=== PATIENT | male | born 1990 | race Caucasian/White ===

== ENCOUNTER 2016-08-08 12:58 | Emergency (ER) | payer BC ==
[~2016-08-08 12:58] MED LIST: No Historical Meds; UNIS50CA PO; ZOLO100T PO; no home medications
[2016-08-08 14:44] LABS: BASO % 0.6 % (0.0-1.0); EOS # 0.2 K/mm3 (0.0-0.50); LARGE UNSTAINED CELL # 0.2 K/mm3 (0.0-0.4); LARGE UNSTAINED CELL % 2.2 % (0.0-4.0); LYMPH # 1.5 K/mm3 (1.5-6.5); LYMPH % 19.8 % (24.0-44.0); MEAN CORPUSCULAR HEMOGLOBIN 31.8 pg (27.0-33.0); MEAN CORPUSCULAR HGB CONC 34.5 g/dl (32.0-36.5); MONO # 0.5 K/mm3 (0.0-0.8); MONO % 6.6 % (0.0-5.0); NEUTROPHILS % 68.8 % (36.0-66.0); PLATELET COUNT, AUTOMATED 289 k/mm3 (150-450); RED CELL DISTRIBUTION WIDTH 12.7 % (11.5-14.5); WHITE BLOOD COUNT 7.3 K/mm3 (4.0-10.0)
[2016-08-08 15:08] LABS: ALBUMIN/GLOBULIN RATIO 1.18 (1.00-1.93); ALKALINE PHOSPHATASE 84 U/L (45-117); ALT/SGPT 28 U/L (12-78); ANION GAP 8 MEQ/L (8-16); AST/SGOT 14 U/L (15-37); BILIRUBIN,TOTAL 0.3 MG/DL (0.2-1.0); BLOOD UREA NITROGEN 9 MG/DL (7-18); CALCIUM LEVEL 8.6 MG/DL (8.5-10.1); CARBON DIOXIDE LEVEL 31 MEQ/L (21-32); CHLORIDE LEVEL 102 MEQ/L (98-107); CREATININE FOR GFR 0.96 MG/DL (0.70-1.30); GLOMERULAR FILTRATION RATE > 60.0 (>60); GLUCOSE, FASTING 89 MG/DL (70-105); POTASSIUM SERUM 5.1 MEQ/L (3.5-5.1); SODIUM LEVEL 141 MEQ/L (136-145); TOTAL PROTEIN 7.4 GM/DL (6.4-8.2)
--- NOTE | 2016-08-08 15:41 | EDDOCDS ---
Physician Documentation [facility] Name: Manuel Ponce Age: 25 yrs Sex: Male : 1990 Arrival Date: 08/08/2016 Time: 12:58 Bed PR Private MD: No Pcp Disposition: 08/08/16 15:29 Discharged to Home/Self Care. Impression: Chest pain, unspecified - suspect esophagitis, Tobacco abuse counseling. - Condition is Stable. - Discharge Instructions: Nonspecific Chest Pain, Esophagitis, Smoking Hazards, Smoking Cessation, Tips For Success. - Prescriptions for Carafate 1 gram Oral Tablet - take 2 tablet by ORAL route every 12 hours take on an empty stomach, beginning on waking and last dose at bedtime; 100 tablet. - Medication Reconciliation, Local Pharmacy Hours form. - [facility] up: [facility]; When: Call to arrange an appointment; Reason: Further diagnostic work-up, Recheck today's complaints, Continuance of care. - Problem is new. - Symptoms are unchanged. Historical: - Allergies: no known allergies; - Home Meds: 1. none - PMHx: none; - PSHx: right nephrectomy; Appendectomy; - Social history: Smoking status: Patient uses tobacco products, current every day smoker. No barriers to communication noted, The patient speaks fluent [place] Citizen, Speaks appropriately for age. - Family history: Not pertinent. - : The pt / caregiver states he / she is not on anticoagulants. Home medication list is obtained from the patient. - Exposure Risk Screening:: None identified. Vital Signs: 08/08 13:00 BP 134 / 85; Pulse 89; Resp 16; Temp 96.9; Pulse Ox 100% ; Weight 83.91 kg / 184.99 cmb lbs; Height 6 ft. 2 in. (187.96 cm); Pain 4/10; 15:34 BP 129 / 78; Pulse 86; Resp 16; Temp 98.1; Pulse Ox 98% on R/A; Pain 2/10; ttb 13:00 Body Mass Index 23.75 (83.91 kg, 187.96 cm) cmb MDM: 13:05 ECG WITH READING ER PHYS+CARDIAG ordered. EDMS 14:26 Cardiac Marker Panel Ordered. EDMS 14:26 CBC with Diff Ordered. EDMS 14:27 Complete Comphrensive Metabolic Ordered. EDMS 15:13 CBC with Diff Reviewed. btw 15:13 Complete Comphrensive Metabolic Reviewed. btw 15:13 Cardiac Marker Panel Reviewed. btw Signatures: Dispatcher [employer] EDMS Lydia Magallanes, RN RN Ruben St PA PA btw Patrica Booker RN RN ttb MTDD
--- NOTE | 2016-08-08 15:42 | EDDOCDS ---
Nurse's Notes [facility] Name: Manuel Ponce Age: 25 yrs Sex: Male : 1990 Arrival Date: 08/08/2016 Time: 12:58 Bed PR Private MD: No Pcp Diagnosis: Chest pain, unspecified-suspect esophagitis;Tobacco abuse counseling Presentation: 08/08 13:01 Presenting complaint: Patient states: mid chest tightness for an hour. pain earlier srm today but now tightness. no cough or cold symptoms. pain did not radiate. Aspirin was not taken prior to arrival. Adult Sepsis Screening: The patient does not have new or worsening altered mentation. Patient's respiratory rate is less than 22. Systolic blood pressure is greater than 100. Patient has a qSOFA score of 0- Negative Sepsis Screen. Suicide/Homicide risk assessment- the patient denies having any suicidal and/or homicidal ideations and does not present with any other emotional, behavioral or mental health complaints. 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 Transition of care: patient was not received from another setting of care. 13:01 Method Of Arrival: Walkin/Carried/Asstd srm 13:01 Acuity: YVETTE Level 3 srm Triage Assessment: 13:03 General: Appears in no apparent distress, Behavior is appropriate for age, cooperative. srm 13:04 Pain: Pain currently is 4 out of 10 on a pain scale. HIV screening NA for this visit srm Offered previously. Cardiovascular: Chest pain is described as Pain is 4 out of 10 on a pain scale. radiates Does not radiate. episodes are continuous began 1 hour prior to arrival. Historical: - Allergies: no known allergies; - Home Meds: 1. none - PMHx: none; - PSHx: right nephrectomy; Appendectomy; - Social history: Smoking status: Patient uses tobacco products, current every day smoker. No barriers to communication noted, The patient speaks fluent Tajik, Speaks appropriately for age. - Family history: Not pertinent. - : The pt / caregiver states he / she is not on anticoagulants. Home medication list is obtained from the patient. - Exposure Risk Screening:: None identified. Screenin:38 Screening information is obtained from the patient. Fall risk: No risks identified. ttb Assistance ADL's: requires no assistance with activities of daily living. Abuse/DV Screen: The patient / caregiver reports he/she is: not in a situation that causes fear, pain or injury. Nutritional screening: No deficits noted. Advance Directives: Currently, there is no health care proxy. home support is adequate. Assessment: 15:38 General: Appears in no apparent distress, well nourished, well groomed, Behavior is ttb appropriate for age, cooperative, pleasant. Pain: Location: mid chest. Neurological: Level of Consciousness is awake, alert. Cardiovascular: Rhythm is see EKG report Chest pain minimal now.. Respiratory: No deficits noted. Airway is patent Respiratory effort is even, unlabored, Denies cough, shortness of breath labored breathing, pain with respiration. GI: Denies nausea, vomiting, pain. Derm: Skin is normal. 15:38 Injury Description: No known injury. ttb Vital Signs: 13:00 BP 134 / 85; Pulse 89; Resp 16; Temp 96.9; Pulse Ox 100% ; Weight 83.91 kg; Height 6 cmb ft. 2 in. (187.96 cm); Pain 4/10; 15:34 BP 129 / 78; Pulse 86; Resp 16; Temp 98.1; Pulse Ox 98% on R/A; Pain 2/10; ttb 13:00 Body Mass Index 23.75 (83.91 kg, 187.96 cm) cmb Vitals: 13:00 Log In Time: August 08, 2016 at 12:58. cmb ED Course: 13:00 Patient visited by Elissa Izaguirre. cmb 13:00 Patient moved to Waiting cmb 13:01 Patient moved to Pre RCE cmb 13:02 No Pcp is Private Physician. cmb 13:02 Triage Initiated srm 13:04 Patient moved to PR2 / 26 srm 13:09 EKG done. (by ED staff). Reviewed by Joyce Fitzpatrick MD. ct3 13:11 Patient visited by Eloise Grullon PCA. ct3 13:11 Patient moved to Pre RCE ct3 13:11 EKG done. (by ED staff). Reviewed by Joyce Fitzpatrick MD pt's c/o and ekg srm discussed with dr beto brush thru RCE process. 13:57 Patient moved to Triage 3 ct3 14:10 Ruben Toney PA is PHCP. btw 14:10 Joyce Fitzpatrick MD is Attending Physician. btw 14:15 Patient visited by Ruben Toney PA. btw 14:30 Patient moved to TR1 ct3 14:30 Patient moved to PR2 / 26 ttb 14:30 Complete Comphrensive Metabolic Sent. ct3 14:30 CBC with Diff Sent. ct3 14:30 Cardiac Marker Panel Sent. ct3 15:28 [facility] is Referral Physician. btw 15:38 The patient / caregiver is instructed regarding the plan of care and ED course. Patient ttb has correct armband on for positive identification. EKG completed. 15:38 No IV's were initiated during this patient's visit. No procedures done that require ttb assistance. Labs drawn. (by ED staff). Order Results: Lab Order: Cardiac Marker Panel; SPEC'M 08/08/16 14:30 Test: CPK CREATINE PHOSPHOKINASE; Value: 40; Range: 39-308; Units: U/L; Status: F Test: CK-MB VALUE MASS; Value: 1.0; Range: 0.0-3.6; Units: NG/ML; Status: F Test: MB/CK RELATIVE INDEX; Value: 2.50; Range: < OR =4; Status: F Test: TROPONIN I; Value: < 0.02; Range: < 0.10; Units: NG/ML; Status: F Test Note: ; DIAGNOSIS CRITERIA MMB ng/ml Relative Index (RI) NON-AMI < or = 5 N/A [place]ONE > 5 < or = 4 AMI > 5 > 4 Lab Order: CBC with Diff; SPEC'M 08/08/16 14:30 Test: WHITE BLOOD COUNT; Value: 7.3; Range: 4.0-10.0; Units: K/mm3; Status: F Test: RED BLOOD COUNT; Value: 4.80; Range: 4.30-6.10; Units: M/mm3; Status: F Test: HEMOGLOBIN; Value: 15.3; Range: 14.0-18.0; Units: g/dl; Status: F Test: HEMATOCRIT; Value: 44.2; Range: 42.0-52.0; Units: %; Status: F Test: MEAN CORPUSCULAR VOLUME; Value: 92.0; Range: 80.0-96.0; Units: fl; Status: F Test: MEAN CORPUSCULAR HEMOGLOBIN; Value: 31.8; Range: 27.0-33.0; Units: pg; Status: F Test: MEAN CORPUSCULAR HGB CONC; Value: 34.5; Range: 32.0-36.5; Units: g/dl; Status: F Test: RED CELL DISTRIBUTION WIDTH; Value: 12.7; Range: 11.5-14.5; Units: %; Status: F Test: PLATELET COUNT, AUTOMATED; Value: 289; Range: 150-450; Units: k/mm3; Status: F Test: NEUTROPHILS %; Value: 68.8; Range: 36.0-66.0; Abnormal: Above high normal; Units: %; Status: F Test: LYMPH %; Value: 19.8; Range: 24.0-44.0; Abnormal: Below low normal; Units: %; Status: F Test: MONO %; Value: 6.6; Range: 0.0-5.0; Abnormal: Above high normal; Units: %; Status: F Test: EOS %; Value: 2.0; Range: 0.0-3.0; Units: %; Status: F Test: BASO %; Value: 0.6; Range: 0.0-1.0; Units: %; Status: F Test: LARGE UNSTAINED CELL %; Value: 2.2; Range: 0.0-4.0; Units: %; Status: F Test: NEUTROPHILS #; Value: 5.0; Range: 1.8-7.7; Units: K/mm3; Status: F Test: LYMPH #; Value: 1.5; Range: 1.5-6.5; Units: K/mm3; Status: F Test: MONO #; Value: 0.5; Range: 0.0-0.8; Units: K/mm3; Status: F Test: EOS #; Value: 0.2; Range: 0.0-0.50; Units: K/mm3; Status: F Test: BASO #; Value: 0.0; Range: 0.0-0.2; Units: K/mm3; Status: F Test: LARGE UNSTAINED CELL #; Value: 0.2; Range: 0.0-0.4; Units: K/mm3; Status: F Lab Order: Complete Comphrensive Metabolic; SPEC'M 08/08/16 14:30 Test: GLUCOSE, FASTING; Value: 89; Range: 70-105; Units: MG/DL; Status: F Test: BLOOD UREA NITROGEN; Value: 9; Range: 7-18; Units: MG/DL; Status: F Test: CREATININE FOR GFR; Value: 0.96; Range: 0.70-1.30; Units: MG/DL; Status: F Test: GLOMERULAR FILTRATION RATE; Value: > 60.0; Range: >60; Status: F Test: SODIUM LEVEL; Value: 141; Range: 136-145; Units: MEQ/L; Status: F Test: POTASSIUM SERUM; Value: 5.1; Range: 3.5-5.1; Units: MEQ/L; Status: F Test: CHLORIDE LEVEL; Value: 102; Range: 98-107; Units: MEQ/L; Status: F Test: CARBON DIOXIDE LEVEL; Value: 31; Range: 21-32; Units: MEQ/L; Status: F Test: ANION GAP; Value: 8; Range: 8-16; Units: MEQ/L; Status: F Test: CALCIUM LEVEL; Value: 8.6; Range: 8.5-10.1; Units: MG/DL; Status: F Test: AST/SGOT; Value: 14; Range: 15-37; Abnormal: Below low normal; Units: U/L; Status: F Test: ALT/SGPT; Value: 28; Range: 12-78; Units: U/L; Status: F Test: ALKALINE PHOSPHATASE; Value: 84; Range: 45-117; Units: U/L; Status: F Test: BILIRUBIN,TOTAL; Value: 0.3; Range: 0.2-1.0; Units: MG/DL; Status: F Test: TOTAL PROTEIN; Value: 7.4; Range: 6.4-8.2; Units: GM/DL; Status: F Test: ALBUMIN; Value: 4.0; Range: 3.2-5.2; Units: GM/DL; Status: F Test: ALBUMIN/GLOBULIN RATIO; Value: 1.18; Range: 1.00-1.93; Status: F Test Note: ; Units are mL/min/1.73 m2 Chronic Kidney Disease Staging per NKF: Stage I & II GFR >=60 Normal to Mildly Decreased Stage III GFR 30-59 Moderately Decreased Stage IV GFR 15-29 Severely Decreased Stage V GFR <15 Very Little GFR Left ESRD GFR <15 on MEDICATION ADMINISTRATION PROFESSIONAL Outcome: 15:29 Discharge ordered by Provider. btw 15:38 Discharge Assessment: Patient awake, alert and oriented x 3. No cognitive and/or ttb functional deficits noted. Patient verbalized understanding of disposition instructions. Patient awake and alert. patient administered narcotics - no. The following High Risk Discharge criteria are identified: None. Discharged to home ambulatory. Condition: good Condition: stable Condition: improved. Discharge instructions given to patient, Instructed on discharge instructions, follow up and referral plans. medication usage, diet, Demonstrated understanding of instructions, medications, meds, decrease acidic foods Pt was receptive of discharge instructions/ teaching. Prescriptions given X 1. No special radiology studies were completed. Property :Personal belongings accompany Pt. 15:40 Patient left the ED. ttb Signatures: Lydia Magallanes, RN RN Ruben St, CHRIS PA btw Eloise Grullon, AIR CONDITIONING TECHNICIAN AIR CONDITIONING TECHNICIAN ct3 Bridgett, Elissa cmb Patrica Booker RN RN ttb Corrections: (The following items were deleted from the chart) 13:01 13:00 BP 134 / 85; Pulse 89bpm; Resp 10bpm; Pulse Ox 100%; Temp 96.9F; 83.91 kg; Height cmb 6 ft. 2 in.; BMI: 23.7; Pain 4/10; cmb MTDD
--- NOTE | 2016-08-08 20:02 | ECGEPIP ---
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
[2016-08-09] MEDS ORDERED: METAL LOCK LOOP XX ONE (13:44)
--- NOTE | 2016-08-10 16:42 | EDDOCDS ---
Physician Documentation [facility] Name: Manuel Ponce Age: 25 yrs Sex: Male : 1990 Arrival Date: 08/08/2016 Time: 12:58 Bed PR Private MD: No Pcp Disposition: 08/08/16 15:29 Discharged to Home/Self Care. Impression: Chest pain, unspecified - suspect esophagitis, Tobacco abuse counseling. - Condition is Stable. - Discharge Instructions: Nonspecific Chest Pain, Esophagitis, Smoking Hazards, Smoking Cessation, Tips For Success. - Prescriptions for Carafate 1 gram Oral Tablet - take 2 tablet by ORAL route every 12 hours take on an empty stomach, beginning on waking and last dose at bedtime; 100 tablet. - Medication Reconciliation, Local Pharmacy Hours form. - Follow up: [facility]; When: Call to arrange an appointment; Reason: Further diagnostic work-up, Recheck today's complaints, Continuance of care. - Problem is new. - Symptoms are unchanged. Historical: - Allergies: no known allergies; - Home Meds: 1. none - PMHx: none; - PSHx: right nephrectomy; Appendectomy; - Social history: Smoking status: Patient uses tobacco products, current every day smoker. No barriers to communication noted, The patient speaks fluent Mongolian, Speaks appropriately for age. - Family history: Not pertinent. - : The pt / caregiver states he / she is not on anticoagulants. Home medication list is obtained from the patient. - Exposure Risk Screening:: None identified. Vital Signs: 08/08 13:00 BP 134 / 85; Pulse 89; Resp 16; Temp 96.9; Pulse Ox 100% ; Weight 83.91 kg / 184.99 cmb lbs; Height 6 ft. 2 in. (187.96 cm); Pain 4/10; 15:34 BP 129 / 78; Pulse 86; Resp 16; Temp 98.1; Pulse Ox 98% on R/A; Pain 2/10; ttb 13:00 Body Mass Index 23.75 (83.91 kg, 187.96 cm) cmb MDM: 13:05 ECG WITH READING ER PHYS+CARDIAG ordered. EDMS 14:26 Cardiac Marker Panel Ordered. EDMS 14:26 CBC with Diff Ordered. EDMS 14:27 Complete Comphrensive Metabolic Ordered. EDMS 15:13 CBC with Diff Reviewed. btw 15:13 Complete Comphrensive Metabolic Reviewed. btw 15:13 Cardiac Marker Panel Reviewed. btw 08/10 08:16 T-Sheet-- Draft Copy was scanned into [employer] and attached to record. gb 10:58 [facility] Payment Agreement was scanned into [employer] and attached to record. lg Signatures: Dispatcher [employer] EDMS Lydia Magallanes, TRAVIS RN srm Kathia Jeronimo, Reg Reg gb Suzanna Zapata, Reg Reg lg Ruben Toney PA PA btw Patrica Booker RN RN ttb The chart was reviewed and I authenticate all verbal orders and agree with the evaluation and treatment provided.Attachments: 08:16 T-Sheet-- Draft Copy gb 10:58 [facility] Payment Agreement lg Chart Complete MTDD
--- NOTE | 2016-08-10 16:42 | EDDOCDS ---
Physician Documentation [facility] Name: Manuel Ponce Age: 25 yrs Sex: Male : 1990 Arrival Date: 08/08/2016 Time: 12:58 Bed PR Private MD: No Pcp Disposition: 08/08/16 15:29 Discharged to Home/Self Care. Impression: Chest pain, unspecified - suspect esophagitis, Tobacco abuse counseling. - Condition is Stable. - Discharge Instructions: Nonspecific Chest Pain, Esophagitis, Smoking Hazards, Smoking Cessation, Tips For Success. - Prescriptions for Carafate 1 gram Oral Tablet - take 2 tablet by ORAL route every 12 hours take on an empty stomach, beginning on waking and last dose at bedtime; 100 tablet. - Medication Reconciliation, Local Pharmacy Hours form. - Follow up: [facility]; When: Call to arrange an appointment; Reason: Further diagnostic work-up, Recheck today's complaints, Continuance of care. - Problem is new. - Symptoms are unchanged. Historical: - Allergies: no known allergies; - Home Meds: 1. none - PMHx: none; - PSHx: right nephrectomy; Appendectomy; - Social history: Smoking status: Patient uses tobacco products, current every day smoker. No barriers to communication noted, The patient speaks fluent Martiniquais, Speaks appropriately for age. - Family history: Not pertinent. - : The pt / caregiver states he / she is not on anticoagulants. Home medication list is obtained from the patient. - Exposure Risk Screening:: None identified. Vital Signs: 08/08 13:00 BP 134 / 85; Pulse 89; Resp 16; Temp 96.9; Pulse Ox 100% ; Weight 83.91 kg / 184.99 cmb lbs; Height 6 ft. 2 in. (187.96 cm); Pain 4/10; 15:34 BP 129 / 78; Pulse 86; Resp 16; Temp 98.1; Pulse Ox 98% on R/A; Pain 2/10; ttb 13:00 Body Mass Index 23.75 (83.91 kg, 187.96 cm) cmb MDM: 13:05 ECG WITH READING ER PHYS+CARDIAG ordered. EDMS 14:26 Cardiac Marker Panel Ordered. EDMS 14:26 CBC with Diff Ordered. EDMS 14:27 Complete Comphrensive Metabolic Ordered. EDMS 15:13 CBC with Diff Reviewed. btw 15:13 Complete Comphrensive Metabolic Reviewed. btw 15:13 Cardiac Marker Panel Reviewed. btw 08/10 08:16 T-Sheet-- Draft Copy was scanned into 24h[employer] and attached to record. gb 10:58 [facility] Payment Agreement was scanned into 24h[employer] and attached to record. lg Signatures: Dispatcher [employer] EDMS Lydia Magallanes, TRAVIS RN srm Kathia Jeronimo, Reg Reg gb Suzanna Zapata, Reg Reg lg Ruben Toney PA PA btw Patrica Booker RN RN ttb The chart was reviewed and I authenticate all verbal orders and agree with the evaluation and treatment provided.Attachments: 08:16 T-Sheet-- Draft Copy gb 10:58 [facility] Payment Agreement lg Chart Complete MTDD
--- NOTE | 2016-08-10 16:42 | EDDOCDS ---
Nurse's Notes [facility] Name: Manuel Bustamante Age: 25 yrs Sex: Male : 1990 Arrival Date: 08/08/2016 Time: 12:58 Bed PR Private MD: No Pcp Diagnosis: Chest pain, unspecified-suspect esophagitis;Tobacco abuse counseling Presentation: 08/08 13:01 Presenting complaint: Patient states: mid chest tightness for an hour. pain earlier srm today but now tightness. no cough or cold symptoms. pain did not radiate. Aspirin was not taken prior to arrival. Adult Sepsis Screening: The patient does not have new or worsening altered mentation. Patient's respiratory rate is less than 22. Systolic blood pressure is greater than 100. Patient has a qSOFA score of 0- Negative Sepsis Screen. Suicide/Homicide risk assessment- the patient denies having any suicidal and/or homicidal ideations and does not present with any other emotional, behavioral or mental health complaints. 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 Transition of care: patient was not received from another setting of care. 13:01 Method Of Arrival: Walkin/Carried/Asstd srm 13:01 Acuity: YVETTE Level 3 srm Triage Assessment: 13:03 General: Appears in no apparent distress, Behavior is appropriate for age, cooperative. srm 13:04 Pain: Pain currently is 4 out of 10 on a pain scale. HIV screening NA for this visit srm Offered previously. Cardiovascular: Chest pain is described as Pain is 4 out of 10 on a pain scale. radiates Does not radiate. episodes are continuous began 1 hour prior to arrival. Historical: - Allergies: no known allergies; - Home Meds: 1. none - PMHx: none; - PSHx: right nephrectomy; Appendectomy; - Social history: Smoking status: Patient uses tobacco products, current every day smoker. No barriers to communication noted, The patient speaks fluent Faroese, Speaks appropriately for age. - Family history: Not pertinent. - : The pt / caregiver states he / she is not on anticoagulants. Home medication list is obtained from the patient. - Exposure Risk Screening:: None identified. Screenin:38 Screening information is obtained from the patient. Fall risk: No risks identified. ttb Assistance ADL's: requires no assistance with activities of daily living. Abuse/DV Screen: The patient / caregiver reports he/she is: not in a situation that causes fear, pain or injury. Nutritional screening: No deficits noted. Advance Directives: Currently, there is no health care proxy. home support is adequate. Assessment: 15:38 General: Appears in no apparent distress, well nourished, well groomed, Behavior is ttb appropriate for age, cooperative, pleasant. Pain: Location: mid chest. Neurological: Level of Consciousness is awake, alert. Cardiovascular: Rhythm is see EKG report Chest pain minimal now.. Respiratory: No deficits noted. Airway is patent Respiratory effort is even, unlabored, Denies cough, shortness of breath labored breathing, pain with respiration. GI: Denies nausea, vomiting, pain. Derm: Skin is normal. 15:38 Injury Description: No known injury. ttb Vital Signs: 13:00 BP 134 / 85; Pulse 89; Resp 16; Temp 96.9; Pulse Ox 100% ; Weight 83.91 kg; Height 6 cmb ft. 2 in. (187.96 cm); Pain 4/10; 15:34 BP 129 / 78; Pulse 86; Resp 16; Temp 98.1; Pulse Ox 98% on R/A; Pain 2/10; ttb 13:00 Body Mass Index 23.75 (83.91 kg, 187.96 cm) cmb Vitals: 13:00 Log In Time: August 08, 2016 at 12:58. cmb ED Course: 13:00 Patient visited by Elissa Izaguirre. cmb 13:00 Patient moved to Waiting cmb 13:01 Patient moved to Pre RCE cmb 13:02 No Pcp is Private Physician. cmb 13:02 Triage Initiated srm 13:04 Patient moved to PR2 / 26 srm 13:09 EKG done. (by ED staff). Reviewed by Joyce Fitzpatrick MD. ct3 13:11 Patient visited by Eloise Grullon PCA. ct3 13:11 Patient moved to Pre RCE ct3 13:11 EKG done. (by ED staff). Reviewed by Joyce Fitzpatrick MD pt's c/o and ekg srm discussed with dr beto brush thru RCE process. 13:57 Patient moved to Triage 3 ct3 14:10 Ruben Toney PA is PHCP. btw 14:10 Joyce Fitzpatrick MD is Attending Physician. btw 14:15 Patient visited by Ruben Toney PA. btw 14:30 Patient moved to TR1 ct3 14:30 Patient moved to PR2 / 26 ttb 14:30 Complete Comphrensive Metabolic Sent. ct3 14:30 CBC with Diff Sent. ct3 14:30 Cardiac Marker Panel Sent. ct3 15:28 [facility] is Referral Physician. btw 15:38 The patient / caregiver is instructed regarding the plan of care and ED course. Patient ttb has correct armband on for positive identification. EKG completed. 15:38 No IV's were initiated during this patient's visit. No procedures done that require ttb assistance. Labs drawn. (by ED staff). 20:06 EKG-ADULT Returned. EDMS 01 08:16 T-Sheet-- Draft Copy was scanned into [employer] and attached to record. 10:58 Patient name changed from Manuel\S\\S\Bustamante\S\ to Manuel\S\Sav\S\Bustamante. EDMS 10:58 [facility] Payment Agreement was scanned into [employer] and attached to record. lg Order Results: Lab Order: Cardiac Marker Panel; SPEC'M 08/08/16 14:30 Test: CPK CREATINE PHOSPHOKINASE; Value: 40; Range: 39-308; Units: U/L; Status: F Test: CK-MB VALUE MASS; Value: 1.0; Range: 0.0-3.6; Units: NG/ML; Status: F Test: MB/CK RELATIVE INDEX; Value: 2.50; Range: < OR =4; Status: F Test: TROPONIN I; Value: < 0.02; Range: < 0.10; Units: NG/ML; Status: F Test Note: ; DIAGNOSIS CRITERIA MMB ng/ml Relative Index (RI) NON-AMI < or = 5 N/A FLORES ZONE > 5 < or = 4 AMI > 5 > 4 Lab Order: CBC with Diff; SPEC'M 08/08/16 14:30 Test: WHITE BLOOD COUNT; Value: 7.3; Range: 4.0-10.0; Units: K/mm3; Status: F Test: RED BLOOD COUNT; Value: 4.80; Range: 4.30-6.10; Units: M/mm3; Status: F Test: HEMOGLOBIN; Value: 15.3; Range: 14.0-18.0; Units: g/dl; Status: F Test: HEMATOCRIT; Value: 44.2; Range: 42.0-52.0; Units: %; Status: F Test: MEAN CORPUSCULAR VOLUME; Value: 92.0; Range: 80.0-96.0; Units: fl; Status: F Test: MEAN CORPUSCULAR HEMOGLOBIN; Value: 31.8; Range: 27.0-33.0; Units: pg; Status: F Test: MEAN CORPUSCULAR HGB CONC; Value: 34.5; Range: 32.0-36.5; Units: g/dl; Status: F Test: RED CELL DISTRIBUTION WIDTH; Value: 12.7; Range: 11.5-14.5; Units: %; Status: F Test: PLATELET COUNT, AUTOMATED; Value: 289; Range: 150-450; Units: k/mm3; Status: F Test: NEUTROPHILS %; Value: 68.8; Range: 36.0-66.0; Abnormal: Above high normal; Units: %; Status: F Test: LYMPH %; Value: 19.8; Range: 24.0-44.0; Abnormal: Below low normal; Units: %; Status: F Test: MONO %; Value: 6.6; Range: 0.0-5.0; Abnormal: Above high normal; Units: %; Status: F Test: EOS %; Value: 2.0; Range: 0.0-3.0; Units: %; Status: F Test: BASO %; Value: 0.6; Range: 0.0-1.0; Units: %; Status: F Test: LARGE UNSTAINED CELL %; Value: 2.2; Range: 0.0-4.0; Units: %; Status: F Test: NEUTROPHILS #; Value: 5.0; Range: 1.8-7.7; Units: K/mm3; Status: F Test: LYMPH #; Value: 1.5; Range: 1.5-6.5; Units: K/mm3; Status: F Test: MONO #; Value: 0.5; Range: 0.0-0.8; Units: K/mm3; Status: F Test: EOS #; Value: 0.2; Range: 0.0-0.50; Units: K/mm3; Status: F Test: BASO #; Value: 0.0; Range: 0.0-0.2; Units: K/mm3; Status: F Test: LARGE UNSTAINED CELL #; Value: 0.2; Range: 0.0-0.4; Units: K/mm3; Status: F Lab Order: Complete Comphrensive Metabolic; SPEC'M 08/08/16 14:30 Test: GLUCOSE, FASTING; Value: 89; Range: 70-105; Units: MG/DL; Status: F Test: BLOOD UREA NITROGEN; Value: 9; Range: 7-18; Units: MG/DL; Status: F Test: CREATININE FOR GFR; Value: 0.96; Range: 0.70-1.30; Units: MG/DL; Status: F Test: GLOMERULAR FILTRATION RATE; Value: > 60.0; Range: >60; Status: F Test: SODIUM LEVEL; Value: 141; Range: 136-145; Units: MEQ/L; Status: F Test: POTASSIUM SERUM; Value: 5.1; Range: 3.5-5.1; Units: MEQ/L; Status: F Test: CHLORIDE LEVEL; Value: 102; Range: 98-107; Units: MEQ/L; Status: F Test: CARBON DIOXIDE LEVEL; Value: 31; Range: 21-32; Units: MEQ/L; Status: F Test: ANION GAP; Value: 8; Range: 8-16; Units: MEQ/L; Status: F Test: CALCIUM LEVEL; Value: 8.6; Range: 8.5-10.1; Units: MG/DL; Status: F Test: AST/SGOT; Value: 14; Range: 15-37; Abnormal: Below low normal; Units: U/L; Status: F Test: ALT/SGPT; Value: 28; Range: 12-78; Units: U/L; Status: F Test: ALKALINE PHOSPHATASE; Value: 84; Range: 45-117; Units: U/L; Status: F Test: BILIRUBIN,TOTAL; Value: 0.3; Range: 0.2-1.0; Units: MG/DL; Status: F Test: TOTAL PROTEIN; Value: 7.4; Range: 6.4-8.2; Units: GM/DL; Status: F Test: ALBUMIN; Value: 4.0; Range: 3.2-5.2; Units: GM/DL; Status: F Test: ALBUMIN/GLOBULIN RATIO; Value: 1.18; Range: 1.00-1.93; Status: F Test Note: ; Units are mL/min/1.73 m2 Chronic Kidney Disease Staging per NKF: Stage I & II GFR >=60 Normal to Mildly Decreased Stage III GFR 30-59 Moderately Decreased Stage IV GFR 15-29 Severely Decreased Stage V GFR <15 Very Little GFR Left ESRD GFR <15 on PEDIGREE TRACER Radiology Order: EKG-ADULT Test: EKG-ADULT REASON FOR EXAMINATION: chest tightness; Stationary ECG Study; [facility] - ED; ; Test Date: 2016-08-08; Pat Name: MANUEL BUSTAMANTE Department:; Room: -; 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 btw 15:38 Discharge Assessment: Patient awake, alert and oriented x 3. No cognitive and/or ttb functional deficits noted. Patient verbalized understanding of disposition instructions. Patient awake and alert. patient administered narcotics - no. The following High Risk Discharge criteria are identified: None. Discharged to home ambulatory. Condition: good Condition: stable Condition: improved. Discharge instructions given to patient, Instructed on discharge instructions, follow up and referral plans. medication usage, diet, Demonstrated understanding of instructions, medications, meds, decrease acidic foods Pt was receptive of discharge instructions/ teaching. Prescriptions given X 1. No special radiology studies were completed. Property :Personal belongings accompany Pt. 15:40 Patient left the ED. ttb Signatures: Dispatcher [employer] EDMS Lydia Magallanes, RN RN srm Heladiobimal, Kathia, Reg Reg gb Suzanna Zapata, Reg Reg lg Ruben Toney PA PA btw Eloise Grullon, BANKRUPTCY JUDGE BANKRUPTCY JUDGE ct3 Will Izaguirrea cmb Patrica Booker, TRAVIS RN ttb Corrections: (The following items were deleted from the chart) 13:01 13:00 BP 134 / 85; Pulse 89bpm; Resp 10bpm; Pulse Ox 100%; Temp 96.9F; 83.91 kg; Height cmb 6 ft. 2 in.; BMI: 23.7; Pain 4/10; cmb Chart Complete MTDD
--- NOTE | 2016-08-12 13:48 | EDDOCDS ---
Nurse's Notes [facility] Name: Manuel Bustamante Age: 25 yrs Sex: Male : 1990 Arrival Date: 08/08/2016 Time: 12:58 Bed PR Private MD: No Pcp Diagnosis: Chest pain, unspecified-suspect esophagitis;Tobacco abuse counseling Presentation: 08/08 13:01 Presenting complaint: Patient states: mid chest tightness for an hour. pain earlier srm today but now tightness. no cough or cold symptoms. pain did not radiate. Aspirin was not taken prior to arrival. Adult Sepsis Screening: The patient does not have new or worsening altered mentation. Patient's respiratory rate is less than 22. Systolic blood pressure is greater than 100. Patient has a qSOFA score of 0- Negative Sepsis Screen. Suicide/Homicide risk assessment- the patient denies having any suicidal and/or homicidal ideations and does not present with any other emotional, behavioral or mental health complaints. 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 Transition of care: patient was not received from another setting of care. 13:01 Method Of Arrival: Walkin/Carried/Asstd srm 13:01 Acuity: YVETTE Level 3 srm Triage Assessment: 13:03 General: Appears in no apparent distress, Behavior is appropriate for age, cooperative. srm 13:04 Pain: Pain currently is 4 out of 10 on a pain scale. HIV screening NA for this visit srm Offered previously. Cardiovascular: Chest pain is described as Pain is 4 out of 10 on a pain scale. radiates Does not radiate. episodes are continuous began 1 hour prior to arrival. Historical: - Allergies: no known allergies; - Home Meds: 1. none - PMHx: none; - PSHx: right nephrectomy; Appendectomy; - Social history: Smoking status: Patient uses tobacco products, current every day smoker. No barriers to communication noted, The patient speaks fluent Irish, Speaks appropriately for age. - Family history: Not pertinent. - : The pt / caregiver states he / she is not on anticoagulants. Home medication list is obtained from the patient. - Exposure Risk Screening:: None identified. Screenin:38 Screening information is obtained from the patient. Fall risk: No risks identified. ttb Assistance ADL's: requires no assistance with activities of daily living. Abuse/DV Screen: The patient / caregiver reports he/she is: not in a situation that causes fear, pain or injury. Nutritional screening: No deficits noted. Advance Directives: Currently, there is no health care proxy. home support is adequate. Assessment: 15:38 General: Appears in no apparent distress, well nourished, well groomed, Behavior is ttb appropriate for age, cooperative, pleasant. Pain: Location: mid chest. Neurological: Level of Consciousness is awake, alert. Cardiovascular: Rhythm is see EKG report Chest pain minimal now.. Respiratory: No deficits noted. Airway is patent Respiratory effort is even, unlabored, Denies cough, shortness of breath labored breathing, pain with respiration. GI: Denies nausea, vomiting, pain. Derm: Skin is normal. 15:38 Injury Description: No known injury. ttb Vital Signs: 13:00 BP 134 / 85; Pulse 89; Resp 16; Temp 96.9; Pulse Ox 100% ; Weight 83.91 kg; Height 6 cmb ft. 2 in. (187.96 cm); Pain 4/10; 15:34 BP 129 / 78; Pulse 86; Resp 16; Temp 98.1; Pulse Ox 98% on R/A; Pain 2/10; ttb 13:00 Body Mass Index 23.75 (83.91 kg, 187.96 cm) cmb Vitals: 13:00 Log In Time: August 08, 2016 at 12:58. cmb ED Course: 13:00 Patient visited by Elissa Izaguirre. cmb 13:00 Patient moved to Waiting cmb 13:01 Patient moved to Pre RCE cmb 13:02 No Pcp is Private Physician. cmb 13:02 Triage Initiated srm 13:04 Patient moved to PR2 / 26 srm 13:09 EKG done. (by ED staff). Reviewed by Joyce Fitzpatrick MD. ct3 13:11 Patient visited by Eloise Grullon PCA. ct3 13:11 Patient moved to Pre RCE ct3 13:11 EKG done. (by ED staff). Reviewed by Joyce Fitzpatrick MD pt's c/o and ekg srm discussed with dr beto brush thru RCE process. 13:57 Patient moved to Triage 3 ct3 14:10 Ruben Toney PA is PHCP. btw 14:10 Joyce Fitzpatrick MD is Attending Physician. btw 14:15 Patient visited by Ruben Toney PA. btw 14:30 Patient moved to TR1 ct3 14:30 Patient moved to PR2 / 26 ttb 14:30 Complete Comphrensive Metabolic Sent. ct3 14:30 CBC with Diff Sent. ct3 14:30 Cardiac Marker Panel Sent. ct3 15:28 [facility] is Referral Physician. btw 15:38 The patient / caregiver is instructed regarding the plan of care and ED course. Patient ttb has correct armband on for positive identification. EKG completed. 15:38 No IV's were initiated during this patient's visit. No procedures done that require ttb assistance. Labs drawn. (by ED staff). 20:06 EKG-ADULT Returned. EDMS 01 08:16 T-Sheet-- Draft Copy was scanned into [employer] and attached to record. 10:58 Patient name changed from Manuel\S\\S\Bustamante\S\ to Manuel\S\Sav\S\Bustamante. EDMS 10:58 [facility] Payment Agreement was scanned into [employer] and attached to record. lg Order Results: Lab Order: Cardiac Marker Panel; SPEC'M 08/08/16 14:30 Test: CPK CREATINE PHOSPHOKINASE; Value: 40; Range: 39-308; Units: U/L; Status: F Test: CK-MB VALUE MASS; Value: 1.0; Range: 0.0-3.6; Units: NG/ML; Status: F Test: MB/CK RELATIVE INDEX; Value: 2.50; Range: < OR =4; Status: F Test: TROPONIN I; Value: < 0.02; Range: < 0.10; Units: NG/ML; Status: F Test Note: ; DIAGNOSIS CRITERIA MMB ng/ml Relative Index (RI) NON-AMI < or = 5 N/A FLORES ZONE > 5 < or = 4 AMI > 5 > 4 Lab Order: CBC with Diff; SPEC'M 08/08/16 14:30 Test: WHITE BLOOD COUNT; Value: 7.3; Range: 4.0-10.0; Units: K/mm3; Status: F Test: RED BLOOD COUNT; Value: 4.80; Range: 4.30-6.10; Units: M/mm3; Status: F Test: HEMOGLOBIN; Value: 15.3; Range: 14.0-18.0; Units: g/dl; Status: F Test: HEMATOCRIT; Value: 44.2; Range: 42.0-52.0; Units: %; Status: F Test: MEAN CORPUSCULAR VOLUME; Value: 92.0; Range: 80.0-96.0; Units: fl; Status: F Test: MEAN CORPUSCULAR HEMOGLOBIN; Value: 31.8; Range: 27.0-33.0; Units: pg; Status: F Test: MEAN CORPUSCULAR HGB CONC; Value: 34.5; Range: 32.0-36.5; Units: g/dl; Status: F Test: RED CELL DISTRIBUTION WIDTH; Value: 12.7; Range: 11.5-14.5; Units: %; Status: F Test: PLATELET COUNT, AUTOMATED; Value: 289; Range: 150-450; Units: k/mm3; Status: F Test: NEUTROPHILS %; Value: 68.8; Range: 36.0-66.0; Abnormal: Above high normal; Units: %; Status: F Test: LYMPH %; Value: 19.8; Range: 24.0-44.0; Abnormal: Below low normal; Units: %; Status: F Test: MONO %; Value: 6.6; Range: 0.0-5.0; Abnormal: Above high normal; Units: %; Status: F Test: EOS %; Value: 2.0; Range: 0.0-3.0; Units: %; Status: F Test: BASO %; Value: 0.6; Range: 0.0-1.0; Units: %; Status: F Test: LARGE UNSTAINED CELL %; Value: 2.2; Range: 0.0-4.0; Units: %; Status: F Test: NEUTROPHILS #; Value: 5.0; Range: 1.8-7.7; Units: K/mm3; Status: F Test: LYMPH #; Value: 1.5; Range: 1.5-6.5; Units: K/mm3; Status: F Test: MONO #; Value: 0.5; Range: 0.0-0.8; Units: K/mm3; Status: F Test: EOS #; Value: 0.2; Range: 0.0-0.50; Units: K/mm3; Status: F Test: BASO #; Value: 0.0; Range: 0.0-0.2; Units: K/mm3; Status: F Test: LARGE UNSTAINED CELL #; Value: 0.2; Range: 0.0-0.4; Units: K/mm3; Status: F Lab Order: Complete Comphrensive Metabolic; SPEC'M 08/08/16 14:30 Test: GLUCOSE, FASTING; Value: 89; Range: 70-105; Units: MG/DL; Status: F Test: BLOOD UREA NITROGEN; Value: 9; Range: 7-18; Units: MG/DL; Status: F Test: CREATININE FOR GFR; Value: 0.96; Range: 0.70-1.30; Units: MG/DL; Status: F Test: GLOMERULAR FILTRATION RATE; Value: > 60.0; Range: >60; Status: F Test: SODIUM LEVEL; Value: 141; Range: 136-145; Units: MEQ/L; Status: F Test: POTASSIUM SERUM; Value: 5.1; Range: 3.5-5.1; Units: MEQ/L; Status: F Test: CHLORIDE LEVEL; Value: 102; Range: 98-107; Units: MEQ/L; Status: F Test: CARBON DIOXIDE LEVEL; Value: 31; Range: 21-32; Units: MEQ/L; Status: F Test: ANION GAP; Value: 8; Range: 8-16; Units: MEQ/L; Status: F Test: CALCIUM LEVEL; Value: 8.6; Range: 8.5-10.1; Units: MG/DL; Status: F Test: AST/SGOT; Value: 14; Range: 15-37; Abnormal: Below low normal; Units: U/L; Status: F Test: ALT/SGPT; Value: 28; Range: 12-78; Units: U/L; Status: F Test: ALKALINE PHOSPHATASE; Value: 84; Range: 45-117; Units: U/L; Status: F Test: BILIRUBIN,TOTAL; Value: 0.3; Range: 0.2-1.0; Units: MG/DL; Status: F Test: TOTAL PROTEIN; Value: 7.4; Range: 6.4-8.2; Units: GM/DL; Status: F Test: ALBUMIN; Value: 4.0; Range: 3.2-5.2; Units: GM/DL; Status: F Test: ALBUMIN/GLOBULIN RATIO; Value: 1.18; Range: 1.00-1.93; Status: F Test Note: ; Units are mL/min/1.73 m2 Chronic Kidney Disease Staging per NKF: Stage I & II GFR >=60 Normal to Mildly Decreased Stage III GFR 30-59 Moderately Decreased Stage IV GFR 15-29 Severely Decreased Stage V GFR <15 Very Little GFR Left ESRD GFR <15 on LOCKMAKER Radiology Order: EKG-ADULT Test: EKG-ADULT REASON FOR EXAMINATION: chest tightness; Stationary ECG Study; [facility] - ED; ; Test Date: 2016-08-08; Pat Name: MANUEL BUSTAMANTE Department:; Room: -; Gender: M 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 btw 15:38 Discharge Assessment: Patient awake, alert and oriented x 3. No cognitive and/or ttb functional deficits noted. Patient verbalized understanding of disposition instructions. Patient awake and alert. patient administered narcotics - no. The following High Risk Discharge criteria are identified: None. Discharged to home ambulatory. Condition: good Condition: stable Condition: improved. Discharge instructions given to patient, Instructed on discharge instructions, follow up and referral plans. medication usage, diet, Demonstrated understanding of instructions, medications, meds, decrease acidic foods Pt was receptive of discharge instructions/ teaching. Prescriptions given X 1. No special radiology studies were completed. Property :Personal belongings accompany Pt. 15:40 Patient left the ED. ttb Signatures: Dispatcher [employer] EDMS Lydia Magallanes, RN RN srm Heladiobimal, Kathia, Reg Reg gb Suzanna Zapata, Reg Reg lg Ruben Toney PA PA btw Eloise Grullon, CONVEYOR BELT REPAIRER CONVEYOR BELT REPAIRER ct3 Will Izaguirrea cmb Patrica Booker, TRAVIS RN ttb Corrections: (The following items were deleted from the chart) 13:01 13:00 BP 134 / 85; Pulse 89bpm; Resp 10bpm; Pulse Ox 100%; Temp 96.9F; 83.91 kg; Height cmb 6 ft. 2 in.; BMI: 23.7; Pain 4/10; cmb Chart Complete MTDD
--- NOTE | 2016-08-12 13:48 | EDDOCDS ---
Physician Documentation [facility] Name: Manuel Ponce Age: 25 yrs Sex: Male : 1990 Arrival Date: 08/08/2016 Time: 12:58 Bed PR Private MD: No Pcp Disposition: 08/08/16 15:29 Discharged to Home/Self Care. Impression: Chest pain, unspecified - suspect esophagitis, Tobacco abuse counseling. - Condition is Stable. - Discharge Instructions: Nonspecific Chest Pain, Esophagitis, Smoking Hazards, Smoking Cessation, Tips For Success. - Prescriptions for Carafate 1 gram Oral Tablet - take 2 tablet by ORAL route every 12 hours take on an empty stomach, beginning on waking and last dose at bedtime; 100 tablet. - Medication Reconciliation, Local Pharmacy Hours form. - [facility] up[facility]; When: Call to arrange an appointment; Reason: Further diagnostic work-up, Recheck today's complaints, Continuance of care. - Problem is new. - Symptoms are unchanged. Historical: - Allergies: no known allergies; - Home Meds: 1. none - PMHx: none; - PSHx: right nephrectomy; Appendectomy; - Social history: Smoking status: Patient uses tobacco products, current every day smoker. No barriers to communication noted, The patient speaks fluent Uzbek, Speaks appropriately for age. - Family history: Not pertinent. - : The pt / caregiver states he / she is not on anticoagulants. Home medication list is obtained from the patient. - Exposure Risk Screening:: None identified. Vital Signs: 08/08 13:00 BP 134 / 85; Pulse 89; Resp 16; Temp 96.9; Pulse Ox 100% ; Weight 83.91 kg / 184.99 cmb lbs; Height 6 ft. 2 in. (187.96 cm); Pain 4/10; 15:34 BP 129 / 78; Pulse 86; Resp 16; Temp 98.1; Pulse Ox 98% on R/A; Pain 2/10; ttb 13:00 Body Mass Index 23.75 (83.91 kg, 187.96 cm) cmb MDM: 13:05 ECG WITH READING ER PHYS+CARDIAG ordered. EDMS 14:26 Cardiac Marker Panel Ordered. EDMS 14:26 CBC with Diff Ordered. EDMS 14:27 Complete Comphrensive Metabolic Ordered. EDMS 15:13 CBC with Diff Reviewed. btw 15:13 Complete Comphrensive Metabolic Reviewed. btw 15:13 Cardiac Marker Panel Reviewed. btw 08/10 08:16 T-Sheet-- Draft Copy was scanned into [employer] and attached to record. gb 10:58 [facility] Payment Agreement was scanned into [employer] and attached to record. lg Signatures: Dispatcher [employer] EDMS Lydia Magallanes, TRAVIS RN srm aKthia Jeronimo, Reg Reg gb Suzanna Zapata, Reg Reg lg Ruben Toney PA PA btw Patrica Booker RN RN ttb The chart was reviewed and I authenticate all verbal orders and agree with the evaluation and treatment provided.Attachments: 08:16 T-Sheet-- Draft Copy gb 10:58 [facility] Payment Agreement lg Chart Complete MTDD
--- NOTE | 2016-08-12 13:48 | EDDOCDS ---
Physician Documentation [facility] Name: Manuel Ponce Age: 25 yrs Sex: Male : 1990 Arrival Date: 08/08/2016 Time: 12:58 Bed PR Private MD: No Pcp Disposition: 08/08/16 15:29 Discharged to Home/Self Care. Impression: Chest pain, unspecified - suspect esophagitis, Tobacco abuse counseling. - Condition is Stable. - Discharge Instructions: Nonspecific Chest Pain, Esophagitis, Smoking Hazards, Smoking Cessation, Tips For Success. - Prescriptions for Carafate 1 gram Oral Tablet - take 2 tablet by ORAL route every 12 hours take on an empty stomach, beginning on waking and last dose at bedtime; 100 tablet. - Medication Reconciliation, Local Pharmacy Hours form. - [facility] up: [facility]; When: Call to arrange an appointment; Reason: Further diagnostic work-up, Recheck today's complaints, Continuance of care. - Problem is new. - Symptoms are unchanged. Historical: - Allergies: no known allergies; - Home Meds: 1. none - PMHx: none; - PSHx: right nephrectomy; Appendectomy; - Social history: Smoking status: Patient uses tobacco products, current every day smoker. No barriers to communication noted, The patient speaks fluent Albanian, Speaks appropriately for age. - Family history: Not pertinent. - : The pt / caregiver states he / she is not on anticoagulants. Home medication list is obtained from the patient. - Exposure Risk Screening:: None identified. Vital Signs: 08/08 13:00 BP 134 / 85; Pulse 89; Resp 16; Temp 96.9; Pulse Ox 100% ; Weight 83.91 kg / 184.99 cmb lbs; Height 6 ft. 2 in. (187.96 cm); Pain 4/10; 15:34 BP 129 / 78; Pulse 86; Resp 16; Temp 98.1; Pulse Ox 98% on R/A; Pain 2/10; ttb 13:00 Body Mass Index 23.75 (83.91 kg, 187.96 cm) cmb MDM: 13:05 ECG WITH READING ER PHYS+CARDIAG ordered. EDMS 14:26 Cardiac Marker Panel Ordered. EDMS 14:26 CBC with Diff Ordered. EDMS 14:27 Complete Comphrensive Metabolic Ordered. EDMS 15:13 CBC with Diff Reviewed. btw 15:13 Complete Comphrensive Metabolic Reviewed. btw 15:13 Cardiac Marker Panel Reviewed. btw 08/10 08:16 T-Sheet-- Draft Copy was scanned into [employer] and attached to record. gb 10:58 [facility] Payment Agreement was scanned into [employer] and attached to record. lg Signatures: Dispatcher [employer] EDMS Lydia Magallanes, TRAVIS RN srm Kathia Jeronimo, Reg Reg gb Suzanna Zapata, Reg Reg lg Ruben Toney PA PA btw Patrica Booker RN RN ttb The chart was reviewed and I authenticate all verbal orders and agree with the evaluation and treatment provided.Attachments: 08:16 T-Sheet-- Draft Copy gb 10:58 [facility] Payment Agreement lg Chart Complete MTDD
== END 2016-08-08 15:40 | disposition home or self-care (01) ==
LOC: M ED 12:58
DX: R07.9 Chest pain, unspecified (principal); F17.200 Nicotine dependence, unspecified, uncomplicated

== ENCOUNTER → 2017-02-25 | Outpatient (CLI) | payer BC ==
[2017-02-25 18:33] LABS: EOS # 0.1 K/mm3 (0.0-0.50); EOS % 1.9 % (0.0-3.0); LARGE UNSTAINED CELL # 0.1 K/mm3 (0.0-0.4); LARGE UNSTAINED CELL % 2.5 % (0.0-4.0); LYMPH # 1.4 K/mm3 (1.5-6.5); LYMPH % 31.2 % (24.0-44.0); MEAN CORPUSCULAR HEMOGLOBIN 32.5 pg (27.0-33.0); MEAN CORPUSCULAR HGB CONC 34.8 g/dl (32.0-36.5); MEAN CORPUSCULAR VOLUME 93.3 fl (80.0-96.0); MONO # 0.5 K/mm3 (0.0-0.8); MONO % 10.6 % (0.0-5.0); NEUTROPHILS # 2.3 K/mm3 (1.8-7.7); NEUTROPHILS % 52.7 % (36.0-66.0); PLATELET COUNT, AUTOMATED 233 k/mm3 (150-450); RED CELL DISTRIBUTION WIDTH 11.7 % (11.5-14.5); WHITE BLOOD COUNT 4.4 K/mm3 (4.0-10.0)
[2017-02-25 18:34] LABS: ALBUMIN 3.9 GM/DL (3.2-5.2); ALBUMIN/GLOBULIN RATIO 1.11 (1.00-1.93); ALKALINE PHOSPHATASE 142 U/L (45-117); ALT/SGPT 102 U/L (12-78); ANION GAP 6 MEQ/L (8-16); AST/SGOT 35 U/L (15-37); BILIRUBIN,TOTAL 0.4 MG/DL (0.2-1.0); BLOOD UREA NITROGEN 13 MG/DL (7-18); CALCIUM LEVEL 9.1 MG/DL (8.5-10.1); CARBON DIOXIDE LEVEL 30 MEQ/L (21-32); CHLORIDE LEVEL 102 MEQ/L (98-107); CREATININE FOR GFR 0.82 MG/DL (0.70-1.30); GLOMERULAR FILTRATION RATE > 60.0 (>60); GLUCOSE, FASTING 90 MG/DL (70-105); POTASSIUM SERUM 4.7 MEQ/L (3.5-5.1); SODIUM LEVEL 138 MEQ/L (136-145); TOTAL PROTEIN 7.4 GM/DL (6.4-8.2)
== END ==
LOC: M WUC 14:57
PROVIDERS: ATTEND Nurse Practitioner Family
DX: Z00.00 Encounter for general adult medical examination without abnormal findings (principal); Z72.51 High risk heterosexual behavior

== ENCOUNTER 2017-12-19 23:54 | Emergency (ER) | payer OTHER, BC | END 2017-12-20 00:43 | disposition home or self-care (01) | LOC: M ED 23:54 | DX: R09.89 Other specified symptoms and signs involving the circulatory and respiratory systems (principal); F17.200 Nicotine dependence, unspecified, uncomplicated; Z79.899 Other long term (current) drug therapy | CPT/HCPCS: 99282 ==

== ENCOUNTER → 2018-01-26 | Outpatient (CLI) | payer OTHER ==
[2018-01-26 17:12] LABS: ALBUMIN 4.6 GM/DL (3.2-5.2); ALBUMIN/GLOBULIN RATIO 1.39 (1.00-1.93); ALKALINE PHOSPHATASE 80 U/L (45-117); ALT/SGPT 40 U/L (12-78); ANION GAP 7 MEQ/L (8-16); AST/SGOT 14 U/L (7-37); BILIRUBIN,TOTAL 0.9 MG/DL (0.2-1.0); BLOOD UREA NITROGEN 15 MG/DL (7-18); CALCIUM LEVEL 9.3 MG/DL (8.5-10.1); CARBON DIOXIDE LEVEL 29 MEQ/L (21-32); CHLORIDE LEVEL 104 MEQ/L (98-107); CHOLESTEROL LEVEL 124 MG/DL (<200); CREATININE FOR GFR 0.87 MG/DL (0.70-1.30); GLOMERULAR FILTRATION RATE > 60.0 (>60); GLUCOSE, FASTING 76 MG/DL (70-100); HDL CHOLESTEROL 50 MG/DL (>40); LDL CHOLESTEROL 62.2 MG/DL (<100); NON-HDL-C 74 MG/DL; POTASSIUM SERUM 4.4 MEQ/L (3.5-5.1); SODIUM LEVEL 140 MEQ/L (136-145); TOTAL PROTEIN 7.9 GM/DL (6.4-8.2); TRIGLYCERIDES LEVEL 59 MG/DL (<150)
== END ==
LOC: M WUC 14:53
DX: Z13.220 Encounter for screening for lipoid disorders (principal); G47.00 Insomnia, unspecified
CPT/HCPCS: 80053

== ENCOUNTER 2020-05-26 20:14 | Emergency (ER) | payer OTHER ==
[~2020-05-26] VITALS: Ht 190.5 cm; Wt 109.3 kg
[2020-05-26 20:14] VITALS: BP 164/94
[2020-05-26] MEDS ORDERED: CLOB-24 TOP (21:04)
== END 2020-05-26 21:11 | disposition home or self-care (01) ==
LOC: M ED 20:14
DX: R21 Rash and other nonspecific skin eruption (principal); F17.210 Nicotine dependence, cigarettes, uncomplicated

== ENCOUNTER → 2020-06-15 | Outpatient (REF) | payer OTHER ==
[~2020-06-15] MED LIST changes: +CLOB-24 TOP
[2020-06-17 14:13] LABS: ANTI DOUBLE STRAND-DNA AB 1 IU/mL (0-9); ANTINUCLEAR ANTIBODIES DIRECT Positive (Negative); RNP ANTIBODIES 0.3 AI (0.0-0.9); SJOGREN'S ANTI SS-A >8.0 AI (0.0-0.9); SJOGREN'S ANTI SS-B <0.2 AI (0.0-0.9); SMITH ANTIBODIES <0.2 AI (0.0-0.9)
== END ==
LOC: M SFHCPLAZ 15:27
PROVIDERS: ATTEND Physician Assistant
DX: L40.8 Other psoriasis (principal)

== ENCOUNTER → 2020-08-23 | Outpatient (REF) | payer OTHER ==
[2020-08-23 18:19] LABS: APPEARANCE, URINE CLEAR (CLEAR); BACTERIA, URINE AUTO NEGATIVE (NEGATIVE); BASO % 0.5 % (0.0-1.0); BILIRUBIN, URINE AUTO NEGATIVE (NEGATIVE); BLOOD, URINE BLOOD NEGATIVE (NEGATIVE); COLOR, URINE YELLOW (YELLOW); EOS # 0.1 10^3/uL (0.0-0.5); EOS % 1.6 % (0.0-3.0); GLUCOSE, URINE (UA) AUTO NEGATIVE (NEGATIVE); HEMATOCRIT 48.5 % (42.0-52.0); HEMOGLOBIN 16.3 g/dl (13.5-17.5); KETONE, URINE AUTO NEGATIVE (NEGATIVE); LEUKOCYTE ESTERASE, URINE AUTO NEGATIVE (NEGATIVE); LYMPH # 1.2 10^3/uL (1.5-5.0); LYMPH % 21.9 % (24.0-44.0); MEAN CORPUSCULAR HEMOGLOBIN 30.7 pg (27.0-33.0); MEAN CORPUSCULAR HGB CONC 33.6 g/dl (32.0-36.5); MEAN CORPUSCULAR VOLUME 91.3 fl (80.0-96.0); MONO # 0.7 10^3/uL (0.0-0.8); MONO % 12.8 % (0.0-5.0); MUCUS, URINE SMALL (NEGATIVE); NEUTROPHILS # 3.5 10^3/uL (1.5-8.5); NEUTROPHILS % 62.8 % (36.0-66.0); NITRITE, URINE AUTO NEGATIVE (NEGATIVE); PLATELET COUNT, AUTOMATED 264 10^3/uL (150-450); PROTEIN, URINE AUTO NEGATIVE (NEGATIVE); RBC, URINE AUTO 0 /HPF (0-3); RED BLOOD COUNT 5.31 10^6/uL (4.30-6.10); SPECIFIC GRAVITY URINE AUTO 1.023 (1.002-1.035); SQUAMOUS EPITHELIAL CELL UR AU 0 /HPF (0-6); UROBILINOGEN, URINE AUTO 0.2 mg/dL (0.0-2.0); WBC, URINE AUTO 0 /HPF (0-3); WHITE BLOOD COUNT 5.6 10^3/uL (4.0-10.0)
[2020-08-23 18:52] LABS: C REACTIVE PROTEIN QUANTITATIV 0.58 MG/DL (0.00-0.30); COMPLEMENT C3 146 MG/DL (90-180); COMPLEMENT C4 25 MG/DL (10-40); IRON (FE) 66 UG/DL (65-175); MAGNESIUM LEVEL 2.2 MG/DL (1.8-2.4); PHOSPHORUS LEVEL 4.1 MG/DL (2.5-4.9); RHEUMATOID FACTOR QUANT < 10.0 IU/ML (<15.0); TOTAL 25(OH) VITAMIN D 35.3 NG/ML (30.0-100.0)
[2020-08-23 18:53] LABS: VITAMIN B12 LEVEL 294 PG/ML (247-911)
[2020-08-23 19:04] LABS: ERYTHROCYTE SEDIMENTATION RATE 7 mm/hr (0-15)
[2020-08-24 14:09] LABS: DRVV SCREEN 38.7 SEC
[2020-08-26 12:10] LABS: ANA (HEP2) Positive (.); ANTI CENTROMERE ANTIBODY <0.2 AI (0.0-0.9); ANTI DS-DNA AB Negative (Negative); ANTI SCLERODERMA ANTIBODIES <0.2 AI (0.0-0.9); ANTI-HISTONE ANTIBODIES 0.9 Units (0.0-0.9); BETA-2 GLYCOPROTEIN I ABY IGA <9 (0-25); BETA-2 GLYCOPROTEIN I ABY IGG <9 (0-20); BETA-2 GLYCOPROTEIN I ABY IGM <9 (0-32); CARDIOLIPIN IGA ANTIBODY <9 APL U/mL (0-11); CARDIOLIPIN IGG ANTIBODY <9 GPL U/mL (0-14); CARDIOLIPIN IGM ANTIBODY 12 MPL U/mL (0-12); COMPLEMENT TOTAL (CH50) > 60 U/mL (>41); CYCLIC CITRULLINATED PEPTIDE 9 units (0-19); SSA SJOGRENS A >8.0 AI (0.0-0.9); SSB SJOGRENS B <0.2 AI (0.0-0.9)
== END ==
LOC: M SFHCRHEU 15:00
PROVIDERS: ATTEND Internal Medicine
DX: R76.8 Other specified abnormal immunological findings in serum (principal); R53.82 Chronic fatigue, unspecified; M25.40 Effusion, unspecified joint

== ENCOUNTER 2020-10-08 10:17 | Emergency (ER) | payer OTHER ==
[~2020-10-08] VITALS: Ht 188 cm; Wt 101.8 kg
[2020-10-08 11:12] LABS: BASO % 0.6 % (0.0-1.0); EOS # 0.2 10^3/uL (0.0-0.5); EOS % 2.3 % (0.0-3.0); HEMATOCRIT 44.3 % (42.0-52.0); LYMPH # 1.1 10^3/uL (1.5-5.0); LYMPH % 17.5 % (24.0-44.0); MEAN CORPUSCULAR HEMOGLOBIN 30.5 pg (27.0-33.0); MEAN CORPUSCULAR HGB CONC 33.9 g/dl (32.0-36.5); MONO # 0.8 10^3/uL (0.0-0.8); MONO % 12.9 % (2.0-8.0); NEUTROPHILS # 4.3 10^3/uL (1.5-8.5); NEUTROPHILS % 66.2 % (36.0-66.0); PLATELET COUNT, AUTOMATED 234 10^3/uL (150-450); RED BLOOD COUNT 4.92 10^6/uL (4.30-6.10); WHITE BLOOD COUNT 6.5 10^3/uL (4.0-10.0)
[2020-10-08 11:59] LABS: BLOOD UREA NITROGEN 13 MG/DL (7-18); CALCIUM LEVEL 8.7 MG/DL (8.5-10.1); CARBON DIOXIDE LEVEL 29 MEQ/L (21-32); CHLORIDE LEVEL 107 MEQ/L (98-107); CREATININE FOR GFR 0.82 MG/DL (0.70-1.30); GLOMERULAR FILTRATION RATE > 60.0 (>60); GLUCOSE, FASTING 119 MG/DL (70-100); POTASSIUM SERUM 4.1 MEQ/L (3.5-5.1); SODIUM LEVEL 139 MEQ/L (136-145)
--- NOTE | 2020-10-08 12:28 | REP ---
INDICATION: hematuria; hx nephroctomy COMPARISON: None TECHNIQUE: Axial noncontrast images from the lung bases to the pubic symphysis with coronal and sagittal reformations. This CT examination was performed using the following dose reduction techniques: Automated exposure control, adjustment of mA and/or kv according to the patient's size, and use of iterative reconstruction technique. FINDINGS: Lung bases are clear. Visualized heart and pericardium normal. Liver, spleen, pancreas, gallbladder, bilateral adrenal glands and left kidney are normal. Evidence for prior right nephrectomy with normal appearance to the renal fossa. The enteric system is unremarkable and without obstruction or acute inflammatory process. Normal terminal ileum and cecum identified in the right lower quadrant. Prior appendectomy noted. Pelvis demonstrates normal age-appropriate prostate/seminal vesicles. The bladder demonstrates a very subtle surrounding hazy fat stranding appearance raising the possibility of cystitis. No ascites. No free air. No adenopathy. No focal inflammatory stranding. Abdominal aorta without aneurysm. Musculoskeletal structures are intact and without acute osseous abnormality. IMPRESSION: 1. Correlation with urinalysis recommended to exclude cystitis. Normal appearance of the left kidney and evidence for prior right nephrectomy with normal appearance to the right renal fossa. 2. No further acute abdominopelvic pathology appreciated. <Electronically signed by Ruben Dennison > 10/08/20 [id number]
[2020-10-08] MEDS ORDERED: BACTRIM 160MG/800MG DS TAB PO ONE (12:30)
[2020-10-08] MEDS ORDERED: BACT800T5 PO (12:32)
[2020-10-08 12:47] VITALS: BP 156/98
[2020-10-08 13:08] LABS: CHLAMYDIA DNA AMPLIFICATION NEGATIVE (NEGATIVE); GC DNA AMPLIFICATION NEGATIVE (NEGATIVE)
== END 2020-10-08 12:45 | disposition home or self-care (01) ==
LOC: M ED 10:17
DX: N30.90 Cystitis, unspecified without hematuria (principal)

== ENCOUNTER → 2020-12-26 | Outpatient (CLI) | payer OTHER ==
[~2020-12-26] MED LIST changes: +BACT800T5 PO
--- NOTE | 2020-12-26 15:51 | REP ---
INDICATION: MEDICATION MONITORING COMPARISON: 05/24/2014 TECHNIQUE: PA and lateral. FINDINGS: The mediastinum and cardiac silhouette are normal. The lung parker are clear and without acute consolidation, effusion, or pneumothorax. The skeletal structures are intact and normal. IMPRESSION: No acute cardiopulmonary process. <Electronically signed by Ruben Dennison > 12/26/20 [id number]
[2020-12-26 20:01] LABS: BASO % 0.5 % (0.0-1.0); EOS # 0.3 10^3/uL (0.0-0.5); EOS % 5.1 % (0.0-3.0); HEMATOCRIT 47.7 % (42.0-52.0); HEMOGLOBIN 16.3 g/dl (13.5-17.5); LYMPH # 1.6 10^3/uL (1.5-5.0); LYMPH % 27.4 % (24.0-44.0); MEAN CORPUSCULAR HEMOGLOBIN 30.7 pg (27.0-33.0); MEAN CORPUSCULAR HGB CONC 34.2 g/dl (32.0-36.5); MEAN CORPUSCULAR VOLUME 89.8 fl (80.0-96.0); MONO # 0.7 10^3/uL (0.0-0.8); MONO % 12.9 % (2.0-8.0); NEUTROPHILS # 3.1 10^3/uL (1.5-8.5); NEUTROPHILS % 53.9 % (36.0-66.0); PLATELET COUNT, AUTOMATED 258 10^3/uL (150-450); RED BLOOD COUNT 5.31 10^6/uL (4.30-6.10); WHITE BLOOD COUNT 5.7 10^3/uL (4.0-10.0)
[2020-12-26 20:09] LABS: ALBUMIN 4.2 GM/DL (3.2-5.2); ALT/SGPT 59 U/L (12-78); BILIRUBIN,DIRECT 0.1 MG/DL (0.0-0.2); BILIRUBIN,TOTAL 0.4 MG/DL (0.2-1.0); BLOOD UREA NITROGEN 13 MG/DL (7-18); CALCIUM LEVEL 9.1 MG/DL (8.5-10.1); CARBON DIOXIDE LEVEL 28 MEQ/L (21-32); CHLORIDE LEVEL 108 MEQ/L (98-107); CHOLESTEROL LEVEL 136 MG/DL (<200); CHOLESTEROL RISK RATIO 4.121 (<5); CREATININE FOR GFR 0.86 MG/DL (0.70-1.30); GLOMERULAR FILTRATION RATE > 60.0 (>60); GLUCOSE, FASTING 96 MG/DL (70-100); HDL CHOLESTEROL 33 MG/DL (>40); LDL CHOLESTEROL 91 MG/DL (<100); NON-HDL-C 103 MG/DL; POTASSIUM SERUM 4.2 MEQ/L (3.5-5.1); SODIUM LEVEL 142 MEQ/L (136-145); TOTAL PROTEIN 7.8 GM/DL (6.4-8.2); TRIGLYCERIDES LEVEL 58 MG/DL (<150)
[2020-12-26 20:20] LABS: HEPATITIS B SURFACE ANTIBODY POSITIVE (POSITIVE)
[2020-12-26 20:28] LABS: HEPATITIS B SURFACE ANTIGEN NEGATIVE (NEGATIVE)
[2020-12-29 00:09] LABS: HEPATITIS B CORE ANTIBODY IGG Negative (Negative); LDL DIRECT 81 mg/dL (0-99)
== END ==
LOC: M WUC 15:29
PROVIDERS: ATTEND Physician Assistant
DX: Z51.81 Encounter for therapeutic drug level monitoring (principal); Z79.899 Other long term (current) drug therapy

== ENCOUNTER 2021-05-11 13:53 | Inpatient (IN) | payer OTHER ==
[~2021-05-11] VITALS: Ht 188 cm; Wt 79.8 kg
[2021-05-11] MEDS ORDERED: OLANZapine ORAL DISINTEGRATING TAB 5MG PO ONE (14:20)
[2021-05-11 14:52] LABS: HEMATOCRIT 41.5 % (42.0-52.0); HEMOGLOBIN 14.2 g/dl (13.5-17.5); MEAN CORPUSCULAR HEMOGLOBIN 30.9 pg (27.0-33.0); MEAN CORPUSCULAR HGB CONC 34.2 g/dl (32.0-36.5); MEAN CORPUSCULAR VOLUME 90.2 fl (80.0-96.0); PLATELET COUNT, AUTOMATED 200 10^3/uL (150-450); WHITE BLOOD COUNT 5.1 10^3/uL (4.0-10.0)
[2021-05-11 15:29] LABS: ACETAMINOPHEN LEVEL < 2.0 UG/ML (10.0-30.0); ALBUMIN 4.1 GM/DL (3.2-5.2); ALT/SGPT 34 U/L (12-78); BILIRUBIN,DIRECT 0.2 MG/DL (0.0-0.2); BILIRUBIN,TOTAL 0.5 MG/DL (0.2-1.0); BLOOD UREA NITROGEN 10 MG/DL (7-18); CALCIUM LEVEL 9.1 MG/DL (8.5-10.1); CARBON DIOXIDE LEVEL 28 MEQ/L (21-32); CHLORIDE LEVEL 107 MEQ/L (98-107); CPK CREATINE PHOSPHOKINASE 46 U/L (39-308); CREATININE FOR GFR 0.87 MG/DL (0.70-1.30); ETHYL ALCOHOL (ETHANOL) < 0.003 % (0.000-0.010); GLOMERULAR FILTRATION RATE > 60.0 (>60); GLUCOSE, FASTING 90 MG/DL (70-100); POTASSIUM SERUM 4.4 MEQ/L (3.5-5.1); SALICYLATE LEVEL < 1.7 MG/DL (5.0-30.0); SODIUM LEVEL 142 MEQ/L (136-145); THYROID STIMULATING HORMONE 0.571 uIU/ML (0.358-3.740); TOTAL PROTEIN 7.2 GM/DL (6.4-8.2)
[2021-05-11 16:27] LABS: AMPHETAMINES LEVEL URINE NEGATIVE (NEGATIVE); BARBITURATES URINE NEGATIVE (NEGATIVE); BENZODIAZEPINES URINE POSITIVE (NEGATIVE); CANNABINOIDS URINE POSITIVE (NEGATIVE); COCAINE METABOLITE URINE NEGATIVE (NEGATIVE); METHADONE URINE NEGATIVE (NEGATIVE); OPIATES URINE NEGATIVE (NEGATIVE); PHENCYCLIDINE URINE NEGATIVE (NEGATIVE)
[2021-05-11] MEDS ORDERED: MOM 30ML SUSPENSION UDC PO PRN (17:35)
[2021-05-11] MEDS ORDERED: ACETAMINOPHEN TAB 650MG DOSE (2X325MG) PO PRN (17:35)
[2021-05-11] MEDS ORDERED: MAALOX 30 ML SUSP *UDC PO PRN (17:35)
[2021-05-11] MEDS ORDERED: hydrOXYzine 25 MG TAB PO PRN (17:35)
[2021-05-11] MEDS ORDERED: OLANZapine ORAL DISINTEGRATING TAB 5MG PO PRN (17:35)
[2021-05-11] MEDS ORDERED: HOME MED LIST COMPLETE! XX SCH (18:00)
[2021-05-11 19:32] LABS: RSV AMPLIFICATION NEGATIVE (NEGATIVE)
[2021-05-11 21:35] VITALS: BP 133/92
[2021-05-11] MEDS: traZODone 50 MG TAB PO PRN (21:56)
[2021-05-11] MEDS: PALIPERIDONE 3 MG ER TAB (INVEGA) PO SCH (21:56)
[2021-05-11] MEDS: NICOTINE 21MG/24HR 1 EA TRANSDERMAL TD ONE ×2 (21:58→22:51)
[2021-05-12 06:16] VITALS: BP 157/79
[2021-05-12] MEDS: PALIPERIDONE 3 MG ER TAB (INVEGA) PO SCH ×3 (09:00→21:12)
--- NOTE | 2021-05-12 11:02 | MHHPEPDOC ---
General Date Of Admission: May 12, 2021 Legal Status: 9.39 Chief Complaint Nobody recognizes me, I want to go back to my mother. ". History of Present Illness 30-year-old male single living with his mother who was brought by mother, for exhibiting bizarre behavior. 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 His mother reports he has been never psychotic in the past and did not behave the way he has been behaving recently. During my evaluation patient was crying incessantly Stating that "I want to go back to my mother" . Patient was not able to stay on one topic. Changes topic continuously, reports that he lost his weight considerably ,unable to sleep , Then he spoke about his student loan, then he spoke about his fight with strangers with flashlights He was tearful and crying throughout. He was preoccupied when I saw him walking in the hallway. Patient reports he has lost weight he has difficulty sleeping, loss of self-esteem, but denies any suicidal thoughts. Patient reports he never had manic episodes nor psychosis. Patient has history of anxiety and substance use disorders. Patient currently on no medications E D report Pt. states his mother brought him to ER, wanted him to come because he has been feeling stressed. Pt. denies SI/HI. Pt. does has difficulty staying on topic, does exhibit flight of ideas. Pt. has random words written on his arms. When asked about what the words are, he talks about none of them having the letter 'S' and he asks this freelance copywriter to call him Stanton because Manuel has a 's' in it. Pt. bo frequently during interview, states he is not depressed. He does state he is stressed because he has $150,000 in student loans. Pt. continues to ramble, states he is in a psycho mode and he has been building a criminal [place] and 'they' are putting a "S' in front of criminal. Pt. reports he smokes marijuana daily and takes Unisom to sleep. He denies other substance use or medications. Pt. mother reports that pt about a week ago, she started noticing some change in pt behaviors/mood, including increased irritability. Mother states that pt started talking about google buying the alphabet and making bizarre statements along with some rambling and not staying on topic. Mother reports pt had been writing notes on sticky notes, not making sense. Mother states that two night ago pt was yelling at her about his student loan debt being her fault, which is behavior very unusaul for pt.. Today, mother states she was able to convince pt to come to ER. Pt. mother states that pt does not have histroy of psychosis, stating only MH issue was in 2013 when pt attempted suicide by overdose after break up with a girlfriend. Psychiatric Review of Systems Depression (2 or more weeks): depressed mood, insomnia/hypersomnia, feelings of worthlesness, difficulty concentrating Emy (4 or more days of): irritable/elevated mood, flight of ideas, distractibility Past Psychiatric History Previous Psychiatric Diagnosis: Danger depressive disorder . Previous Psychiatric Admissions: 1 psychiatric hospitalization . Suicide Attempts: 1 suicide attempt . Psychiatric Follow-up: None . Psychiatric medications: None . Past Medical History Medical Problems Removal of right kidney history of renal vein thrombosis when he was an . Appendicectomy. Head Injury: No Seizures: No Hospitalizations: No Surgeries: Yes Family Medical/Psychiatric HX Psychiatric Disorders: No Addiction: Yes Addiction History other Social History Childhood: Born and raised in [place] . Abuse/Trauma: None . Current Living Situation: Lives with mother . Education: High school graduation, some years of college . 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 Social Support: Mother . Legal: None . Marital: Single . 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 According to his mother the symptoms are new however patient has extensive history of using cannabis possibility Of substance-induced psychosis is a possibility, he was diagnosed with depression in the past, this could be major depressive disorder with psychotic features. Currently patient is on Invega 3 mg twice daily I would like to add some medication to help him sleep. Initial Treatment Plan 1. Patient was admitted on a [9.39] status. 2. Complete history was obtained. 3. With patients permission, family will be contacted and database will be expanded. 4. Patients medication regimen will be reviewed and changed accordingly. 5. Patient will be provided with protected environment. 6. Patient will be treated with individual, group, and milieu therapies. 7. Patient will receive supportive psych-education. 8. Discharge planning will commence immediately. 9. Outpatient follow-up treatment will be strongly recommended. 10. The initial treatment plan will focus initially on: * Depression. * Risk for suicide. ESTIMATED LENGTH OF STAY: - DAYS. TIME SPENT COUNSELING AND COORDINATING INITIAL CARE: minutes. Tobacco Cessation Screen If Patient is a Smoker He is given nicotine patch 21 mg daily Vital Signs Vital Signs Date Time Temp Pulse Resp B/P (MAP) Pulse Ox O2 Delivery O2 Flow Rate FiO2 05/12/21 06:16 96.8 53 16 157/79 (105) 100 Room Air Laboratory Data 24H Labs Laboratory Tests 2 05/11/21 14:39: Nucleated Red Blood Cells % (auto) 0.0, Anion Gap 7L, Glomerular Filtration Rate > 60.0, Calcium Level 9.1, Total Bilirubin 0.5, Direct Bilirubin 0.2, Aspartate Amino Transf (AST/SGOT) 14, Alanine Aminotransferase (ALT/SGPT) 34, Alkaline Phosphatase 71, Total Creatine Kinase 46, Total Protein 7.2, Albumin 4.1, Albumin/Globulin Ratio 1.3, Thyroid Stimulating Hormone (TSH) 0.571, Salicylates Level < 1.7L, Acetaminophen Level < 2.0L, Ethyl Alcohol Level < 0.003 05/11/21 15:46: Urine Opiates Screen NEGATIVE, Urine Methadone Screen NEGATIVE, Urine Barbiturates Screen NEGATIVE, Urine Phencyclidine Screen NEGATIVE, Urine Amphetamines Screen NEGATIVE, Urine Benzodiazepines Screen POSITIVEH, Urine Cocaine Metabolite Screen NEGATIVE, Urine Cannabinoids Screen POSITIVEH 05/11/21 18:41: Coronavirus (COVID-19)(PCR) NEGATIVE, Influenza Type A (RT-PCR) NEGATIVE, Influenza Type B (RT-PCR) NEGATIVE, Respiratory Syncytial Virus (PCR) NEGATIVE CBC/BMP Laboratory Tests 05/11/21 14:39 Medications No Active Prescriptions or Reported Meds Allergies Coded Allergies: No Known Drug Allergies (Verified Allergy, Unknown, 05/11/21) KAY GREGORIO MD May 12, 2021 11:02
[2021-05-12] MEDS: NICOTINE 21MG/24HR 1 EA TRANSDERMAL TD SCH (12:35)
[2021-05-12 19:18] VITALS: BP 100/80
--- NOTE | 2021-05-12 19:44 | HPEPDOC ---
[facility] Medical History & Physical Date of Admission May 12, 2021 Date of Service: May 12, 2021 History and Physical CHIEF COMPLAINT: Medical health screening HISTORY OF PRESENT ILLNESS: Mr. Ponce is a 30-year-old male single kidney who was in the inpatient mental health unit for psychosis. Please refer to the [facility] for information about patient's psychosis. I saw patient with nurse shoe repairer helper. Patient energetic and was going off tangents. In addition he was anxious and self-conscious. He kept asking why everyone is looking at him. Otherwise physically, he is doing well. He denies any fever or chills, chest pain, dyspnea, abdominal pain, or dysuria. He tells me that he is lactose intolerant. He has a rash on his bellybutton. He also has tinnitus. PAST MEDICAL HISTORY: 1. Renal vein thrombosis at 3 years old 2. Depression and anxiety. PAST SURGICAL HISTORY: 1. Appendectomy 2. Right nephrectomy SOCIAL HISTORY: Tobacco use: Smokes e-cigarettes ETOH: Sober Illicit drug use: Marijuana FAMILY HISTORY: Father: History of alcohol abuse. Paternal grandfather: History of completed suicide. ALLERGIES: Please see below. REVIEW OF SYSTEMS: CONSTITUTIONAL: Denies any fever or chills. ENT: Reports tinnitus. RESPIRATORY: Denies shortness of breath. Denies cough. CARDIOVASCULAR: Denies chest pain. GASTROINTESTINAL: Denies abdominal pain. Denies diarrhea. GENITOURINARY: Denies dysuria. CUTANEOUS: Reports rash on bellybutton HEMATOLOGICAL: Denies bruises NEUROLOGICAL: Denies neuropathy. PSYCHOLOGICAL: Reports anxiety/depression HOME MEDICATIONS: Please see below. PHYSICAL EXAMINATION: VITAL SIGNS: Temperature 99.4, pulse 94, respiratory rate 18, blood pressure 100/80, pulse oximetry 98% on room air. GENERAL: Comfortable, in no apparent distress. HEENT: EOMI, sclera clear. NECK: Supple. RESPIRATORY: Lungs clear to auscultation bilaterally, no rales, wheeze or rhonchi. CARDIOVASCULAR: Regular rate and rhythm. ABDOMEN: Soft, nontender, no guarding or rebound tenderness. Normal bowel sounds. MUSCLE SKELETAL: Muscle strength 5/5 in all extremities. NEUROLOGICAL: CN 312 grossly intact, no focal deficits noted. PSYCHOLOGICAL: Bizarre with flight of ideas. Also anxious with paranoia LABORATORY DATA: See below. IMAGING: None MICROBIOLOGY: Please see below. ASSESSMENT and PLAN: 1. Psychosis Being managed in the inpatient mental health unit Thank you for consulting us. We will sign off at this time. If there is any further questions or concerns, please do not hesitate to reconsult us. Vital Signs Vital Signs Date Time Temp Pulse Resp B/P (MAP) Pulse Ox O2 Delivery O2 Flow Rate FiO2 05/12/21 19:18 99.4 94 18 100/80 (87) 98 05/12/21 06:16 Room Air Home Medications No Active Prescriptions or Reported Meds Allergies Coded Allergies: No Known Drug Allergies (Verified Allergy, Unknown, 05/11/21) A-FIB/CHADSVASC A-FIB History Current/History of A-Fib/PAF?: No Age/Risk Factor Scoring CHADSVASC: CHADSVASC Response (Comments) Value Age Risk Factor Age < 65 years old 0 Gender Risk Factor Male 0 Hx of CHF No 0 Hx of HTN No 0 Hx of Stroke/TIA/or VTE No 0 Hx of Diabetes No 0 Hx of Vascular Disease No 0 Total 0 FARHAN DIAZ DO May 12, 2021 19:44
[2021-05-12] MEDS: zolPIDEM TARTRATE 5 MG TAB PO PRN (21:12)
[2021-05-13 07:10] VITALS: BP 138/82
[2021-05-13] MEDS: PALIPERIDONE 3 MG ER TAB (INVEGA) PO SCH ×2 (08:55→20:03)
[2021-05-13] MEDS: NICOTINE 21MG/24HR 1 EA TRANSDERMAL TD SCH (08:56)
--- NOTE | 2021-05-13 15:11 | MHIPNPDOC ---
[facility] Progress Note Progress Note DATE OF SERVICE: 05/13/21 HISTORY:30-year-old male single living with his mother who was brought by mother, for exhibiting bizarre behavior. 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 His mother reports he has been never psychotic in the past and did not behave the way he has been behaving recently. During my evaluation patient was crying incessantly Stating that "I want to go back to my mother" . Patient was not able to stay on one topic. Changes topic continuously, reports that he lost his weight considerably ,unable to sleep , Then he spoke about his student loan, then he spoke about his fight with strangers with flashlights He was tearful and crying throughout. He was preoccupied when I saw him walking in the hallway. Patient reports he has lost weight he has difficulty sleeping, loss of self-esteem, but denies any suicidal thoughts. Patient reports he never had manic episodes nor psychosis. Patient has history of anxiety and substance use disorders. Patient currently on no medications E D report Pt. states his mother brought him to ER, wanted him to come because he has been feeling stressed. Pt. denies SI/HI. Pt. does has difficulty staying on topic, does exhibit flight of ideas. Pt. has random words written on his arms. When asked about what the words are, he talks about none of them having the letter 'S' and he asks this racebook writer to call him Stanton because Manuel has a 's' in it. Pt. bo frequently during interview, states he is not depressed. He does state he is stressed because he has $150,000 in student loans. Pt. continues to ramble, states he is in a psycho mode and he has been building a criminal [place] and 'they' are putting a "S' in front of criminal. Pt. reports he smokes marijuana daily and takes Unisom to sleep. He denies other substance use or medications. Pt. mother reports that pt about a week ago, she started noticing some change in pt behaviors/mood, including increased irritability. Mother states that pt started talking about google buying the alphabet and making bizarre statements along with some rambling and not staying on topic. Mother reports pt had been writing notes on sticky notes, not making sense. Mother states that two night ago pt was yelling at her about his student loan debt being her fault, which is behavior very unusaul for pt.. Today, mother states she was able to convince pt to come to ER. Pt. mother states that pt does not have histroy of psychosis, stating only MH issue was in 2013 when pt attempted suicide by overdose after break up with a girlfriend. VITAL SIGNS: See below. CURRENT MEDICATIONS: See below. MENTAL STATUS EXAMINATION: Is a 30-year-old male, appears stated age, cooperative, made good eye contact, speech rate rhythm and volume are good, thought process linear goal-directed, mood is mildly depressed with constricted affect, thought content denied any suicidal homicidal ideas insight and judgment are limited memory immediate remote recent are good, he is oriented to time place and person, his attention concentration are good. DIAGNOSES: 1. Mood disorder not otherwise specified 2. Cannabis use disorder ASSESSMENT: Patient is improving, probably his psychosis was induced by substance use, will monitor him MANAGEMENT PLAN: Continue current medications, patient needs substance use treatment TIME SPENT: 25 minutes Vital Signs Vital Signs Date Time Temp Pulse Resp B/P (MAP) Pulse Ox O2 Delivery O2 Flow Rate FiO2 05/13/21 07:10 98.3 84 20 138/82 (100) 98 Room Air Current Medications Current Medications Medications (Trade) Dose Ordered Sig/Davida Route PRN Reason Start Time Stop Time Status Last Admin Dose Admin Acetaminophen (Tylenol Tab) 650 mg Q6HP PRN PO HEADACHE or MILD DISCOMFORT 05/11/21 17:35 Al Hydrox/Mg Hydrox/Simethicone (Mylanta) 30 ml Q4HP PRN PO HEARTBURN/INDIGESTION 05/11/21 17:35 Home Med (Home Med List Complete!) ASDIRECTED XX 05/11/21 18:00 05/11/21 18:01 DC Hydroxyzine HCl (Atarax) 25 mg Q8HP PRN PO ANXIETY/AGITATION 05/11/21 17:35 Magnesium Hydroxide (Milk Of Magnesia) 30 ml DAILYPRN PRN PO CONSTIPATION 05/11/21 17:35 Nicotine (Nicoderm Cq 21mg) 1 patch DAILY TD 05/12/21 09:00 05/13/21 08:56 Olanzapine (ZyPREXA ZYDIS) 5 mg Q6HP PRN PO AGITATION 05/11/21 17:35 Paliperidone (Invega) 3 mg BID PO 05/11/21 21:00 05/13/21 08:55 Trazodone HCl (Desyrel) 50 mg QHSP PRN PO INSOMNIA 05/11/21 17:35 Zolpidem Tartrate (Ambien) 5 mg QHSP PRN PO insomnia 05/12/21 11:05 05/12/21 21:12 Allergies Coded Allergies: No Known Drug Allergies (Verified Allergy, Unknown, 05/11/21) KAY GREGORIO MD May 13, 2021 15:11
[2021-05-13 19:06] VITALS: BP 136/76
[2021-05-13] MEDS: zolPIDEM TARTRATE 5 MG TAB PO PRN (20:03)
[2021-05-14 06:31] VITALS: BP 132/81
[2021-05-14] MEDS: PALIPERIDONE 3 MG ER TAB (INVEGA) PO SCH ×2 (09:24→20:09)
[2021-05-14] MEDS: NICOTINE 21MG/24HR 1 EA TRANSDERMAL TD SCH (09:25)
--- NOTE | 2021-05-14 09:46 | MHIPNPDOC ---
[facility] Progress Note Progress Note DATE OF SERVICE: 05/14/21 HISTORY: 30-year-old male single living with his mother who was brought by mother, for exhibiting bizarre behavior. 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 His mother reports he has been never psychotic in the past and did not behave the way he has been behaving recently. During my evaluation patient was crying incessantly Stating that "I want to go back to my mother" . Patient was not able to stay on one topic. Changes topic continuously, reports that he lost his weight considerably ,unable to sleep , Then he spoke about his student loan, then he spoke about his fight with strangers with flashlights He was tearful and crying throughout. He was preoccupied when I saw him walking in the hallway. Patient reports he has lost weight he has difficulty sleeping, loss of self-esteem, but denies any suicidal thoughts. Patient reports he never had manic episodes nor psychosis. Patient has history of anxiety and substance use disorders. Patient currently on no medications E D report Pt. states his mother brought him to ER, wanted him to come because he has been feeling stressed. Pt. denies SI/HI. Pt. does has difficulty staying on topic, does exhibit flight of ideas. Pt. has random words written on his arms. When asked about what the words are, he talks about none of them having the letter 'S' and he asks this typewriter assembler to call him Stanton because Manuel has a 's' in it. Pt. bo frequently during interview, states he is not depressed. He does state he is stressed because he has $150,000 in student loans. Pt. continues to ramble, states he is in a psycho mode and he has been building a criminal [place] and 'they' are putting a "S' in front of criminal. Pt. reports he smokes marijuana daily and takes Unisom to sleep. He denies other substance use or medications. Pt. mother reports that pt about a week ago, she started noticing some change in pt behaviors/mood, including increased irritability. Mother states that pt started talking about google buying the alphabet and making bizarre statement s along with some rambling and not staying on topic. Mother reports pt had been writing notes on sticky notes, not making sense. Mother states that two night ago pt was yelling at her about his student loan debt being her fault, which is behavior very unusaul for pt.. Today, mother states she was able to convince pt to come to ER. Pt. mother states that pt does not have histroy of psychosis, stating only MH issue was in 2013 when pt attempted suicide by overdose after break up with a girlfriend. Interval report: Patient is improving, does not show any mood symptoms, reports it is the financial stress that makes him use lot of weed. Reports he slept well. Denies any side effects from the medication. VITAL SIGNS: See below. CURRENT MEDICATIONS: See below. MENTAL STATUS EXAMINATION: Is a 30-year-old male, appears stated age, cooperative, made good eye contact, speech rate rhythm and volume are good, thought process linear goal-directed, mood is mildly depressed with constricted affect, thought content denied any suicidal homicidal ideas insight and judgment are limited memory immediate remote recent are good, he is oriented to time place and person, his attention concentration are good. DIAGNOSES: 1. Mood disorder not otherwise specified 2. Cannabis use disorder ASSESSMENT: Patient is improving, probably his psychosis was induced by substance use, will monitor him. Patient has good insight into his problem and wants to refrain from using drugs. MANAGEMENT PLAN: Continue current medications, patient needs substance use treatment, after discharge TIME SPENT: 25 minutes Vital Signs Vital Signs Date Time Temp Pulse Resp B/P (MAP) Pulse Ox O2 Delivery O2 Flow Rate FiO2 05/14/21 06:31 98.8 76 16 132/81 (98) 98 Room Air Laboratory Data 24H Labs Laboratory Tests 2 05/13/21 17:39: Current Medications Current Medications Medications (Trade) Dose Ordered Sig/Davida Route PRN Reason Start Time Stop Time Status Last Admin Dose Admin Acetaminophen (Tylenol Tab) 650 mg Q6HP PRN PO HEADACHE or MILD DISCOMFORT 05/11/21 17:35 Al Hydrox/Mg Hydrox/Simethicone (Mylanta) 30 ml Q4HP PRN PO HEARTBURN/INDIGESTION 05/11/21 17:35 Home Med (Home Med List Complete!) ASDIRECTED XX 05/11/21 18:00 05/11/21 18:01 DC Hydroxyzine HCl (Atarax) 25 mg Q8HP PRN PO ANXIETY/AGITATION 05/11/21 17:35 Magnesium Hydroxide (Milk Of Magnesia) 30 ml DAILYPRN PRN PO CONSTIPATION 05/11/21 17:35 Nicotine (Nicoderm Cq 21mg) 1 patch DAILY TD 05/12/21 09:00 05/14/21 09:25 Olanzapine (ZyPREXA ZYDIS) 5 mg Q6HP PRN PO AGITATION 05/11/21 17:35 Paliperidone (Invega) 3 mg BID PO 05/11/21 21:00 05/14/21 09:24 Trazodone HCl (Desyrel) 50 mg QHSP PRN PO INSOMNIA 05/11/21 17:35 Zolpidem Tartrate (Ambien) 5 mg QHSP PRN PO insomnia 05/12/21 11:05 05/13/21 20:03 Allergies Coded Allergies: No Known Drug Allergies (Verified Allergy, Unknown, 05/11/21) KAY GREGORIO MD May 14, 2021 09:46
[2021-05-14] MEDS: traZODone 50 MG TAB PO PRN (20:09)
[2021-05-14] MEDS: zolPIDEM TARTRATE 5 MG TAB PO PRN (20:09)
[2021-05-14 22:00] VITALS: BP 136/84
[2021-05-15 06:35] VITALS: BP 137/76
[2021-05-15] MEDS: NICOTINE 21MG/24HR 1 EA TRANSDERMAL TD SCH (08:26)
[2021-05-15] MEDS: PALIPERIDONE 3 MG ER TAB (INVEGA) PO SCH ×2 (08:27→22:11)
[2021-05-15] MEDS ORDERED: clonazePAM 0.5 MG TAB PO ONE (11:00)
[2021-05-15] MEDS ORDERED: ESCITALOPRAM OXALATE 10 MG TAB (LEXAPRO) PO ONE (11:00)
--- NOTE | 2021-05-15 12:10 | MHIPNPDOC ---
[facility] Progress Note Progress Note DATE OF SERVICE: 05/15/21 HISTORY: 30-year-old male single living with his mother who was brought by mother, for exhibiting bizarre behavior. 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 His mother reports he has been never psychotic in the past and did not behave the way he has been behaving recently. During my evaluation patient was crying incessantly Stating that "I want to go back to my mother" . Patient was not able to stay on one topic. Changes topic continuously, reports that he lost his weight considerably ,unable to sleep , Then he spoke about his student loan, then he spoke about his fight with strangers with flashlights He was tearful and crying throughout. He was preoccupied when I saw him walking in the hallway. Patient reports he has lost weight he has difficulty sleeping, loss of self-esteem, but denies any suicidal thoughts. Patient reports he never had manic episodes nor psychosis. Patient has history of anxiety and substance use disorders. Patient currently on no medications E D report Pt. states his mother brought him to ER, wanted him to come because he has been feeling stressed. Pt. denies SI/HI. Pt. does has difficulty staying on topic, does exhibit flight of ideas. Pt. has random words written on his arms. When asked about what the words are, he talks about none of them having the letter 'S' and he asks this writer producer to call him Stanton because Manuel has a 's' in it. Pt. bo frequently during interview, states he is not depressed. He does state he is stressed because he has $150,000 in student loans. Pt. continues to ramble, states he is in a psycho mode and he has been building a criminal [place] and 'they' are putting a "S' in front of criminal. Pt. reports he smokes marijuana daily and takes Unisom to sleep. He denies other substance use or medications. Pt. mother reports that pt about a week ago, she started noticing some change in pt behaviors/mood, including increased irritability. Mother states that pt started talking about google buying the alphabet and making bizarre statement s along with some rambling and not staying on topic. Mother reports pt had been writing notes on sticky notes, not making sense. Mother states that two night ago pt was yelling at her about his student loan debt being her fault, which is behavior very unusaul for pt.. Today, mother states she was able to convince pt to come to ER. Pt. mother states that pt does not have histroy of psychosis, stating only MH issue was in 2013 when pt attempted suicide by overdose after break up with a girlfriend. Interval report: Patient was more stable yesterday, today he complains of depression, had a crying spell, talking about kidney transplant and dialysis, reported that he did not want to do any drugs. CURRENT MEDICATIONS: See below. MENTAL STATUS EXAMINATION: Is a 30-year-old male, appears stated age, cooperative, made good eye contact, speech rate rhythm and volume are good, thought process linear goal-directed, mood is mildly depressed with constricted affect, thought content denied any suicidal homicidal ideas insight and judgment are limited memory immediate remote recent are good, he is oriented to time place and person, his attention concentration are good. DIAGNOSES: 1. Mood disorder not otherwise specified 2. Cannabis use disorder ASSESSMENT: Patient showed some regression, reports she is depressed, had some crying spells, he is thinking his kidney is bad, I checked his creatinine level seems to be fine. I assured him that he does not require any kidney transplant MANAGEMENT PLAN: Continue current medications, patient needs substance use treatment, after discharge. Lexapro 10 mg was added TIME SPENT: 25 minutes Vital Signs Vital Signs Date Time Temp Pulse Resp B/P (MAP) Pulse Ox O2 Delivery O2 Flow Rate FiO2 05/15/21 06:35 98.0 89 16 137/76 (96) 100 Room Air Current Medications Current Medications Medications (Trade) Dose Ordered Sig/Davida Route PRN Reason Start Time Stop Time Status Last Admin Dose Admin Acetaminophen (Tylenol Tab) 650 mg Q6HP PRN PO HEADACHE or MILD DISCOMFORT 05/11/21 17:35 Al Hydrox/Mg Hydrox/Simethicone (Mylanta) 30 ml Q4HP PRN PO HEARTBURN/INDIGESTION 05/11/21 17:35 Escitalopram Oxalate (Lexapro) 10 mg DAILY PO 05/16/21 09:00 Home Med (Home Med List Complete!) ASDIRECTED XX 05/11/21 18:00 05/11/21 18:01 DC Hydroxyzine HCl (Atarax) 25 mg Q8HP PRN PO ANXIETY/AGITATION 05/11/21 17:35 Magnesium Hydroxide (Milk Of Magnesia) 30 ml DAILYPRN PRN PO CONSTIPATION 05/11/21 17:35 Nicotine (Nicoderm Cq 21mg) 1 patch DAILY TD 05/12/21 09:00 05/15/21 08:26 Olanzapine (ZyPREXA ZYDIS) 5 mg Q6HP PRN PO AGITATION 05/11/21 17:35 Paliperidone (Invega) 3 mg BID PO 05/11/21 21:00 05/15/21 08:27 Trazodone HCl (Desyrel) 50 mg QHSP PRN PO INSOMNIA 05/11/21 17:35 05/14/21 20:09 Zolpidem Tartrate (Ambien) 5 mg QHSP PRN PO insomnia 05/12/21 11:05 05/14/21 20:09 Allergies Coded Allergies: No Known Drug Allergies (Verified Allergy, Unknown, 05/11/21) KAY GREGORIO MD May 15, 2021 12:10
[2021-05-15 16:41] VITALS: BP 135/72
[2021-05-15] MEDS: traZODone 50 MG TAB PO PRN (22:11)
[2021-05-16 06:31] VITALS: BP 131/69
[2021-05-16] MEDS: PALIPERIDONE 3 MG ER TAB (INVEGA) PO SCH ×2 (08:09→20:45)
[2021-05-16] MEDS: NICOTINE 21MG/24HR 1 EA TRANSDERMAL TD SCH (08:09)
[2021-05-16] MEDS ORDERED: ESCITALOPRAM OXALATE 10 MG TAB (LEXAPRO) PO SCH (09:00)
--- NOTE | 2021-05-16 13:00 | MHIPNPDOC ---
[facility] Progress Note Progress Note DATE OF SERVICE: 05/16/21 HISTORY: Patient is a 30-year-old male single living with his mother who was brought by mother, for exhibiting bizarre behavior. 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 His mother reports he has been never psychotic in the past and did not behave the way he has been behaving recently. During my evaluation patient was crying incessantly Stating that "I want to go back to my mother" . Patient was not able to stay on one topic. Changes topic continuously, reports that he lost his weight considerably ,unable to sleep , Then he spoke about his student loan, then he spoke about his fight with strangers with flashlights He was tearful and crying throughout. He was preoccupied when I saw him walking in the hallway. Patient reports he has lost weight he has difficulty sleeping, loss of self-esteem, but denies any suicidal thoughts. Patient reports he never had manic episodes nor psychosis. Patient has history of anxiety and substance use disorders. Patient currently on no medications Interval report: Patient was more stable yesterday, today he complains of depression, had a crying spell, talking about kidney transplant and dialysis, reported that he did not want to do any drugs. CURRENT MEDICATIONS: See below. MANAGEMENT PLAN: Continue current medications, patient needs substance use treatment, after discharge. Lexapro 10 mg was added TIME SPENT: 25 minutes MENTAL STATUS EXAMINATION: 30-year-old male single living with his mother who was brought by mother, for exhibiting bizarre behavior. Speech: Is hyperverbal, spontaneous, rapid speech, normal tone and volume Language skills are intact Thought processes including: linear with flights of ideas at times Thought content: reporting continued depression and anxiety, denies suicidal ideations at this time. Abstract reasoning, and computation: fair Description of associations: none Description of abnormal or psychotic thoughts: none Judgment: improving Insight: improving Orientation: alert and oriented Recent and remote memory: intact Attention span and concentration: fair Language: expansive Fund of knowledge:average Mood: animated Affect: hypomanic DIAGNOSES: 1. Mood disorder not otherwise specified 2. Cannabis use disorder 3. Rule out Bipolar 2 disorder, depressed ASSESSMENT: Patient appears hypomanic and labile in the interview. Speech is hyperverbal and fast. 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 States that he has worked 48 hours straight as his mother is a co-signer for his student loans and he cannot default on the loan. He reports that because of her job she has security clearance and this loan is tied to this clearance. He had a long tangential conversation about Jimena who is a friend and tries to explain the relationship and then becomes very worried about his finances again. He came to the provider's office numerous times crying about being held 90 days, cried about being able to afford his medications and not being able to talk to his therapist. MANAGEMENT PLAN: Continue all medications, discussed medications, indications and side effects. He is agreeable to current regimen. Will discontinue Lexapro and add Depakote, he does not want to discontinue Inderal, states that he feels that he is improving, although staff reports that he is more manic today. Discharge is pending TIME SPENT: 25 minutes. Vital Signs Vital Signs Date Time Temp Pulse Resp B/P (MAP) Pulse Ox O2 Delivery O2 Flow Rate FiO2 05/16/21 06:31 97.9 81 12 131/69 (89) 99 Room Air Current Medications Current Medications Medications (Trade) Dose Ordered Sig/Davida Route PRN Reason Start Time Stop Time Status Last Admin Dose Admin Acetaminophen (Tylenol Tab) 650 mg Q6HP PRN PO HEADACHE or MILD DISCOMFORT 05/11/21 17:35 Al Hydrox/Mg Hydrox/Simethicone (Mylanta) 30 ml Q4HP PRN PO HEARTBURN/INDIGESTION 05/11/21 17:35 Escitalopram Oxalate (Lexapro) 10 mg DAILY PO 05/16/21 09:00 05/16/21 08:09 Home Med (Home Med List Complete!) ASDIRECTED XX 05/11/21 18:00 05/11/21 18:01 DC Hydroxyzine HCl (Atarax) 25 mg Q8HP PRN PO ANXIETY/AGITATION 05/11/21 17:35 Magnesium Hydroxide (Milk Of Magnesia) 30 ml DAILYPRN PRN PO CONSTIPATION 05/11/21 17:35 Nicotine (Nicoderm Cq 21mg) 1 patch DAILY TD 05/12/21 09:00 05/16/21 08:09 Olanzapine (ZyPREXA ZYDIS) 5 mg Q6HP PRN PO AGITATION 05/11/21 17:35 Paliperidone (Invega) 3 mg BID PO 05/11/21 21:00 05/16/21 08:09 Trazodone HCl (Desyrel) 50 mg QHSP PRN PO INSOMNIA 05/11/21 17:35 05/15/21 22:11 Zolpidem Tartrate (Ambien) 5 mg QHSP PRN PO insomnia 05/12/21 11:05 05/14/21 20:09 Allergies Coded Allergies: No Known Drug Allergies (Verified Allergy, Unknown, 05/11/21) MARCELINO MOSES NP May 16, 2021 08:27
[2021-05-16] MEDS ORDERED: DIVALPROEX 125 MG TAB PO ONE (15:00)
[2021-05-16 16:07] VITALS: BP 140/72
[2021-05-17 06:44] VITALS: BP 112/71
[2021-05-17] MEDS: NICOTINE 21MG/24HR 1 EA TRANSDERMAL TD SCH (07:31)
[2021-05-17] MEDS: PALIPERIDONE 3 MG ER TAB (INVEGA) PO SCH (07:32)
[2021-05-17] MEDS ORDERED: DIVALPROEX 250 MG TAB PO ONE (09:00)
--- NOTE | 2021-05-17 15:25 | MHIPNPDOC ---
[facility] Progress Note Progress Note DATE OF SERVICE: 05/17/21 HISTORY: Patient is a 30-year-old male single living with his mother who was brought by mother, for exhibiting bizarre behavior. 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 His mother reports he has been never psychotic in the past and did not behave the way he has been behaving recently. During my evaluation patient was crying incessantly Stating that "I want to go back to my mother" . Patient was not able to stay on one topic. Changes topic continuously, reports that he lost his weight considerably ,unable to sleep , Then he spoke about his student loan, then he spoke about his fight with strangers with flashlights He was tearful and crying throughout. He was preoccupied when I saw him walking in the hallway. Patient reports he has lost weight he has difficulty sleeping, loss of self-esteem, but denies any suicidal thoughts. Patient reports he never had manic episodes nor psychosis. Patient has history of anxiety and substance use disorders. Patient currently on no medications Interval report: Patient was more stable yesterday, today he complains of depression, had a crying spell, talking about kidney transplant and dialysis, reported that he did not want to do any drugs. CURRENT MEDICATIONS: See below. MANAGEMENT PLAN: Continue current medications, patient needs substance use treatment, after discharge. Lexapro 10 mg was added TIME SPENT: 25 minutes MENTAL STATUS EXAMINATION: 30-year-old male single living with his mother who was brought by mother, for exhibiting bizarre behavior. Speech: Is hyperverbal, spontaneous, less rapid speech, normal tone and volume Language skills are intact Thought processes including: flights of ideas at times, scattered Thought content: reporting continued depression and anxiety, denies suicidal ideations at this time. Abstract reasoning, and computation: fair Description of associations: none Description of abnormal or psychotic thoughts: ruminations about his grandfather and Jimena Judgment: poor Insight: poor Orientation: alert and oriented Recent and remote memory: intact Attention span and concentration: poor Language: expansive Fund of knowledge:average Mood: labile Affect: flat and tearful DIAGNOSES: 1. Unspecified Bipolar I Disorder ASSESSMENT: States that he brought himself to [facility] because he had met someone who he felt that he could spend the rest of his life with. In the interview, he is upset that he doesn't know anyone who knew his grandfather. States "I took it as a sign that if my car stopped and my phone stopped and I was not aware of my grandfather that I took it as a sign that i needed to be here. Grandfather passed when he was 12 years ago, he committed suicide. I never met someone that knew him. My grandfather loved me. That is why I don't get why he didn't ask me to help him." I feel great without the sugar without the fiber. I went a a little crazy because i couldn't take my phone off and I met someone and this is why my Dad is in care home in [place]. I thought you guys weren't letting me out because I needed a kidney transplant and I needed to find my Dad, I couldn't find my grandfather. I thought he was there waiting. I stopped ETOH a liter of alcohol a day on 09/05/2019. I Spent $14.00 a day on ETOH and kicked my smoking habit in November of the same year. I am not danger tomyself, I just want a house, but I can't make more money because she won't let me make more, I just can't afford the meds you put me on. I wonder if there is a God, the one that I don't pray to, it was me that drove her to the ED and I took off my shoelaces and I thought God said you aren't meant to have a kids and my mother, the one I think is the one is Jimena. I just want my ex back I want a place to take - I can't take all of you looking at me like I am not Manuel Ponce, I don't cry in front of girl. My mom is a alliance party and as soon as she knows about an antipsychotic she will chagne everything about my schedule. I think I managed myself. " Patient has flight of ideas. He is moderately scattered in his thoughts, labile mood, going from euthymic to crying during the interview. Becomes very tearful crying about his grandfather. Patient is still hypomanic but is disorganized in his interview. Patient is not reporting suicidal or homicidal ideations, but he is rapid cycling in his Bipolar symptoms. He is not safe for discharge at this time. MANAGEMENT PLAN: Continue all medications, discussed medications, indications and side effects. He is agreeable to current regimen. Discontinued Depakote, patient reported excessive sweating and numerous nightmares. Encouraging patient to allow provider to order another mood stabilizer, he reports only wanting Invega. Invega switched to Risperdal per patient's concern that he will not be able to afford Invega. Added Trileptal 150 mg BID for his rapid mood symptoms. Discharge is pending TIME SPENT: 25 minutes. Vital Signs Vital Signs Date Time Temp Pulse Resp B/P (MAP) Pulse Ox O2 Delivery O2 Flow Rate FiO2 05/17/21 06:44 98.9 105 16 112/71 (85) 100 Room Air Current Medications Current Medications Medications (Trade) Dose Ordered Sig/Davida Route PRN Reason Start Time Stop Time Status Last Admin Dose Admin Acetaminophen (Tylenol Tab) 650 mg Q6HP PRN PO HEADACHE or MILD DISCOMFORT 05/11/21 17:35 Al Hydrox/Mg Hydrox/Simethicone (Mylanta) 30 ml Q4HP PRN PO HEARTBURN/INDIGESTION 05/11/21 17:35 Divalproex Sodium (Depakote) 250 mg BID PO 05/18/21 09:00 Escitalopram Oxalate (Lexapro) 10 mg DAILY PO 05/16/21 09:00 05/16/21 12:46 DC 05/16/21 08:09 Home Med (Home Med List Complete!) ASDIRECTED XX 05/11/21 18:00 05/11/21 18:01 DC Hydroxyzine HCl (Atarax) 25 mg Q8HP PRN PO ANXIETY/AGITATION 05/11/21 17:35 Magnesium Hydroxide (Milk Of Magnesia) 30 ml DAILYPRN PRN PO CONSTIPATION 05/11/21 17:35 Nicotine (Nicoderm Cq 21mg) 1 patch DAILY TD 05/12/21 09:00 05/17/21 07:31 Olanzapine (ZyPREXA ZYDIS) 5 mg Q6HP PRN PO AGITATION 05/11/21 17:35 Paliperidone (Invega) 3 mg BID PO 05/11/21 21:00 05/17/21 07:32 Trazodone HCl (Desyrel) 50 mg QHSP PRN PO INSOMNIA 05/11/21 17:35 05/15/21 22:11 Zolpidem Tartrate (Ambien) 5 mg QHSP PRN PO insomnia 05/12/21 11:05 05/14/21 20:09 Allergies Coded Allergies: No Known Drug Allergies (Verified Allergy, Unknown, 05/11/21) MARCELINO MOSES NP May 17, 2021 11:08
[2021-05-17 16:09] VITALS: BP 124/74
--- NOTE | 2021-05-17 18:49 | MHIPNPDOC ---
[facility] Progress Note Progress Note DATE OF SERVICE: 05/11/21 THIS IS A LATE ENTRY ON 05/17/21 On 05/11/2021, an ED staff member, Lisa Friend, discussed the patient's case with me, as I was operations trainer that day. The patient was psychotic, delusional, had circumstantial speech, flight of ideas, had impaired judgement an insight. Given this presentation, I considered he was a danger to self and other people because he presented with paranoid ideation. This hand sign writer decided to admit the patient to [facility] at [facility]. Vital Signs Vital Signs Date Time Temp Pulse Resp B/P (MAP) Pulse Ox O2 Delivery O2 Flow Rate FiO2 05/17/21 16:09 98.6 90 16 124/74 (91) 100 Room Air Current Medications Current Medications Medications (Trade) Dose Ordered Sig/Davida Route PRN Reason Start Time Stop Time Status Last Admin Dose Admin Acetaminophen (Tylenol Tab) 650 mg Q6HP PRN PO HEADACHE or MILD DISCOMFORT 05/11/21 17:35 Al Hydrox/Mg Hydrox/Simethicone (Mylanta) 30 ml Q4HP PRN PO HEARTBURN/INDIGESTION 05/11/21 17:35 Divalproex Sodium (Depakote) 250 mg BID PO 05/18/21 09:00 05/17/21 10:52 DC Escitalopram Oxalate (Lexapro) 10 mg DAILY PO 05/16/21 09:00 05/16/21 12:46 DC 05/16/21 08:09 Home Med (Home Med List Complete!) ASDIRECTED XX 05/11/21 18:00 05/11/21 18:01 DC Hydroxyzine HCl (Atarax) 25 mg Q8HP PRN PO ANXIETY/AGITATION 05/11/21 17:35 Magnesium Hydroxide (Milk Of Magnesia) 30 ml DAILYPRN PRN PO CONSTIPATION 05/11/21 17:35 Nicotine (Nicoderm Cq 21mg) 1 patch DAILY TD 05/12/21 09:00 05/17/21 07:31 Olanzapine (ZyPREXA ZYDIS) 5 mg Q6HP PRN PO AGITATION 05/11/21 17:35 Oxcarbazepine (Trileptal) 150 mg BID PO 05/17/21 21:00 Paliperidone (Invega) 3 mg BID PO 05/11/21 21:00 05/17/21 12:42 DC 05/17/21 07:32 Risperidone (RisperDAL) 3 mg BID PO 05/17/21 21:00 Trazodone HCl (Desyrel) 50 mg QHSP PRN PO INSOMNIA 05/11/21 17:35 05/17/21 10:55 DC 05/15/21 22:11 Zolpidem Tartrate (Ambien) 5 mg QHSP PRN PO insomnia 05/12/21 11:05 05/14/21 20:09 Allergies Coded Allergies: No Known Drug Allergies (Verified Allergy, Unknown, 05/11/21) YARELY DAWSON MD May 17, 2021 18:48
[2021-05-17] MEDS: risperiDONE 3 MG TAB PO SCH (20:24)
[2021-05-17] MEDS: OXcarbazepine 150 MG TAB PO SCH (20:24)
[2021-05-18 07:33] VITALS: BP 125/76
[2021-05-18] MEDS ORDERED: DIVALPROEX 250 MG TAB PO SCH (09:00)
[2021-05-18] MEDS: OXcarbazepine 150 MG TAB PO SCH ×2 (09:36→21:14)
[2021-05-18] MEDS: risperiDONE 3 MG TAB PO SCH ×2 (09:36→21:13)
[2021-05-18] MEDS: NICOTINE 21MG/24HR 1 EA TRANSDERMAL TD SCH (09:37)
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
[2021-05-18 16:00] VITALS: BP 138/76
[2021-05-18 18:00] VITALS: BP 138/76
[2021-05-19 07:11] VITALS: BP 131/72
[2021-05-19] MEDS: OXcarbazepine 150 MG TAB PO SCH (07:48)
[2021-05-19] MEDS: NICOTINE 21MG/24HR 1 EA TRANSDERMAL TD SCH (07:48)
[2021-05-19] MEDS: risperiDONE 3 MG TAB PO SCH (07:48)
[2021-05-19] MEDS ORDERED: RISP-10 PO (10:15)
[2021-05-19] MEDS ORDERED: NICO21PAT TD (10:15)
[2021-05-19] MEDS ORDERED: OXCA300T14 PO ×2 (10:15→10:17)
[2021-05-19] MEDS ORDERED: AMBI5TAB PO (10:15)
[2021-05-19] MEDS ORDERED: FLUBLOK(EGG FREE)(QUAD)INFLUENZA VACC 0.5ML SYRINGE 18YRS & OLDER IM ONE (11:00)
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
== END 2021-05-19 14:14 | disposition home or self-care (01) | DRG 753 ==
LOC: M ED 13:53 → M ED INP 18:23 → M PSY 21:35
PROVIDERS: ADMIT Psychiatry & Neurology Psychiatry; ATTEND Psychiatry & Neurology Psychiatry
DX: F31.9 Bipolar disorder, unspecified (principal); F12.159 Cannabis abuse with psychotic disorder, unspecified; Z20.822 Contact with and (suspected) exposure to COVID-19; F17.290 Nicotine dependence, other tobacco product, uncomplicated; Z90.49 Acquired absence of other specified parts of digestive tract; Z90.5 Acquired absence of kidney; Z91.51 Personal history of suicidal behavior

== ENCOUNTER 2021-06-07 21:40 | Emergency (ER) | payer OTHER ==
[~2021-06-07] VITALS: Ht 188 cm; Wt 82.0 kg
[~2021-06-07 21:40] MED LIST changes: +AMBI5TAB PO; +NICO21PAT TD; +OXCA300T14 PO; +RISP-10 PO
[2021-06-07 21:41] VITALS: BP 116/70
[2021-06-07] MEDS ORDERED: UNIS25TA3 PO (21:48)
--- OUTSIDE RECORDS SUMMARY | 2021-06-08 00:01 | CCD ---
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 Role Phone Hunter Thornton MD Unavailable Unavailable Hunter Thornton MD Unavailable Unavailable Hunter Thornton MD Unavailable Unavailable Hunter Thornton MD Unavailable Unavailable Hunter Thornton MD Unavailable Unavailable Hunter Thornton MD Unavailable Unavailable Hunter Thornton MD Unavailable Unavailable Hunter Thornton MD Unavailable Unavailable Hunter Thornton MD Unavailable Unavailable Hunter Thornton MD Unavailable Unavailable Hunter Thornton MD Unavailable Unavailable Hunter Thornton MD Unavailable Unavailable Hunter Thornton MD Unavailable Unavailable Hunter Thornton MD Unavailable Unavailable Hunter Thornton MD Unavailable Unavailable Hunter Thornton MD Unavailable Unavailable Hunter Thornton MD Unavailable Unavailable Hunter Thornton MD Unavailable Unavailable Hunter Thornton MD Unavailable Unavailable Hunter Thornton MD Unavailable Unavailable Hunter Thornton MD Unavailable Unavailable Hunter Thornton MD Unavailable Unavailable Hunter Thornton MD Unavailable Unavailable Hunter Thornton MD Unavailable Unavailable Hunter Thornton MD Unavailable Unavailable Hunter BOCANEGRA MD Unavailable Unavailable Hunter BOCANEGRA MD Unavailable Unavailable Hunter BOCANEGRA MD Unavailable Unavailable Hunter BOCANEGRA MD Unavailable Unavailable Hunter BOCANEGRA MD Unavailable Unavailable KALEN, C MARTINA MD Unavailable Unavailable KALEN, C MARTINA MD Unavailable Unavailable KALEN, C MARTINA MD Unavailable Unavailable KALEN, C MARTINA MD Unavailable Unavailable KALEN, C MARTINA MD Unavailable Unavailable KALEN, C MARTINA MD Unavailable Unavailable KALEN, C MARTINA MD Unavailable Unavailable KALEN, C MARTINA MD Unavailable Unavailable KALEN, C MARTINA MD Unavailable Unavailable KALEN, C MARTINA MD Unavailable Unavailable KALEN, C MARTINA MD Unavailable Unavailable KALEN, C MARTINA MD Unavailable Unavailable KALEN, C MARTINA MD Unavailable Unavailable KALEN, C MARTINA MD Unavailable Unavailable KALEN, C MARTINA MD Unavailable Unavailable KALEN, C MARTINA MD Unavailable Unavailable KALEN, C MARTINA MD Unavailable Unavailable KALEN, C MARTINA MD Unavailable Unavailable KALEN, C MARTINA MD Unavailable Unavailable KALEN, C MARTINA MD Unavailable Unavailable KALEN, C MARTINA MD Unavailable Unavailable KALEN, C MARTINA MD Unavailable Unavailable KALEN, C MARTINA MD Unavailable Unavailable KALEN, C MARTINA MD Unavailable Unavailable KALEN, C MARTINA MD Unavailable Unavailable KALEN, C MARTINA MD Unavailable Unavailable KALEN, C MARTINA MD Unavailable Unavailable KALEN, C MARTINA MD Unavailable Unavailable KALEN, C MARTINA MD Unavailable Unavailable Re-disclosure Warning The records that you are about to access may contain information from federally-assisted alcohol or drug abuse programs. If such information is present, then the following federally mandated warning applies: This information has been disclosed to you from records protected by federal confidentiality rules (42 CFR part 2). The federal rules prohibit you from making any further disclosure of this information unless further disclosure is expressly permitted by the written consent of the person to whom it pertains or as otherwise permitted by 42 CFR part 2. A general authorization for the release of medical or other information is NOT sufficient for this purpose. The Federal rules restrict any use of the information to criminally investigate or prosecute any alcohol or drug abuse patient.The records that you are about to access may contain highly sensitive health information, the redisclosure of which is protected by Article 27-F of the [facility] Public Health law. If you continue you may have access to information: Regarding HIV / AIDS; Provided by facilities licensed or operated by the [facility] Office of Mental Health; or Provided by the [facility] Office for People With Developmental Disabilities. If such information is present, then the following [facility] mandated warning applies: This information has been disclosed to you from confidential records which are protected by state law. State law prohibits you from making any further disclosure of this information without the specific written consent of the person to whom it pertains, or as otherwise permitted by law. Any unauthorized further disclosure in violation of state law may result in a fine or snf sentence or both. A general authorization for the release of medical or other information is NOT sufficient authorization for further disc losure. Encounters Encounter Providers Location Date Indications Data Source(s ) Unknown [address] [facility] [id number] 12/19/2020 12:00:00 AM EDT eCW1 ([facility]) Unknown [address] [facility] [id number] 11/29/2020 12:00:00 AM EDT eCW1 ([facility]) Unknown [address] [facility] [id number] 11/25/2020 12:00:00 AM EDT eCW1 ([facility]) Unknown [address] [facility] [place] [address] 11/07/2020 12:00:00 AM EDT eCW1 ([facility]) Unknown [address] [facility] [id number] 11/07/2020 12:00:00 AM EDT eCW1 ([facility]) Outpatient Attender: MARTINA Boacnegra/Kwabena/Lucas/Qasim cordova 11/01/2020 03:00:00 PM EDT [facility] ([facility]) Outpatient Attender: Kendra Thornton MD 0 10/25/2020 11:55:48 AM EDT - 10/25/2020 12:30:34 PM EDT [facility] ([facility]) Unknown [address] [facility] [id number] 10/06/2020 12:00:00 AM EST eCW1 ([facility]) Unknown [address] [facility] [id number] 09/30/2020 12:00:00 AM EST eCW1 ([facility]) Unknown [address] [facility] [place] [address] 09/30/2020 12:00:00 AM EST eCW1 ([facility]) [place] [address] [facility] [place] [address] 09/10/2020 12:00:00 AM EST eCW1 ([facility]) Unknown [address] [facility] [place] [address] 08/25/2020 12:00:00 AM EST eCW1 ([facility]) Outpatient [address] [facility] [place] [address] 08/23/2020 12:00:00 AM EST eCW1 ([facility]) Unknown [address] [facility] [place] [address] 06/24/2020 12:00:00 AM EST eCW1 ([facility]) Outpatient [address] [facility] [place] [address] 06/15/2020 12:00:00 AM EST eCW1 ([facility]) Medications Medication Brand Name Start Date Product Form Dose Route Admi nistrative Instructions Pharmacy Instructions Status Indications Reaction Description Data Source(s) 200 mg 02/21/2021 12:00:00 AM EDT tablet 30 TAKE ONE TABLET BY MOUTH EVERY DAY FOR 6 WEEKS TAKE ONE TABLET BY MOUTH EVERY DAY FOR 6 WEEKS SOLD: [facility] Clobetasol Propionate 0.5 MG/ML Topical Solution 0.05 % CLOB ETASOL PROPIONATE 02/21/2021 12:00:00 AM EDT solution 50 APPLY TOPICALLY TO SCALP ONCE DAILY AFTER SHOWER. USE FOR 2 WEEKS, THEN WAIT 2 WEEKS TO USE AGAIN. APPLY TOPICALLY TO SCALP ONCE DAILY AFTER SHOWER. USE FOR 2 WEEKS, THEN WAIT 2 WEEKS TO USE AGAIN. SOLD: 02/22/2021 [facility] 200 mg 01/05/2021 12:00:00 AM EDT tablet 28 TAKE ONE TABLET BY MOUTH ONCE DAILY FOR 4 WEEKS TAKE ONE TABLET BY MOUTH ONCE DAILY FOR 4 WEEKS SOLD: 01/05/2021 [facility] 200 mg 10/25/2020 12:00:00 AM EDT tablet 14 TAKE ONE TABLET BY MOUTH EVERY DAY FOR 2 WEEKS TAKE ONE TABLET BY MOUTH EVERY DAY FOR 2 WEEKS SOLD: [facility] Ketoconazole 20 MG/ML Medicated Shampoo KETOCONAZOLE 10/26/19 12:00:00 AM EDT shampoo 120 APPLY TOPICALLY ONCE DAILY FOR 1 0 DAYS APPLY TOPICALLY ONCE DAILY FOR 10 DAYS SOLD: 10/25/2020 [facility] 2 % 10/25/2020 12:00:00 AM EDT cream 30 APPLY TOPICALLY ONCE DAILY FOR 2 WEEKS APPLY TOPICALLY ONCE DAILY FOR 2 WEEKS SOLD: 10/25/2020 [facility] Sulfamethoxazole 800 MG / Trimethoprim 160 MG Oral Tab let 800-160 mg SULFAMETHOXAZOLE/TRIMETHOPRIM 10/08/2020 12:00:00 AM EST tablet 20 TAKE ONE TABLET BY MOUTH EVERY 12 HOURS TAKE ONE TABLET BY MOUTH EVERY 12 HOURS SOLD: 10/08/2020 [facility] 0.005 % 06/16/2020 12:00:00 AM EST cream 60 APPLY ONCE A DAY APPLY ONCE A DAY SOLD: 06/16/2020 [facility] Betamethasone 0.5 MG/ML Augmented Topica l Cream Betamethasone Dipropionate Aug 0.05 % Betamethasone Dipropionate Aug 0.05 % 06/15/2020 12:00:00 AM EST 1.0 {application} active Betamethasone Dipr opionate Aug 0.05 % eCW1 ([facility]) 0.05 % 06/15/2020 12:00:00 AM EST cream 50 APPLY TOPICALLY TWICE DAILY NEEDED FOR 10 DAYS APPLY TOPICALLY TWICE DAILY NEEDED FOR 10 DAYS SOLD : 06/16/2020 [facility] calcipotriene 0.05 MG/ML Topical Cream Calcipotriene 0 .005 % Calcipotriene 0.005 % 06/15/2020 12:00:00 AM EST 1.0 {application} active Calcipotriene 0.005 % eCW1 ([facility]) calcipotriene 0.05 MG/ML Topical Cream Calcipotriene 0 .005 % Calcipotriene 0.005 % 06/15/2020 12:00:00 AM EST 1.0 {application} active Calcipotriene 0.005 % eCW1 ([facility]) Betamethasone 0.5 MG/ML Augmented Topica l Cream Betamethasone Dipropionate Mar 0.05 % Betamethasone Dipropionate Aug 0.05 % 06/15/2020 12:00:00 AM EST 1.0 {application} active Betamethasone Dipr opionate Aug 0.05 % eCW1 ([facility]) 0.05 % 05/28/2020 12:00:00 AM EDT solution 25 APPLY SPARINGLY IN A THIN FILM TO THE AFFECTED AREAS OF THE SCALP; RUB IN GENTLY AND COMPLETELY APPLY SPARINGLY IN A THIN FILM TO THE AFFECTED AREAS OF THE SCALP; RUB IN GENTLY AND COMPLETELY SOLD: 05/28/2020 [facility] Insurance Providers Payer name Policy type / Coverage type Policy ID Covered alliance party ID Covered alliance party's relationship to valdez Policy Valdez Plan Information EXCELLUS BS [facility] [id number] MO2 [id number] BC BS [facility] [id number] MO2 [id number] EXCELLUS [facility] [id number] [facility] [id number] [employer] 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 [id number] SP [id number] [employer]KH[employer]ER [id number] SP [id number] [employer]BS [place] PPO 302/[id number] SP [id number] Problems, Conditions, and Diagnoses Code Display Name Description Problem Type Effective Dates Data Source(s) L40.9 [id number] Psoriasis Problem 08/23/2020 12:00:00 AM ES T eCW1 ([facility]) R53.82 [id number] Chronic fatigue Problem 08/23/2020 12:00:00 AM EST eCW1 ([facility]) L40.8 [id number] Seborrheic psoriasis Problem 06/15/2020 12:0 0:00 AM EST eCW1 ([facility]) Surgeries/Procedures No Information Results ID Date Data Source [id number] 05/11/2021 06:41:00 PM EDT [facility] Name Value Range Interpretation Code Description Data Neda rce(s) Supporting Document(s) SARS coronavirus 2 RNA [Presence] in Res piratory specimen by NATHALY with probe detection NEGATIVE [facility] This lab was ordered by [facility] a nd reported by [facility]. ID Date Data Source VITAMIN B12 LEVEL 08/23/2020 12:00:00 AM EST eCW1 ([facility]) Name Value Range Interpretation Code Description Data Neda rce(s) Supporting Document(s) 294 238-791 eCW1 ([facility]) ID Date Data Source VITAMIN D 25-HYDROXY 08/23/2020 12:00:00 AM EST eCW1 ([facility]) Name Value Range Interpretation Code Description Data Neda rce(s) Supporting Document(s) 35.3 30.0-100.0 eCW1 ([facility]) ID Date Data Source CREATININE,RANDOM URINE 08/23/2020 12:00:00 AM EST eCW1 ([facility]) Name Value Range Interpretation Code Description Data Neda rce(s) Supporting Document(s) 169.0 eCW1 ([facility]) ID Date Data Source TREY TITER & PATTERN 08/23/2020 12:00:00 AM EST eCW1 ([facility]) Name Value Range Interpretation Code Description Data Neda rce(s) Supporting Document(s) Positive . eCW1 ([facility]) ID Date Data Source RHEUMATOID FACTOR QUANT 08/23/2020 12:00:00 AM EST eCW1 ([facility]) Name Value Range Interpretation Code Description Data Neda rce(s) Supporting Document(s) < 10.0 <15.0 eCW1 ([facility]) ID Date Data Source ERYTHROCYTE SEDIMENTATION RATE 08/23/2020 12:00:00 AM EST eC W1 ([facility]) Name Value Range Interpretation Code Description Data Neda rce(s) Supporting Document(s) 7 0-15 eCW1 ([facility]) ID Date Data Source MAGNESIUM LEVEL 08/23/2020 12:00:00 AM EST eCW1 ([facility]) Name Value Range Interpretation Code Description Data Neda rce(s) Supporting Document(s) 2.2 1.8-2.4 eCW1 ([facility]) ID Date Data Source IRON (FE) 08/23/2020 12:00:00 AM EST eCW1 ([facility]) Name Value Range Interpretation Code Description Data Neda rce(s) Supporting Document(s) 66 65-175 eCW1 ([facility]) ID Date Data Source PHOSPHOROUS LEVEL 08/23/2020 12:00:00 AM EST eCW1 ([facility]) Name Value Range Interpretation Code Description Data Neda rce(s) Supporting Document(s) 4.1 2.5-4.9 eCW1 ([facility]) ID Date Data Source TSH 08/23/2020 12:00:00 AM EST eCW1 ([facility]) Name Value Range Interpretation Code Description Data Neda rce(s) Supporting Document(s) 1.440 0.358-3.740 eCW1 ([facility]) ID Date Data Source ANTI SCLERODERMA ANTIBODIES 08/23/2020 12:00:00 AM EST eCW1 ([facility]) Name Value Range Interpretation Code Description Data Neda rce(s) Supporting Document(s) <0.2 0.0-0.9 eCW1 ([facility]) ID Date Data Source ANTI DOUBLE STRAND DNA DARIEL 08/23/2020 12:00:00 AM EST eCW1 ( [facility]) Name Value Range Interpretation Code Description Data Neda rce(s) Supporting Document(s) eCW1 ([facility]) ID Date Data Source UA URINALYSIS 08/23/2020 12:00:00 AM EST eCW1 ([facility]) Name Value Range Interpretation Code Description Data Neda rce(s) Supporting Document(s) eCW1 ([facility]) ID Date Data Source LUPUS TYPE ANTICOAGULANT SCREE 08/23/2020 12:00:00 AM EST eC W1 ([facility]) Name Value Range Interpretation Code Description Data Neda rce(s) Supporting Document(s) 1.0 0-1.2 eCW1 ([facility]) ID Date Data Source ANTI-SJOGRENS A&B ANTIBODIES 08/23/2020 12:00:00 AM EST eCW1 ([facility]) Name Value Range Interpretation Code Description Data Neda rce(s) Supporting Document(s) >8.0 0.0-0.9 eCW1 ([facility]) <0.2 0.0-0.9 eCW1 ([facility]) ID Date Data Source ANTI-HISTONE ANTIBODIES 08/23/2020 12:00:00 AM EST eCW1 ([facility]) Name Value Range Interpretation Code Description Data Neda rce(s) Supporting Document(s) 0.9 0.0-0.9 eCW1 ([facility]) ID Date Data Source C REACTIVE PROTEIN QUANTITATIV (At [facility]) 08/23/2020 12:00 :00 AM EST eCW1 ([facility]) Name Value Range Interpretation Code Description Data Neda rce(s) Supporting Document(s) 0.58 0.00-0.30 eCW1 ([facility]) ID Date Data Source CYCLIC CITRULLINATED PEPTIDE 08/23/2020 12:00:00 AM EST eCW1 ([facility]) Name Value Range Interpretation Code Description Data Neda rce(s) Supporting Document(s) 9 0-19 eCW1 ([facility]) ID Date Data Source ANTI-CARDIOLIPIN ANTIBODIES 08/23/2020 12:00:00 AM EST eCW1 ([facility]) Name Value Range Interpretation Code Description Data Neda rce(s) Supporting Document(s) <9 0-11 eCW1 ([facility]) <9 0-14 eCW1 ([facility]) 12 0-12 eCW1 ([facility]) ID Date Data Source CBC with Differential 08/23/2020 12:00:00 AM EST eCW1 (Counts include 234 beds at the [facility]) Name Value Range Interpretation Code Description Data Neda rce(s) Supporting Document(s) 48.5 42.0-52.0 eCW1 ([facility]) 5.6 4.0-10.0 eCW1 ([facility]) 16.3 13.5-17.5 eCW1 ([facility]) 5.31 4.30-6.10 eCW1 ([facility]) 12.5 11.5-14.5 eCW1 ([facility]) 91.3 80.0-96.0 eCW1 ([facility]) 30.7 27.0-33.0 eCW1 ([facility]) 33.6 32.0-36.5 eCW1 ([facility]) 62.8 36.0-66.0 eCW1 ([facility]) 264 150-450 eCW1 ([facility]) 21.9 24.0-44.0 eCW1 ([facility]) 12.8 0.0-5.0 eCW1 ([facility]) 1.2 1.5-5.0 eCW1 ([facility]) 0.5 0.0-1.0 eCW1 ([facility]) 0.7 0.0-0.8 eCW1 ([facility]) 3.5 1.5-8.5 eCW1 ([facility]) 1.6 0.0-3.0 eCW1 ([facility]) 0.1 0.0-0.5 eCW1 ([facility]) 0.0 0.0-0.2 eCW1 ([facility]) ID Date Data Source ANTI CENTROMERE ANTIBODY 08/23/2020 12:00:00 AM EST eCW1 ([facility]) Name Value Range Interpretation Code Description Data Neda rce(s) Supporting Document(s) <0.2 0.0-0.9 eCW1 ([facility]) ID Date Data Source COMPLEMENT TOTAL (CH50) 08/23/2020 12:00:00 AM EST eCW1 ([facility]) Name Value Range Interpretation Code Description Data Neda rce(s) Supporting Document(s) > 60 >41 eCW1 ([facility]) ID Date Data Source COMPLEMENT C4 08/23/2020 12:00:00 AM EST eCW1 ([facility]) Name Value Range Interpretation Code Description Data Neda rce(s) Supporting Document(s) 25 10-40 eCW1 ([facility]) ID Date Data Source COMPLEMENT C3 08/23/2020 12:00:00 AM EST eCW1 ([facility]) Name Value Range Interpretation Code Description Data Neda rce(s) Supporting Document(s) 146 90-180 eCW1 ([facility]) ID Date Data Source BETA-2 GLYCOPROTEIN 1 DARIEL LAURA 08/23/2020 12:00:00 AM EST eCW 1 ([facility]) Name Value Range Interpretation Code Description Data Neda rce(s) Supporting Document(s) <9 0-25 eCW1 ([facility]) <9 0-20 eCW1 ([facility]) <9 0-32 eCW1 ([facility]) Procedure Social History Code Duration Value Status Description Data Source(s ) Smoking 11/29/2020 12:00:00 AM EDT UNK completed eCW1 ([facility]) Smoking 11/29/2020 12:00:00 AM EDT UNK completed eCW1 ([facility]) 11/01/2020 12:00:00 AM EDT Smokes 1 Pack A Day completed Smokes 1 Pack A Day MEDENT ([facility] ) Smoking 09/04/2020 12:00:00 AM EST UNK completed eCW1 ([facility]) Smoking 09/04/2020 12:00:00 AM EST UNK completed eCW1 ([facility]) Smoking 09/04/2020 12:00:00 AM EST UNK completed eCW1 ([facility]) Smoking 09/04/2020 12:00:00 AM EST UNK completed eCW1 ([facility]) Smoking 09/04/2020 12:00:00 AM EST UNK completed eCW1 ([facility]) Smoking 09/04/2020 12:00:00 AM EST UNK completed eCW1 ([facility]) Smoking 09/04/2020 12:00:00 AM EST UNK completed eCW1 ([facility]) Smoking 09/04/2020 12:00:00 AM EST UNK completed eCW1 ([facility]) Smoking 08/23/2020 12:00:00 AM EST Never Smoker completed Never S moker eCW1 ([facility]) Smoking 06/15/2020 12:00:00 AM EST Never Smoker completed Never S moker eCW1 ([facility]) Smoking 06/15/2020 12:00:00 AM EST Never Smoker completed Never S moker eCW1 ([facility]) Vital Signs ID Date Data Source UNK Name Value Range Interpretation Code Description Data Source(s) Body height 74 [in_i] 74 [in_i] [facility] ([facility]) 6'2" Body weight 220.00 [lb_av] 220.00 [lb_av] [facility] ([facility]) Body mass index (BMI) [Ratio] 28.2 kg/m2 28.2 k g/m2 [facility] ([facility]) Saffell body weight 190 [lb_av] 190 [lb_av] [facility] ([facility]) Body weight 99.792 kg 99.792 kg [facility] ([facility]) Body surface area Derived from formula 2.26 m2 2.26 m2 [facility] ([facility]) Body weight 229.8 [lb_av] 229.8 [lb_av] eCW1 ([facility]) Body weight 104.2 kg 104.2 kg eCW1 ([facility]) Body height 72 [in_i] 72 [in_i] eCW1 ([facility]) Body mass index (BMI) [Ratio] 31.16 kg/m2 31.16 kg/m2 eCW1 ([facility]) Heart rate 127 /min 127 /min eCW1 ([facility]) Respiratory rate 18 /min 18 /min eCW1 ([facility]) Body temperature 97.8 [degF] 97.8 [degF] eCW1 ( [facility]) Systolic blood pressure 124 mm[Hg] 124 mm[Hg] e CW1 ([facility]) Diastolic blood pressure 86 mm[Hg] 86 mm[Hg] eCW1 ([facility]) Body weight 229 [lb_av] 229 [lb_av] eCW1 (Counts include 234 beds at the [facility]) Body height [in_i] eCW1 ([facility]) Body mass index (BMI) [Ratio] 31.05 kg/m2 31.05 kg/m2 eCW1 ([facility]) Systolic blood pressure 124 mm[Hg] 124 mm[Hg] e CW1 ([facility]) Diastolic blood pressure 70 mm[Hg] 70 mm[Hg] eCW1 ([facility]) Patient Treatment Plan of Care Planned Activity Planned Date Details Description Data Source (s) Betamethasone 0.5 MG/ML Augmented Topical Cream 06/15/2020 12:00:00 AM EST eCW1 ([facility]) calcipotriene 0.05 MG/ML Topical Cream 06/15/2020 12:00:00 AM EST eCW1 ([facility]) Betamethasone 0.5 MG/ML Augmented Topical Cream 06/15/2020 12:00:00 AM EST eCW1 ([facility]) calcipotriene 0.05 MG/ML Topical Cream 06/15/2020 12:00:00 AM EST eCW1 ([facility])
== END 2021-06-08 00:02 | disposition left against medical advice (07) ==
LOC: M ED 21:40
DX: Z53.21 Procedure and treatment not carried out due to patient leaving prior to being seen by health care provider (principal)

== ENCOUNTER 2021-06-08 02:36 | Emergency (ER) | payer OTHER ==
[~2021-06-08] VITALS: Ht 188 cm; Wt 82.5 kg
[~2021-06-08 02:36] MED LIST changes: +UNIS25TA3 PO
--- OUTSIDE RECORDS SUMMARY | 2021-06-08 02:43 | CCD ---
Author Author [facility] Organization [facility] Address Unknown Phone Unavailable Care Team Providers Care Manager Van Name Role Phone Hunter Thornton MD Unavailable [...] C MARTINA MD Unavailable Unavailable KALEN, C MATRINA MD Unavailable Unavailable KALEN, C MARTINA MD [...] Unavailable KALEN, C MARTINA MD Unavailable Unavailable KLAEN, C MARTINA MD Unavailable Unavailable KALEN, C [...] is protected by Article 27-F of the [facility] Public Health law. If you continue you may have access to information: Regarding HIV / AIDS; Provided by facilities licensed or operated by the [facility] Office of Mental Health; or Provided by the [facility] Office for People With Developmental Disabilities. If such information is present, then the following [facility] mandated warning applies: This information has been [...] law may result in a fine or care home sentence or both. A general authorization for the release of medical or other information is NOT sufficient authorization for further disc losure. Encounters Encounter Providers Location Date Indications Data Source(s ) Unknown [address] [facility] [id number] 12/19/2020 12:00:00 AM EDT eCW1 ([facility]) Unknown [address] [facility] [id number] 11/29/2020 12:00:00 AM EDT eCW1 ([facility]) Unknown [address] [facility] [address] 11/25/2020 12:00:00 AM EDT eCW1 ([facility]) Unknown [address] [facility] [place] [address] 11/07/2020 12:00:00 AM EDT eCW1 ([facility]) Unknown [address] [facility] [id number] 11/07/2020 12:00:00 AM EDT eCW1 ([facility]) Outpatient Attender: MARTINA Bocanegra/Kwabena/Lucas/Qasim cordova 11/01/2020 03:00:00 PM EDT MEDENT ([facility]) Outpatient Attender: Kendra Thornton MD 0 10/25/2020 11:55:48 AM EDT - 10/25/2020 12:30:34 PM EDT [facility]ap ([facility]) Unknown [address] [facility] [id number] 10/06/2020 12:00:00 AM EST eCW1 ([facility]) Unknown [address] [facility] [address] 09/30/2020 12:00:00 AM EST eCW1 ([facility]) Unknown [address] [facility] [place] [address] 09/30/2020 12:00:00 AM EST eCW1 ([facility]) Unknown [address] [facility] [place] [address] 09/10/2020 12:00:00 AM EST eCW1 ([facility]) Unknown [address] [facility] [place] [address] 08/25/2020 12:00:00 AM EST eCW1 ([facility]) Outpatient [address] [facility] [place] [address] 08/23/2020 12:00:00 AM EST eCW1 ([facility]) Unknown [address] [facility] [place] [address] 06/24/2020 12:00:00 AM EST eCW1 ([facility]) Outpatient [address] [facility] [place] [address] 06/15/2020 12:00:00 AM EST eCW1 ([facility]) Medications Medication Brand Name Start Date Product [...] Betamethasone Dipr opionate Aug 0.05 % eCW1 ([facility]) 0.05 % 06/15/2020 12:00:00 AM EST cream 50 APPLY TOPICALLY TWICE DAILY NEEDED FOR 10 DAYS APPLY TOPICALLY TWICE DAILY NEEDED FOR 10 DAYS SOLD : 06/16/2020 [facility] calcipotriene 0.05 MG/ML Topical Cream Calcipotriene 0 .005 % Calcipotriene 0.005 % 06/15/2020 12:00:00 AM EST 1.0 {application} active Calcipotriene 0.005 % eCW1 ([facility]) calcipotriene 0.05 MG/ML Topical Cream Calcipotriene 0 .005 % Calcipotriene 0.005 % 06/15/2020 12:00:00 AM EST 1.0 {application} active Calcipotriene 0.005 % eCW1 ([facility]) Betamethasone 0.5 MG/ML Augmented Topica l Cream Betamethasone Dipropionate Mar 0.05 % Betamethasone Dipropionate Aug 0.05 % 06/15/2020 12:00:00 AM EST 1.0 {application} active Betamethasone Dipr opionate Aug 0.05 % eCW1 ([facility]) 0.05 % 05/28/2020 12:00:00 AM EDT solution 25 APPLY SPARINGLY IN A THIN FILM TO THE AFFECTED AREAS OF THE SCALP; RUB IN GENTLY AND COMPLETELY APPLY SPARINGLY IN A THIN FILM TO THE AFFECTED AREAS OF THE SCALP; RUB IN GENTLY AND COMPLETELY SOLD: 05/28/2020 [facility] Insurance Providers Payer name Policy type / Coverage type Policy ID Covered republican ID Covered republican's relationship to valdez Policy Valdez Plan Information EXCELLUS BS [facility] [id number] MO2 [id number] BC BS [facility] [id number] MO2 [id number] EXCELLUS [facility] [id number] [facility] [id number] 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 [id number] SP [id number] [employer] [id number] SP [id number] BCBS [place] PPO 302/307 [id number] SP [id number] Problems, Conditions, and Diagnoses Code Display Name Description Problem Type Effective Dates Data Source(s) L40.9 [id number] Psoriasis Problem 08/23/2020 12:00:00 AM ES T eCW1 ([facility]) R53.82 [id number] Chronic fatigue Problem 08/23/2020 12:00:00 AM EST eCW1 ([facility]) L40.8 [id number] Seborrheic psoriasis Problem 06/15/2020 12:0 0:00 AM EST eCW1 ([facility]) Surgeries/Procedures No Information Results ID Date Data Source [id number] 05/11/2021 06:41:00 PM EDT [facility] Name Value Range Interpretation Code Description Data Neda rce(s) Supporting Document(s) SARS coronavirus 2 RNA [Presence] in Res piratory specimen by NATHALY with probe detection NEGATIVE [facility] This lab was ordered by [facility] a nd reported by [facility]. ID Date Data Source VITAMIN B12 LEVEL 08/23/2020 12:00:00 AM EST eCW1 ([facility]) Name Value Range Interpretation Code Description Data Neda rce(s) Supporting Document(s) 294 056-251 eCW1 ([facility]) ID Date Data Source VITAMIN D 25-HYDROXY 08/23/2020 12:00:00 AM EST eCW1 ([facility]) Name Value Range Interpretation Code Description Data Neda rce(s) Supporting Document(s) 35.3 30.0-100.0 eCW1 (On license of [facility]) ID Date Data Source CREATININE,RANDOM URINE 08/23/2020 12:00:00 AM EST eCW1 ([facility]) Name Value Range Interpretation Code Description Data Neda rce(s) Supporting Document(s) 169.0 eCW1 ([facility]) ID Date Data Source TREY TITER & PATTERN 08/23/2020 12:00:00 AM EST eCW1 ([facility]) Name Value Range Interpretation Code Description Data Neda rce(s) Supporting Document(s) Positive . eCW1 ([facility]) ID Date Data Source RHEUMATOID FACTOR QUANT 08/23/2020 12:00:00 AM EST eCW1 ([facility]) Name Value Range Interpretation Code Description Data Neda rce(s) Supporting Document(s) < 10.0 <15.0 eCW1 ([facility]) ID Date Data Source ERYTHROCYTE SEDIMENTATION RATE 08/23/2020 12:00:00 AM EST eC W1 ([facility]) Name Value Range Interpretation Code Description Data Neda rce(s) Supporting Document(s) 7 0-15 eCW1 ([facility]) ID Date Data Source MAGNESIUM LEVEL 08/23/2020 12:00:00 AM EST eCW1 ([facility]) Name Value Range Interpretation Code Description Data Neda rce(s) Supporting Document(s) 2.2 1.8-2.4 eCW1 ([facility]) ID Date Data Source IRON (FE) 08/23/2020 12:00:00 AM EST eCW1 ([facility]) Name Value Range Interpretation Code Description Data Neda rce(s) Supporting Document(s) 66 65-175 eCW1 ([facility]) ID Date Data Source PHOSPHOROUS LEVEL 08/23/2020 12:00:00 AM EST eCW1 ([facility]) Name Value Range Interpretation Code Description Data Neda rce(s) Supporting Document(s) 4.1 2.5-4.9 eCW1 ([facility]) ID Date Data Source TSH 08/23/2020 12:00:00 AM EST eCW1 ([facility]) Name Value Range Interpretation Code Description Data Neda rce(s) Supporting Document(s) 1.440 0.358-3.740 eCW1 ([facility]) ID Date Data Source ANTI SCLERODERMA ANTIBODIES 08/23/2020 12:00:00 AM EST eCW1 ([facility]) Name Value Range Interpretation Code Description Data Neda rce(s) Supporting Document(s) <0.2 0.0-0.9 eCW1 ([facility]) ID Date Data Source ANTI DOUBLE STRAND DNA DARIEL 08/23/2020 12:00:00 AM EST eCW1 ( [facility]) Name Value Range Interpretation Code Description Data Neda rce(s) Supporting Document(s) eCW1 ([facility]) ID Date Data Source UA URINALYSIS 08/23/2020 12:00:00 AM EST eCW1 ([facility]) Name Value Range Interpretation Code Description Data Neda rce(s) Supporting Document(s) eCW1 ([facility]) ID Date Data Source LUPUS TYPE ANTICOAGULANT SCREE 08/23/2020 12:00:00 AM EST eC W1 ([facility]) Name Value Range Interpretation Code Description Data Neda rce(s) Supporting Document(s) 1.0 0-1.2 eCW1 ([facility]) ID Date Data Source ANTI-SJOGRENS A&B ANTIBODIES 08/23/2020 12:00:00 AM EST eCW1 ([facility]) Name Value Range Interpretation Code Description Data Neda rce(s) Supporting Document(s) >8.0 0.0-0.9 eCW1 ([facility]) <0.2 0.0-0.9 eCW1 ([facility]) ID Date Data Source ANTI-HISTONE ANTIBODIES 08/23/2020 12:00:00 AM EST eCW1 ([facility]) Name Value Range Interpretation Code Description Data Neda rce(s) Supporting Document(s) 0.9 0.0-0.9 eCW1 ([facility]) ID Date Data Source C REACTIVE PROTEIN QUANTITATIV (At [facility]) 08/23/2020 12:00 :00 AM EST eCW1 ([facility]) Name Value Range Interpretation Code Description Data Neda rce(s) Supporting Document(s) 0.58 0.00-0.30 eCW1 ([facility]) ID Date Data Source CYCLIC CITRULLINATED PEPTIDE 08/23/2020 12:00:00 AM EST eCW1 ([facility]) Name Value Range Interpretation Code Description Data Neda rce(s) Supporting Document(s) 9 0-19 eCW1 ([facility]) ID Date Data Source ANTI-CARDIOLIPIN ANTIBODIES 08/23/2020 12:00:00 AM EST eCW1 ([facility]) Name Value Range Interpretation Code Description Data Neda rce(s) Supporting Document(s) <9 0-11 eCW1 ([facility]) <9 0-14 eCW1 ([facility]) 12 0-12 eCW1 ([facility]) ID Date Data Source CBC with Differential 08/23/2020 12:00:00 AM EST eCW1 ([facility]) Name Value Range Interpretation Code Description Data Neda rce(s) Supporting Document(s) 48.5 42.0-52.0 eCW1 ([facility]) 5.6 4.0-10.0 eCW1 ([facility]) 16.3 13.5-17.5 eCW1 ([facility]) 5.31 4.30-6.10 eCW1 ([facility]) 12.5 11.5-14.5 eCW1 ([facility]) 91.3 80.0-96.0 eCW1 ([facility]) 30.7 27.0-33.0 eCW1 ([facility]) 33.6 32.0-36.5 eCW1 ([facility]) 62.8 36.0-66.0 eCW1 ([facility]) 264 150-450 eCW1 ([facility]) 21.9 24.0-44.0 eCW1 ([facility]) 12.8 0.0-5.0 eCW1 ([facility]) 1.2 1.5-5.0 eCW1 ([facility]) 0.5 0.0-1.0 eCW1 ([facility]) 0.7 0.0-0.8 eCW1 ([facility]) 3.5 1.5-8.5 eCW1 ([facility]) 1.6 0.0-3.0 eCW1 ([facility]) 0.1 0.0-0.5 eCW1 ([facility]) 0.0 0.0-0.2 eCW1 ([facility]) ID Date Data Source ANTI CENTROMERE ANTIBODY 08/23/2020 12:00:00 AM EST eCW1 ([facility]) Name Value Range Interpretation Code Description Data Neda rce(s) Supporting Document(s) <0.2 0.0-0.9 eCW1 ([facility]) ID Date Data Source COMPLEMENT TOTAL (CH50) 08/23/2020 12:00:00 AM EST eCW1 ([facility]) Name Value Range Interpretation Code Description Data Neda rce(s) Supporting Document(s) > 60 >41 eCW1 ([facility]) ID Date Data Source COMPLEMENT C4 08/23/2020 12:00:00 AM EST eCW1 ([facility]) Name Value Range Interpretation Code Description Data Neda rce(s) Supporting Document(s) 25 10-40 eCW1 ([facility]) ID Date Data Source COMPLEMENT C3 08/23/2020 12:00:00 AM EST eCW1 ([facility]) Name Value Range Interpretation Code Description Data Neda rce(s) Supporting Document(s) 146 90-180 eCW1 ([facility]) ID Date Data Source BETA-2 GLYCOPROTEIN 1 DARIEL LAURA 08/23/2020 12:00:00 AM EST eCW 1 ([facility]) Name Value Range Interpretation Code Description Data Neda rce(s) Supporting Document(s) <9 0-25 eCW1 ([facility]) <9 0-20 eCW1 ([facility]) <9 0-32 eCW1 ([facility]) Procedure Social History Code Duration Value Status Description Data Source(s ) Smoking 11/29/2020 12:00:00 AM EDT UNK completed eCW1 ([facility]) Smoking 11/29/2020 12:00:00 AM EDT UNK completed eCW1 ([facility]) 11/01/2020 12:00:00 AM EDT Smokes 1 Pack A Day completed Smokes 1 Pack A Day MEDENT ([facility], ) Smoking 09/04/2020 12:00:00 AM EST UNK completed eCW1 ([facility]) Smoking 09/04/2020 12:00:00 AM EST UNK completed eCW1 ([facility]) Smoking 09/04/2020 12:00:00 AM EST UNK completed eCW1 ([facility]) Smoking 09/04/2020 12:00:00 AM EST UNK completed eCW1 ([facility]) Smoking 09/04/2020 12:00:00 AM EST UNK completed eCW1 ([facility]) Smoking 09/04/2020 12:00:00 AM EST UNK completed eCW1 ([facility]) Smoking 09/04/2020 12:00:00 AM EST UNK completed eCW1 ([facility]) Smoking 09/04/2020 12:00:00 AM EST UNK completed eCW1 ([facility]) Smoking 08/23/2020 12:00:00 AM EST Never Smoker completed Never S moker eCW1 ([facility]) Smoking 06/15/2020 12:00:00 AM EST Never Smoker completed Never S moker eCW1 ([facility]) Smoking 06/15/2020 12:00:00 AM EST Never Smoker completed Never S moker eCW1 ([facility]) Vital Signs ID Date Data Source UNK Name Value Range Interpretation Code Description Data Source(s) Body height 74 [in_i] 74 [in_i] [facility] ([facility], ) 6'2" Body weight 220.00 [lb_av] 220.00 [lb_av[facility] Body mass index (BMI) [Ratio] 28.2 kg/m2 28.2 k g/m2 [facility] ([facility], ) [place] body weight 190 [lb_av] 190 [lb_av] [facility] T ([facility], ) Body weight 99.792 kg 99.792 kg [facility] ([facility]) Body surface area Derived from formula 2.26 m2 2.26 m2 [facility] ([facility], ) Body weight 229.8 [lb_av] 229.8 [lb_av] eCW1 ([facility]) Heart rate 127 /min 127 /min eCW1 ([facility]) Body height 72 [in_i] 72 [in_i] eCW1 ([facility]) Body weight 104.2 kg 104.2 kg eCW1 ([facility]) Respiratory rate 18 /min 18 /min eCW1 ([facility]) Body temperature 97.8 [degF] 97.8 [degF] eCW1 ( [facility]) Body mass index (BMI) [Ratio] 31.16 kg/m2 31.16 kg/m2 eCW1 ([facility]) Systolic blood pressure 124 mm[Hg] 124 mm[Hg] e CW1 ([facility]) Diastolic blood pressure 86 mm[Hg] 86 mm[Hg] eCW1 ([facility]) Body weight 229 [lb_av] 229 [lb_av] eCW1 ([facility]) Body height [in_i] eCW1 ([facility]) Body mass index (BMI) [Ratio] 31.05 kg/m2 31.05 kg/m2 eCW1 ([facility]) Systolic blood pressure 124 mm[Hg] 124 mm[Hg] e CW1 ([facility]) Diastolic blood pressure 70 mm[Hg] 70 mm[Hg] eCW1 ([facility]) Patient Treatment Plan of Care Planned Activity Planned Date Details Description Data Source (s) Betamethasone 0.5 MG/ML Augmented Topical Cream 06/15/2020 12:00:00 AM EST eCW1 ([facility]) calcipotriene 0.05 MG/ML Topical Cream 06/15/2020 12:00:00 AM EST eCW1 ([facility]) Betamethasone 0.5 MG/ML Augmented Topical Cream 06/15/2020 12:00:00 AM EST eCW1 ([facility]) calcipotriene 0.05 MG/ML Topical Cream 06/15/2020 12:00:00 AM EST eCW1 ([facility])
--- OUTSIDE RECORDS SUMMARY | 2021-06-08 09:11 | CCD ---
Author Author [facility] Organization [facility] Address Unknown Phone Unavailable Care Team Providers Care Creeler Name Role Phone Hunter Thornton MD Unavailable [...] is protected by Article 27-F of the [facility] Public Health law. If you continue you may have access to information: Regarding HIV / AIDS; Provided by facilities licensed or operated by the [facility] Office of Mental Health; or Provided by the [facility] Office for People With Developmental Disabilities. If such information is present, then the following [facility] mandated warning applies: This information has [...] law may result in a fine or longterm sentence or both. A general authorization for the release of medical or other information is NOT sufficient authorization for further disc losure. Encounters Encounter Providers Location Date Indications Data Source(s ) Unknown [address] [facility] [id number] 12/19/2020 12:00:00 AM EDT eCW1 ([facility]) Unknown [address] [facility] [address] 11/29/2020 12:00:00 AM EDT eCW1 ([facility]) Unknown [address] [facility] [address] 11/25/2020 12:00:00 AM EDT eCW1 ([facility]) Unknown [address] [facility] [place] [address] 11/07/2020 12:00:00 AM EDT eCW1 ([facility]) Unknown [address] [facility] [address] 11/07/2020 12:00:00 AM EDT eCW1 ([facility]) Outpatient Attender: MARTINA Bocanegra/Kwabena/Lcuas/Qasim cordova 11/01/2020 03:00:00 PM EDT MEDENT ([facility]) Outpatient Attender: Kendra Thornton MD 0 10/25/2020 11:55:48 AM EDT - 10/25/2020 12:30:34 PM EDT DocuTap ([facility]) Unknown [address] [facility] [address] 10/06/2020 12:00:00 AM EST eCW1 ([facility]) Unknown [address] [facility] [address] 09/30/2020 12:00:00 AM EST eCW1 ([facility]) Unknown [address] [facility] [place] [address] 09/30/2020 12:00:00 AM EST eCW1 ([facility]) Unknown [address] [facility] [place] [address] 09/10/2020 12:00:00 AM EST eCW1 ([facility]) Unknown [address] [facility] [place] [address] 08/25/2020 12:00:00 AM EST eCW1 ([facility]) Outpatient [address] [facility] [place] [address] 08/23/2020 12:00:00 AM EST eCW1 ([facility]) Unknown [address] [facility] [place] [address] 06/24/2020 12:00:00 AM EST eCW1 ([facility]) [place]patient [address] [facility] [place] [address] 06/15/2020 12:00:00 AM EST eCW1 ([facility]) Medications Medication Brand Name Start Date [...] Betamethasone Dipr opionate Aug 0.05 % eCW1 ([facility]) 0.05 % 06/15/2020 12:00:00 AM EST cream 50 APPLY TOPICALLY TWICE DAILY NEEDED FOR 10 DAYS APPLY TOPICALLY TWICE DAILY NEEDED FOR 10 DAYS SOLD : 06/16/2020 [facility] calcipotriene 0.05 MG/ML Topical Cream Calcipotriene 0 .005 % Calcipotriene 0.005 % 06/15/2020 12:00:00 AM EST 1.0 {application} active Calcipotriene 0.005 % eCW1 ([facility]) calcipotriene 0.05 MG/ML Topical Cream Calcipotriene 0 .005 % Calcipotriene 0.005 % 06/15/2020 12:00:00 AM EST 1.0 {application} active Calcipotriene 0.005 % eCW1 ([facility]) Betamethasone 0.5 MG/ML Augmented Topica l Cream Betamethasone Dipropionate Mar 0.05 % Betamethasone Dipropionate Aug 0.05 % 06/15/2020 12:00:00 AM EST 1.0 {application} active Betamethasone Dipr opionate Aug 0.05 % eCW1 ([facility]) 0.05 % 05/28/2020 12:00:00 AM EDT solution 25 APPLY SPARINGLY IN A THIN FILM TO THE AFFECTED AREAS OF THE SCALP; RUB IN GENTLY AND COMPLETELY APPLY SPARINGLY IN A THIN FILM TO THE AFFECTED AREAS OF THE SCALP; RUB IN GENTLY AND COMPLETELY SOLD: 05/28/2020 [facility] Insurance Providers Payer name Policy type / Coverage type Policy ID Covered constitution party ID Covered constitution party's relationship to valdez Policy Valdez Plan Information EXCELLUS BS [facility] [id number] MO2 [id number] BC BS [facility] [id number] MO2 [id number] EXCELLUS [facility] [id number] [facility] [id number] [employer] 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 [id number] SP [id number] [employer] [id number] SP [id number] BCBS [place] PPO 302/307 [id number] SP [id number] Problems, Conditions, and Diagnoses Code Display Name Description Problem Type Effective Dates Data Source(s) L40.9 7384205 Psoriasis Problem 08/23/2020 12:00:00 AM ES T eCW1 ([facility]) R53.82 [id number] Chronic fatigue Problem 08/23/2020 12:00:00 AM EST eCW1 ([facility]) L40.8 [id number] Seborrheic psoriasis Problem 06/15/2020 12:0 0:00 AM EST eCW1 ([facility]) Surgeries/Procedures No Information Results ID Date Data Source [id number] 05/11/2021 06:41:00 PM EDT [facility] Name Value Range Interpretation Code Description Data Neda rce(s) Supporting Document(s) SARS coronavirus 2 RNA [Presence] in Res piratory specimen by NATHALY with probe detection NEGATIVE [facility] This lab was ordered by [facility] a nd reported by [facility]. ID Date Data Source VITAMIN B12 LEVEL 08/23/2020 12:00:00 AM EST eCW1 ([facility]) Name Value Range Interpretation Code Description Data Neda rce(s) Supporting Document(s) 294 001-591 eCW1 ([facility]) ID Date Data Source VITAMIN D 25-HYDROXY 08/23/2020 12:00:00 AM EST eCW1 ([facility]) Name Value Range Interpretation Code Description Data Neda rce(s) Supporting Document(s) 35.3 30.0-100.0 eCW1 ([facility]) ID Date Data Source CREATININE,RANDOM URINE 08/23/2020 12:00:00 AM EST eCW1 ([facility]) Name Value Range Interpretation Code Description Data Neda rce(s) Supporting Document(s) 169.0 eCW1 ([facility]) ID Date Data Source TREY TITER & PATTERN 08/23/2020 12:00:00 AM EST eCW1 ([facility]) Name Value Range Interpretation Code Description Data Neda rce(s) Supporting Document(s) Positive . eCW1 ([facility]) ID Date Data Source RHEUMATOID FACTOR QUANT 08/23/2020 12:00:00 AM EST eCW1 ([facility]) Name Value Range Interpretation Code Description Data Neda rce(s) Supporting Document(s) < 10.0 <15.0 eCW1 ([facility]) ID Date Data Source ERYTHROCYTE SEDIMENTATION RATE 08/23/2020 12:00:00 AM EST eC W1 ([facility]) Name Value Range Interpretation Code Description Data Neda rce(s) Supporting Document(s) 7 0-15 eCW1 ([facility]) ID Date Data Source MAGNESIUM LEVEL 08/23/2020 12:00:00 AM EST eCW1 ([facility]) Name Value Range Interpretation Code Description Data Neda rce(s) Supporting Document(s) 2.2 1.8-2.4 eCW1 ([facility]) ID Date Data Source IRON (FE) 08/23/2020 12:00:00 AM EST eCW1 ([facility]) Name Value Range Interpretation Code Description Data Neda rce(s) Supporting Document(s) 66 65-175 eCW1 ([facility]) ID Date Data Source PHOSPHOROUS LEVEL 08/23/2020 12:00:00 AM EST eCW1 ([facility]) Name Value Range Interpretation Code Description Data Neda rce(s) Supporting Document(s) 4.1 2.5-4.9 eCW1 ([facility]) ID Date Data Source TSH 08/23/2020 12:00:00 AM EST eCW1 ([facility]) Name Value Range Interpretation Code Description Data Neda rce(s) Supporting Document(s) 1.440 0.358-3.740 eCW1 ([facility]) ID Date Data Source ANTI SCLERODERMA ANTIBODIES 08/23/2020 12:00:00 AM EST eCW1 ([facility]) Name Value Range Interpretation Code Description Data Neda rce(s) Supporting Document(s) <0.2 0.0-0.9 eCW1 ([facility]) ID Date Data Source ANTI DOUBLE STRAND DNA DARIEL 08/23/2020 12:00:00 AM EST eCW1 ( [facility]) Name Value Range Interpretation Code Description Data Neda rce(s) Supporting Document(s) eCW1 ([facility]) ID Date Data Source UA URINALYSIS 08/23/2020 12:00:00 AM EST eCW1 ([facility]) Name Value Range Interpretation Code Description Data Neda rce(s) Supporting Document(s) eCW1 ([facility]) ID Date Data Source LUPUS TYPE ANTICOAGULANT SCREE 08/23/2020 12:00:00 AM EST eC W1 ([facility]) Name Value Range Interpretation Code Description Data Neda rce(s) Supporting Document(s) 1.0 0-1.2 eCW1 ([facility]) ID Date Data Source ANTI-SJOGRENS A&B ANTIBODIES 08/23/2020 12:00:00 AM EST eCW1 ([facility]) Name Value Range Interpretation Code Description Data Neda rce(s) Supporting Document(s) >8.0 0.0-0.9 eCW1 ([facility]) <0.2 0.0-0.9 eCW1 ([facility]) ID Date Data Source ANTI-HISTONE ANTIBODIES 08/23/2020 12:00:00 AM EST eCW1 ([facility]) Name Value Range Interpretation Code Description Data Neda rce(s) Supporting Document(s) 0.9 0.0-0.9 eCW1 ([facility]) ID Date Data Source C REACTIVE PROTEIN QUANTITATIV (At [facility]) 08/23/2020 12:00 :00 AM EST eCW1 ([facility]) Name Value Range Interpretation Code Description Data Neda rce(s) Supporting Document(s) 0.58 0.00-0.30 eCW1 ([facility]) ID Date Data Source CYCLIC CITRULLINATED PEPTIDE 08/23/2020 12:00:00 AM EST eCW1 ([facility]) Name Value Range Interpretation Code Description Data Neda rce(s) Supporting Document(s) 9 0-19 eCW1 ([facility]) ID Date Data Source ANTI-CARDIOLIPIN ANTIBODIES 08/23/2020 12:00:00 AM EST eCW1 ([facility]) Name Value Range Interpretation Code Description Data Neda rce(s) Supporting Document(s) <9 0-11 eCW1 ([facility]) <9 0-14 eCW1 ([facility]) 12 0-12 eCW1 ([facility]) ID Date Data Source CBC with Differential 08/23/2020 12:00:00 AM EST eCW1 ([facility]) Name Value Range Interpretation Code Description Data Neda rce(s) Supporting Document(s) 48.5 42.0-52.0 eCW1 ([facility]) 5.6 4.0-10.0 eCW1 ([facility]) 16.3 13.5-17.5 eCW1 ([facility]) 5.31 4.30-6.10 eCW1 ([facility]) 12.5 11.5-14.5 eCW1 ([facility]) 91.3 80.0-96.0 eCW1 ([facility]) 30.7 27.0-33.0 eCW1 ([facility]) 33.6 32.0-36.5 eCW1 ([facility]) 62.8 36.0-66.0 eCW1 ([facility]) 264 150-450 eCW1 ([facility]) 21.9 24.0-44.0 eCW1 ([facility]) 12.8 0.0-5.0 eCW1 ([facility]) 1.2 1.5-5.0 eCW1 ([facility]) 0.5 0.0-1.0 eCW1 ([facility]) 0.7 0.0-0.8 eCW1 ([facility]) 3.5 1.5-8.5 eCW1 ([facility]) 1.6 0.0-3.0 eCW1 ([facility]) 0.1 0.0-0.5 eCW1 ([facility]) 0.0 0.0-0.2 eCW1 ([facility]) ID Date Data Source ANTI CENTROMERE ANTIBODY 08/23/2020 12:00:00 AM EST eCW1 ([facility]) Name Value Range Interpretation Code Description Data Neda rce(s) Supporting Document(s) <0.2 0.0-0.9 eCW1 ([facility]) ID Date Data Source COMPLEMENT TOTAL (CH50) 08/23/2020 12:00:00 AM EST eCW1 ([facility]) Name Value Range Interpretation Code Description Data Neda rce(s) Supporting Document(s) > 60 >41 eCW1 ([facility]) ID Date Data Source COMPLEMENT C4 08/23/2020 12:00:00 AM EST eCW1 ([facility]) Name Value Range Interpretation Code Description Data Neda rce(s) Supporting Document(s) 25 10-40 eCW1 ([facility]) ID Date Data Source COMPLEMENT C3 08/23/2020 12:00:00 AM EST eCW1 ([facility]) Name Value Range Interpretation Code Description Data Nead rce(s) Supporting Document(s) 146 90-180 eCW1 ([facility]) ID Date Data Source BETA-2 GLYCOPROTEIN 1 DARIEL LAURA 08/23/2020 12:00:00 AM EST eCW 1 ([facility]) Name Value Range Interpretation Code Description Data Neda rce(s) Supporting Document(s) <9 0-25 eCW1 ([facility]) <9 0-20 eCW1 ([facility]) <9 0-32 eCW1 ([facility]) Procedure Social History Code Duration Value Status Description Data Source(s ) Smoking 11/29/2020 12:00:00 AM EDT UNK completed eCW1 ([facility]) Smoking 11/29/2020 12:00:00 AM EDT UNK completed eCW1 ([facility]) 11/01/2020 12:00:00 AM EDT Smokes 1 Pack A Day completed Smokes 1 Pack A Day MEDENT ([facility] ) Smoking 09/04/2020 12:00:00 AM EST UNK completed eCW1 ([facility]) Smoking 09/04/2020 12:00:00 AM EST UNK completed eCW1 ([facility]) Smoking 09/04/2020 12:00:00 AM EST UNK completed eCW1 ([facility]) Smoking 09/04/2020 12:00:00 AM EST UNK completed eCW1 ([facility]) Smoking 09/04/2020 12:00:00 AM EST UNK completed eCW1 ([facility]) Smoking 09/04/2020 12:00:00 AM EST UNK completed eCW1 ([facility]) Smoking 09/04/2020 12:00:00 AM EST UNK completed eCW1 ([facility]) Smoking 09/04/2020 12:00:00 AM EST UNK completed eCW1 ([facility]) Smoking 08/23/2020 12:00:00 AM EST Never Smoker completed Never S moker eCW1 ([facility]) Smoking 06/15/2020 12:00:00 AM EST Never Smoker completed Never S moker eCW1 ([facility]) Smoking 06/15/2020 12:00:00 AM EST Never Smoker completed Never S moker eCW1 ([facility]) Vital Signs ID Date Data Source UNK Name Value Range Interpretation Code Description Data Source(s) Body height 74 [in_i] 74 [in_i] [facility] ([facility]) 6'2" Body weight 220.00 [lb_av] 220.00 [lb_av] [facility] Body mass index (BMI) [Ratio] 28.2 kg/m2 28.2 k g/m2 [facility] ([facility]) [place] body weight 190 [lb_av] 190 [lb_av] [facility] T ([facility]) Body weight 99.792 kg 99.792 kg [facility] ([facility]) Body surface area Derived from formula 2.26 m2 2.26 m2 [facility] ([facility]) Body weight 229.8 [lb_av] 229.8 [lb_av] eCW1 ([facility]) Body weight 104.2 kg 104.2 kg eCW1 ([facility]) Body height 72 [in_i] 72 [in_i] eCW1 ([facility]) Body temperature 97.8 [degF] 97.8 [degF] eCW1 ( [facility]) Body mass index (BMI) [Ratio] 31.16 kg/m2 31.16 kg/m2 eCW1 ([facility]) Systolic blood pressure 124 mm[Hg] 124 mm[Hg] e CW1 ([facility]) Heart rate 127 /min 127 /min eCW1 ([facility]) Respiratory rate 18 /min 18 /min eCW1 ([facility]) Diastolic blood pressure 86 mm[Hg] 86 mm[Hg] eCW1 ([facility]) Body weight 229 [lb_av] 229 [lb_av] eCW1 ([facility]) Body height [in_i] eCW1 ([facility]) Body mass index (BMI) [Ratio] 31.05 kg/m2 31.05 kg/m2 eCW1 ([facility]) Systolic blood pressure 124 mm[Hg] 124 mm[Hg] e CW1 ([facility]) Diastolic blood pressure 70 mm[Hg] 70 mm[Hg] eCW1 ([facility]) Patient Treatment Plan of Care Planned Activity Planned Date Details Description Data Source (s) Betamethasone 0.5 MG/ML Augmented Topical Cream 06/15/2020 12:00:00 AM EST eCW1 ([facility]) calcipotriene 0.05 MG/ML Topical Cream 06/15/2020 12:00:00 AM EST eCW1 ([facility]) Betamethasone 0.5 MG/ML Augmented Topical Cream 06/15/2020 12:00:00 AM EST eCW1 ([facility]) calcipotriene 0.05 MG/ML Topical Cream 06/15/2020 12:00:00 AM EST eCW1 ([facility])
[2021-06-08 10:00] VITALS: BP 127/88
--- NOTE | 2021-06-08 13:55 | MHCRPDOC ---
[facility] Consultation Consultation DATE OF CONSULTATION: 06/08/21 CONSULTATION REQUESTED BY: ED team REASON FOR CONSULTATION: Patient return to ED after leaving AMA, upon return denied any suicidal homicidal ideations, reported lack of sleep is only symptom and felt he did not need admission. RELEVANT HISTORY: Patient is a 30-year-old man with a history of bipolar disorder, who was recently discharged after an [facility] stay on May 19, denies any recent suicidal ideations, reports last suicide attempt was in 2013 in context of a break-up and has since not had any true suicidal thoughts, intent o r plan. Reports that he is not liking his medications and feels they may be affecting his sleep. States he is afraid to go outpatient provider because they would force him to take medications. Per chart review has an appointment scheduled for May 26 with [facility], patient states he attended but attendance was noted in the chart, was confirmed by social work has a follow-up appointment June 13 2021 with therapist Liban Raymundo at [facility] and follow-up appointment with psychiatrist Dr. Galloway June 15. Patient was encouraged to take his medications which helped him with sleep including Trileptal 3 mg twice daily and risperdal until he follows up with outside provider whom he can discuss treatment options with further. Denies any suicidal ideations, intent or plan. Denies any homicidal ideations, intent or plan. Denies any risky behavior or impulsivity, denies any symptoms of psychosis including hallucinations, delusions, paranoia. Denies any acute physical complaints. Patient reports his difficulty with sleep are primarily driven by frustrations with his mother, including arguments and anxiety symptoms. 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 Appendicectomy. Head Injury: No Seizures: No Hospitalizations: No Surgeries: Yes FAMILY HISTORY: Addictions PERSONAL AND SOCIAL HISTORY: Childhood: Grew up in [place] Abuse/Trauma: None Current Living Situation: Lives with mother . 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 Legal: None . Marital: Not , single . SUBSTANCE ABUSE HISTORY: Cannabis use LEGAL HISTORY: Denies MENTAL STATUS EXAMINATION: Patient is a 30-year old male, who is sitting in bed, good eye contact, good hygiene in hospital clothing, appears stated age Speech is somewhat increased in rate, not pressured, spontaneous Language skills are good. Thought processes including: Linear, logical, goal-directed. Thought content: States he does not think he has bipolar disorder and is concern ed about taking medications including side effects, despite this is having poor sleep of less than 4 hours a night. Denies suicidal ideation, intent or plan. Denies any homicidal ideation intent or plan. Abstract reasoning, and computation: Good Description of associations: Good. Description of abnormal or psychotic thoughts: Denies and is not observed to have any psychotic symptoms. Judgment: Fair. Insight: Fair Orientation to x4 Recent and remote memory: intact Attention span and concentration: Fair Language: welsh Fund of knowledge: Average Mood: "okay". Affect: Some anxiety, full, appropriate, does laugh and smile at times. DIAGNOSIS: 1. Unspecified anxiety disorder PLAN: Patient does not meet criteria for voluntary mission, refuses voluntary admission, he is agreeable to going to outpatient provider to discuss treatment, denies any suicidal ideations, intent or plan. Denies any homicidal ideations, intent or plan. Endorses lack of sleep but no other symptoms of jorge including risky behavior, impulsivity, grandiosity, lack of sleep likely in context of chronic anxiety and reducing the dosage of his medications, encouraged take his medications as prescribed until sees outpatient provider who can further evaluate and discuss treatment options. Medications have been helping him with sleep previously on discharge. Patient feels safe to return home, has no weapons, collateral was obtained from monitor ensure safety and is agreeable to having him home. Patient needs safety plan prior to discharge and assurance that appointments are available. Vital Signs Vital Signs Date Time Temp Pulse Resp B/P (MAP) Pulse Ox O2 Delivery O2 Flow Rate FiO2 06/08/21 10:00 97.4 77 16 127/88 (101) 100 Room Air Home Medications Scheduled Doxylamine Succinate (Unisom Sleep Aid) 25 Mg Tablet, 25 MG PO QPM, (Reported) Oxcarbazepine (Oxcarbazepine) 300 Mg Tablet, 1 TAB PO BID for mood take 1/2 tablet twice daily Risperidone (Risperidone) 3 Mg Tablet, 3 MG PO BID for Psychosis Scheduled PRN Zolpidem Tartrate (Ambien) 5 Mg Tablet, 5 MG PO QHSP PRN for insomnia Allergies Coded Allergies: No Known Drug Allergies (Verified Allergy, Unknown, 05/11/21) JULISSA STUBBS MD Jun 08, 2021 13:55
--- NOTE | 2021-06-09 14:26 | MHIPNPDOC ---
[facility] Progress Note Progress Note DATE OF SERVICE: 06/09/21 Was called by patient's mother, did not give out patient's personal information, informed her and not treating physician. Mother discussed how patient is having poor response to medications and has been titrating down medications according to pharmacist they spoke to due to headache. Made patient's mother aware that patient can speak with previous provider to discuss medications, as I am not the prescriber of these medications and that if there is concern for patient's safety or wellbeing or serious side effects she should bring him for evaluation in the ED or with her outpatient doctor. Patient's mother continued to ask about what medication changes she should make, made her aware that medication changes cannot be made in this setting without being able to follow-up patient for evaluation as there may be side effects to making changes and patient should continue medications as prescribed unless serious side effect. Vital Signs Vital Signs Date Time Temp Pulse Resp B/P (MAP) Pulse Ox O2 Delivery O2 Flow Rate FiO2 06/08/21 10:00 97.4 77 16 127/88 (101) 100 Room Air Allergies Coded Allergies: No Known Drug Allergies (Verified Allergy, Unknown, 05/11/21) JULISSA STUBBS MD Jun 09, 2021 14:26
== END 2021-06-08 10:17 | disposition home or self-care (01) ==
LOC: M ED 02:36
DX: F31.9 Bipolar disorder, unspecified (principal); F41.9 Anxiety disorder, unspecified; Z91.14 Patient's other noncompliance with medication regimen; Z90.5 Acquired absence of kidney

== ENCOUNTER 2021-06-11 02:59 | Inpatient (IN) | payer OTHER ==
[~2021-06-11] VITALS: Ht 190.5 cm; Wt 78.9 kg
--- OUTSIDE RECORDS SUMMARY | 2021-06-11 03:04 | CCD ---
Author Author [facility] Organization 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 If you continue you may have access to information: Regarding HIV / AIDS; Provided by facilities licensed or operated by the [facility] Office of Mental Health; or Provided by the [facility] Office for People With Developmental Disabilities. If such information is present, then the following [facility] mandated warning applies: This information has been [...] law may result in a fine or intermediate sentence or both. A general authorization for the release of medical or other information is NOT sufficient authorization for further disc losure. Encounters Encounter Providers Location Date Indications Data Source(s ) Unknown [address] [id number] 12/19/2020 12:00:00 AM EDT eCW1 ([facility]) Unknown [address] [id number] 11/29/2020 12:00:00 AM EDT eCW1 ([facility]) Unknown [address] [address] 11/25/2020 12:00:00 AM EDT eCW1 ([facility]) Unknown [address] [facility] [place] [address] 11/07/2020 12:00:00 AM EDT eCW1 ([facility]) Unknown [address] [id number] 11/07/2020 12:00:00 AM EDT eCW1 ([facility]) Outpatient Attender: MARTINA Bocanegra/Kwabena/Lucas/Qasim cordova 11/01/2020 03:00:00 PM EDT MEDENT ([facility]) Outpatient Attender: Kendra Thornton MD 0 10/25/2020 11:55:48 AM EDT - 10/25/2020 12:30:34 PM EDT [facility]Tap ([facility]) Unknown [address] [id number] 10/06/2020 12:00:00 AM EST eCW1 ([facility]) Unknown [address] [address] 09/30/2020 12:00:00 AM EST eCW1 ([facility]) [place] [address] [place] [address] 09/30/2020 12:00:00 AM EST eCW1 ([facility]) [place] [address] [place] [address] 09/10/2020 12:00:00 AM EST eCW1 ([facility]) [place] [address] [place] [address] 08/25/2020 12:00:00 AM EST eCW1 ([facility]) [place] [address] [facility] [place] [address] 08/23/2020 12:00:00 AM EST eCW1 ([facility]) [place] [address] [place] [address] 06/24/2020 12:00:00 AM EST eCW1 ([facility]) [place] [address] [facility] [place] [address] 06/15/2020 12:00:00 AM EST eCW1 ([facility]) Medications Medication Brand Name Start Date Product [...] opionate Aug 0.05 % eCW1 ([facility]) 0.05 % 06/15/2020 12:00:00 AM EST cream 50 APPLY TOPICALLY TWICE DAILY NEEDED FOR 10 DAYS APPLY TOPICALLY TWICE DAILY NEEDED FOR 10 DAYS SOLD : 06/16/2020 [facility] calcipotriene 0.05 MG/ML Topical Cream Calcipotriene 0 .005 % Calcipotriene 0.005 % 06/15/2020 12:00:00 AM EST 1.0 {application} active Calcipotriene 0.005 % eCW1 ([facility]) calcipotriene 0.05 MG/ML Topical Cream Calcipotriene 0 .005 % Calcipotriene 0.005 % 06/15/2020 12:00:00 AM EST 1.0 {application} active Calcipotriene 0.005 % eCW1 ([facility]) Betamethasone 0.5 MG/ML Augmented Topica l Cream Betamethasone Dipropionate Mar 0.05 % Betamethasone Dipropionate Aug 0.05 % 06/15/2020 12:00:00 AM EST 1.0 {application} active Betamethasone Dipr opionate Aug 0.05 % eCW1 ([facility]) 0.05 % 05/28/2020 12:00:00 AM EDT solution [...] valdez Policy Valdez Plan Information EXCELLUS BS [facility][NOTE 3] [id number] MO2 [id number] BC BS [facility] [id number] MO2 [id number] EXCELLUS [facility] [id number] [facility] [id number] [employer] 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 [id number] SP [id number] [employer] [id number] SP [id number] BCBS [place] PPO 302/307 [id number] SP [id number] Problems, Conditions, and Diagnoses Code Display Name Description Problem Type Effective Dates Data Source(s) L40.9 [id number] Psoriasis Problem 08/23/2020 12:00:00 AM ES T eCW1 ([facility]) R53.82 [id number] Chronic fatigue Problem 08/23/2020 12:00:00 AM EST eCW1 ([facility]) L40.8 [id number] Seborrheic psoriasis Problem 06/15/2020 12:0 0:00 AM EST eCW1 ([facility]) Surgeries/Procedures No Information Results ID Date Data Source [id number] 05/11/2021 06:41:00 PM EDT [facility] Name Value Range Interpretation Code Description Data Neda rce(s) Supporting Document(s) SARS coronavirus 2 RNA [Presence] in Res piratory specimen by NATHALY with probe detection NEGATIVE [facility] This lab was ordered by [facility] a nd reported by [facility]. ID Date Data Source VITAMIN B12 LEVEL 08/23/2020 12:00:00 AM EST eCW1 ([facility]) Name Value Range Interpretation Code Description Data Neda rce(s) Supporting Document(s) [phone] eCW1 ([facility]) ID Date Data Source VITAMIN D 25-HYDROXY 08/23/2020 12:00:00 AM EST eCW1 ([facility]) Name Value Range Interpretation Code Description Data Neda rce(s) Supporting Document(s) 35.3 30.0-100.0 eCW1 ([facility]) ID Date Data Source CREATININE,RANDOM URINE 08/23/2020 12:00:00 AM EST eCW1 ([facility]) Name Value Range Interpretation Code Description Data Neda rce(s) Supporting Document(s) 169.0 eCW1 ([facility]) ID Date Data Source TREY TITER & PATTERN 08/23/2020 12:00:00 AM EST eCW1 ([facility]) Name Value Range Interpretation Code Description Data Neda rce(s) Supporting Document(s) Positive . eCW1 ([facility]) ID Date Data Source RHEUMATOID FACTOR QUANT 08/23/2020 12:00:00 AM EST eCW1 ([facility]) Name Value Range Interpretation Code Description Data Neda rce(s) Supporting Document(s) < 10.0 <15.0 eCW1 ([facility]) ID Date Data Source ERYTHROCYTE SEDIMENTATION RATE 08/23/2020 12:00:00 AM EST eC W1 ([facility]) Name Value Range Interpretation Code Description Data Neda rce(s) Supporting Document(s) 7 0-15 eCW1 ([facility]) ID Date Data Source MAGNESIUM LEVEL 08/23/2020 12:00:00 AM EST eCW1 ([facility]) Name Value Range Interpretation Code Description Data Neda rce(s) Supporting Document(s) 2.2 1.8-2.4 eCW1 ([facility]) ID Date Data Source IRON (FE) 08/23/2020 12:00:00 AM EST eCW1 ([facility]) Name Value Range Interpretation Code Description Data Neda rce(s) Supporting Document(s) 66 65-175 eCW1 ([facility]) ID Date Data Source PHOSPHOROUS LEVEL 08/23/2020 12:00:00 AM EST eCW1 ([facility]) Name Value Range Interpretation Code Description Data Neda rce(s) Supporting Document(s) 4.1 2.5-4.9 eCW1 ([facility]) ID Date Data Source TSH 08/23/2020 12:00:00 AM EST eCW1 ([facility]) Name Value Range Interpretation Code Description Data Neda rce(s) Supporting Document(s) 1.440 0.358-3.740 eCW1 ([facility]) ID Date Data Source ANTI SCLERODERMA ANTIBODIES 08/23/2020 12:00:00 AM EST eCW1 ([facility]) Name Value Range Interpretation Code Description Data Neda rce(s) Supporting Document(s) <0.2 0.0-0.9 eCW1 ([facility]) ID Date Data Source ANTI DOUBLE STRAND DNA DARIEL 08/23/2020 12:00:00 AM EST eCW1 ( [facility]) Name Value Range Interpretation Code Description Data Neda rce(s) Supporting Document(s) eCW1 ([facility]) ID Date Data Source UA URINALYSIS 08/23/2020 12:00:00 AM EST eCW1 ([facility]) Name Value Range Interpretation Code Description Data Neda rce(s) Supporting Document(s) eCW1 ([facility]) ID Date Data Source LUPUS TYPE ANTICOAGULANT SCREE 08/23/2020 12:00:00 AM EST eC W1 ([facility]) Name Value Range Interpretation Code Description Data Neda rce(s) Supporting Document(s) 1.0 0-1.2 eCW1 ([facility]) ID Date Data Source ANTI-SJOGRENS A&B ANTIBODIES 08/23/2020 12:00:00 AM EST eCW1 ([facility]) Name Value Range Interpretation Code Description Data Neda rce(s) Supporting Document(s) >8.0 0.0-0.9 eCW1 ([facility]) <0.2 0.0-0.9 eCW1 ([facility]) ID Date Data Source ANTI-HISTONE ANTIBODIES 08/23/2020 12:00:00 AM EST eCW1 ([facility]) Name Value Range Interpretation Code Description Data Neda rce(s) Supporting Document(s) 0.9 0.0-0.9 eCW1 ([facility]) ID Date Data Source C REACTIVE PROTEIN QUANTITATIV (At [facility]) 08/23/2020 12:00 :00 AM EST eCW1 ([facility]) Name Value Range Interpretation Code Description Data Neda rce(s) Supporting Document(s) 0.58 0.00-0.30 eCW1 ([facility]) ID Date Data Source CYCLIC CITRULLINATED PEPTIDE 08/23/2020 12:00:00 AM EST eCW1 ([facility]) Name Value Range Interpretation Code Description Data Neda rce(s) Supporting Document(s) 9 0-19 eCW1 ([facility]) ID Date Data Source ANTI-CARDIOLIPIN ANTIBODIES 08/23/2020 12:00:00 AM EST eCW1 ([facility]) Name Value Range Interpretation Code Description Data Neda rce(s) Supporting Document(s) <9 0-11 eCW1 ([facility]) <9 0-14 eCW1 ([facility]) 12 0-12 eCW1 ([facility]) ID Date Data Source CBC with Differential 08/23/2020 12:00:00 AM EST eCW1 ([facility]) Name Value Range Interpretation Code Description Data Neda rce(s) Supporting Document(s) 48.5 42.0-52.0 eCW1 ([facility]) 5.6 4.0-10.0 eCW1 ([facility]) 16.3 13.5-17.5 eCW1 ([facility]) 5.31 4.30-6.10 eCW1 ([facility]) 12.5 11.5-14.5 eCW1 ([facility]) 91.3 80.0-96.0 eCW1 ([facility]) 30.7 27.0-33.0 eCW1 ([facility]) 33.6 32.0-36.5 eCW1 ([facility]) 62.8 36.0-66.0 eCW1 ([facility]) 264 150-450 eCW1 ([facility]) 21.9 24.0-44.0 eCW1 ([facility]) 12.8 0.0-5.0 eCW1 ([facility]) 1.2 1.5-5.0 eCW1 ([facility]) 0.5 0.0-1.0 eCW1 ([facility]) 0.7 0.0-0.8 eCW1 ([facility]) 3.5 1.5-8.5 eCW1 ([facility]) 1.6 0.0-3.0 eCW1 ([facility]) 0.1 0.0-0.5 eCW1 ([facility]) 0.0 0.0-0.2 eCW1 ([facility]) ID Date Data Source ANTI CENTROMERE ANTIBODY 08/23/2020 12:00:00 AM EST eCW1 ([facility]) Name Value Range Interpretation Code Description Data Neda rce(s) Supporting Document(s) <0.2 0.0-0.9 eCW1 ([facility]) ID Date Data Source COMPLEMENT TOTAL (CH50) 08/23/2020 12:00:00 AM EST eCW1 ([facility]) Name Value Range Interpretation Code Description Data Neda rce(s) Supporting Document(s) > 60 >41 eCW1 ([facility]) ID Date Data Source COMPLEMENT C4 08/23/2020 12:00:00 AM EST eCW1 ([facility]) Name Value Range Interpretation Code Description Data Neda rce(s) Supporting Document(s) 25 10-40 eCW1 ([facility]) ID Date Data Source COMPLEMENT C3 08/23/2020 12:00:00 AM EST eCW1 ([facility]) Name Value Range Interpretation Code Description Data Neda rce(s) Supporting Document(s) 146 90-180 eCW1 ([facility]) ID Date Data Source BETA-2 GLYCOPROTEIN 1 DARIEL LAURA 08/23/2020 12:00:00 AM EST eCW 1 ([facility]) Name Value Range Interpretation Code Description Data Neda rce(s) Supporting Document(s) <9 0-25 eCW1 ([facility]) <9 0-20 eCW1 ([facility]) <9 0-32 eCW1 ([facility]) Procedure Social History Code Duration Value Status Description Data Source(s ) Smoking 11/29/2020 12:00:00 AM EDT UNK completed eCW1 ([facility]) Smoking 11/29/2020 12:00:00 AM EDT UNK completed eCW1 ([facility]) 11/01/2020 12:00:00 AM EDT Smokes 1 Pack A Day completed Smokes 1 Pack A Day MEDENT ([facility] ) Smoking 09/04/2020 12:00:00 AM EST UNK completed eCW1 ([facility]) Smoking 09/04/2020 12:00:00 AM EST UNK completed eCW1 ([facility]) Smoking 09/04/2020 12:00:00 AM EST UNK completed eCW1 ([facility]) Smoking 09/04/2020 12:00:00 AM EST UNK completed eCW1 ([facility]) Smoking 09/04/2020 12:00:00 AM EST UNK completed eCW1 ([facility]) Smoking 09/04/2020 12:00:00 AM EST UNK completed eCW1 ([facility]) Smoking 09/04/2020 12:00:00 AM EST UNK completed eCW1 ([facility]) Smoking 09/04/2020 12:00:00 AM EST UNK completed eCW1 ([facility]) Smoking 08/23/2020 12:00:00 AM EST Never Smoker completed Never S moker eCW1 ([facility]) Smoking 06/15/2020 12:00:00 AM EST Never Smoker completed Never S moker eCW1 ([facility]) Smoking 06/15/2020 12:00:00 AM EST Never Smoker completed Never S moker eCW1 ([facility]) Vital Signs ID Date Data Source UNK Name Value Range Interpretation Code Description Data Source(s) Body height 74 [in_i] 74 [in_i] [facility] ([facility]) 6'2" Body weight 220.00 [lb_av] 220.00 [lb_av] MEDEN T ([facility]) Body mass index (BMI) [Ratio] 28.2 kg/m2 28.2 k g/m2 [facility] ([facility]) Brant body weight 190 [lb_av] 190 [lb_av] MEDEN T ([facility]) Body weight 99.792 kg 99.792 kg [facility] ([facility]) Body surface area Derived from formula 2.26 m2 2.26 m2 [facility] ([facility]) Body weight 229.8 [lb_av] 229.8 [lb_av] eCW1 ([facility]) Body weight 104.2 kg 104.2 kg eCW1 ([facility]) Body height 72 [in_i] 72 [in_i] eCW1 ([facility]) Body mass index (BMI) [Ratio] 31.16 kg/m2 31.16 kg/m2 eCW1 ([facility]) Heart rate 127 /min 127 /min eCW1 ([facility]) Respiratory rate 18 /min 18 /min eCW1 ([facility]) Systolic blood pressure 124 mm[Hg] 124 mm[Hg] e CW1 ([facility]) Body temperature 97.8 [degF] 97.8 [degF] eCW1 ( [facility]) Diastolic blood pressure 86 mm[Hg] 86 mm[Hg] eCW1 ([facility]) Body weight 229 [lb_av] 229 [lb_av] eCW1 ([facility]) Body height [in_i] eCW1 ([facility]) Body mass index (BMI) [Ratio] 31.05 kg/m2 31.05 kg/m2 eCW1 ([facility]) Systolic blood pressure 124 mm[Hg] 124 mm[Hg] e CW1 ([facility]) Diastolic blood pressure 70 mm[Hg] 70 mm[Hg] eCW1 ([facility]) Patient Treatment Plan of Care Planned Activity Planned Date Details Description Data Source (s) Betamethasone 0.5 MG/ML Augmented Topical Cream 06/15/2020 12:00:00 AM EST eCW1 ([facility]) calcipotriene 0.05 MG/ML Topical Cream 06/15/2020 12:00:00 AM EST eCW1 ([facility]) Betamethasone 0.5 MG/ML Augmented Topical Cream 06/15/2020 12:00:00 AM EST eCW1 ([facility]) calcipotriene 0.05 MG/ML Topical Cream 06/15/2020 12:00:00 AM EST eCW1 ([facility])
[2021-06-11 03:52] LABS: HEMATOCRIT 46.7 % (42.0-52.0); HEMOGLOBIN 16.1 g/dl (13.5-17.5); MEAN CORPUSCULAR HEMOGLOBIN 31.4 pg (27.0-33.0); MEAN CORPUSCULAR HGB CONC 34.5 g/dl (32.0-36.5); MEAN CORPUSCULAR VOLUME 91.2 fl (80.0-96.0); PLATELET COUNT, AUTOMATED 192 10^3/uL (150-450); RED BLOOD COUNT 5.12 10^6/uL (4.30-6.10); WHITE BLOOD COUNT 10.7 10^3/uL (4.0-10.0)
[2021-06-11 04:07] LABS: AMPHETAMINES LEVEL URINE NEGATIVE (NEGATIVE); BARBITURATES URINE NEGATIVE (NEGATIVE); BENZODIAZEPINES URINE NEGATIVE (NEGATIVE); CANNABINOIDS URINE POSITIVE (NEGATIVE); COCAINE METABOLITE URINE NEGATIVE (NEGATIVE); METHADONE URINE NEGATIVE (NEGATIVE); OPIATES URINE NEGATIVE (NEGATIVE); PHENCYCLIDINE URINE NEGATIVE (NEGATIVE)
[2021-06-11 04:16] LABS: ALBUMIN 4.3 GM/DL (3.2-5.2); ALT/SGPT 52 U/L (12-78); BILIRUBIN,DIRECT 0.1 MG/DL (0.0-0.2); BILIRUBIN,TOTAL 0.5 MG/DL (0.2-1.0); BLOOD UREA NITROGEN 11 MG/DL (7-18); CALCIUM LEVEL 9.4 MG/DL (8.5-10.1); CARBON DIOXIDE LEVEL 31 MEQ/L (21-32); CHLORIDE LEVEL 102 MEQ/L (98-107); CREATININE FOR GFR 0.82 MG/DL (0.70-1.30); GLOMERULAR FILTRATION RATE > 60.0 (>60); GLUCOSE, FASTING 109 MG/DL (70-100); SALICYLATE LEVEL < 1.7 MG/DL (5.0-30.0); SODIUM LEVEL 139 MEQ/L (136-145); TOTAL PROTEIN 8.1 GM/DL (6.4-8.2)
[2021-06-11 04:17] LABS: ACETAMINOPHEN LEVEL < 2.0 UG/ML (10.0-30.0); ETHYL ALCOHOL (ETHANOL) < 0.003 % (0.000-0.010)
[2021-06-11] MEDS ORDERED: OXCA300T14 PO (05:41)
[2021-06-11] MEDS ORDERED: ZOLP5TAB PO (05:41)
[2021-06-11] MEDS ORDERED: RISP3TAB20 PO (05:41)
[2021-06-11] MEDS ORDERED: HOME MED LIST COMPLETE! XX SCH (05:45)
--- OUTSIDE RECORDS SUMMARY | 2021-06-11 06:26 | CCD ---
Author Author [facility] Organization [facility] Address Unknown Phone Unavailable Care Team Providers Care Configuration Management Administrator Name Role Phone Hunter Thornton MD Unavailable [...] Unavailable KALEN, C MARTINA MD Unavailable Unavailable AKLEN, C MARTINA MD Unavailable Unavailable Re-disclosure Warning [...] is protected by Article 27-F of the [facility] Public Health law. If you continue you may have access to information: Regarding HIV / AIDS; Provided by facilities licensed or operated by the [facility] Office of Mental Health; or Provided by the [facility] Office for People With Developmental Disabilities. If such information is present, then the following [facility] mandated warning applies: This information [...] law may result in a fine or mcc sentence or both. A general authorization for the release of medical or other information is NOT sufficient authorization for further disc losure. Encounters Encounter Providers Location Date Indications Data Source(s ) Unknown [address] [facility] [id number] 12/19/2020 12:00:00 AM EDT eCW1 (Critical access hospital) Unknown [address] [facility] [address] 11/29/2020 12:00:00 AM EDT eCW1 (Critical access hospital) Unknown [address] [facility] [address] 11/25/2020 12:00:00 AM EDT eCW1 (Critical access hospital) Unknown [address] [facility] [place] [address] 11/07/2020 12:00:00 AM EDT eCW1 (Critical access hospital) Unknown [address] [facility] [address] 11/07/2020 12:00:00 AM EDT eCW1 (Critical access hospital) Outpatient Attender: MARTINA Bocanegra/Kwabena/Lucas/Qasim cordova 11/01/2020 03:00:00 PM EDT [facility] ([facility]) Outpatient Attender: Kendra Thornton MD 0 10/25/2020 11:55:48 AM EDT - 10/25/2020 12:30:34 PM EDT [facility] ([facility]) Unknown [address] [facility] [address] 10/06/2020 12:00:00 AM EST eCW1 (Critical access hospital) Unknown [address] [facility] [address] 09/30/2020 12:00:00 AM EST eCW1 (Critical access hospital) Unknown [address] [facility] [place] [address] 09/30/2020 12:00:00 AM EST eCW1 (Critical access hospital) Unknown [address] [facility] [place] [address] 09/10/2020 12:00:00 AM EST eCW1 (Critical access hospital) Unknown [address] [facility] [place] [address] 08/25/2020 12:00:00 AM EST eCW1 (Critical access hospital) Outpatient [address] [facility] [place] [address] 08/23/2020 12:00:00 AM EST eCW1 (Critical access hospital) Unknown [address] [facility] [place] [address] 06/24/2020 12:00:00 AM EST eCW1 (Critical access hospital) Outpatient [address] [facility] [place] [address] 06/15/2020 12:00:00 AM EST eCW1 (Critical access hospital) Medications Medication Brand Name Start Date Product [...] Betamethasone Dipr opionate Aug 0.05 % eCW1 ([facility]) 0.05 % 06/15/2020 12:00:00 AM EST cream 50 APPLY TOPICALLY TWICE DAILY NEEDED FOR 10 DAYS APPLY TOPICALLY TWICE DAILY NEEDED FOR 10 DAYS SOLD : 06/16/2020 [facility] calcipotriene 0.05 MG/ML Topical Cream Calcipotriene 0 .005 % Calcipotriene 0.005 % 06/15/2020 12:00:00 AM EST 1.0 {application} active Calcipotriene 0.005 % eCW1 ([facility]) calcipotriene 0.05 MG/ML Topical Cream Calcipotriene 0 .005 % Calcipotriene 0.005 % 06/15/2020 12:00:00 AM EST 1.0 {application} active Calcipotriene 0.005 % eCW1 ([facility]) Betamethasone 0.5 MG/ML Augmented Topica l Cream Betamethasone Dipropionate Mar 0.05 % Betamethasone Dipropionate Aug 0.05 % 06/15/2020 12:00:00 AM EST 1.0 {application} active Betamethasone Dipr opionate Aug 0.05 % eCW1 ([facility]) 0.05 % 05/28/2020 12:00:00 AM EDT solution 25 APPLY SPARINGLY IN A THIN FILM TO THE AFFECTED AREAS OF THE SCALP; RUB IN GENTLY AND COMPLETELY APPLY SPARINGLY IN A THIN FILM TO THE AFFECTED AREAS OF THE SCALP; RUB IN GENTLY AND COMPLETELY SOLD: 05/28/2020 [facility] Insurance Providers Payer name Policy type / Coverage type Policy ID Covered libertarian ID Covered libertarian's relationship to valdez Policy Valdez Plan Information EXCELLUS BS [facility] [id number] MO2 [id number] BC BS [facility] [id number] MO2 [id number] EXCELLUS [facility] [id number] [facility] [id number] [employer] 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 [id number] SP [id number] SUKH[employer]ER [id number] SP [id number] BCBS [place] PPO 302/307 [id number] SP [id number] Problems, Conditions, and Diagnoses Code Display Name Description Problem Type Effective Dates Data Source(s) L40.9 [id number] Psoriasis Problem 08/23/2020 12:00:00 AM ES T eCW1 ([facility]) R53.82 [id number] Chronic fatigue Problem 08/23/2020 12:00:00 AM EST eCW1 ([facility]) L40.8 [id number] Seborrheic psoriasis Problem 06/15/2020 12:0 0:00 AM EST eCW1 ([facility]) Surgeries/Procedures No Information Results ID Date Data Source [id number] 05/11/2021 06:41:00 PM EDT [facility] Name Value Range Interpretation Code Description Data Neda rce(s) Supporting Document(s) SARS coronavirus 2 RNA [Presence] in Res piratory specimen by NATHALY with probe detection NEGATIVE [facility] This lab was ordered by [facility] a nd reported by [facility]. ID Date Data Source VITAMIN B12 LEVEL 08/23/2020 12:00:00 AM EST eCW1 ([facility]) Name Value Range Interpretation Code Description Data Neda rce(s) Supporting Document(s) 294 445-661 eCW1 ([facility]) ID Date Data Source VITAMIN D 25-HYDROXY 08/23/2020 12:00:00 AM EST eCW1 ([facility]) Name Value Range Interpretation Code Description Data Neda rce(s) Supporting Document(s) 35.3 30.0-100.0 eCW1 ([facility]) ID Date Data Source CREATININE,RANDOM URINE 08/23/2020 12:00:00 AM EST eCW1 ([facility]) Name Value Range Interpretation Code Description Data Neda rce(s) Supporting Document(s) 169.0 eCW1 ([facility]) ID Date Data Source TREY TITER & PATTERN 08/23/2020 12:00:00 AM EST eCW1 ([facility]) Name Value Range Interpretation Code Description Data Neda rce(s) Supporting Document(s) Positive . eCW1 ([facility]) ID Date Data Source RHEUMATOID FACTOR QUANT 08/23/2020 12:00:00 AM EST eCW1 ([facility]) Name Value Range Interpretation Code Description Data Neda rce(s) Supporting Document(s) < 10.0 <15.0 eCW1 ([facility]) ID Date Data Source ERYTHROCYTE SEDIMENTATION RATE 08/23/2020 12:00:00 AM EST eC W1 ([facility]) Name Value Range Interpretation Code Description Data Neda rce(s) Supporting Document(s) 7 0-15 eCW1 ([facility]) ID Date Data Source MAGNESIUM LEVEL 08/23/2020 12:00:00 AM EST eCW1 ([facility]) Name Value Range Interpretation Code Description Data Neda rce(s) Supporting Document(s) 2.2 1.8-2.4 eCW1 ([facility]) ID Date Data Source IRON (FE) 08/23/2020 12:00:00 AM EST eCW1 ([facility]) Name Value Range Interpretation Code Description Data Neda rce(s) Supporting Document(s) 66 65-175 eCW1 ([facility]) ID Date Data Source PHOSPHOROUS LEVEL 08/23/2020 12:00:00 AM EST eCW1 ([facility]) Name Value Range Interpretation Code Description Data Neda rce(s) Supporting Document(s) 4.1 2.5-4.9 eCW1 ([facility]) ID Date Data Source TSH 08/23/2020 12:00:00 AM EST eCW1 ([facility]) Name Value Range Interpretation Code Description Data Neda rce(s) Supporting Document(s) 1.440 0.358-3.740 eCW1 ([facility]) ID Date Data Source ANTI SCLERODERMA ANTIBODIES 08/23/2020 12:00:00 AM EST eCW1 ([facility]) Name Value Range Interpretation Code Description Data Neda rce(s) Supporting Document(s) <0.2 0.0-0.9 eCW1 ([facility]) ID Date Data Source ANTI DOUBLE STRAND DNA DARIEL 08/23/2020 12:00:00 AM EST eCW1 ( [facility]) Name Value Range Interpretation Code Description Data Neda rce(s) Supporting Document(s) eCW1 ([facility]) ID Date Data Source UA URINALYSIS 08/23/2020 12:00:00 AM EST eCW1 ([facility]) Name Value Range Interpretation Code Description Data Neda rce(s) Supporting Document(s) eCW1 ([facility]) ID Date Data Source LUPUS TYPE ANTICOAGULANT SCREE 08/23/2020 12:00:00 AM EST eC W1 ([facility]) Name Value Range Interpretation Code Description Data Neda rce(s) Supporting Document(s) 1.0 0-1.2 eCW1 ([facility]) ID Date Data Source ANTI-SJOGRENS A&B ANTIBODIES 08/23/2020 12:00:00 AM EST eCW1 ([facility]) Name Value Range Interpretation Code Description Data Neda rce(s) Supporting Document(s) >8.0 0.0-0.9 eCW1 ([facility]) <0.2 0.0-0.9 eCW1 ([facility]) ID Date Data Source ANTI-HISTONE ANTIBODIES 08/23/2020 12:00:00 AM EST eCW1 ([facility]) Name Value Range Interpretation Code Description Data Neda rce(s) Supporting Document(s) 0.9 0.0-0.9 eCW1 ([facility]) ID Date Data Source C REACTIVE PROTEIN QUANTITATIV (At [facility]) 08/23/2020 12:00 :00 AM EST eCW1 ([facility]) Name Value Range Interpretation Code Description Data Neda rce(s) Supporting Document(s) 0.58 0.00-0.30 eCW1 ([facility]) ID Date Data Source CYCLIC CITRULLINATED PEPTIDE 08/23/2020 12:00:00 AM EST eCW1 ([facility]) Name Value Range Interpretation Code Description Data Neda rce(s) Supporting Document(s) 9 0-19 eCW1 ([facility]) ID Date Data Source ANTI-CARDIOLIPIN ANTIBODIES 08/23/2020 12:00:00 AM EST eCW1 ([facility]) Name Value Range Interpretation Code Description Data Neda rce(s) Supporting Document(s) <9 0-11 eCW1 ([facility]) <9 0-14 eCW1 ([facility]) 12 0-12 eCW1 ([facility]) ID Date Data Source CBC with Differential 08/23/2020 12:00:00 AM EST eCW1 ([facility]) Name Value Range Interpretation Code Description Data Neda rce(s) Supporting Document(s) 48.5 42.0-52.0 eCW1 ([facility]) 5.6 4.0-10.0 eCW1 ([facility]) 16.3 13.5-17.5 eCW1 ([facility]) 5.31 4.30-6.10 eCW1 ([facility]) 12.5 11.5-14.5 eCW1 ([facility]) 91.3 80.0-96.0 eCW1 ([facility]) 30.7 27.0-33.0 [facility] [...] CENTROMERE ANTIBODY 08/23/2020 12:00:00 AM EST eCW1 ([facility]) Name Value Range Interpretation Code Description Data Neda rce(s) Supporting Document(s) <0.2 0.0-0.9 eCW1 ([facility]) ID Date Data Source COMPLEMENT TOTAL (CH50) 08/23/2020 12:00:00 AM EST eCW1 ([facility]) Name Value Range Interpretation Code Description Data Neda rce(s) Supporting Document(s) > 60 >41 eCW1 ([facility]) ID Date Data Source COMPLEMENT C4 08/23/2020 12:00:00 AM EST eCW1 ([facility]) Name Value Range Interpretation Code Description Data Neda rce(s) Supporting Document(s) 25 10-40 eCW1 ([facility]) ID Date Data Source COMPLEMENT C3 08/23/2020 12:00:00 AM EST eCW1 ([facility]) Name Value Range Interpretation Code Description Data Neda rce(s) Supporting Document(s) 146 90-180 eCW1 ([facility]) ID Date Data Source BETA-2 GLYCOPROTEIN 1 DARIEL LAURA 08/23/2020 12:00:00 AM EST eCW 1 ([facility]) Name Value Range Interpretation Code Description Data Neda rce(s) Supporting Document(s) <9 0-25 eCW1 ([facility]) <9 0-20 eCW1 ([facility]) <9 0-32 eCW1 ([facility]) Procedure Social History Code Duration Value Status Description Data Source(s ) Smoking 11/29/2020 12:00:00 AM EDT UNK completed eCW1 ([facility]) Smoking 11/29/2020 12:00:00 AM EDT UNK completed eCW1 ([facility]) 11/01/2020 12:00:00 AM EDT Smokes 1 Pack A Day completed Smokes 1 Pack A Day [facility] ([facility] ) Smoking 09/04/2020 12:00:00 AM EST UNK completed eCW1 ([facility]) Smoking 09/04/2020 12:00:00 AM EST UNK completed eCW1 ([facility]) Smoking 09/04/2020 12:00:00 AM EST UNK completed eCW1 ([facility]) Smoking 09/04/2020 12:00:00 AM EST UNK completed eCW1 ([facility]) Smoking 09/04/2020 12:00:00 AM EST UNK completed eCW1 ([facility]) Smoking 09/04/2020 12:00:00 AM EST UNK completed eCW1 ([facility]) Smoking 09/04/2020 12:00:00 AM EST UNK completed eCW1 ([facility]) Smoking 09/04/2020 12:00:00 AM EST UNK completed eCW1 ([facility]) Smoking 08/23/2020 12:00:00 AM EST Never Smoker completed Never S moker eCW1 ([facility]) Smoking 06/15/2020 12:00:00 AM EST Never Smoker completed Never S moker eCW1 ([facility]) Smoking 06/15/2020 12:00:00 AM EST Never Smoker completed Never S moker eCW1 ([facility]) Vital Signs ID Date Data Source UNK Name Value Range Interpretation Code Description Data Source(s) Body height 74 [in_i] 74 [in_i] [facility] ([facility], ) 6'2" Body weight 220.00 [lb_av] 220.00 [lb_av] [facility] Body mass index (BMI) [Ratio] 28.2 kg/m2 28.2 k g/m2 [facility] ([facility], ) [place] body weight 190 [lb_av] 190 [lb_av] [facility] T ([facility], ) Body weight 99.792 kg 99.792 kg [facility] ([facility]) Body surface area Derived from formula 2.26 m2 2.26 m2 [facility] ([facility], ) Body weight 229.8 [lb_av] 229.8 [lb_av] eCW1 ([facility]) Body weight 104.2 kg 104.2 kg eCW1 ([facility]) Heart rate 127 /min 127 /min eCW1 ([facility]) Body height 72 [in_i] 72 [in_i] eCW1 ([facility]) Body mass index (BMI) [Ratio] 31.16 kg/m2 31.16 kg/m2 eCW1 ([facility]) Respiratory rate 18 /min 18 /min eCW1 ([facility]) Diastolic blood pressure 86 mm[Hg] 86 mm[Hg] eCW1 ([facility]) Body temperature 97.8 [degF] 97.8 [degF] eCW1 ( [facility]) Systolic blood pressure 124 mm[Hg] 124 mm[Hg] e CW1 ([facility]) Body weight 229 [lb_av] 229 [lb_av] eCW1 ([facility]) Body height [in_i] eCW1 ([facility]) Body mass index (BMI) [Ratio] 31.05 kg/m2 31.05 kg/m2 eCW1 ([facility]) Systolic blood pressure 124 mm[Hg] 124 mm[Hg] e CW1 ([facility]) Diastolic blood pressure 70 mm[Hg] 70 mm[Hg] eCW1 ([facility]) Patient Treatment Plan of Care Planned Activity Planned Date Details Description Data Source (s) Betamethasone 0.5 MG/ML Augmented Topical Cream 06/15/2020 12:00:00 AM EST eCW1 ([facility]) calcipotriene 0.05 MG/ML Topical Cream 06/15/2020 12:00:00 AM EST eCW1 ([facility]) Betamethasone 0.5 MG/ML Augmented Topical Cream 06/15/2020 12:00:00 AM EST eCW1 ([facility]) calcipotriene 0.05 MG/ML Topical Cream 06/15/2020 12:00:00 AM EST eCW1 ([facility])
[2021-06-11] MEDS: risperiDONE 3 MG TAB PO SCH ×3 (09:00→21:04)
[2021-06-11] MEDS ORDERED: OXcarbazepine 300 MG TAB PO SCH ×2 (09:00→21:00)
[2021-06-11] MEDS ORDERED: OXCA150T21 PO (09:44)
[2021-06-11] MEDS: OXcarbazepine 150 MG TAB PO SCH ×2 (09:53→21:04)
--- NOTE | 2021-06-11 20:15 | ECGEPIP ---
[facility] - ED Test Date: 2021-06-11 Pat Name: CASSI BUSTAMANTE Department: Room: - Gender: Male [employer]: GÓMEZ : 1990 Requested By: Filiberto Cortes Order Number: [id number] Reading MD: Filiberto Bonner Measurements Intervals Lynn Rate: 74 P: 64 ID: 170 QRS: 68 QRSD: 100 T: 35 QT: 376 QTc: 417 Interpretive Statements Normal sinus rhythm SIMILAR TO 08/08/16 Electronically Signed on 06-11-2021 20:15:15 EST by Filiberto Bonner
[2021-06-11] MEDS ORDERED: zolPIDEM TARTRATE 5 MG TAB PO PRN ×2 (21:00→23:05)
[2021-06-11] MEDS ORDERED: risperiDONE 3 MG TAB PO ONE (21:00)
[2021-06-11] MEDS ORDERED: zolPIDEM TARTRATE 5 MG TAB PO ONE (21:00)
[2021-06-11] MEDS ORDERED: zolPIDEM TARTRATE 5 MG TAB PO SCH (21:00)
[2021-06-11] MEDS ORDERED: ACETAMINOPHEN TAB 650MG DOSE (2X325MG) PO PRN (23:05)
[2021-06-11] MEDS ORDERED: MOM 30ML SUSPENSION UDC PO PRN (23:05)
[2021-06-11] MEDS ORDERED: MAALOX 30 ML SUSP *UDC PO PRN (23:05)
--- OUTSIDE RECORDS SUMMARY | 2021-06-11 23:39 | CCD ---
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 If you continue you may have access to information: Regarding HIV / AIDS; Provided by facilities licensed or operated by the [facility] Office of Mental Health; or Provided by the [facility] Office for People With Developmental Disabilities. If such information is present, then the following [facility] mandated warning applies: This information has been [...] Date Indications Data Source(s ) Unknown [address] [facility] [address] 12/19/2020 12:00:00 AM EDT eCW1 ([facility]) Unknown [address] [facility] [address] 11/29/2020 12:00:00 AM EDT eCW1 ([facility]) Unknown [address] [facility] [address] 11/25/2020 12:00:00 AM EDT eCW1 ([facility]) Unknown [address] [facility] [address] 11/07/2020 12:00:00 AM EDT eCW1 ([facility]) Unknown [address] [facility] [address] 11/07/2020 12:00:00 AM EDT eCW1 ([facility]) Outpatient Attender: MARTINA Bocanegra/Kwabena/Lucas/Qasim cordova 11/01/2020 03:00:00 PM EDT [facility] ([facility]) Outpatient Attender: Kendra Thornton MD 0 10/25/2020 11:55:48 AM EDT - 10/25/2020 12:30:34 PM EDT [facility] ([facility]) Unknown [address] [facility] [address] 10/06/2020 12:00:00 AM EST eCW1 ([facility]) Unknown [address] [facility] [address] 09/30/2020 12:00:00 AM EST eCW1 ([facility]) Unknown [address] [facility] [address] 09/30/2020 12:00:00 AM EST eCW1 ([facility]) Unknown [address] [facility] [place] [address] 09/10/2020 12:00:00 AM EST eCW1 ([facility]) Unknown [address] [facility] [place] [address] 08/25/2020 12:00:00 AM EST eCW1 ([facility]) Outpatient [address] [facility] [place] [address] 08/23/2020 12:00:00 AM EST eCW1 ([facility]) Unknown [address] [facility] [place] [address] 06/24/2020 12:00:00 AM EST eCW1 ([facility]) Outpatient [address] [facility] [place] [address] 06/15/2020 12:00:00 AM EST eCW1 ([facility]) Medications Medication Brand Name Start Date Product [...] Betamethasone Dipr opionate Aug 0.05 % [facility] 0.05 % 06/15/2020 12:00:00 AM EST cream 50 APPLY TOPICALLY TWICE DAILY NEEDED FOR 10 DAYS APPLY TOPICALLY TWICE DAILY NEEDED FOR 10 DAYS SOLD : 06/16/2020 [facility] calcipotriene 0.05 MG/ML Topical Cream Calcipotriene 0 .005 % Calcipotriene 0.005 % 06/15/2020 12:00:00 AM EST 1.0 {application} active Calcipotriene 0.005 % [facility]CW[facility] calcipotriene 0.05 MG/ML Topical Cream Calcipotriene 0 .005 % Calcipotriene 0.005 % 06/15/2020 12:00:00 AM EST 1.0 {application} active Calcipotriene 0.005 % [facility]CW1 [facility]) Betamethasone 0.5 MG/ML Augmented Topica l Cream Betamethasone Dipropionate Mar 0.05 % Betamethasone Dipropionate Aug 0.05 % 06/15/2020 12:00:00 AM EST 1.0 {application} active Betamethasone Dipr opionate Aug 0.05 % eCW1 [facility]) 0.05 % 05/28/2020 12:00:00 AM EDT [...] valdez Policy Valdez Plan Information EXCELLUS BS [facility] [id number] MO2 [id number] BC BS [facility] [id number] MO2 [id number] EXCELLUS [facility] [id number] [facility] [id number] 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 [id number] SP [id number] SUKHWINDER [id number] SP [id number] [employer]BS [place] PPO 302/307 [id number] SP [id number] Problems, Conditions, and Diagnoses Code Display Name Description Problem Type Effective Dates Data Source(s) L40.9 [id number] Psoriasis Problem 08/23/2020 12:00:00 AM ES T [facility] R53.82 [id number] Chronic fatigue Problem 08/23/2020 12:00:00 AM EST eCW1 [facility]) L40.8 [id number] Seborrheic psoriasis Problem 06/15/2020 12:0 0:00 AM EST eCW1 [facility]) Surgeries/Procedures No Information Results ID Date Data Source [id number] 05/11/2021 06:41:00 PM EDT [facility] Name Value Range Interpretation Code Description Data Neda rce(s) Supporting Document(s) SARS coronavirus 2 RNA [Presence] in Res piratory specimen by NATHALY with probe detection NEGATIVE [facility] This lab was ordered by [facility] a nd reported by [facility]. ID Date Data Source VITAMIN B12 LEVEL 08/23/2020 12:00:00 AM EST eCW1 ([facility]) Name Value Range Interpretation Code Description Data Neda rce(s) Supporting Document(s) [phone] eCW1 ([facility]) ID Date Data Source VITAMIN D 25-HYDROXY 08/23/2020 12:00:00 AM EST eCW1 ([facility]) Name Value Range Interpretation Code Description Data Neda rce(s) Supporting Document(s) 35.3 30.0-100.0 eCW1 ([facility]) ID Date Data Source CREATININE,RANDOM URINE 08/23/2020 12:00:00 AM EST eCW1 ([facility]) Name Value Range Interpretation Code Description Data Neda rce(s) Supporting Document(s) 169.0 eCW1 ([facility]) ID Date Data Source TREY TITER & PATTERN 08/23/2020 12:00:00 AM EST eCW1 ([facility]) Name Value Range Interpretation Code Description Data Neda rce(s) Supporting Document(s) Positive . eCW1 ([facility]) ID Date Data Source RHEUMATOID FACTOR QUANT 08/23/2020 12:00:00 AM EST eCW1 ([facility]) Name Value Range Interpretation Code Description Data Neda rce(s) Supporting Document(s) < 10.0 <15.0 eCW1 ([facility]) ID Date Data Source ERYTHROCYTE SEDIMENTATION RATE 08/23/2020 12:00:00 AM EST eC W1 [facility]) Name Value Range Interpretation Code Description Data Neda rce(s) Supporting Document(s) 7 0-15 eCW1 ([facility]) ID Date Data Source MAGNESIUM LEVEL 08/23/2020 12:00:00 AM EST eCW1 ([facility]) Name Value Range Interpretation Code Description Data Neda rce(s) Supporting Document(s) 2.2 1.8-2.4 eCW1 ([facility]) ID Date Data Source IRON (FE) 08/23/2020 12:00:00 AM EST eCW1 ([facility]) Name Value Range Interpretation Code Description Data Neda rce(s) Supporting Document(s) 66 65-175 eCW1 ([facility]) ID Date Data Source PHOSPHOROUS LEVEL 08/23/2020 12:00:00 AM EST eCW1 ([facility]) Name Value Range Interpretation Code Description Data Neda rce(s) Supporting Document(s) 4.1 2.5-4.9 eCW1 ([facility]) ID Date Data Source TSH 08/23/2020 12:00:00 AM EST eCW1 ([facility]) Name Value Range Interpretation Code Description Data Neda rce(s) Supporting Document(s) 1.440 0.358-3.740 eCW1 ([facility]) ID Date Data Source ANTI SCLERODERMA ANTIBODIES 08/23/2020 12:00:00 AM EST eCW1 [facility] Name Value Range Interpretation Code Description Data Neda rce(s) Supporting Document(s) <0.2 0.0-0.9 eCW1 ([facility]) ID Date Data Source ANTI DOUBLE STRAND DNA DARIEL 08/23/2020 12:00:00 AM EST eCW1 ( [facility]) Name Value Range Interpretation Code Description Data Neda rce(s) Supporting Document(s) eCW1 ([facility]) ID Date Data Source UA URINALYSIS 08/23/2020 12:00:00 AM EST eCW1 ([facility]) Name Value Range Interpretation Code Description Data Neda rce(s) Supporting Document(s) eCW1 ([facility]) ID Date Data Source LUPUS TYPE ANTICOAGULANT SCREE 08/23/2020 12:00:00 AM EST eC W1 ([facility]) Name Value Range Interpretation Code Description Data Neda rce(s) Supporting Document(s) 1.0 0-1.2 eCW1 ([facility]) ID Date Data Source ANTI-SJOGRENS A&B ANTIBODIES 08/23/2020 12:00:00 AM EST eCW1 ([facility]) Name Value Range Interpretation Code Description Data Neda rce(s) Supporting Document(s) >8.0 0.0-0.9 eCW1 ([facility]) <0.2 0.0-0.9 eCW1 ([facility]) ID Date Data Source ANTI-HISTONE ANTIBODIES 08/23/2020 12:00:00 AM EST eCW1 ([facility]) Name Value Range Interpretation Code Description Data Neda rce(s) Supporting Document(s) 0.9 0.0-0.9 eCW1 ([facility]) ID Date Data Source C REACTIVE PROTEIN QUANTITATIV (At [facility]) 08/23/2020 12:00 :00 AM EST eCW1 [facility]) Name Value Range Interpretation Code Description Data Neda rce(s) Supporting Document(s) 0.58 0.00-0.30 eCW1 ([facility]) ID Date Data Source CYCLIC CITRULLINATED PEPTIDE 08/23/2020 12:00:00 AM EST eCW1 [facility]) Name Value Range Interpretation Code Description Data Neda rce(s) Supporting Document(s) 9 0-19 eCW1 ([facility]) ID Date Data Source ANTI-CARDIOLIPIN ANTIBODIES 08/23/2020 12:00:00 AM EST eCW1 ([facility]) Name Value Range Interpretation Code Description Data Neda rce(s) Supporting Document(s) <9 0-11 eCW1 ([facility]) <9 0-14 eCW1 ([facility]) 12 0-12 eCW1 ([facility]) ID Date Data Source CBC with Differential 08/23/2020 12:00:00 AM EST eCW1 ([facility]) Name Value Range Interpretation Code Description Data Neda rce(s) Supporting Document(s) 48.5 42.0-52.0 eCW1 ([facility]) 5.6 4.0-10.0 eCW1 ([facility]) 16.3 13.5-17.5 eCW1 ([facility]) 5.31 4.30-6.10 eCW1 ([facility]) 12.5 11.5-14.5 eCW1 ([facility]) 91.3 80.0-96.0 eCW1 ([facility]) 30.7 27.0-33.0 eCW1 ([facility]) 33.6 32.0-36.5 eCW1 ([facility]) 62.8 36.0-66.0 eCW1 ([facility]) 264 150-450 eCW1 ([facility]) 21.9 24.0-44.0 eCW1 ([facility]) 12.8 0.0-5.0 eCW1 ([facility]) 1.2 1.5-5.0 eCW1 ([facility]) 0.5 0.0-1.0 eCW1 ([facility]) 0.7 0.0-0.8 eCW1 ([facility]) 3.5 1.5-8.5 eCW1 ([facility]) 1.6 0.0-3.0 eCW1 ([facility]) 0.1 0.0-0.5 eCW1 ([facility]) 0.0 0.0-0.2 eCW1 ([facility]) ID Date Data Source ANTI CENTROMERE ANTIBODY 08/23/2020 12:00:00 AM EST eCW1 ([facility]) Name Value Range Interpretation Code Description Data Neda rce(s) Supporting Document(s) <0.2 0.0-0.9 eCW1 ([facility]) ID Date Data Source COMPLEMENT TOTAL (CH50) 08/23/2020 12:00:00 AM EST eCW1 ([facility]) Name Value Range Interpretation Code Description Data Neda rce(s) Supporting Document(s) > 60 >41 eCW1 ([facility]) ID Date Data Source COMPLEMENT C4 08/23/2020 12:00:00 AM EST eCW1 ([facility]) Name Value Range Interpretation Code Description Data Neda rce(s) Supporting Document(s) 25 10-40 eCW1 ([facility]) ID Date Data Source COMPLEMENT C3 08/23/2020 12:00:00 AM EST eCW1 ([facility]) Name Value Range Interpretation Code Description Data Neda rce(s) Supporting Document(s) 146 90-180 eCW1 ([facility]) ID Date Data Source BETA-2 GLYCOPROTEIN 1 DARIEL LAURA 08/23/2020 12:00:00 AM EST eCW 1 [facility]) Name Value Range Interpretation Code Description Data Neda rce(s) Supporting Document(s) <9 0-25 eCW1 ([facility]) <9 0-20 eCW1 ([facility]) <9 0-32 eCW1 ([facility]) Procedure Social History Code Duration Value Status Description Data Source(s ) Smoking 11/29/2020 12:00:00 AM EDT UNK completed [facility]) Smoking 11/29/2020 12:00:00 AM EDT UNK completed eCW1 [facility]) 11/01/2020 12:00:00 AM EDT Smokes 1 Pack A Day completed Smokes 1 Pack A Day [facility] ([facility] ) Smoking 09/04/2020 12:00:00 AM EST UNK completed eCW1 [facility]) Smoking 09/04/2020 12:00:00 AM EST UNK completed eCW1 ([facility]) Smoking 09/04/2020 12:00:00 AM EST UNK completed eCW1 [facility]) Smoking 09/04/2020 12:00:00 AM EST UNK completed eCW1 ([facility]) Smoking 09/04/2020 12:00:00 AM EST UNK completed eCW1 ([facility]) Smoking 09/04/2020 12:00:00 AM EST UNK completed eCW1 ([facility]) Smoking 09/04/2020 12:00:00 AM EST UNK completed eCW1 ([facility]) Smoking 09/04/2020 12:00:00 AM EST UNK completed eCW1 ([facility]) Smoking 08/23/2020 12:00:00 AM EST Never Smoker completed Never S moker eCW1 ([facility]) Smoking 06/15/2020 12:00:00 AM EST Never Smoker completed Never S moker eCW1 ([facility]) Smoking 06/15/2020 12:00:00 AM EST Never Smoker completed Never S moker eCW1 ([facility]) Vital Signs ID Date Data Source UNK Name Value Range Interpretation Code Description Data Source(s) Body height 74 [in_i] 74 [in_i] [facility] ([facility] 6'2" Body weight 220.00 [lb_av] 220.00 [lb_av] [facility] T ([facility]) Body mass index (BMI) [Ratio] 28.2 kg/m2 28.2 k g/m2 [facility] ([facility]) [place] body weight 190 [lb_av] 190 [lb_av] MEDEN T ([facility]) Body weight 99.792 kg 99.792 kg [facility] ([facility]) Body surface area Derived from formula 2.26 m2 2.26 m2 [facility] ([facility]) Body weight 229.8 [lb_av] 229.8 [lb_av] eCW1 ([facility]) Body weight 104.2 kg 104.2 kg eCW1 ([facility]) Body height 72 [in_i] 72 [in_i] eCW1 ([facility]) Body mass index (BMI) [Ratio] 31.16 kg/m2 31.16 kg/m2 eCW1 [facility] Heart rate 127 /min 127 /min eCW1 ([facility]) Respiratory rate 18 /min 18 /min eCW1 ([facility]) Diastolic blood pressure 86 mm[Hg] 86 mm[Hg] eCW1 [facility] Body temperature 97.8 [degF] 97.8 [degF] eCW1 ( [facility]) Systolic blood pressure 124 mm[Hg] 124 mm[Hg] e CW1 ([facility]) Body weight 229 [lb_av] 229 [lb_av] eCW1 ([facility]) Body height [in_i] eCW1 ([facility]) Body mass index (BMI) [Ratio] 31.05 kg/m2 31.05 kg/m2 eCW1 [facility]) Systolic blood pressure 124 mm[Hg] 124 mm[Hg] e CW1 ([facility]) Diastolic blood pressure 70 mm[Hg] 70 mm[Hg] eCW1 [facility] Patient Treatment Plan of Care Planned Activity Planned Date Details Description Data Source (s) Betamethasone 0.5 MG/ML Augmented Topical Cream 06/15/2020 12:00:00 AM EST eCW1 ([facility]) calcipotriene 0.05 MG/ML Topical Cream 06/15/2020 12:00:00 AM EST eCW1 ([facility]) Betamethasone 0.5 MG/ML Augmented Topical Cream 06/15/2020 12:00:00 AM EST eCW1 ([facility]) calcipotriene 0.05 MG/ML Topical Cream 06/15/2020 12:00:00 AM EST eCW1 ([facility])
[2021-06-12 00:24] LABS: RSV AMPLIFICATION NEGATIVE (NEGATIVE)
[2021-06-12 06:32] VITALS: BP 149/78
[2021-06-12] MEDS ORDERED: OLANZapine 5 MG TAB PO PRN (08:00)
--- NOTE | 2021-06-12 08:07 | MHHPEPDOC ---
General Date Of Admission: Jun 11, 2021 Legal Status: 9.39 Chief Complaint "having suicidal thoughts and voices" History of Present Illness HISTORY OF THE PRESENT ILLNESS: Patient is a 30 -year-old , male, who came in with mother due to racing thoughts, reports suicidal thoughts, with plan to get some vodka and Vicodin and cut femoral artery, has been reporting psychosis since May, previously had been reporting depression. Reports being unable to sleep, and that this may be contributing to AH. Reports 1 SA in 2013, in context of breaking up with a partner. States was hearing voices to hurt his mother, reports 1 voice, unrecognizable. Patient returned to the hospital and was previously sent home due to racing thoughts in context of not taking his medications, and planning to see therapist Liban Raymundo 06/13, Dr Galloway at [facility] 06/15. Despite this plan reports worsening SI and so came in to the ED. Per PSA report: "Pt states that he has command AH that tell him to kill his mother. Pt denies HI & states he does not want to act on the command AH. Pt also reports SI with a plan to OD on Vicodin & Vodka & then cut his femoral artery. He has a hx of one suicide attempt in 2013 via OD. Pt denies any hx of self-harm. Pt c/o depressed mood, anxiety, poor concentration, decreased energy levels, & poor sleep. Pt states that he has only been sleeping 2-4 hours per night for the past three weeks. Initially pt was unable to identify any stressors, but later stated that he is having financial px's because he is not working & cannot pay his student loans. Pt has a hx of Bipolar D/O with three admissions. He has OP tx at [facility]. He states he had an intake after his last DC & he is supposed to have an appointment with Liban for therapy & with Dr. Galloway for meds later this week. Pt states he has used alcohol in the past but states he has not used in a year. Pt reports occasional MJ use & his tox screen was positive for cannabis. Pt states he has also used cocaine in the past. Patient is agreeable to starting Depakote 750 mg extended release p.o. daily after being made aware of common rare side effects including effects on liver, metabolic side effects and other common rare side effect, patient was agreeable to starting Latuda 20 mg daily for bipolar depression, patient made aware of common side effects including EPS, NMS, metabolic side effects and other common rare side effects. 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 Appendicectomy. Head Injury: No Seizures: No Hospitalizations: No Surgeries: Yes Family Medical/Psychiatric HX Medical Problems FAMILY HISTORY: Addictions Addiction History nicotine (jewel vaping), other (cannabis) Social History PERSONAL AND SOCIAL HISTORY: Childhood: Grew up in [place] Abuse/Trauma: None Current Living Situation: Lives with mother . 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 Legal: None . Marital: Not , single . SUBSTANCE ABUSE HISTORY: Cannabis use LEGAL HISTORY: Denies Mental Status Examination General Appearance: well groomed Build: thin, tall Demeanor: guarded Eye Contact: avoidant Activity: anxious Behavior: cooperative, restless Speech: clear, rapid, normal volume Mood: depressed, anxious, irritable, elevated Affect: labile, anxious Thought Process: circumstantial, tangential Thought Content (Delusions): other (endosrses SI) Thought Content (Other): phobic Thought Content (Aggressive): none reported Perception (Hallucinations): auditory Perception (Other): none reported Cognition (Impairment of): attention/concentration Cognition(Intelligence Est.): average Oriented: Awake, Alert, Oriented times three Insight: poor Judgment: Poor Psychosis: Psychotic Perceptions Diagnoses Bipolar disorder, mixed episode, with psychotic features Cannabis use disorder Tobacco use disorder A-FIB/CHADSVASC A-FIB History Current/History of A-Fib/PAF?: No Current PO Anticoag Therapy: No Age/Risk Factor Scoring CHADSVASC: CHADSVASC Response (Comments) Value Age Risk Factor Age < 65 years old 0 Gender Risk Factor Male 0 Hx of CHF No 0 Hx of HTN No 0 Hx of Stroke/TIA/or VTE No 0 Hx of Diabetes No 0 Hx of Vascular Disease No 0 Total 0 Treatment Treatment ordered: NONE Reason Anticoagulant not given: Not indicated/[id number] Assessment Patient is a 30 -year-old , male, who came in with mother due to racing thoughts, reports suicidal thoughts, with plan to get some vodka and Vicodin and cut femoral artery, has been reporting psychosis since May, previously had been reporting depression. Reports being unable to sleep, and that this may be contributing to AH. Reports 1 SA in 2013, in context of breaking up with a p artner. States was hearing voices to hurt his mother, reports 1 voice, unrecognizable. Patient returned to the hospital and was previously sent home due to racing thoughts in context of not taking his medications, and planning to see therapist Liban Raymundo 06/13, Dr Galloway at [facility] 06/15. Despite this plan reports worsening SI and so came in to the ED. Patient meets criteria for bipolar disorder, mixed episode with psychotic features, rule out primary psychotic disorder, patient endorses racing thoughts, goal-directed behavior, insomnia lasting longer than 1 week, also reports history of depressive episodes, currently endorses suicidal ideation and depressive symptoms as well as increased energy. Patient is agreeable to starting Depakote 750 mg extended release p.o. daily after being made aware of common rare side effects including effects on liver, metabolic side effects and other common rare side effect Initial Treatment Plan 1. Patient was admitted on a [9.39] status. 2. Complete history was obtained. 3. With patients permission, family will be contacted and database will be expanded. 4. Patients medication regimen will be reviewed and changed accordingly. 5. Patient will be provided with protected environment. 6. Patient will be treated with individual, group, and milieu therapies. 7. Patient will receive supportive psych-education. 8. Discharge planning will commence immediately. 9. Outpatient follow-up treatment will be strongly recommended. 10. The initial treatment plan will focus initially on: * Depression. * Risk for suicide. ESTIMATED LENGTH OF STAY: 2-7 DAYS. TIME SPENT COUNSELING AND COORDINATING INITIAL CARE: 60 minutes. Tobacco Cessation Screen If Patient is a Smoker vaping, yes Tobacco Cessation Tx Ordered?: Yes Ordered/Pending Vital Signs Vital Signs Date Time Temp Pulse Resp B/P (MAP) Pulse Ox O2 Delivery O2 Flow Rate FiO2 06/12/21 06:32 98.1 75 18 149/78 (101) 96 Room Air Laboratory Data 24H Labs Laboratory Tests 2 06/11/21 23:29: Coronavirus (COVID-19)(PCR) NEGATIVE, Influenza Type A (RT-PCR) NEGATIVE, Influenza Type B (RT-PCR) NEGATIVE, Respiratory Syncytial Virus (PCR) NEGATIVE Medications Scheduled Oxcarbazepine (Oxcarbazepine) 150 Mg Tablet, 150 MG PO BID, (Reported) Risperidone (Risperdal) 3 Mg Tablet, 3 MG PO BID, (Reported) Scheduled PRN Zolpidem Tartrate (Zolpidem Tartrate) 5 Mg Tablet, 5 MG PO QHS PRN for SLEEP, (Reported) Allergies Coded Allergies: No Known Drug Allergies (Verified Allergy, Unknown, 05/11/21) JULISSA STUBBS MD Jun 12, 2021 08:07
[2021-06-12] MEDS ORDERED: risperiDONE 3 MG TAB PO SCH (09:00)
[2021-06-12] MEDS ORDERED: OXcarbazepine 150 MG TAB PO SCH (09:00)
[2021-06-12] MEDS: LURASIDONE 20 MG TAB (LATUDA) PO SCH (09:46)
[2021-06-12] MEDS: DIVALPROEX 250MG *ER* TAB PO SCH (09:46)
[2021-06-12] MEDS: NICOTINE 14 MG/24 HR TRANSDERMAL TD SCH (09:47)
[2021-06-12] MEDS: hydrOXYzine 50 MG TAB PO PRN (12:35)
[2021-06-12 17:02] VITALS: BP 140/77
--- NOTE | 2021-06-12 18:19 | HPEPDOC ---
[facility] Medical History & Physical Date of Admission Jun 11, 2021 Date of Service: Jun 12, 2021 History and Physical CHIEF COMPLAINT: Medical health screening HISTORY OF PRESENT ILLNESS: Mr. Ponce is a 30-year-old male single kidney who was in the inpatient mental health unit for psychosis. Please refer to the [facility] H&P for information about patient's psychosis and suicidal ideation. I saw patient this evening. He had just woken up. He had a red rash on his right restoration and left hand. He thought it may have been from sleeping on. Otherwise he denies any fever or chills, sore throat, shortness of breath, chest pain, abdominal pain, diarrhea, or dysuria. Patient did not have any further questions or concerns. PAST MEDICAL HISTORY: 1. Renal vein thrombosis at 3 years old 2. Depression and anxiety. PAST SURGICAL HISTORY: 1. Appendectomy 2. Right nephrectomy SOCIAL HISTORY: Tobacco use: Smokes e-cigarettes ETOH: Sober Illicit drug use: Marijuana FAMILY HISTORY: Father: History of alcohol abuse. Paternal grandfather: History of completed suicide. ALLERGIES: Please see below. REVIEW OF SYSTEMS: CONSTITUTIONAL: Denies any fever or chills. ENT: Denies sore throat. RESPIRATORY: Denies shortness of breath. Denies cough. CARDIOVASCULAR: Denies chest pain. Denies palpitations. GASTROINTESTINAL: Denies abdominal pain. Denies diarrhea. GENITOURINARY: Denies dysuria. CUTANEOUS: Denies rashes. HEMATOLOGICAL: Denies bruises. NEUROLOGICAL: Denies neuropathy. PSYCHOLOGICAL: Denies anxiety. Denies depression. HOME MEDICATIONS: Please see below. PHYSICAL EXAMINATION: VITAL SIGNS: Temperature 98.8, pulse 99, respiratory rate 18, blood pressure 140/77, pulse oximetry 98% on room air. GENERAL: Comfortable, in no apparent distress. HEENT: Head normocephalic/atraumatic, EOMI, sclera clear. NECK: Supple. RESPIRATORY: Lungs clear to auscultation bilaterally, no rales, wheeze or rhonchi. CARDIOVASCULAR: Regular rate and rhythm. ABDOMEN: Soft, nontender, no guarding or rebound tenderness. Normal bowel sounds. MUSCLE SKELETAL: Muscle strength 5/5 in all extremities. NEUROLOGICAL: CN 312 grossly intact, no focal deficits noted. PSYCHOLOGICAL: Normal mood and affect LABORATORY DATA: See below. IMAGING: None MICROBIOLOGY: Please see below. ASSESSMENT and PLAN: 1. Psychosis Being managed in the inpatient mental health unit 2. Suicidal ideation Being managed in the inpatient mental health unit 3. General wellbeing Patient should follow-up with PCP after discharge Thank you for consulting us. We will sign off at this time. If there is any further questions or concerns, please do not hesitate to reconsult us. Vital Signs Vital Signs Date Time Temp Pulse Resp B/P (MAP) Pulse Ox O2 Delivery O2 Flow Rate FiO2 06/12/21 17:02 98.8 99 18 140/77 (98) 98 Room Air Laboratory Data Labs 24H Laboratory Tests 2 06/11/21 23:29: Coronavirus (COVID-19)(PCR) NEGATIVE, Influenza Type A (RT-PCR) NEGATIVE, Influenza Type B (RT-PCR) NEGATIVE, Respiratory Syncytial Virus (PCR) NEGATIVE Home Medications Scheduled Oxcarbazepine (Oxcarbazepine) 150 Mg Tablet, 150 MG PO BID Risperidone (Risperdal) 3 Mg Tablet, 3 MG PO BID Scheduled PRN Zolpidem Tartrate (Zolpidem Tartrate) 5 Mg Tablet, 5 MG PO QHS PRN for SLEEP Allergies Coded Allergies: No Known Drug Allergies (Verified Allergy, Unknown, 05/11/21) A-FIB/CHADSVASC A-FIB History Current/History of A-Fib/PAF?: No FARHAN DIAZ DO Jun 12, 2021 18:19
[2021-06-12] MEDS ORDERED: zolPIDEM TARTRATE 5 MG TAB PO PRN (21:00)
[2021-06-13 06:16] VITALS: BP 150/90
[2021-06-13] MEDS: NICOTINE 14 MG/24 HR TRANSDERMAL TD SCH (08:27)
[2021-06-13] MEDS: DIVALPROEX 250MG *ER* TAB PO SCH (08:27)
[2021-06-13] MEDS: LURASIDONE 20 MG TAB (LATUDA) PO SCH (08:27)
[2021-06-13 09:43] LABS: CHOLESTEROL RISK RATIO 2.704 (<5)
--- NOTE | 2021-06-13 12:15 | MHIPNPDOC ---
[facility] Progress Note Progress Note DATE OF SERVICE: 06/13/21 HISTORY: Patient is a 30 -year-old , male, who came in with mother due to racing thoughts, reports suicidal thoughts, with plan to get some vodka and Vicodin and cut femoral artery, has been reporting psychosis since May, previously had been reporting depression. Reports being unable to sleep, and that this may be contributing to AH. Reports 1 SA in 2013, in context of breaking up with a partner. States was hearing voices to hurt his mother, reports 1 voice, unrecognizable. Patient returned to the hospital and was previ ously sent home due to racing thoughts in context of not taking his medications, and planning to see therapist Liban Raymundo 06/13, Dr Galloway at [facility] 06/15. Despite this plan reports worsening SI and so came in to the ED. Per PSA report: "Pt states that he has command AH that tell him to kill his mother. Pt denies HI & states he does not want to act on the command AH. Pt also reports SI with a plan to OD on Vicodin & Vodka & then cut his femoral artery. He has a hx of one suicide attempt in 2013 via OD. Pt denies any hx of self-harm. Pt c/o depressed mood, anxiety, poor concentration, decreased energy levels, & poor sleep. Pt states that he has only been sleeping 2-4 hours per night for the past three weeks. Initially pt was unable to identify any stressors, but later stated that he is having financial px's because he is not working & cannot pay his student loans. Pt has a hx of Bipolar D/O with three admissions. He has OP tx at [facility]. He states he had an intake after his last DC & he is supposed to have an appointment with Liban for therapy & with Dr. Galloway for meds later this week. Pt states he has used alcohol in the past but states he has not used in a year. Pt reports occasional MJ use & his tox screen was positive for cannabis. Pt states he has also used cocaine in the past. Patient is agreeable to starting Depakote 750 mg extended release p.o. daily after being made aware of common rare side effects including effects on liver, metabolic side effects and other common rare side effect, patient was agreeable to starting Latuda 20 mg daily for bipolar depression, patient made aware of common side effects including EPS, NMS, metabolic side effects and other common rare side effects. Interval: Patient reports slept 6 hours last night which is a significant treatment from previous nights, states a little depressed, denies side effects from medications. Agreeable to continuing on current regiment and seeing how he does with regards to mood, made aware that there are other options we can look at further improving mood. VITAL SIGNS: See below. NEW TEST RESULTS: none CURRENT MEDICATIONS: See below. MENTAL STATUS EXAMINATION: Patient is a 30-year old male, who appears stated age, good eye contact, short buzz cut hair, good hygiene, in hospital clothes Speech: Is not pressured, spontaneous, normal amount. Language skills are intact. Thought processes including: Circumstantial. Thought content: Denies suicidal thoughts today, but is concerned due to low mood that he may return if he is discharged. Abstract reasoning, and computation: Fair description of associations: Good. Description of abnormal or psychotic thoughts: Denies, not observed. Judgment: Improving. Insight: Improving Orientation: X4 Recent and remote memory: Fair. Attention span and concentration: Somewhat decreased. Language: Yi. Fund of knowledge: Average based on interview. Mood: "Depressed" affect: Anxious, constricted, not elevated, not manic DIAGNOSES: Bipolar disorder, mixed episode, with psychotic features Cannabis use disorder Tobacco use disorder ASSESSMENT: Patient reports good tolerance to medications, does not endorse oversedation, denies side effects, feels mood is more even, no longer having excessive anxiety and is achieving sleep at night, despite this continues to report depressed mood, will allow time for medications to continue to take effect as he does not mind take more medications unless mood worsens at this time. No acute physical complaints, no medication side effects endorsed. MANAGEMENT PLAN: Continue Latuda 20 mg and Depakote 750 mg extended release, patient compliant, attended group today TIME SPENT: 15 minutes. Vital Signs Vital Signs Date Time Temp Pulse Resp B/P (MAP) Pulse Ox O2 Delivery O2 Flow Rate FiO2 06/13/21 06:16 97.9 87 18 150/90 (110) 98 Room Air Laboratory Data 24H Labs Laboratory Tests 2 06/13/21 08:48: Triglycerides Level 74, Total Cholesterol 119, LDL Cholesterol 60, Non-HDL Cholesterol (LDL + VLDL) 75, Total HDL Cholesterol 44, Cholesterol/HDL Ratio 2.704 Current Medications Current Medications Medications (Trade) Dose Ordered Sig/Davida Route PRN Reason Start Time Stop Time Status Last Admin Dose Admin Acetaminophen (Tylenol Tab) 650 mg Q6HP PRN PO HEADACHE or MILD DISCOMFORT 06/11/21 23:05 Al Hydrox/Mg Hydrox/Simethicone (Mylanta) 30 ml Q4HP PRN PO HEARTBURN/INDIGESTION 06/11/21 23:05 Divalproex Sodium (Depakote Er) 750 mg DAILY PO 06/12/21 09:00 06/13/21 08:27 Home Med (Home Med List Complete!) ASDIRECTED XX 06/11/21 05:45 06/11/21 05:46 DC Hydroxyzine HCl (Atarax) 50 mg Q4HP PRN PO ANXIETY/AGITATION 06/12/21 08:00 06/12/21 12:35 Lurasidone HCl (Latuda) 20 mg DAILY@08 PO 06/12/21 08:00 06/13/21 08:27 Magnesium Hydroxide (Milk Of Magnesia) 30 ml DAILYPRN PRN PO CONSTIPATION 06/11/21 23:05 Nicotine (Nicoderm Cq 14mg) 1 patch DAILY TD 06/12/21 09:00 06/13/21 08:27 Olanzapine (ZyPREXA) 5 mg Q6HP PRN PO ANXIETY/AGITATION 06/12/21 08:00 Oxcarbazepine (Trileptal) 150 mg BID PO 06/11/21 09:00 06/12/21 01:50 DC 06/11/21 21:04 Oxcarbazepine (Trileptal) 150 mg BID PO 06/12/21 09:00 Cancel Oxcarbazepine (Trileptal) 300 mg BID PO 06/11/21 09:00 06/11/21 09:46 DC Oxcarbazepine (Trileptal) 300 mg BID PO 06/11/21 21:00 06/11/21 09:22 DC Risperidone (RisperDAL) 3 mg BID PO 06/11/21 09:00 06/12/21 01:50 DC 06/11/21 21:04 Risperidone (RisperDAL) 3 mg BID PO 06/12/21 09:00 Cancel Zolpidem Tartrate (Ambien) 5 mg QHS PO 06/11/21 21:00 06/11/21 11:18 DC Zolpidem Tartrate (Ambien) 5 mg QHSP PRN PO SLEEP 06/11/21 21:00 06/11/21 23:20 DC 06/11/21 21:04 Zolpidem Tartrate (Ambien) 5 mg QHSP PRN PO INSOMNIA 06/11/21 23:05 06/11/21 23:21 DC Zolpidem Tartrate (Ambien) 5 mg QHSP PRN PO INSOMNIA 06/12/21 21:00 06/12/21 08:07 DC Allergies Coded Allergies: No Known Drug Allergies (Verified Allergy, Unknown, 05/11/21) JULISSA STUBBS MD Jun 13, 2021 12:15
[2021-06-13 16:29] VITALS: BP 134/80
[2021-06-14] MEDS: hydrOXYzine 50 MG TAB PO PRN ×2 (04:45→12:05)
[2021-06-14 06:38] VITALS: BP 125/81
[2021-06-14] MEDS: LURASIDONE 20 MG TAB (LATUDA) PO SCH (07:52)
[2021-06-14] MEDS: NICOTINE 14 MG/24 HR TRANSDERMAL TD SCH (07:52)
[2021-06-14] MEDS: DIVALPROEX 250MG *ER* TAB PO SCH (07:53)
--- NOTE | 2021-06-14 08:31 | MHIPNPDOC ---
[facility] Progress Note Progress Note DATE OF SERVICE: 06/14/21 HISTORY: Patient is a 30 -year-old , male, who came in with mother due to racing thoughts, reports suicidal thoughts, with plan to get some vodka and Vicodin and cut femoral artery, has been reporting psychosis since May, previously had been reporting depression. Reports being unable to sleep, and that this may be contributing to AH. Reports 1 SA in 2013, in context of breaking up with a partner. States was hearing voices to hurt his mother, reports 1 voice, unrecognizable. Patient returned to the hospital and was prev iously sent home due to racing thoughts in context of not taking his medications, and planning to see therapist Liban Raymundo 06/13, Dr Galloway at [facility] 06/15. Despite this plan reports worsening SI and so came in to the ED. Per PSA report: "Pt states that he has command AH that tell him to kill his mother. Pt denies HI & states he does not want to act on the command AH. Pt also reports SI with a plan to OD on Vicodin & Vodka & then cut his femoral artery. He has a hx of one suicide attempt in 2013 via OD. Pt denies any hx of self-harm. Pt c/o depressed mood, anxiety, poor concentration, decreased energy levels, & poor sleep. Pt states that he has only been sleeping 2-4 hours per night for the past three weeks. Initially pt was unable to identify any stressors, but later stated that he is having financial px's because he is not working & cannot pay his student loans. Pt has a hx of Bipolar D/O with three admissions. He has OP tx at [facility]. He states he had an intake after his last DC & he is supposed to have an appointment with Liban for therapy & with Dr. Galloway for meds later this week. Pt states he has used alcohol in the past but states he has not used in a year. Pt reports occasional MJ use & his tox screen was positive for cannabis. Pt states he has also used cocaine in the past. Interval: Sleep evaluation patient slept 3.5 hours, patient reports he slept 5 to 6-hour, appeared calm on interview stated he had a little bit of depression but otherwise had better anxiety with his Atarax, denied side effects from medications, per nursing however patient has been reporting paranoia, stating another patient at the same initials as him and this was disturbing him, also patient seems highly anxious and was not sure about his medications. Patient agreed to increase his dose of Latuda movement to the evening, agree to continuing other medications. Per collateral from mother Elise Ponce [phone]: His father told me his grandfather years ago, later in life had extreme stress and diagnosed with clinical depression and killed himself with a gun. Father was recently diagnosed with bipolar and takes celexa and seroquel. 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 2 months before going into the hospital, tried to fall asleep early, then he was out early every day and doing [employer], and had extreme weight loss, he was not eating properly, he went to drinking v8 juice and going out of the house alot. He has not been able to sleep well since 9th grade, extreme insomnia. He has been using cannabis and unisom to sleep. He had told me he couldn't get music out of his head, had suicidal thoughts, but told me he wouldn't go through with it after first time he left the hospital, his gun was taken away. Last few few days before coming to hospital, heard voices telling him he may harm his mother. He's up and down at least 100 times, the anxiety was there constantly, up and down stairs, restless, racing thoughts. May 29 fainted and hit his head. VITAL SIGNS: See below. NEW TEST RESULTS: none CURRENT MEDICATIONS: See below. MENTAL STATUS EXAMINATION: Patient is a 30-year old male, who appears stated age, good eye contact, short buzz cut hair, good hygiene, in hospital clothes Speech: Is not pressured, spontaneous, normal amount. Language skills are intact. Thought processes including: Circumstantial. Thought content: Denies suicidal thoughts today, but is concerned due to low mood that he may return if he is discharged. Abstract reasoning, and computation: Fair description of associations: Good. Description of abnormal or psychotic thoughts: Denies, not observed. Judgment: Improving. Insight: Improving Orientation: X4 Recent and remote memory: Fair. Attention span and concentration: Somewhat decreased. Language: Korean. Fund of knowledge: Average based on interview. Mood: "Little depressed" affect: Less anxious, constricted, not elevated, not manic, mild paranoia DIAGNOSES: Bipolar disorder, mixed episode, with psychotic features R/o primary psychotic disorder Cannabis use disorder Tobacco use disorder ASSESSMENT: Patient continues to be anxious, with some paranoia, reports improved sleep but continues to be low between 3-1/2 to 5 hours, per nursing was up all night with anxiety. MANAGEMENT PLAN: Ordered head CT which was negative, mother had reported he had a head injury May 29, increase Latuda from 20 to 40 mg nightly and continue Depakote 750 mg extended release, patient compliant, encouraged to attend groups. TIME SPENT: 25 minutes. Vital Signs Vital Signs Date Time Temp Pulse Resp B/P (MAP) Pulse Ox O2 Delivery O2 Flow Rate FiO2 06/14/21 06:38 98.5 79 18 125/81 (96) 98 Room Air Laboratory Data 24H Labs Laboratory Tests 2 06/13/21 08:48: Triglycerides Level 74, Total Cholesterol 119, LDL Cholesterol 60, Non-HDL Cholesterol (LDL + VLDL) 75, Total HDL Cholesterol 44, Cholesterol/HDL Ratio 2.704 Current Medications Current Medications Medications (Trade) Dose Ordered Sig/Davida Route PRN Reason Start Time Stop Time Status Last Admin Dose Admin Acetaminophen (Tylenol Tab) 650 mg Q6HP PRN PO HEADACHE or MILD DISCOMFORT 06/11/21 23:05 Al Hydrox/Mg Hydrox/Simethicone (Mylanta) 30 ml Q4HP PRN PO HEARTBURN/INDIGESTION 06/11/21 23:05 Divalproex Sodium (Depakote Er) 750 mg DAILY PO 06/12/21 09:00 06/14/21 07:53 Home Med (Home Med List Complete!) ASDIRECTED XX 06/11/21 05:45 06/11/21 05:46 DC Hydroxyzine HCl (Atarax) 50 mg Q4HP PRN PO ANXIETY/AGITATION 06/12/21 08:00 06/14/21 04:45 Lurasidone HCl (Latuda) 20 mg DAILY@08 PO 06/12/21 08:00 06/14/21 07:52 Magnesium Hydroxide (Milk Of Magnesia) 30 ml DAILYPRN PRN PO CONSTIPATION 06/11/21 23:05 Nicotine (Nicoderm Cq 14mg) 1 patch DAILY TD 06/12/21 09:00 06/14/21 07:52 Olanzapine (ZyPREXA) 5 mg Q6HP PRN PO ANXIETY/AGITATION 06/12/21 08:00 Oxcarbazepine (Trileptal) 150 mg BID PO 06/11/21 09:00 06/12/21 01:50 DC 06/11/21 21:04 Oxcarbazepine (Trileptal) 150 mg BID PO 06/12/21 09:00 Cancel Oxcarbazepine (Trileptal) 300 mg BID PO 06/11/21 09:00 06/11/21 09:46 DC Oxcarbazepine (Trileptal) 300 mg BID PO 06/11/21 21:00 06/11/21 09:22 DC Risperidone (RisperDAL) 3 mg BID PO 06/11/21 09:00 06/12/21 01:50 DC 06/11/21 21:04 Risperidone (RisperDAL) 3 mg BID PO 06/12/21 09:00 Cancel Zolpidem Tartrate (Ambien) 5 mg QHS PO 06/11/21 21:00 06/11/21 11:18 DC Zolpidem Tartrate (Ambien) 5 mg QHSP PRN PO SLEEP 06/11/21 21:00 06/11/21 23:20 DC 06/11/21 21:04 Zolpidem Tartrate (Ambien) 5 mg QHSP PRN PO INSOMNIA 06/11/21 23:05 06/11/21 23:21 DC Zolpidem Tartrate (Ambien) 5 mg QHSP PRN PO INSOMNIA 06/12/21 21:00 06/12/21 08:07 DC Allergies Coded Allergies: No Known Drug Allergies (Verified Allergy, Unknown, 05/11/21) JULISSA STUBBS MD Jun 14, 2021 08:31
--- NOTE | 2021-06-14 11:14 | REPVR ---
PROCEDURE INFORMATION: Exam: CT Head Without Contrast Exam date and time: 06/14/2021 10:37 AM Age: 30 years old Clinical indication: Injury or trauma; Fall; Blunt trauma (contusions or hematomas); Additional info: Reported head injury TECHNIQUE: Imaging protocol: Computed tomography of the head without contrast. Radiation optimization: All CT scans at this facility use at least one of these dose optimization techniques: automated exposure control; mA and/or kV adjustment per patient size (includes targeted exams where dose is matched to clinical indication); or iterative reconstruction. COMPARISON: No relevant prior studies available. FINDINGS: Brain: Normal. No hemorrhage. Unremarkable white matter. No mass effect. Cerebral ventricles: No ventriculomegaly. Paranasal sinuses: Visualized sinuses are unremarkable. No fluid levels. Mastoid air cells: Visualized mastoid air cells are well aerated. Bones/joints: Unremarkable. No acute fracture. Soft tissues: Unremarkable. IMPRESSION: No acute intracranial abnormality. Electronically signed by: Alejandra Harris On 06/14/2021 11:14:05 AM
[2021-06-14 16:21] VITALS: BP 135/82
[2021-06-14] MEDS ORDERED: LURASIDONE 20 MG TAB (LATUDA) PO SCH (21:00)
[2021-06-14] MEDS: hydrOXYzine 50 MG TAB PO SCH (22:00)
[2021-06-14] MEDS: LURASIDONE 20 MG TAB (LATUDA) PO ONE ×2 (22:16→22:59)
[2021-06-15] MEDS: hydrOXYzine 50 MG TAB PO SCH ×3 (05:58→22:00)
[2021-06-15 06:56] VITALS: BP 150/84
[2021-06-15] MEDS: DIVALPROEX 250MG *ER* TAB PO SCH (09:10)
[2021-06-15] MEDS: NICOTINE 14 MG/24 HR TRANSDERMAL TD SCH (09:11)
--- NOTE | 2021-06-15 12:58 | MHIPNPDOC ---
[facility] Progress Note Progress Note DATE OF SERVICE: 06/15/21 HISTORY: Patient is a 30 -year-old , male, who came in with mother due to racing thoughts, reports suicidal thoughts, with plan to get some vodka and Vicodin and cut femoral artery, has been reporting psychosis since May, previously had been reporting depression. Reports being unable to sleep, and that this may be contributing to AH. Reports 1 SA in 2013, in context of breaking up with a partner. States was hearing voices to hurt his mother, reports 1 voice, unrecognizable. Patient returned to the hospital and was prev iously sent home due to racing thoughts in context of not taking his medications, and planning to see therapist Liban Raymundo 06/13, Dr Galloway at [facility] 06/15. Despite this plan reports worsening SI and so came in to the ED. Per PSA report: "Pt states that he has command AH that tell him to kill his mother. Pt denies HI & states he does not want to act on the command AH. Pt also reports SI with a plan to OD on Vicodin & Vodka & then cut his femoral artery. He has a hx of one suicide attempt in 2013 via OD. Pt denies any hx of self-harm. Pt c/o depressed mood, anxiety, poor concentration, decreased energy levels, & poor sleep. Pt states that he has only been sleeping 2-4 hours per night for the past three weeks. Initially pt was unable to identify any stressors, but later stated that he is having financial px's because he is not working & cannot pay his student loans. Pt has a hx of Bipolar D/O with three admissions. He has OP tx at [facility]. He states he had an intake after his last DC & he is supposed to have an appointment with Liban for therapy & with Dr. Galloway for meds later this week. Pt states he has used alcohol in the past but states he has not used in a year. Pt reports occasional MJ use & his tox screen was positive for cannabis. Pt states he has also used cocaine in the past. Interval: Patient states sleep is 4 to 6 hours, when nursing enters the room reported sleep is 3 hours per night, per chart review is pacing in the hallways. Also reported concerns about taking medications which was addressed on interview need for him to make a choice to take medications but also that with his condition may feel he does not need to take medications and would be a risk for rehospitalization. Patient denies any side effects from medications and agrees to medication changes including increasing Depakote and Latuda. On interview has somewhat intense stare, appears anxious. Has been attending 1 group per day. No acute acute physical complaints or medication side effects. VITAL SIGNS: See below. NEW TEST RESULTS: none CURRENT MEDICATIONS: See below. MENTAL STATUS EXAMINATION: Patient is a 30-year old male, who appears stated age, good eye contact, short buzz cut hair, good hygiene, in hospital clothes Speech: Is not pressured, spontaneous, normal amount. Language skills are intact. Thought processes including: Circumstantial. Thought content: Continues to deny suicidal thoughts today, but is concerned due to low mood, anxiety that he may return if he is discharged. Abstract reasoning, and computation: Fair description of associations: Good. Description of abnormal or psychotic thoughts: Denies, not observed. Judgment: Improving. Insight: Improving Orientation: X4 Recent and remote memory: Fair. Attention span and concentration: Somewhat decreased. Language: Indonesian. Fund of knowledge: Average based on interview. Mood: "Anxious and depressed I guess" affect: Anxious, concrete, withdrawn DIAGNOSES: Bipolar disorder, mixed episode, with psychotic features R/o primary psychotic disorder Cannabis use disorder Tobacco use disorder ASSESSMENT: Patient continues to have insomnia, agrees to making medication changes, made aware of common and rare side effect, likely minimizing symptoms and seeking discharge, has reported staff is concerned about taking medications that this causes anxiety. MANAGEMENT PLAN: mother had reported he had a head injury May 29, increase Latuda from 40 to 60 mg nightly and increase Depakote from 750 to 1000 mg extended release, patient compliant, encouraged to attend groups. CT head from 06/14 negative TIME SPENT: 20 minutes. Vital Signs Vital Signs Date Time Temp Pulse Resp B/P (MAP) Pulse Ox O2 Delivery O2 Flow Rate FiO2 06/15/21 06:56 98.0 96 16 150/84 (106) 98 Room Air Current Medications Current Medications Medications (Trade) Dose Ordered Sig/Davida Route PRN Reason Start Time Stop Time Status Last Admin Dose Admin Acetaminophen (Tylenol Tab) 650 mg Q6HP PRN PO HEADACHE or MILD DISCOMFORT 06/11/21 23:05 Al Hydrox/Mg Hydrox/Simethicone (Mylanta) 30 ml Q4HP PRN PO HEARTBURN/INDIGESTION 06/11/21 23:05 Divalproex Sodium (Depakote Er) 750 mg DAILY PO 06/12/21 09:00 06/15/21 11:55 DC 06/15/21 09:10 Divalproex Sodium (Depakote Er) 1,000 mg DAILY PO 06/16/21 09:00 Home Med (Home Med List Complete!) ASDIRECTED XX 06/11/21 05:45 06/11/21 05:46 DC Hydroxyzine HCl (Atarax) 50 mg Q4HP PRN PO ANXIETY/AGITATION 06/12/21 08:00 06/14/21 12:14 DC 06/14/21 12:05 Hydroxyzine HCl (Atarax) 50 mg Q8H PO 06/14/21 22:00 Lurasidone HCl (Latuda) 20 mg DAILY@08 PO 06/12/21 08:00 06/14/21 08:59 DC 06/14/21 07:52 Lurasidone HCl (Latuda) 40 mg QHS PO 06/14/21 21:00 06/14/21 09:50 DC Lurasidone HCl (Latuda) 40 mg QHS PO 06/15/21 21:00 06/15/21 11:55 DC Lurasidone HCl (Latuda) 60 mg QHS PO 06/15/21 21:00 Magnesium Hydroxide (Milk Of Magnesia) 30 ml DAILYPRN PRN PO CONSTIPATION 06/11/21 23:05 Nicotine (Nicoderm Cq 14mg) 1 patch DAILY TD 06/12/21 09:00 06/15/21 09:11 Olanzapine (ZyPREXA) 5 mg Q6HP PRN PO ANXIETY/AGITATION 06/12/21 08:00 Oxcarbazepine (Trileptal) 150 mg BID PO 06/11/21 09:00 06/12/21 01:50 DC 06/11/21 21:04 Oxcarbazepine (Trileptal) 150 mg BID PO 06/12/21 09:00 Cancel Oxcarbazepine (Trileptal) 300 mg BID PO 06/11/21 09:00 06/11/21 09:46 DC Oxcarbazepine (Trileptal) 300 mg BID PO 06/11/21 21:00 06/11/21 09:22 DC Ramelteon (Rozerem) 8 mg QHS PO 06/15/21 21:00 Risperidone (RisperDAL) 3 mg BID PO 06/11/21 09:00 06/12/21 01:50 DC 06/11/21 21:04 Risperidone (RisperDAL) 3 mg BID PO 06/12/21 09:00 Cancel Zolpidem Tartrate (Ambien) 5 mg QHS PO 06/11/21 21:00 06/11/21 11:18 DC Zolpidem Tartrate (Ambien) 5 mg QHSP PRN PO SLEEP 06/11/21 21:00 06/11/21 23:20 DC 06/11/21 21:04 Zolpidem Tartrate (Ambien) 5 mg QHSP PRN PO INSOMNIA 06/11/21 23:05 06/11/21 23:21 DC Zolpidem Tartrate (Ambien) 5 mg QHSP PRN PO INSOMNIA 06/12/21 21:00 06/12/21 08:07 DC Allergies Coded Allergies: No Known Drug Allergies (Verified Allergy, Unknown, 05/11/21) JULISSA STUBBS MD Jun 15, 2021 12:58
[2021-06-15] MEDS: RAMELTEON 8 MG TAB (ROZEREM) PO SCH (21:00)
[2021-06-15] MEDS ORDERED: LURASIDONE HCL 40 MG TAB (LATUDA) PO SCH (21:00)
[2021-06-15] MEDS: LURASIDONE HCL 40 MG TAB (LATUDA) PO SCH (22:02)
[2021-06-16] MEDS: hydrOXYzine 50 MG TAB PO SCH ×6 (05:39→22:30)
[2021-06-16 06:22] VITALS: BP 131/77
[2021-06-16] MEDS: NICOTINE 14 MG/24 HR TRANSDERMAL TD SCH (09:25)
[2021-06-16] MEDS: DIVALPROEX 500MG *ER* TAB PO SCH (09:26)
[2021-06-16] MEDS ORDERED: traZODone 50 MG TAB PO PRN (10:05)
--- NOTE | 2021-06-16 14:12 | MHIPNPDOC ---
[facility] Progress Note Progress Note DATE OF SERVICE: 06/16/21 HISTORY: Patient is a 30 -year-old , male, who came in with mother due to racing thoughts, reports suicidal thoughts, with plan to get some vodka and Vicodin and cut femoral artery, has been reporting psychosis since May, previously had been reporting depression. Reports being unable to sleep, and that this may be contributing to AH. Reports 1 SA in 2013, in context of breaking up with a partner. States was hearing voices to hurt his mother, reports 1 voice, unrecognizable. Patient returned to the hospital and was prev iously sent home due to racing thoughts in context of not taking his medications, and planning to see therapist Liban Raymundo 06/13, Dr Galloway at [facility] 06/15. Despite this plan reports worsening SI and so came in to the ED. Per PSA report: "Pt states that he has command AH that tell him to kill his mother. Pt denies HI & states he does not want to act on the command AH. Pt also reports SI with a plan to OD on Vicodin & Vodka & then cut his femoral artery. He has a hx of one suicide attempt in 2013 via OD. Pt denies any hx of self-harm. Pt c/o depressed mood, anxiety, poor concentration, decreased energy levels, & poor sleep. Pt states that he has only been sleeping 2-4 hours per night for the past three weeks. Initially pt was unable to identify any stressors, but later stated that he is having financial px's because he is not working & cannot pay his student loans. Pt has a hx of Bipolar D/O with three admissions. He has OP tx at [facility]. He states he had an intake after his last DC & he is supposed to have an appointment with Liban for therapy & with Dr. Galloway for meds later this week. Pt states he has used alcohol in the past but states he has not used in a year. Pt reports occasional MJ use & his tox screen was positive for cannabis. Pt states he has also used cocaine in the past. Interval: Per chart review patient has been getting at least 5-1/2 hours of sleep, patient reports 5 to 6 hours of sleep, but is continued to pace hallways, appears flat, speech is non-spontaneous is agreeable to continue medications and see if symptoms continue to improve, refuses to have medications adjusted to higher doses. Denies any acute physical complaints or medication side effects. Encouraged to take as needed sleep medications to help with circadian rhythm, reduce symptoms of anxiety, encouraged to attend groups, has been attending 1 group per day. Reports constant auditory hallucinations of hearing music, concerned about taking medications long-term, made patient aware that medications can help with auditory hallucinations and help improve symptoms so that he can move forward with his life, patient wants to approach completing CVA but does not know how to go about doing so, at this point became tearful. Encouraged to reach out to staff and go to groups and discuss these strong feelings, which she reports are longstanding and have not been previously managed adequately. VITAL SIGNS: See below. NEW TEST RESULTS: See below CURRENT MEDICATIONS: See below. MENTAL STATUS EXAMINATION: Patient is a 30-year old male, who appears stated age, good eye contact, short buzz cut hair, good hygiene, in hospital clothes Speech: Is not pressured, spontaneous, normal amount. Language skills are intact. Thought processes including: Circumstantial. Thought content: Continues to deny suicidal thoughts today, but is concerned due to low mood, anxiety that he may return if he is discharged. Abstract reasoning, and computation: Fair description of associations: Good. Description of abnormal or psychotic thoughts: Denies, not observed. Judgment: Improving. Insight: Improving Orientation: X4 Recent and remote memory: Fair. Attention span and concentration: Somewhat decreased. Language: Ukrainian. Fund of knowledge: Average based on interview. Mood: "All right I guess" affect: Continues to be anxious, concrete, withdrawn, flat DIAGNOSES: Bipolar disorder, mixed episode, with psychotic features R/o primary psychotic disorder Cannabis use disorder Tobacco use disorder ASSESSMENT: Per chart review and patient insomnia seems to be improving slowly, this is despite the fact that he has been refusing as needed sleep medications, encouraged to take, encouraged to go to groups, continues to be flat on interview, withdrawn, stating that he does not know how to fix his life and move forward, reports auditory hallucinations of hearing music. Agreeable to continue medications, continues have concerns about taking medications long- term, educated patient on need to take medications long-term to ensure stability in context of bipolar disorder. MANAGEMENT PLAN: Continue Latuda 60 mg nightly and continue Depakote 1000 mg extended release, patient compliant, encouraged to attend groups. CT head from 06/14 negative TIME SPENT: 25 minutes. Vital Signs Vital Signs Date Time Temp Pulse Resp B/P (MAP) Pulse Ox O2 Delivery O2 Flow Rate FiO2 06/16/21 06:22 98.1 88 14 131/77 (95) 97 Room Air Current Medications Current Medications Medications (Trade) Dose Ordered Sig/Davida Route PRN Reason Start Time Stop Time Status Last Admin Dose Admin Acetaminophen (Tylenol Tab) 650 mg Q6HP PRN PO HEADACHE or MILD DISCOMFORT 06/11/21 23:05 Al Hydrox/Mg Hydrox/Simethicone (Mylanta) 30 ml Q4HP PRN PO HEARTBURN/INDIGESTION 06/11/21 23:05 Divalproex Sodium (Depakote Er) 750 mg DAILY PO 06/12/21 09:00 06/15/21 11:55 DC 06/15/21 09:10 Divalproex Sodium (Depakote Er) 1,000 mg DAILY PO 06/16/21 09:00 06/16/21 09:26 Home Med (Home Med List Complete!) ASDIRECTED XX 06/11/21 05:45 06/11/21 05:46 DC Hydroxyzine HCl (Atarax) 50 mg Q4HP PRN PO ANXIETY/AGITATION 06/12/21 08:00 06/14/21 12:14 DC 06/14/21 12:05 Hydroxyzine HCl (Atarax) 50 mg Q8H PO 06/14/21 22:00 06/16/21 05:39 Lurasidone HCl (Latuda) 20 mg DAILY@08 PO 06/12/21 08:00 06/14/21 08:59 DC 06/14/21 07:52 Lurasidone HCl (Latuda) 40 mg QHS PO 06/14/21 21:00 06/14/21 09:50 DC Lurasidone HCl (Latuda) 40 mg QHS PO 06/15/21 21:00 06/15/21 11:55 DC Lurasidone HCl (Latuda) 60 mg QHS PO 06/15/21 21:00 06/15/21 22:02 Magnesium Hydroxide (Milk Of Magnesia) 30 ml DAILYPRN PRN PO CONSTIPATION 06/11/21 23:05 Nicotine (Nicoderm Cq 14mg) 1 patch DAILY TD 06/12/21 09:00 06/16/21 09:25 Olanzapine (ZyPREXA) 5 mg Q6HP PRN PO ANXIETY/AGITATION 06/12/21 08:00 Oxcarbazepine (Trileptal) 150 mg BID PO 06/11/21 09:00 06/12/21 01:50 DC 06/11/21 21:04 Oxcarbazepine (Trileptal) 150 mg BID PO 06/12/21 09:00 Cancel Oxcarbazepine (Trileptal) 300 mg BID PO 06/11/21 09:00 06/11/21 09:46 DC Oxcarbazepine (Trileptal) 300 mg BID PO 06/11/21 21:00 06/11/21 09:22 DC Ramelteon (Rozerem) 8 mg QHS PO 06/15/21 21:00 Risperidone (RisperDAL) 3 mg BID PO 06/11/21 09:00 06/12/21 01:50 DC 06/11/21 21:04 Risperidone (RisperDAL) 3 mg BID PO 06/12/21 09:00 Cancel Trazodone HCl (Desyrel) 50 mg QHSP PRN PO INSOMNIA 06/16/21 10:05 Zolpidem Tartrate (Ambien) 5 mg QHS PO 06/11/21 21:00 06/11/21 11:18 DC Zolpidem Tartrate (Ambien) 5 mg QHSP PRN PO SLEEP 06/11/21 21:00 06/11/21 23:20 DC 06/11/21 21:04 Zolpidem Tartrate (Ambien) 5 mg QHSP PRN PO INSOMNIA 06/11/21 23:05 06/11/21 23:21 DC Zolpidem Tartrate (Ambien) 5 mg QHSP PRN PO INSOMNIA 06/12/21 21:00 06/12/21 08:07 DC Allergies Coded Allergies: No Known Drug Allergies (Verified Allergy, Unknown, 05/11/21) JULISSA STUBBS MD Jun 16, 2021 14:12
[2021-06-16 18:35] VITALS: BP 150/76
[2021-06-16] MEDS: RAMELTEON 8 MG TAB (ROZEREM) PO SCH ×2 (22:27→22:39)
[2021-06-16] MEDS: LURASIDONE HCL 40 MG TAB (LATUDA) PO SCH ×2 (22:27→22:38)
[2021-06-17] MEDS: hydrOXYzine 50 MG TAB PO SCH ×5 (06:00→21:21)
[2021-06-17 06:15] VITALS: BP 146/88
[2021-06-17] MEDS: DIVALPROEX 500MG *ER* TAB PO SCH (09:49)
[2021-06-17] MEDS: NICOTINE 14 MG/24 HR TRANSDERMAL TD SCH (09:49)
[2021-06-17 16:41] VITALS: BP 122/79
[2021-06-17] MEDS: LURASIDONE HCL 40 MG TAB (LATUDA) PO SCH ×2 (20:58→21:22)
[2021-06-17] MEDS: BENZTROPINE 1 MG TAB PO ONE ×2 (20:58→21:40)
[2021-06-17] MEDS: RAMELTEON 8 MG TAB (ROZEREM) PO SCH ×2 (20:58→21:21)
[2021-06-17] MEDS: zolPIDEM TARTRATE 5 MG TAB PO ONE ×2 (20:58→21:40)
[2021-06-18] MEDS: hydrOXYzine 50 MG TAB PO SCH ×4 (05:47→21:29)
[2021-06-18 06:39] VITALS: BP 144/72
[2021-06-18] MEDS: DIVALPROEX 500MG *ER* TAB PO SCH (08:40)
[2021-06-18] MEDS: NICOTINE 14 MG/24 HR TRANSDERMAL TD SCH (08:40)
[2021-06-18 16:38] VITALS: BP 128/83
[2021-06-18] MEDS: LURASIDONE HCL 40 MG TAB (LATUDA) PO SCH (21:30)
[2021-06-18] MEDS: RAMELTEON 8 MG TAB (ROZEREM) PO SCH (21:30)
[2021-06-19] MEDS: hydrOXYzine 50 MG TAB PO SCH ×3 (05:12→22:35)
[2021-06-19 06:24] VITALS: BP 128/70
[2021-06-19] MEDS: DIVALPROEX 500MG *ER* TAB PO SCH (09:05)
[2021-06-19] MEDS: NICOTINE 14 MG/24 HR TRANSDERMAL TD SCH (09:15)
--- NOTE | 2021-06-19 14:29 | MHIPNPDOC ---
[facility] Progress Note Progress Note DATE OF SERVICE: 06/19/21 HISTORY: Patient is a 30 -year-old , male, who came in with mother due to racing thoughts, reports suicidal thoughts, with plan to get some vodka and Vicodin and cut femoral artery, has been reporting psychosis since May, previously had been reporting depression. Reports being unable to sleep, and that this may be contributing to AH. Reports 1 SA in 2013, in context of breaking up with a partner. States was hearing voices to hurt his mother, reports 1 voice, unrecognizable. Patient returned to the hospital and was prev iously sent home due to racing thoughts in context of not taking his medications, and planning to see therapist Liban Raymundo 06/13, Dr Galloway at [facility] 06/15. Despite this plan reports worsening SI and so came in to the ED. Per PSA report: "Pt states that he has command AH that tell him to kill his mother. Pt denies HI & states he does not want to act on the command AH. Pt also reports SI with a plan to OD on Vicodin & Vodka & then cut his femoral artery. He has a hx of one suicide attempt in 2013 via OD. Pt denies any hx of self-harm. Pt c/o depressed mood, anxiety, poor concentration, decreased energy levels, & poor sleep. Pt states that he has only been sleeping 2-4 hours per night for the past three weeks. Initially pt was unable to identify any stressors, but later stated that he is having financial px's because he is not working & cannot pay his student loans. Pt has a hx of Bipolar D/O with three admissions. He has OP tx at [facility]. He states he had an intake after his last DC & he is supposed to have an appointment with Liban for therapy & with Dr. Galloway for meds later this week. Pt states he has used alcohol in the past but states he has not used in a year. Pt reports occasional MJ use & his tox screen was positive for cannabis. Pt states he has also used cocaine in the past. Interval: Patient continues to get approximately 5.5 hours of sleep per chart review and patient reportedly, states he is tired, feels his mood is "down", but denies hearing music constantly, not attending most groups, refusing medication changes including augmentation with antidepressant or other medication options despite explained benefits versus risks versus alternatives. States he wants to go off his medications, despite presenting with suicidal ideations and auditory hallucinations on admission, this was pointed to the patient and he remained flat, withdrawn during interview, poorly cooperative. States appetite is normal, denies acute physical complaints or medication side effects apart from possible sedation. Patient appeared and was tearful during interview, states he has no if medications are helping him. VITAL SIGNS: See below. NEW TEST RESULTS: See below CURRENT MEDICATIONS: See below. MENTAL STATUS EXAMINATION: Patient is a 30-year old male, who appears stated age, avoidant eye contact, short buzz cut hair, good hygiene, in hospital clothes Speech: Is not pressured, non-spontaneous, minimal Language skills are intact. Thought processes including: Circumstantial. Thought content: Continues to deny suicidal thoughts today, perseverates on wanting to discontinue medications Abstract reasoning, and computation: Fair description of associations: Good. Description of abnormal or psychotic thoughts: Denies, not observed. Judgment: poor Insight: poor Orientation: X4 Recent and remote memory: Fair. Attention span and concentration: Somewhat decreased. Language: Zambian. Fund of knowledge: Average based on interview. Mood: "All right I guess" affect: Continues to be anxious, concrete, withdrawn, flat DIAGNOSES: Bipolar disorder, mixed episode, with psychotic features R/o primary psychotic disorder Cannabis use disorder Tobacco use disorder Rule out borderline personality disorder ASSESSMENT: Patient continues to be withdrawn, flat, poorly cooperative with interview and engaging with provider, staff, has not been attending most groups and spends most of his time pacing the hallways, appears irritated with admission and has poor insight and judgment, wanting to discontinue medications despite endorse psychotic symptoms, lack of sleep, suicidal ideation led to admission. Patient was educated about medications, side effects, risks for discontinuing medications, attempted to discuss alternatives, patient poorly cooperative to further discussion and continues to request no changes to medications. Despite wanted discontinue medications, has been compliant with current regimen. Patient likely minimizing symptoms in order to be discharged. MANAGEMENT PLAN: Continue medications, patient refusing changes to medications, alternative treatment options, encouraged to attend groups. Ordered Depakote level for tomorrow a.m. CT head from 06/14 negative TIME SPENT: 20 minutes. Vital Signs Vital Signs Date Time Temp Pulse Resp B/P (MAP) Pulse Ox O2 Delivery O2 Flow Rate FiO2 06/19/21 06:24 98.4 104 18 128/70 (89) 96 Room Air Current Medications Current Medications Medications (Trade) Dose Ordered Sig/Davida Route PRN Reason Start Time Stop Time Status Last Admin Dose Admin Acetaminophen (Tylenol Tab) 650 mg Q6HP PRN PO HEADACHE or MILD DISCOMFORT 06/11/21 23:05 Al Hydrox/Mg Hydrox/Simethicone (Mylanta) 30 ml Q4HP PRN PO HEARTBURN/INDIGESTION 06/11/21 23:05 Divalproex Sodium (Depakote Er) 750 mg DAILY PO 06/12/21 09:00 06/15/21 11:55 DC 06/15/21 09:10 Divalproex Sodium (Depakote Er) 1,000 mg DAILY PO 06/16/21 09:00 06/19/21 09:05 Home Med (Home Med List Complete!) ASDIRECTED XX 06/11/21 05:45 06/11/21 05:46 DC Hydroxyzine HCl (Atarax) 50 mg Q4HP PRN PO ANXIETY/AGITATION 06/12/21 08:00 06/14/21 12:14 DC 06/14/21 12:05 Hydroxyzine HCl (Atarax) 50 mg Q8H PO 06/14/21 22:00 06/18/21 21:29 Lurasidone HCl (Latuda) 20 mg DAILY@08 PO 06/12/21 08:00 06/14/21 08:59 DC 06/14/21 07:52 Lurasidone HCl (Latuda) 40 mg QHS PO 06/14/21 21:00 06/14/21 09:50 DC Lurasidone HCl (Latuda) 40 mg QHS PO 06/15/21 21:00 06/15/21 11:55 DC Lurasidone HCl (Latuda) 60 mg QHS PO 06/15/21 21:00 06/18/21 21:30 Magnesium Hydroxide (Milk Of Magnesia) 30 ml DAILYPRN PRN PO CONSTIPATION 06/11/21 23:05 Nicotine (Nicoderm Cq 14mg) 1 patch DAILY TD 06/12/21 09:00 06/19/21 09:15 Olanzapine (ZyPREXA) 5 mg Q6HP PRN PO ANXIETY/AGITATION 06/12/21 08:00 Oxcarbazepine (Trileptal) 150 mg BID PO 06/11/21 09:00 06/12/21 01:50 DC 06/11/21 21:04 Oxcarbazepine (Trileptal) 150 mg BID PO 06/12/21 09:00 Cancel Oxcarbazepine (Trileptal) 300 mg BID PO 06/11/21 09:00 06/11/21 09:46 DC Oxcarbazepine (Trileptal) 300 mg BID PO 06/11/21 21:00 06/11/21 09:22 DC Ramelteon (Rozerem) 8 mg QHS PO 06/15/21 21:00 06/18/21 21:30 Risperidone (RisperDAL) 3 mg BID PO 06/11/21 09:00 06/12/21 01:50 DC 06/11/21 21:04 Risperidone (RisperDAL) 3 mg BID PO 06/12/21 09:00 Cancel Trazodone HCl (Desyrel) 50 mg QHSP PRN PO INSOMNIA 06/16/21 10:05 06/18/21 21:29 Zolpidem Tartrate (Ambien) 5 mg QHS PO 06/11/21 21:00 06/11/21 11:18 DC Zolpidem Tartrate (Ambien) 5 mg QHSP PRN PO SLEEP 06/11/21 21:00 06/11/21 23:20 DC 06/11/21 21:04 Zolpidem Tartrate (Ambien) 5 mg QHSP PRN PO INSOMNIA 06/11/21 23:05 06/11/21 23:21 DC Zolpidem Tartrate (Ambien) 5 mg QHSP PRN PO INSOMNIA 06/12/21 21:00 06/12/21 08:07 DC Allergies Coded Allergies: No Known Drug Allergies (Verified Allergy, Unknown, 05/11/21) JULISSA STUBBS MD Jun 19, 2021 14:29
[2021-06-19 19:21] VITALS: BP 140/87
[2021-06-19] MEDS: LURASIDONE HCL 40 MG TAB (LATUDA) PO SCH (21:00)
[2021-06-19] MEDS: RAMELTEON 8 MG TAB (ROZEREM) PO SCH (21:00)
[2021-06-20] MEDS: hydrOXYzine 50 MG TAB PO SCH ×3 (06:02→21:41)
[2021-06-20 06:48] VITALS: BP 127/73
[2021-06-20] MEDS: buPROPion **XL** TABLET 150MG (WELLBUTRIN XL) PO SCH (09:00)
[2021-06-20] MEDS: NICOTINE 14 MG/24 HR TRANSDERMAL TD SCH (09:36)
[2021-06-20] MEDS: DIVALPROEX 500MG *ER* TAB PO SCH (10:52)
--- NOTE | 2021-06-20 15:03 | MHIPNPDOC ---
[facility] Progress Note Progress Note DATE OF SERVICE: 06/20/21 HISTORY: Patient is a 30 -year-old , male, who came in with mother due to racing thoughts, reports suicidal thoughts, with plan to get some vodka and Vicodin and cut femoral artery, has been reporting psychosis since May, previously had been reporting depression. Reports being unable to sleep, and that this may be contributing to AH. Reports 1 SA in 2013, in context of breaking up with a partner. States was hearing voices to hurt his mother, reports 1 voice, unrecognizable. Patient returned to the hospital and was prev iously sent home due to racing thoughts in context of not taking his medications, and planning to see therapist Liban Raymundo 06/13, Dr Galloway at [facility] 06/15. Despite this plan reports worsening SI and so came in to the ED. Per PSA report: "Pt states that he has command AH that tell him to kill his mother. Pt denies HI & states he does not want to act on the command AH. Pt also reports SI with a plan to OD on Vicodin & Vodka & then cut his femoral artery. He has a hx of one suicide attempt in 2013 via OD. Pt denies any hx of self-harm. Pt c/o depressed mood, anxiety, poor concentration, decreased energy levels, & poor sleep. Pt states that he has only been sleeping 2-4 hours per night for the past three weeks. Initially pt was unable to identify any stressors, but later stated that he is having financial px's because he is not working & cannot pay his student loans. Pt has a hx of Bipolar D/O with three admissions. He has OP tx at [facility]. He states he had an intake after his last DC & he is supposed to have an appointment with Liban for therapy & with Dr. Galloway for meds later this week. Pt states he has used alcohol in the past but states he has not used in a year. Pt reports occasional MJ use & his tox screen was positive for cannabis. Pt states he has also used cocaine in the past. Interval: Patient refused his Latuda and ramelteon last night, per chart review and patient will get around 4 to 4-1/2 hours of sleep last night, was encouraged take medications, also agreeable to starting Wellbutrin morning dose to help with mood. States that he was not taking his medication for because it made him feel "weird", reported some brain fog, but states the symptoms have subsided. Had made a request for court hearing for retention, but interview says he rescinds this. States that he feels he needs to get his life in order and being on the inpatient unit has not been helpful for him to do this process, reports he was get a full-time job and feels like "a loser", because he has not gotten s tarted with this process. Denies any acute physical complaints, reports some sedation but otherwise denies medication side effects. States he plans on going to groups. Reports mood is "happier, 5 out of 10". VITAL SIGNS: See below. NEW TEST RESULTS: Valproic acid level 59.4 within normal range CURRENT MEDICATIONS: See below. MENTAL STATUS EXAMINATION: Patient is a 30-year old male, who appears stated age, avoidant eye contact, short buzz cut hair, good hygiene, in hospital clothes Speech: Is not pressured, non-spontaneous, minimal Language skills are intact. Thought processes including: Circumstantial. Thought content: Continues to deny suicidal thoughts today, perseverates on wanting to discontinue medications Abstract reasoning, and computation: Fair description of associations: Good. Description of abnormal or psychotic thoughts: Denies, not observed. Judgment: poor Insight: poor Orientation: X4 Recent and remote memory: Fair. Attention span and concentration: Somewhat decreased. Language: German. Fund of knowledge: Average based on interview. Mood: "Happier, 5 out of 10" affect: No change, continues to be anxious, concrete, withdrawn, flat DIAGNOSES: Bipolar disorder, mixed episode, with psychotic features R/o primary psychotic disorder Cannabis use disorder Tobacco use disorder Rule out borderline personality disorder ASSESSMENT: Patient continues to be flat, withdrawn, refusing medications in the evening only, but to take his Depakote, was encouraged continued medications, depakote level within normal limits 59.4. Despite this reluctance with medications states he plans to continue them outpatient, was agreeable to starting Wellbutrin for mood and anxiety symptoms, refuses other medications at this time. 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 MANAGEMENT PLAN: Start Wellbutrin 150 mg XL, continue other medications, encouraged to attend groups. CT head from 06/14 negative TIME SPENT: 25 minutes. Vital Signs Vital Signs Date Time Temp Pulse Resp B/P (MAP) Pulse Ox O2 Delivery O2 Flow Rate FiO2 06/20/21 06:48 98.3 116 18 127/73 (91) 96 Room Air Laboratory Data 24H Labs Laboratory Tests 2 06/20/21 10:03: Valproic Acid (Depakene) Level 59.4 Current Medications Current Medications Medications (Trade) Dose Ordered Sig/Davida Route PRN Reason Start Time Stop Time Status Last Admin Dose Admin Acetaminophen (Tylenol Tab) 650 mg Q6HP PRN PO HEADACHE or MILD DISCOMFORT 06/11/21 23:05 Al Hydrox/Mg Hydrox/Simethicone (Mylanta) 30 ml Q4HP PRN PO HEARTBURN/INDIGESTION 06/11/21 23:05 Divalproex Sodium (Depakote Er) 750 mg DAILY PO 06/12/21 09:00 06/15/21 11:55 DC 06/15/21 09:10 Divalproex Sodium (Depakote Er) 1,000 mg DAILY PO 06/16/21 09:00 06/20/21 10:52 Home Med (Home Med List Complete!) ASDIRECTED XX 06/11/21 05:45 06/11/21 05:46 DC Hydroxyzine HCl (Atarax) 50 mg Q4HP PRN PO ANXIETY/AGITATION 06/12/21 08:00 06/14/21 12:14 DC 06/14/21 12:05 Hydroxyzine HCl (Atarax) 50 mg Q8H PO 06/14/21 22:00 06/20/21 06:02 Lurasidone HCl (Latuda) 20 mg DAILY@08 PO 06/12/21 08:00 06/14/21 08:59 DC 06/14/21 07:52 Lurasidone HCl (Latuda) 40 mg QHS PO 06/14/21 21:00 06/14/21 09:50 DC Lurasidone HCl (Latuda) 40 mg QHS PO 06/15/21 21:00 06/15/21 11:55 DC Lurasidone HCl (Latuda) 60 mg QHS PO 06/15/21 21:00 06/18/21 21:30 Magnesium Hydroxide (Milk Of Magnesia) 30 ml DAILYPRN PRN PO CONSTIPATION 06/11/21 23:05 Nicotine (Nicoderm Cq 14mg) 1 patch DAILY TD 06/12/21 09:00 06/20/21 09:36 Olanzapine (ZyPREXA) 5 mg Q6HP PRN PO ANXIETY/AGITATION 06/12/21 08:00 Oxcarbazepine (Trileptal) 150 mg BID PO 06/11/21 09:00 06/12/21 01:50 DC 06/11/21 21:04 Oxcarbazepine (Trileptal) 150 mg BID PO 06/12/21 09:00 Cancel Oxcarbazepine (Trileptal) 300 mg BID PO 06/11/21 09:00 06/11/21 09:46 DC Oxcarbazepine (Trileptal) 300 mg BID PO 06/11/21 21:00 06/11/21 09:22 DC Ramelteon (Rozerem) 8 mg QHS PO 06/15/21 21:00 06/18/21 21:30 Risperidone (RisperDAL) 3 mg BID PO 06/11/21 09:00 06/12/21 01:50 DC 06/11/21 21:04 Risperidone (RisperDAL) 3 mg BID PO 06/12/21 09:00 Cancel Trazodone HCl (Desyrel) 50 mg QHSP PRN PO INSOMNIA 06/16/21 10:05 06/18/21 21:29 Zolpidem Tartrate (Ambien) 5 mg QHS PO 06/11/21 21:00 06/11/21 11:18 DC Zolpidem Tartrate (Ambien) 5 mg QHSP PRN PO SLEEP 06/11/21 21:00 06/11/21 23:20 DC 06/11/21 21:04 Zolpidem Tartrate (Ambien) 5 mg QHSP PRN PO INSOMNIA 06/11/21 23:05 06/11/21 23:21 DC Zolpidem Tartrate (Ambien) 5 mg QHSP PRN PO INSOMNIA 06/12/21 21:00 06/12/21 08:07 DC Allergies Coded Allergies: No Known Drug Allergies (Verified Allergy, Unknown, 05/11/21) JULISSA STUBBS MD Jun 20, 2021 15:03
--- NOTE | 2021-06-20 15:51 | IPNPDOC ---
Subjective Date Seen The patient was seen on 06/20/21. Subjective Chief Complaint/HPI Complains of left eye irritation and redness for 2 days. There is also some swelling of the eye. Objective Physical Examination General Exam: Positive: Alert, Cooperative, No Acute Distress Eye Exam: Positive: PERRLA, EOMI, Other Eye Symptoms (left conjunctival injection, swelling of the left eye lids); Negative: Sclera icteric Neck Exam: Positive: Supple; Negative: JVD, thyromegaly Chest Exam: Positive: Clear to auscultation, Normal air movement Heart Exam: Positive: Rate Normal, Regular Rhythm, Normal S1, Normal S2; Negative: Murmurs, Rubs Abdomen Exam: Positive: Normal bowel sounds, Soft; Negative: Tenderness, Hepatospenomegaly Extremity Exam: Negative: Clubbing, Cyanosis, Edema Psych Exam: Positive: Memory Intact, Oriented x 3 Assessment /Plan Assessment Mr. 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 Denies any discharge. Left conjunctivitis will give ofloxacin eye drop and erythromycin oint at night. Bipolar disorder, mixed episode, with psychotic features/ borderline personality disorder As per psychiatry Cannabis use disorder/ tobacco use disorder 1. Psychosis Being managed in the inpatient mental health unit 2. Suicidal ideation Being managed in the inpatient mental health unit 3. General wellbeing Patient should follow-up with PCP after discharge Plan/VTE VTE Prophylaxis Ordered?: No (freely ambulatory) VS, I&O, 24H, Fishbone Vital Signs/I&O Vital Signs Date Time Temp Pulse Resp B/P (MAP) Pulse Ox O2 Delivery O2 Flow Rate FiO2 06/20/21 06:48 98.3 116 18 127/73 (91) 96 Room Air Laboratory Data 24H LABS Laboratory Tests 2 06/20/21 10:03: Valproic Acid (Depakene) Level 59.4 Carmita Rivas MD Jun 20, 2021 15:51
[2021-06-20] MEDS: OFLOXACIN 0.3 % (OCUFLOX) OPTH SOL 5ML OS SCH ×2 (18:20→21:00)
[2021-06-20] MEDS: ERYTHROMYCIN OPHTH OINT OS SCH (21:00)
[2021-06-20] MEDS: RAMELTEON 8 MG TAB (ROZEREM) PO SCH (21:00)
[2021-06-20] MEDS: LURASIDONE HCL 40 MG TAB (LATUDA) PO SCH (21:36)
[2021-06-21] MEDS: hydrOXYzine 50 MG TAB PO SCH ×3 (05:38→21:36)
[2021-06-21 06:00] VITALS: BP 146/102
[2021-06-21] MEDS: OFLOXACIN 0.3 % (OCUFLOX) OPTH SOL 5ML OS SCH ×4 (09:00→21:00)
[2021-06-21] MEDS: buPROPion **XL** TABLET 150MG (WELLBUTRIN XL) PO SCH (09:00)
[2021-06-21] MEDS: NICOTINE 14 MG/24 HR TRANSDERMAL TD SCH (09:00)
[2021-06-21] MEDS: DIVALPROEX 500MG *ER* TAB PO SCH (09:00)
--- NOTE | 2021-06-21 12:25 | MHIPNPDOC ---
[facility] Progress Note Progress Note DATE OF SERVICE: 06/21/21 HISTORY: Patient is a 30 -year-old , male, who came in with mother due to racing thoughts, reports suicidal thoughts, with plan to get some vodka and Vicodin and cut femoral artery, has been reporting psychosis since May, previously had been reporting depression. Reports being unable to sleep, and that this may be contributing to AH. Reports 1 SA in 2013, in context of breaking up with a partner. States was hearing voices to hurt his mother, reports 1 voice, unrecognizable. Patient returned to the hospital and was prev iously sent home due to racing thoughts in context of not taking his medications, and planning to see therapist Liban Raymundo 06/13, Dr Galloway at [facility] 06/15. Despite this plan reports worsening SI and so came in to the ED. Per PSA report: "Pt states that he has command AH that tell him to kill his mother. Pt denies HI & states he does not want to act on the command AH. Pt also reports SI with a plan to OD on Vicodin & Vodka & then cut his femoral artery. He has a hx of one suicide attempt in 2013 via OD. Pt denies any hx of self-harm. Pt c/o depressed mood, anxiety, poor concentration, decreased energy levels, & poor sleep. Pt states that he has only been sleeping 2-4 hours per night for the past three weeks. Initially pt was unable to identify any stressors, but later stated that he is having financial px's because he is not working & cannot pay his student loans. Pt has a hx of Bipolar D/O with three admissions. He has OP tx at [facility]. He states he had an intake after his last DC & he is supposed to have an appointment with Liban for therapy & with Dr. Galloway for meds later this week. Pt states he has used alcohol in the past but states he has not used in a year. Pt reports occasional MJ use & his tox screen was positive for cannabis. Pt states he has also used cocaine in the past. Interval: Patient continues not to attend groups, despite reporting he has been attending groups, appears flat, withdrawn, poorly cooperative with interview and questioning, seen pacing the hallways, states he is taking his medications, per chart review has refused all his medications apart from Latuda yesterday evening, has 5 hours of sleep last night. Prior to admission reports he had not been sleeping for months with SI, discussed how medications can help him with the symptoms. VITAL SIGNS: See below. NEW TEST RESULTS: see below CURRENT MEDICATIONS: See below. MENTAL STATUS EXAMINATION: Patient is a 30-year old male, who appears stated age, avoidant eye contact, short buzz cut hair, good hygiene, in hospital clothes Speech: Is not pressured, non-spontaneous, minimal Language skills are intact. Thought processes including: Circumstantial. Thought content: Continues to deny suicidal thoughts today, states he wants to take medications, despite not taking medications Abstract reasoning, and computation: Fair description of associations: Poor, concrete Description of abnormal or psychotic thoughts: Denies, not observed. Judgment: poor Insight: poor Orientation: X4 Recent and remote memory: Fair. Attention span and concentration: Somewhat decreased. Language: Swiss. Fund of knowledge: Average based on interview. Mood: "level" affect: No change, continues to be anxious, concrete, withdrawn, flat DIAGNOSES: Bipolar disorder, mixed episode, with psychotic features R/o primary psychotic disorder Cannabis use disorder Tobacco use disorder Rule out borderline personality disorder ASSESSMENT: Patient not attending groups and walking the hallways for the majority of the day with flat affect, disengaged from others, discussed how if he takes medications and continues to improve when safe to do so can be discharged, despite this reports wants to go to court next week for retention hearing and to stop taking his medications. Patient needs extended stay for acute stabilization. MANAGEMENT PLAN: 2 PC involuntary admission paperwork completed, pending other physician signature. Continue to offer medications, encouraged to attend groups, has retention hearing 06/28, if determined he has to stay and continues to refuse medications will pursue TOO. CT head from 06/14 negative TIME SPENT: 25 minutes. Vital Signs Vital Signs Date Time Temp Pulse Resp B/P (MAP) Pulse Ox O2 Delivery O2 Flow Rate FiO2 06/21/21 06:00 97.3 102 18 146/102 (117) 99 06/20/21 06:48 Room Air Current Medications Current Medications Medications (Trade) Dose Ordered Sig/Davida Route PRN Reason Start Time Stop Time Status Last Admin Dose Admin Acetaminophen (Tylenol Tab) 650 mg Q6HP PRN PO HEADACHE or MILD DISCOMFORT 06/11/21 23:05 Al Hydrox/Mg Hydrox/Simethicone (Mylanta) 30 ml Q4HP PRN PO HEARTBURN/INDIGESTION 06/11/21 23:05 Bupropion HCl (Wellbutrin Xl) 150 mg QAM PO 06/20/21 09:00 Divalproex Sodium (Depakote Er) 750 mg DAILY PO 06/12/21 09:00 06/15/21 11:55 DC 06/15/21 09:10 Divalproex Sodium (Depakote Er) 1,000 mg DAILY PO 06/16/21 09:00 06/20/21 10:52 Erythromycin (Ilotycin) 1 CM RIBBON QHS OS 06/20/21 21:00 Home Med (Home Med List Complete!) ASDIRECTED XX 06/11/21 05:45 06/11/21 05:46 DC Hydroxyzine HCl (Atarax) 50 mg Q4HP PRN PO ANXIETY/AGITATION 06/12/21 08:00 06/14/21 12:14 DC 06/14/21 12:05 Hydroxyzine HCl (Atarax) 50 mg Q8H PO 06/14/21 22:00 06/20/21 06:02 Lurasidone HCl (Latuda) 20 mg DAILY@08 PO 06/12/21 08:00 06/14/21 08:59 DC 06/14/21 07:52 Lurasidone HCl (Latuda) 40 mg QHS PO 06/14/21 21:00 06/14/21 09:50 DC Lurasidone HCl (Latuda) 40 mg QHS PO 06/15/21 21:00 06/15/21 11:55 DC Lurasidone HCl (Latuda) 60 mg QHS PO 06/15/21 21:00 06/20/21 21:36 Magnesium Hydroxide (Milk Of Magnesia) 30 ml DAILYPRN PRN PO CONSTIPATION 06/11/21 23:05 Nicotine (Nicoderm Cq 14mg) 1 patch DAILY TD 06/12/21 09:00 06/20/21 09:36 Ofloxacin (Ocuflox 0.3% Ophth Buffy) 2 drop QID OS 06/20/21 17:00 06/20/21 18:20 Olanzapine (ZyPREXA) 5 mg Q6HP PRN PO ANXIETY/AGITATION 06/12/21 08:00 Oxcarbazepine (Trileptal) 150 mg BID PO 06/11/21 09:00 06/12/21 01:50 DC 06/11/21 21:04 Oxcarbazepine (Trileptal) 150 mg BID PO 06/12/21 09:00 Cancel Oxcarbazepine (Trileptal) 300 mg BID PO 06/11/21 09:00 06/11/21 09:46 DC Oxcarbazepine (Trileptal) 300 mg BID PO 06/11/21 21:00 06/11/21 09:22 DC Ramelteon (Rozerem) 8 mg QHS PO 06/15/21 21:00 06/18/21 21:30 Risperidone (RisperDAL) 3 mg BID PO 06/11/21 09:00 06/12/21 01:50 DC 06/11/21 21:04 Risperidone (RisperDAL) 3 mg BID PO 06/12/21 09:00 Cancel Trazodone HCl (Desyrel) 50 mg QHSP PRN PO INSOMNIA 06/16/21 10:05 06/18/21 21:29 Zolpidem Tartrate (Ambien) 5 mg QHS PO 06/11/21 21:00 06/11/21 11:18 DC Zolpidem Tartrate (Ambien) 5 mg QHSP PRN PO SLEEP 06/11/21 21:00 06/11/21 23:20 DC 06/11/21 21:04 Zolpidem Tartrate (Ambien) 5 mg QHSP PRN PO INSOMNIA 06/11/21 23:05 06/11/21 23:21 DC Zolpidem Tartrate (Ambien) 5 mg QHSP PRN PO INSOMNIA 06/12/21 21:00 06/12/21 08:07 DC Allergies Coded Allergies: No Known Drug Allergies (Verified Allergy, Unknown, 05/11/21) JULISSA STUBBS MD Jun 21, 2021 12:25
[2021-06-21] MEDS: ERYTHROMYCIN OPHTH OINT OS SCH (21:00)
[2021-06-21] MEDS: RAMELTEON 8 MG TAB (ROZEREM) PO SCH (21:36)
[2021-06-21] MEDS: LURASIDONE HCL 40 MG TAB (LATUDA) PO SCH (21:36)
[2021-06-22] MEDS: hydrOXYzine 50 MG TAB PO SCH ×3 (06:28→21:15)
[2021-06-22 06:44] VITALS: BP 146/86
[2021-06-22] MEDS: OFLOXACIN 0.3 % (OCUFLOX) OPTH SOL 5ML OS SCH ×4 (09:00→21:00)
[2021-06-22] MEDS: NICOTINE 14 MG/24 HR TRANSDERMAL TD SCH (09:00)
[2021-06-22] MEDS: buPROPion **XL** TABLET 150MG (WELLBUTRIN XL) PO SCH (09:00)
[2021-06-22] MEDS: DIVALPROEX 500MG *ER* TAB PO SCH (09:12)
--- NOTE | 2021-06-22 13:47 | MHIPNPDOC ---
[facility] Progress Note Progress Note DATE OF SERVICE: 06/22/21 HISTORY: Patient is a 30 -year-old , male, who came in with mother due to racing thoughts, reports suicidal thoughts, with plan to get some vodka and Vicodin and cut femoral artery, has been reporting psychosis since May, previously had been reporting depression. Reports being unable to sleep, and that this may be contributing to AH. Reports 1 SA in 2013, in context of breaking up with a partner. States was hearing voices to hurt his mother, reports 1 voice, unrecognizable. Patient returned to the hospital and was prev iously sent home due to racing thoughts in context of not taking his medications, and planning to see therapist Liban Raymundo 06/13, Dr Galloway at [facility] 06/15. Despite this plan reports worsening SI and so came in to the ED. Per PSA report: "Pt states that he has command AH that tell him to kill his mother. Pt denies HI & states he does not want to act on the command AH. Pt also reports SI with a plan to OD on Vicodin & Vodka & then cut his femoral artery. He has a hx of one suicide attempt in 2013 via OD. Pt denies any hx of self-harm. Pt c/o depressed mood, anxiety, poor concentration, decreased energy levels, & poor sleep. Pt states that he has only been sleeping 2-4 hours per night for the past three weeks. Initially pt was unable to identify any stressors, but later stated that he is having financial px's because he is not working & cannot pay his student loans. Pt has a hx of Bipolar D/O with three admissions. He has OP tx at [facility]. He states he had an intake after his last DC & he is supposed to have an appointment with Liban for therapy & with Dr. Galloway for meds later this week. Pt states he has used alcohol in the past but states he has not used in a year. Pt reports occasional MJ use & his tox screen was positive for cannabis. Pt states he has also used cocaine in the past. Interval: Patient is a reported that he had anger he has not dealt with towards his father who was not in his life, we discussed how he can learn to process these emotions by going to groups, patient states he will go to group and went today, patient was agreeable to taking his medications and took his Latuda yesterday and Depakote today. Denies medication side effects, reports he wants to move on with his life, started to think ow to go about doing this. Reports 4 to 5 hours of sleep last night, reports having vague suicidal thoughts 2 days ago but not since this time. Also states he feels he needs more time here despite wanting to leave. VITAL SIGNS: See below. NEW TEST RESULTS: see below CURRENT MEDICATIONS: See below. MENTAL STATUS EXAMINATION: Patient is a 30-year old male, who appears stated age, avoidant eye contact, short buzz cut hair, good hygiene, in hospital clothes Speech: Is spontaneous, decreased amount, slowed Language skills are intact. Thought processes including: Circumstantial. Thought content: Continues to deny suicidal thoughts today Abstract reasoning, and computation: Fair description of associations: Poor, concrete Description of abnormal or psychotic thoughts: Denies, not observed. Judgment: Improving Insight: Improving Orientation: X4 Recent and remote memory: Fair. Attention span and concentration: Somewhat decreased. Language: Yemeni. Fund of knowledge: Average based on interview. Mood: "level" affect: No change, continues to be anxious, concrete, withdrawn, flat DIAGNOSES: Bipolar disorder, mixed episode, with psychotic features R/o primary psychotic disorder Cannabis use disorder Tobacco use disorder Rule out borderline personality disorder ASSESSMENT: Patient has been engaging more with treatment including taking medications, going to groups, is tentatively agreeable to discharge Saturday if he continues to make progress on the unit, where he has a retention hearing June 28. Was educated on processing emotions, stress tolerance skills, need for compliance with medications to ensure stability citing benefit from outpatient therapy. MANAGEMENT PLAN: 2 PC involuntary admission paperwork completed, pending other physician signature. Continue medications, encouraged to attend groups, has retention hearing 06/28, last discharged prior. CT head from 06/14 negative TIME SPENT: 30 minutes. Vital Signs Vital Signs Date Time Temp Pulse Resp B/P (MAP) Pulse Ox O2 Delivery O2 Flow Rate FiO2 06/22/21 06:44 97.9 110 16 146/86 (106) 97 Room Air Current Medications Current Medications Medications (Trade) Dose Ordered Sig/Davida Route PRN Reason Start Time Stop Time Status Last Admin Dose Admin Acetaminophen (Tylenol Tab) 650 mg Q6HP PRN PO HEADACHE or MILD DISCOMFORT 06/11/21 23:05 Al Hydrox/Mg Hydrox/Simethicone (Mylanta) 30 ml Q4HP PRN PO HEARTBURN/INDIGESTION 06/11/21 23:05 Bupropion HCl (Wellbutrin Xl) 150 mg QAM PO 06/20/21 09:00 Divalproex Sodium (Depakote Er) 750 mg DAILY PO 06/12/21 09:00 06/15/21 11:55 DC 06/15/21 09:10 Divalproex Sodium (Depakote Er) 1,000 mg DAILY PO 06/16/21 09:00 06/22/21 09:12 Erythromycin (Ilotycin) 1 CM RIBBON QHS OS 06/20/21 21:00 Home Med (Home Med List Complete!) ASDIRECTED XX 06/11/21 05:45 06/11/21 05:46 DC Hydroxyzine HCl (Atarax) 50 mg Q4HP PRN PO ANXIETY/AGITATION 06/12/21 08:00 06/14/21 12:14 DC 06/14/21 12:05 Hydroxyzine HCl (Atarax) 50 mg Q8H PO 06/14/21 22:00 06/22/21 06:28 Lurasidone HCl (Latuda) 20 mg DAILY@08 PO 06/12/21 08:00 06/14/21 08:59 DC 06/14/21 07:52 Lurasidone HCl (Latuda) 40 mg QHS PO 06/14/21 21:00 06/14/21 09:50 DC Lurasidone HCl (Latuda) 40 mg QHS PO 06/15/21 21:00 06/15/21 11:55 DC Lurasidone HCl (Latuda) 60 mg QHS PO 06/15/21 21:00 06/21/21 21:36 Magnesium Hydroxide (Milk Of Magnesia) 30 ml DAILYPRN PRN PO CONSTIPATION 06/11/21 23:05 Nicotine (Nicoderm Cq 14mg) 1 patch DAILY TD 06/12/21 09:00 06/20/21 09:36 Ofloxacin (Ocuflox 0.3% Ophth Buffy) 2 drop QID OS 06/20/21 17:00 06/20/21 18:20 Olanzapine (ZyPREXA) 5 mg Q6HP PRN PO ANXIETY/AGITATION 06/12/21 08:00 Oxcarbazepine (Trileptal) 150 mg BID PO 06/11/21 09:00 06/12/21 01:50 DC 06/11/21 21:04 Oxcarbazepine (Trileptal) 150 mg BID PO 06/12/21 09:00 Cancel Oxcarbazepine (Trileptal) 300 mg BID PO 06/11/21 09:00 06/11/21 09:46 DC Oxcarbazepine (Trileptal) 300 mg BID PO 06/11/21 21:00 06/11/21 09:22 DC Ramelteon (Rozerem) 8 mg QHS PO 06/15/21 21:00 06/21/21 21:36 Risperidone (RisperDAL) 3 mg BID PO 06/11/21 09:00 06/12/21 01:50 DC 06/11/21 21:04 Risperidone (RisperDAL) 3 mg BID PO 06/12/21 09:00 Cancel Trazodone HCl (Desyrel) 50 mg QHSP PRN PO INSOMNIA 06/16/21 10:05 06/18/21 21:29 Zolpidem Tartrate (Ambien) 5 mg QHS PO 06/11/21 21:00 06/11/21 11:18 DC Zolpidem Tartrate (Ambien) 5 mg QHSP PRN PO SLEEP 06/11/21 21:00 06/11/21 23:20 DC 06/11/21 21:04 Zolpidem Tartrate (Ambien) 5 mg QHSP PRN PO INSOMNIA 06/11/21 23:05 06/11/21 23:21 DC Zolpidem Tartrate (Ambien) 5 mg QHSP PRN PO INSOMNIA 06/12/21 21:00 06/12/21 08:07 DC Allergies Coded Allergies: No Known Drug Allergies (Verified Allergy, Unknown, 05/11/21) JULISSA STUBBS MD Jun 22, 2021 13:47
[2021-06-22 17:26] VITALS: BP 113/71
[2021-06-22] MEDS: ERYTHROMYCIN OPHTH OINT OS SCH (21:00)
[2021-06-22] MEDS: PROPRANOLOL 10 MG TAB PO SCH (21:00)
[2021-06-22] MEDS: LURASIDONE HCL 40 MG TAB (LATUDA) PO SCH (21:13)
[2021-06-22] MEDS: RAMELTEON 8 MG TAB (ROZEREM) PO SCH (21:13)
[2021-06-23] MEDS: hydrOXYzine 50 MG TAB PO SCH ×4 (05:35→21:28)
[2021-06-23 06:35] VITALS: BP 131/76
[2021-06-23] MEDS ORDERED: BENZTROPINE 1 MG TAB PO SCH (08:45)
[2021-06-23] MEDS: NICOTINE 14 MG/24 HR TRANSDERMAL TD SCH (09:00)
[2021-06-23] MEDS: PROPRANOLOL 10 MG TAB PO SCH ×2 (09:00→20:45)
[2021-06-23] MEDS ORDERED: DIVALPROEX 500MG *ER* TAB PO SCH (09:00)
[2021-06-23] MEDS: OFLOXACIN 0.3 % (OCUFLOX) OPTH SOL 5ML OS SCH ×4 (09:00→20:44)
[2021-06-23] MEDS: buPROPion **XL** TABLET 150MG (WELLBUTRIN XL) PO SCH (09:00)
[2021-06-23] MEDS ORDERED: BENZTROPINE 1 MG TAB PO PRN (09:00)
--- NOTE | 2021-06-23 10:29 | MHIPNPDOC ---
[facility] Progress Note Progress Note DATE OF SERVICE: 06/23/21 HISTORY: Patient is a 30 -year-old , male, who came in with mother due to racing thoughts, reports suicidal thoughts, with plan to get some vodka and Vicodin and cut femoral artery, has been reporting psychosis since May, previously had been reporting depression. Reports being unable to sleep, and that this may be contributing to AH. Reports 1 SA in 2013, in context of breaking up with a partner. States was hearing voices to hurt his mother, reports 1 voice, unrecognizable. Patient returned to the hospital and was prev iously sent home due to racing thoughts in context of not taking his medications, and planning to see therapist Liban Raymundo 06/13, Dr Galloway at [facility] 06/15. Despite this plan reports worsening SI and so came in to the ED. Per PSA report: "Pt states that he has command AH that tell him to kill his mother. Pt denies HI & states he does not want to act on the command AH. Pt also reports SI with a plan to OD on Vicodin & Vodka & then cut his femoral artery. He has a hx of one suicide attempt in 2013 via OD. Pt denies any hx of self-harm. Pt c/o depressed mood, anxiety, poor concentration, decreased energy levels, & poor sleep. Pt states that he has only been sleeping 2-4 hours per night for the past three weeks. Initially pt was unable to identify any stressors, but later stated that he is having financial px's because he is not working & cannot pay his student loans. Pt has a hx of Bipolar D/O with three admissions. He has OP tx at [facility]. He states he had an intake after his last DC & he is supposed to have an appointment with Liban for therapy & with Dr. Galloway for meds later this week. Pt states he has used alcohol in the past but states he has not used in a year. Pt reports occasional MJ use & his tox screen was positive for cannabis. Pt states he has also used cocaine in the past. Interval: Patient has been attending groups, taking medications, despite this is only sleeping 4 to 5 hours per night, wandering the hallways, states that he has anger and anxiety symptoms, was also seen moving around a lot in interview, propranolol was ordered for akathisia this was explained to the patient that will also help with his anxiety symptoms, patient refusing to take antidepressants but is agreeable to continuing on Latuda and increasing Depakote in the evenings. Asked if he rescinds his court hearing if he will give sooner, plan to possibly discharge Saturday if continues to take medications, denies SI, HI, engaged in treatment including groups. VITAL SIGNS: See below. NEW TEST RESULTS: see below CURRENT MEDICATIONS: See below. MENTAL STATUS EXAMINATION: Patient is a 30-year old male, who appears stated age, avoidant eye contact, short buzz cut hair, good hygiene, in hospital clothes Speech: Is spontaneous, decreased amount, slowed Language skills are intact. Thought processes including: Circumstantial. Thought content: Continues to deny suicidal thoughts today Abstract reasoning, and computation: Fair description of associations: Improved Description of abnormal or psychotic thoughts: Denies, not observed. Judgment: Improving Insight: Fair Orientation: X4 Recent and remote memory: Fair. Attention span and concentration: Somewhat decreased. Language: Hungarian. Fund of knowledge: Average based on interview. Mood: "Little frazzled because I cannot leave" affect: Anxious, withdrawn, flat DIAGNOSES: Bipolar disorder, mixed episode, with psychotic features R/o primary psychotic disorder Cannabis use disorder Tobacco use disorder Rule out borderline personality disorder Conjunctivitis ASSESSMENT: Patient continues to make progress, however continues to report anxiety, anger and enjoys good anger management groups, continues to have lack of sleep was agreeable to medication changes, denies medication side effects, reports that the antibiotic eyedrops makes his vision blurry and, refuses to take. Made nursing aware that if condition persists after discontinuing eyedrops, that patient should be evaluated, denies nausea or headache, but endorses "fuzzy feeling". MANAGEMENT PLAN: Patient on 2 PC status, increase Depakote from 1000 to 1250 mg extended release nightly, encouraged to attend groups, has retention hearing 06/28 CT head from 06/14 negative TIME SPENT: 25 minutes. Vital Signs Vital Signs Date Time Temp Pulse Resp B/P (MAP) Pulse Ox O2 Delivery O2 Flow Rate FiO2 06/23/21 06:35 99.0 103 12 131/76 (94) 100 Room Air Current Medications Current Medications Medications (Trade) Dose Ordered Sig/Davida Route PRN Reason Start Time Stop Time Status Last Admin Dose Admin Acetaminophen (Tylenol Tab) 650 mg Q6HP PRN PO HEADACHE or MILD DISCOMFORT 06/11/21 23:05 Al Hydrox/Mg Hydrox/Simethicone (Mylanta) 30 ml Q4HP PRN PO HEARTBURN/INDIGESTION 06/11/21 23:05 Benztropine Mesylate (Cogentin) 1 mg BIDP PO 06/23/21 08:45 06/23/21 09:00 DC Benztropine Mesylate (Cogentin) 1 mg BIDP PRN PO SPASMS 06/23/21 09:00 Bupropion HCl (Wellbutrin Xl) 150 mg QAM PO 06/20/21 09:00 Divalproex Sodium (Depakote Er) 250 mg QHS PO 06/23/21 21:00 Divalproex Sodium (Depakote Er) 750 mg DAILY PO 06/12/21 09:00 06/15/21 11:55 DC 06/15/21 09:10 Divalproex Sodium (Depakote Er) 1,000 mg DAILY PO 06/16/21 09:00 06/23/21 08:47 DC 06/22/21 09:12 Divalproex Sodium (Depakote Er) 1,000 mg QHS PO 06/23/21 21:00 Divalproex Sodium (Depakote Er) 1,500 mg DAILY PO 06/23/21 09:00 06/23/21 08:56 DC Erythromycin (Ilotycin) 1 CM RIBBON QHS OS 06/20/21 21:00 Home Med (Home Med List Complete!) ASDIRECTED XX 06/11/21 05:45 06/11/21 05:46 DC Hydroxyzine HCl (Atarax) 50 mg Q4HP PRN PO ANXIETY/AGITATION 06/12/21 08:00 06/14/21 12:14 DC 06/14/21 12:05 Hydroxyzine HCl (Atarax) 50 mg Q8H PO 06/14/21 22:00 06/22/21 06:28 Lurasidone HCl (Latuda) 20 mg DAILY@08 PO 06/12/21 08:00 06/14/21 08:59 DC 06/14/21 07:52 Lurasidone HCl (Latuda) 40 mg QHS PO 06/14/21 21:00 06/14/21 09:50 DC Lurasidone HCl (Latuda) 40 mg QHS PO 06/15/21 21:00 06/15/21 11:55 DC Lurasidone HCl (Latuda) 60 mg QHS PO 06/15/21 21:00 06/22/21 21:13 Magnesium Hydroxide (Milk Of Magnesia) 30 ml DAILYPRN PRN PO CONSTIPATION 06/11/21 23:05 Nicotine (Nicoderm Cq 14mg) 1 patch DAILY TD 06/12/21 09:00 06/20/21 09:36 Ofloxacin (Ocuflox 0.3% Ophth Buffy) 2 drop QID OS 06/20/21 17:00 06/20/21 18:20 Olanzapine (ZyPREXA) 5 mg Q6HP PRN PO ANXIETY/AGITATION 06/12/21 08:00 Oxcarbazepine (Trileptal) 150 mg BID PO 06/11/21 09:00 06/12/21 01:50 DC 06/11/21 21:04 Oxcarbazepine (Trileptal) 150 mg BID PO 06/12/21 09:00 Cancel Oxcarbazepine (Trileptal) 300 mg BID PO 06/11/21 09:00 06/11/21 09:46 DC Oxcarbazepine (Trileptal) 300 mg BID PO 06/11/21 21:00 06/11/21 09:22 DC Propranolol HCl (Inderal) 10 mg BID PO 06/22/21 21:00 Ramelteon (Rozerem) 8 mg QHS PO 06/15/21 21:00 06/22/21 21:13 Risperidone (RisperDAL) 3 mg BID PO 06/11/21 09:00 06/12/21 01:50 DC 06/11/21 21:04 Risperidone (RisperDAL) 3 mg BID PO 06/12/21 09:00 Cancel Trazodone HCl (Desyrel) 50 mg QHSP PRN PO INSOMNIA 06/16/21 10:05 06/18/21 21:29 Zolpidem Tartrate (Ambien) 5 mg QHS PO 06/11/21 21:00 06/11/21 11:18 DC Zolpidem Tartrate (Ambien) 5 mg QHSP PRN PO SLEEP 06/11/21 21:00 06/11/21 23:20 DC 06/11/21 21:04 Zolpidem Tartrate (Ambien) 5 mg QHSP PRN PO INSOMNIA 06/11/21 23:05 06/11/21 23:21 DC Zolpidem Tartrate (Ambien) 5 mg QHSP PRN PO INSOMNIA 06/12/21 21:00 06/12/21 08:07 DC Allergies Coded Allergies: No Known Drug Allergies (Verified Allergy, Unknown, 05/11/21) JULISSA STUBBS MD Jun 23, 2021 10:29
[2021-06-23 17:50] VITALS: BP 135/72
[2021-06-23] MEDS: DIVALPROEX 250MG *ER* TAB PO SCH (20:40)
[2021-06-23] MEDS: DIVALPROEX 500MG *ER* TAB PO SCH (20:41)
[2021-06-23] MEDS: RAMELTEON 8 MG TAB (ROZEREM) PO SCH (20:41)
[2021-06-23] MEDS: LURASIDONE HCL 40 MG TAB (LATUDA) PO SCH (20:42)
[2021-06-23] MEDS: ERYTHROMYCIN OPHTH OINT OS SCH (20:44)
[2021-06-24] MEDS: hydrOXYzine 50 MG TAB PO SCH ×3 (05:41→21:44)
[2021-06-24 06:35] VITALS: BP 115/66
[2021-06-24] MEDS: NICOTINE 14 MG/24 HR TRANSDERMAL TD SCH (08:39)
[2021-06-24] MEDS: OFLOXACIN 0.3 % (OCUFLOX) OPTH SOL 5ML OS SCH ×4 (08:39→21:00)
[2021-06-24] MEDS: PROPRANOLOL 10 MG TAB PO SCH ×2 (09:00→21:00)
[2021-06-24] MEDS: buPROPion **XL** TABLET 150MG (WELLBUTRIN XL) PO SCH (09:00)
[2021-06-24 19:00] VITALS: BP 127/68
[2021-06-24] MEDS: ERYTHROMYCIN OPHTH OINT OS SCH (21:00)
[2021-06-24] MEDS: RAMELTEON 8 MG TAB (ROZEREM) PO SCH (21:40)
[2021-06-24] MEDS: LURASIDONE HCL 40 MG TAB (LATUDA) PO SCH (21:41)
[2021-06-24] MEDS: DIVALPROEX 250MG *ER* TAB PO SCH (21:42)
[2021-06-24] MEDS: DIVALPROEX 500MG *ER* TAB PO SCH (21:42)
[2021-06-25] MEDS: hydrOXYzine 50 MG TAB PO SCH ×3 (05:41→21:49)
[2021-06-25 06:36] VITALS: BP 118/58
[2021-06-25] MEDS: buPROPion **XL** TABLET 150MG (WELLBUTRIN XL) PO SCH (08:59)
[2021-06-25] MEDS: PROPRANOLOL 10 MG TAB PO SCH ×2 (08:59→21:00)
[2021-06-25] MEDS: NICOTINE 14 MG/24 HR TRANSDERMAL TD SCH (09:00)
[2021-06-25] MEDS: OFLOXACIN 0.3 % (OCUFLOX) OPTH SOL 5ML OS SCH ×4 (09:00→21:00)
[2021-06-25 18:43] VITALS: BP 136/73
[2021-06-25] MEDS: ERYTHROMYCIN OPHTH OINT OS SCH (21:00)
[2021-06-25] MEDS: LURASIDONE HCL 40 MG TAB (LATUDA) PO SCH (21:00)
[2021-06-25] MEDS: RAMELTEON 8 MG TAB (ROZEREM) PO SCH (21:00)
[2021-06-25] MEDS: DIVALPROEX 250MG *ER* TAB PO SCH (21:00)
[2021-06-25] MEDS: DIVALPROEX 500MG *ER* TAB PO SCH (21:00)
[2021-06-26] MEDS: hydrOXYzine 50 MG TAB PO SCH ×3 (05:48→22:00)
[2021-06-26 06:22] VITALS: BP 129/66
--- NOTE | 2021-06-26 07:41 | MHIPNPDOC ---
[facility] Progress Note Progress Note DATE OF SERVICE: 06/26/21 HISTORY: Patient is a 30 -year-old , male, who came in with mother due to racing thoughts, reports suicidal thoughts, with plan to get some vodka and Vicodin and cut femoral artery, has been reporting psychosis since May, previously had been reporting depression. Reports being unable to sleep, and that this may be contributing to AH. Reports 1 SA in 2013, in context of breaking up with a partner. States was hearing voices to hurt his mother, reports 1 voice, unrecognizable. Patient returned to the hospital and was prev iously sent home due to racing thoughts in context of not taking his medications, and planning to see therapist Liban Raymundo 06/13, Dr Galloway at [facility] 06/15. Despite this plan reports worsening SI and so came in to the ED. Per PSA report: "Pt states that he has command AH that tell him to kill his mother. Pt denies HI & states he does not want to act on the command AH. Pt also reports SI with a plan to OD on Vicodin & Vodka & then cut his femoral artery. He has a hx of one suicide attempt in 2013 via OD. Pt denies any hx of self-harm. Pt c/o depressed mood, anxiety, poor concentration, decreased energy levels, & poor sleep. Pt states that he has only been sleeping 2-4 hours per night for the past three weeks. Initially pt was unable to identify any stressors, but later stated that he is having financial px's because he is not working & cannot pay his student loans. Pt has a hx of Bipolar D/O with three admissions. He has OP tx at [facility]. He states he had an intake after his last DC & he is supposed to have an appointment with Liban for therapy & with Dr. Galloway for meds later this week. Pt states he has used alcohol in the past but states he has not used in a year. Pt reports occasional MJ use & his tox screen was positive for cannabis. Pt states he has also used cocaine in the past. Interval: Patient refusing propranolol for akathisia, despite explaining possible benefit, stating still has urges to move around. States "doesn't understand what is going on", explained will have retention hearing Saturday. Has been refusing medications, states they make me feel weird". There was just too many pills on the med sheet. No acute physical complaints. VITAL SIGNS: See below. NEW TEST RESULTS: see below CURRENT MEDICATIONS: See below. MENTAL STATUS EXAMINATION: Patient is a 30-year old male, who appears stated age, avoidant eye contact, short buzz cut hair, good hygiene, in hospital clothes Speech: Is not spontaneous, decreased amount, slowed Language skills are intact. Thought processes including: Circumstantial. Thought content: Continues to deny suicidal thoughts today Abstract reasoning, and computation: Fair description of associations: Improved Description of abnormal or psychotic thoughts: Denies, not observed. Judgment: poor Insight: poor Orientation: X4 Recent and remote memory: Fair. Attention span and concentration: Somewhat decreased. Language: Turkmen. Fund of knowledge: Average based on interview. Mood: "I'm a little confused I guess" affect: withdrawn, constricted DIAGNOSES: Bipolar disorder, mixed episode, with psychotic features R/o primary psychotic disorder Cannabis use disorder Tobacco use disorder Rule out borderline personality disorder Conjunctivitis ASSESSMENT: Patient has been refusing medications, has been attending few groups. Has refused propranolol for anxiety and akathisia, has been refusing medications, perseverates on likely need for medication despite anxiety symptoms, poor sleep. MANAGEMENT PLAN: Patient on 2 PC status, increase Depakote from 1000 to 1250 mg extended release nightly, encouraged to attend groups, has retention hearing 06/28 CT head from 06/14 negative TIME SPENT: 20 minutes. Vital Signs Vital Signs Date Time Temp Pulse Resp B/P (MAP) Pulse Ox O2 Delivery O2 Flow Rate FiO2 06/26/21 06:22 98.8 104 16 129/66 (87) 96 Room Air Current Medications Current Medications Medications (Trade) Dose Ordered Sig/Davida Route PRN Reason Start Time Stop Time Status Last Admin Dose Admin Acetaminophen (Tylenol Tab) 650 mg Q6HP PRN PO HEADACHE or MILD DISCOMFORT 06/11/21 23:05 Al Hydrox/Mg Hydrox/Simethicone (Mylanta) 30 ml Q4HP PRN PO HEARTBURN/INDIGESTION 06/11/21 23:05 Benztropine Mesylate (Cogentin) 1 mg BIDP PO 06/23/21 08:45 06/23/21 09:00 DC Benztropine Mesylate (Cogentin) 1 mg BIDP PRN PO SPASMS 06/23/21 09:00 Bupropion HCl (Wellbutrin Xl) 150 mg QAM PO 06/20/21 09:00 Divalproex Sodium (Depakote Er) 250 mg QHS PO 06/23/21 21:00 06/24/21 21:42 Divalproex Sodium (Depakote Er) 750 mg DAILY PO 06/12/21 09:00 06/15/21 11:55 DC 06/15/21 09:10 Divalproex Sodium (Depakote Er) 1,000 mg DAILY PO 06/16/21 09:00 06/23/21 08:47 DC 06/22/21 09:12 Divalproex Sodium (Depakote Er) 1,000 mg QHS PO 06/23/21 21:00 06/24/21 21:42 Divalproex Sodium (Depakote Er) 1,500 mg DAILY PO 06/23/21 09:00 06/23/21 08:56 DC Erythromycin (Ilotycin) 1 CM RIBBON QHS OS 06/20/21 21:00 Home Med (Home Med List Complete!) ASDIRECTED XX 06/11/21 05:45 06/11/21 05:46 DC Hydroxyzine HCl (Atarax) 50 mg Q4HP PRN PO ANXIETY/AGITATION 06/12/21 08:00 06/14/21 12:14 DC 06/14/21 12:05 Hydroxyzine HCl (Atarax) 50 mg Q8H PO 06/14/21 22:00 06/22/21 06:28 Lurasidone HCl (Latuda) 20 mg DAILY@08 PO 06/12/21 08:00 06/14/21 08:59 DC 06/14/21 07:52 Lurasidone HCl (Latuda) 40 mg QHS PO 06/14/21 21:00 06/14/21 09:50 DC Lurasidone HCl (Latuda) 40 mg QHS PO 06/15/21 21:00 06/15/21 11:55 DC Lurasidone HCl (Latuda) 60 mg QHS PO 06/15/21 21:00 06/24/21 21:41 Magnesium Hydroxide (Milk Of Magnesia) 30 ml DAILYPRN PRN PO CONSTIPATION 06/11/21 23:05 Nicotine (Nicoderm Cq 14mg) 1 patch DAILY TD 06/12/21 09:00 06/20/21 09:36 Ofloxacin (Ocuflox 0.3% Ophth Buffy) 2 drop QID OS 06/20/21 17:00 06/20/21 18:20 Olanzapine (ZyPREXA) 5 mg Q6HP PRN PO ANXIETY/AGITATION 06/12/21 08:00 Oxcarbazepine (Trileptal) 150 mg BID PO 06/11/21 09:00 06/12/21 01:50 DC 06/11/21 21:04 Oxcarbazepine (Trileptal) 150 mg BID PO 06/12/21 09:00 Cancel Oxcarbazepine (Trileptal) 300 mg BID PO 06/11/21 09:00 06/11/21 09:46 DC Oxcarbazepine (Trileptal) 300 mg BID PO 06/11/21 21:00 06/11/21 09:22 DC Propranolol HCl (Inderal) 10 mg BID PO 06/22/21 21:00 Ramelteon (Rozerem) 8 mg QHS PO 06/15/21 21:00 06/24/21 21:40 Risperidone (RisperDAL) 3 mg BID PO 06/11/21 09:00 06/12/21 01:50 DC 06/11/21 21:04 Risperidone (RisperDAL) 3 mg BID PO 06/12/21 09:00 Cancel Trazodone HCl (Desyrel) 50 mg QHSP PRN PO INSOMNIA 06/16/21 10:05 06/18/21 21:29 Zolpidem Tartrate (Ambien) 5 mg QHS PO 06/11/21 21:00 06/11/21 11:18 DC Zolpidem Tartrate (Ambien) 5 mg QHSP PRN PO SLEEP 06/11/21 21:00 06/11/21 23:20 DC 06/11/21 21:04 Zolpidem Tartrate (Ambien) 5 mg QHSP PRN PO INSOMNIA 06/11/21 23:05 06/11/21 23:21 DC Zolpidem Tartrate (Ambien) 5 mg QHSP PRN PO INSOMNIA 06/12/21 21:00 06/12/21 08:07 DC Allergies Coded Allergies: No Known Drug Allergies (Verified Allergy, Unknown, 05/11/21) JULISSA STUBBS MD Jun 26, 2021 07:41
[2021-06-26] MEDS: buPROPion **XL** TABLET 150MG (WELLBUTRIN XL) PO SCH (09:00)
[2021-06-26] MEDS: PROPRANOLOL 10 MG TAB PO SCH ×2 (09:00→21:00)
[2021-06-26] MEDS: OFLOXACIN 0.3 % (OCUFLOX) OPTH SOL 5ML OS SCH ×4 (09:00→21:00)
[2021-06-26] MEDS: NICOTINE 14 MG/24 HR TRANSDERMAL TD SCH (09:00)
[2021-06-26 16:03] VITALS: BP 128/74
[2021-06-26] MEDS: DIVALPROEX 250MG *ER* TAB PO SCH (21:00)
[2021-06-26] MEDS: RAMELTEON 8 MG TAB (ROZEREM) PO SCH (21:00)
[2021-06-26] MEDS: DIVALPROEX 500MG *ER* TAB PO SCH (21:00)
[2021-06-26] MEDS: ERYTHROMYCIN OPHTH OINT OS SCH (21:00)
[2021-06-26] MEDS: LURASIDONE HCL 40 MG TAB (LATUDA) PO SCH (21:00)
[2021-06-27] MEDS: hydrOXYzine 50 MG TAB PO SCH ×3 (06:00→22:00)
[2021-06-27 06:27] VITALS: BP 129/63
[2021-06-27] MEDS: OFLOXACIN 0.3 % (OCUFLOX) OPTH SOL 5ML OS SCH ×4 (09:00→20:53)
[2021-06-27] MEDS: buPROPion **XL** TABLET 150MG (WELLBUTRIN XL) PO SCH (09:00)
[2021-06-27] MEDS: PROPRANOLOL 10 MG TAB PO SCH ×2 (09:00→20:53)
[2021-06-27] MEDS: NICOTINE 14 MG/24 HR TRANSDERMAL TD SCH (09:00)
--- NOTE | 2021-06-27 13:34 | MHIPNPDOC ---
[facility] Progress Note Progress Note DATE OF SERVICE: 06/27/21 HISTORY: Patient is a 30 -year-old , male, who came in with mother due to racing thoughts, reports suicidal thoughts, with plan to get some vodka and Vicodin and cut femoral artery, has been reporting psychosis since May, previously had been reporting depression. Reports being unable to sleep, and that this may be contributing to AH. Reports 1 SA in 2013, in context of breaking up with a partner. States was hearing voices to hurt his mother, reports 1 voice, unrecognizable. Patient returned to the hospital and was prev iously sent home due to racing thoughts in context of not taking his medications, and planning to see therapist Liban Raymundo 06/13, Dr Galloway at [facility] 06/15. Despite this plan reports worsening SI and so came in to the ED. Per PSA report: "Pt states that he has command AH that tell him to kill his mother. Pt denies HI & states he does not want to act on the command AH. Pt also reports SI with a plan to OD on Vicodin & Vodka & then cut his femoral artery. He has a hx of one suicide attempt in 2013 via OD. Pt denies any hx of self-harm. Pt c/o depressed mood, anxiety, poor concentration, decreased energy levels, & poor sleep. Pt states that he has only been sleeping 2-4 hours per night for the past three weeks. Initially pt was unable to identify any stressors, but later stated that he is having financial px's because he is not working & cannot pay his student loans. Pt has a hx of Bipolar D/O with three admissions. He has OP tx at [facility]. He states he had an intake after his last DC & he is supposed to have an appointment with Liban for therapy & with Dr. Galloway for meds later this week. Pt states he has used alcohol in the past but states he has not used in a year. Pt reports occasional MJ use & his tox screen was positive for cannabis. Pt states he has also used cocaine in the past. Interval: States he wants to go home, does not feel he needs to take med ications, reportedly slept 5 hours last night with broken sleep wake up multiple times, has seen pacing the hallways during the day, has been attending few groups, attended 1 group November 22, 19. Has been refusing medications for several days, did take Latuda last time June 24, 2021. When asked how his mood is, states I do not know, is seen staring into space, alert oriented, continues to be shaking and moving around a lot despite not taking any medications, despite stating he does not know why he is here was able to voice that he understands he should be taking Latuda and Depakote, understands the reasons why, he understands is for treatment of bipolar disorder symptoms. Patient again made aware of that tomorrow will be having retention hearing at approximately 1 PM. VITAL SIGNS: See below. NEW TEST RESULTS: see below CURRENT MEDICATIONS: See below. MENTAL STATUS EXAMINATION: Patient is a 30-year old male, who appears stated age, avoidant eye contact, thought blocking, short buzz cut hair, good hygiene, in hospital clothes Speech: Is not spontaneous, decreased amount, slowed Language skills are intact. Thought processes including: Circumstantial. Thought content: Continues to deny suicidal ideations, intent or plan. Also denies homicidal ideation intent or plan. Abstract reasoning, and computation: Fair description of associations: Improved Description of abnormal or psychotic thoughts: Denies, not observed. Judgment: poor Insight: poor Orientation: X4 Recent and remote memory: Fair. Attention span and concentration: Somewhat decreased. Language: Korean. Fund of knowledge: Average based on interview. Mood: "I do not know" affect: withdrawn, constricted DIAGNOSES: Bipolar disorder, mixed episode, with psychotic features R/o primary psychotic disorder Cannabis use disorder Tobacco use disorder Rule out borderline personality disorder Conjunctivitis ASSESSMENT: Patient continues to have poor, fragmented sleep in context of not taking medications, endorses anxiety which she relates to situation of being on the unit, and states he does not want to take medications, requesting discharge, with plan outpatient that he reported SI lack of sleep which led to admission and that there is a risk for not taking medications and receiving treatment including worsening of his condition, risk for safety. Patient was made aware of court date tomorrow at 1 PM for retention hearing. Patient continues to require constant repetition of why he is receiving treatment, despite endorsing he understands the treatment. MANAGEMENT PLAN: Patient on 2 PC status, continues to refuse medication for at least 2 days now, encouraged to attend groups, has retention hearing 06/28 CT head from 06/14 negative TIME SPENT: 15 minutes. Vital Signs Vital Signs Date Time Temp Pulse Resp B/P (MAP) Pulse Ox O2 Delivery O2 Flow Rate FiO2 06/27/21 06:27 98.3 94 16 129/63 (85) 98 Room Air Current Medications Current Medications Medications (Trade) Dose Ordered Sig/Davida Route PRN Reason Start Time Stop Time Status Last Admin Dose Admin Acetaminophen (Tylenol Tab) 650 mg Q6HP PRN PO HEADACHE or MILD DISCOMFORT 06/11/21 23:05 Al Hydrox/Mg Hydrox/Simethicone (Mylanta) 30 ml Q4HP PRN PO HEARTBURN/INDIGESTION 06/11/21 23:05 Benztropine Mesylate (Cogentin) 1 mg BIDP PO 06/23/21 08:45 06/23/21 09:00 DC Benztropine Mesylate (Cogentin) 1 mg BIDP PRN PO SPASMS 06/23/21 09:00 Bupropion HCl (Wellbutrin Xl) 150 mg QAM PO 06/20/21 09:00 Divalproex Sodium (Depakote Er) 250 mg QHS PO 06/23/21 21:00 06/24/21 21:42 Divalproex Sodium (Depakote Er) 750 mg DAILY PO 06/12/21 09:00 06/15/21 11:55 DC 06/15/21 09:10 Divalproex Sodium (Depakote Er) 1,000 mg DAILY PO 06/16/21 09:00 06/23/21 08:47 DC 06/22/21 09:12 Divalproex Sodium (Depakote Er) 1,000 mg QHS PO 06/23/21 21:00 06/24/21 21:42 Divalproex Sodium (Depakote Er) 1,500 mg DAILY PO 06/23/21 09:00 06/23/21 08:56 DC Erythromycin (Ilotycin) 1 CM RIBBON QHS OS 06/20/21 21:00 Home Med (Home Med List Complete!) ASDIRECTED XX 06/11/21 05:45 06/11/21 05:46 DC Hydroxyzine HCl (Atarax) 50 mg Q4HP PRN PO ANXIETY/AGITATION 06/12/21 08:00 06/14/21 12:14 DC 06/14/21 12:05 Hydroxyzine HCl (Atarax) 50 mg Q8H PO 06/14/21 22:00 06/22/21 06:28 Lurasidone HCl (Latuda) 20 mg DAILY@08 PO 06/12/21 08:00 06/14/21 08:59 DC 06/14/21 07:52 Lurasidone HCl (Latuda) 40 mg QHS PO 06/14/21 21:00 06/14/21 09:50 DC Lurasidone HCl (Latuda) 40 mg QHS PO 06/15/21 21:00 06/15/21 11:55 DC Lurasidone HCl (Latuda) 60 mg QHS PO 06/15/21 21:00 06/24/21 21:41 Magnesium Hydroxide (Milk Of Magnesia) 30 ml DAILYPRN PRN PO CONSTIPATION 06/11/21 23:05 Nicotine (Nicoderm Cq 14mg) 1 patch DAILY TD 06/12/21 09:00 06/20/21 09:36 Ofloxacin (Ocuflox 0.3% Ophth Buffy) 2 drop QID OS 06/20/21 17:00 06/20/21 18:20 Olanzapine (ZyPREXA) 5 mg Q6HP PRN PO ANXIETY/AGITATION 06/12/21 08:00 Oxcarbazepine (Trileptal) 150 mg BID PO 06/11/21 09:00 06/12/21 01:50 DC 06/11/21 21:04 Oxcarbazepine (Trileptal) 150 mg BID PO 06/12/21 09:00 Cancel Oxcarbazepine (Trileptal) 300 mg BID PO 06/11/21 09:00 06/11/21 09:46 DC Oxcarbazepine (Trileptal) 300 mg BID PO 06/11/21 21:00 06/11/21 09:22 DC Propranolol HCl (Inderal) 10 mg BID PO 06/22/21 21:00 Ramelteon (Rozerem) 8 mg QHS PO 06/15/21 21:00 06/24/21 21:40 Risperidone (RisperDAL) 3 mg BID PO 06/11/21 09:00 06/12/21 01:50 DC 06/11/21 21:04 Risperidone (RisperDAL) 3 mg BID PO 06/12/21 09:00 Cancel Trazodone HCl (Desyrel) 50 mg QHSP PRN PO INSOMNIA 06/16/21 10:05 06/18/21 21:29 Zolpidem Tartrate (Ambien) 5 mg QHS PO 06/11/21 21:00 06/11/21 11:18 DC Zolpidem Tartrate (Ambien) 5 mg QHSP PRN PO SLEEP 06/11/21 21:00 06/11/21 23:20 DC 06/11/21 21:04 Zolpidem Tartrate (Ambien) 5 mg QHSP PRN PO INSOMNIA 06/11/21 23:05 06/11/21 23:21 DC Zolpidem Tartrate (Ambien) 5 mg QHSP PRN PO INSOMNIA 06/12/21 21:00 06/12/21 08:07 DC Allergies Coded Allergies: No Known Drug Allergies (Verified Allergy, Unknown, 05/11/21) JULISSA STUBBS MD Jun 27, 2021 13:34
[2021-06-27 16:51] VITALS: BP 115/69
[2021-06-27] MEDS: DIVALPROEX 250MG *ER* TAB PO SCH (20:52)
[2021-06-27] MEDS: DIVALPROEX 500MG *ER* TAB PO SCH (20:52)
[2021-06-27] MEDS: LURASIDONE HCL 40 MG TAB (LATUDA) PO SCH (20:53)
[2021-06-27] MEDS: ERYTHROMYCIN OPHTH OINT OS SCH (20:53)
[2021-06-27] MEDS: RAMELTEON 8 MG TAB (ROZEREM) PO SCH (20:53)
[2021-06-28] MEDS: hydrOXYzine 50 MG TAB PO SCH ×5 (06:00→22:15)
[2021-06-28 06:25] VITALS: BP 126/71
[2021-06-28] MEDS: buPROPion **XL** TABLET 150MG (WELLBUTRIN XL) PO SCH (09:00)
[2021-06-28] MEDS: PROPRANOLOL 10 MG TAB PO SCH ×3 (09:00→22:07)
[2021-06-28] MEDS: NICOTINE 14 MG/24 HR TRANSDERMAL TD SCH (09:00)
[2021-06-28] MEDS: OFLOXACIN 0.3 % (OCUFLOX) OPTH SOL 5ML OS SCH ×4 (09:00→21:00)
--- NOTE | 2021-06-28 14:16 | MHIPNPDOC ---
[facility] Progress Note Progress Note DATE OF SERVICE: 06/28/21 HISTORY: Patient is a 30 -year-old , male, who came in with mother due to racing thoughts, reports suicidal thoughts, with plan to get some vodka and Vicodin and cut femoral artery, has been reporting psychosis since May, previously had been reporting depression. Reports being unable to sleep, and that this may be contributing to AH. Reports 1 SA in 2013, in context of breaking up with a partner. States was hearing voices to hurt his mother, reports 1 voice, unrecognizable. Patient returned to the hospital and was prev iously sent home due to racing thoughts in context of not taking his medications, and planning to see therapist Liban Raymundo 06/13, Dr Galloway at [facility] 06/15. Despite this plan reports worsening SI and so came in to the ED. Per PSA report: "Pt states that he has command AH that tell him to kill his mother. Pt denies HI & states he does not want to act on the command AH. Pt also reports SI with a plan to OD on Vicodin & Vodka & then cut his femoral artery. He has a hx of one suicide attempt in 2013 via OD. Pt denies any hx of self-harm. Pt c/o depressed mood, anxiety, poor concentration, decreased energy levels, & poor sleep. Pt states that he has only been sleeping 2-4 hours per night for the past three weeks. Initially pt was unable to identify any stressors, but later stated that he is having financial px's because he is not working & cannot pay his student loans. Pt has a hx of Bipolar D/O with three admissions. He has OP tx at [facility]. He states he had an intake after his last DC & he is supposed to have an appointment with Liban for therapy & with Dr. Galloway for meds later this week. Pt states he has used alcohol in the past but states he has not used in a year. Pt reports occasional MJ use & his tox screen was positive for cannabis. Pt states he has also used cocaine in the past. Interval: Patient continues to report he wants discharge, continues to have poor insight into reason for admission, treatments and alternative treatments, patient made aware and attended court retention hearing. Denies SI, HI, hallucinations. Has continued to refuse medications. VITAL SIGNS: See below. NEW TEST RESULTS: see below CURRENT MEDICATIONS: See below. MENTAL STATUS EXAMINATION: Patient is a 30-year old male, who appears stated age, avoidant eye contact, thought blocking, short buzz cut hair, good hygiene, in hospital clothes Speech: Is not spontaneous, decreased amount, slowed Language skills are intact. Thought processes including: Circumstantial, thought blocking, disorganized. Thought content: Continues to deny suicidal ideations, intent or plan. Also denies homicidal ideation intent or plan. Abstract reasoning, and computation: Fair description of associations: Improved Description of abnormal or psychotic thoughts: Denies, not observed. Judgment: poor Insight: poor Orientation: X4 Recent and remote memory: Fair. Attention span and concentration: Somewhat decreased. Language: Lao. Fund of knowledge: Average based on interview. Mood: "why am I here" affect: Continues to be, withdrawn, constricted, disorganized DIAGNOSES: Bipolar disorder, mixed episode, with psychotic features R/o primary psychotic disorder Cannabis use disorder Tobacco use disorder Rule out borderline personality disorder Conjunctivitis ASSESSMENT: We will continue to encourage medications to be taken by the patient, will consider offering alternative medications including Abilify for mood regulation, continues to refuse medications. Will need extended stay for acute stabilization. MANAGEMENT PLAN: Patient on 2 PC status, continues to refuse medication for at least 3 days now, encouraged to attend groups, court granted retention 06/28 CT head from 06/14 negative TIME SPENT: 30 minutes. Vital Signs Vital Signs Date Time Temp Pulse Resp B/P (MAP) Pulse Ox O2 Delivery O2 Flow Rate FiO2 06/28/21 06:25 97.4 99 16 126/71 (89) 98 Room Air Current Medications Current Medications Medications (Trade) Dose Ordered Sig/Davida Route PRN Reason Start Time Stop Time Status Last Admin Dose Admin Acetaminophen (Tylenol Tab) 650 mg Q6HP PRN PO HEADACHE or MILD DISCOMFORT 06/11/21 23:05 Al Hydrox/Mg Hydrox/Simethicone (Mylanta) 30 ml Q4HP PRN PO HEARTBURN/INDIGESTION 06/11/21 23:05 Benztropine Mesylate (Cogentin) 1 mg BIDP PO 06/23/21 08:45 06/23/21 09:00 DC Benztropine Mesylate (Cogentin) 1 mg BIDP PRN PO SPASMS 06/23/21 09:00 Bupropion HCl (Wellbutrin Xl) 150 mg QAM PO 06/20/21 09:00 Divalproex Sodium (Depakote Er) 250 mg QHS PO 06/23/21 21:00 06/24/21 21:42 Divalproex Sodium (Depakote Er) 750 mg DAILY PO 06/12/21 09:00 06/15/21 11:55 DC 06/15/21 09:10 Divalproex Sodium (Depakote Er) 1,000 mg DAILY PO 06/16/21 09:00 06/23/21 08:47 DC 06/22/21 09:12 Divalproex Sodium (Depakote Er) 1,000 mg QHS PO 06/23/21 21:00 06/24/21 21:42 Divalproex Sodium (Depakote Er) 1,500 mg DAILY PO 06/23/21 09:00 06/23/21 08:56 DC Erythromycin (Ilotycin) 1 CM RIBBON QHS OS 06/20/21 21:00 Home Med (Home Med List Complete!) ASDIRECTED XX 06/11/21 05:45 06/11/21 05:46 DC Hydroxyzine HCl (Atarax) 50 mg Q4HP PRN PO ANXIETY/AGITATION 06/12/21 08:00 06/14/21 12:14 DC 06/14/21 12:05 Hydroxyzine HCl (Atarax) 50 mg Q8H PO 06/14/21 22:00 06/22/21 06:28 Lurasidone HCl (Latuda) 20 mg DAILY@08 PO 06/12/21 08:00 06/14/21 08:59 DC 06/14/21 07:52 Lurasidone HCl (Latuda) 40 mg QHS PO 06/14/21 21:00 06/14/21 09:50 DC Lurasidone HCl (Latuda) 40 mg QHS PO 06/15/21 21:00 06/15/21 11:55 DC Lurasidone HCl (Latuda) 60 mg QHS PO 06/15/21 21:00 06/24/21 21:41 Magnesium Hydroxide (Milk Of Magnesia) 30 ml DAILYPRN PRN PO CONSTIPATION 06/11/21 23:05 Nicotine (Nicoderm Cq 14mg) 1 patch DAILY TD 06/12/21 09:00 06/20/21 09:36 Ofloxacin (Ocuflox 0.3% Ophth Buffy) 2 drop QID OS 06/20/21 17:00 06/20/21 18:20 Olanzapine (ZyPREXA) 5 mg Q6HP PRN PO ANXIETY/AGITATION 06/12/21 08:00 Oxcarbazepine (Trileptal) 150 mg BID PO 06/11/21 09:00 06/12/21 01:50 DC 06/11/21 21:04 Oxcarbazepine (Trileptal) 150 mg BID PO 06/12/21 09:00 Cancel Oxcarbazepine (Trileptal) 300 mg BID PO 06/11/21 09:00 06/11/21 09:46 DC Oxcarbazepine (Trileptal) 300 mg BID PO 06/11/21 21:00 06/11/21 09:22 DC Propranolol HCl (Inderal) 10 mg BID PO 06/22/21 21:00 Ramelteon (Rozerem) 8 mg QHS PO 06/15/21 21:00 06/24/21 21:40 Risperidone (RisperDAL) 3 mg BID PO 06/11/21 09:00 06/12/21 01:50 DC 06/11/21 21:04 Risperidone (RisperDAL) 3 mg BID PO 06/12/21 09:00 Cancel Trazodone HCl (Desyrel) 50 mg QHSP PRN PO INSOMNIA 06/16/21 10:05 06/18/21 21:29 Zolpidem Tartrate (Ambien) 5 mg QHS PO 06/11/21 21:00 06/11/21 11:18 DC Zolpidem Tartrate (Ambien) 5 mg QHSP PRN PO SLEEP 06/11/21 21:00 06/11/21 23:20 DC 06/11/21 21:04 Zolpidem Tartrate (Ambien) 5 mg QHSP PRN PO INSOMNIA 06/11/21 23:05 06/11/21 23:21 DC Zolpidem Tartrate (Ambien) 5 mg QHSP PRN PO INSOMNIA 06/12/21 21:00 06/12/21 08:07 DC Allergies Coded Allergies: No Known Drug Allergies (Verified Allergy, Unknown, 05/11/21) JULISSA STUBBS MD Jun 28, 2021 14:16
[2021-06-28] MEDS: ERYTHROMYCIN OPHTH OINT OS SCH ×2 (21:00→22:08)
[2021-06-28] MEDS: LURASIDONE HCL 40 MG TAB (LATUDA) PO SCH ×2 (21:00→22:07)
[2021-06-28] MEDS: RAMELTEON 8 MG TAB (ROZEREM) PO SCH ×2 (21:00→22:07)
[2021-06-28] MEDS: DIVALPROEX 500MG *ER* TAB PO SCH ×2 (21:00→22:08)
[2021-06-28] MEDS: DIVALPROEX 250MG *ER* TAB PO SCH ×2 (21:00→22:08)
[2021-06-28 22:07] VITALS: BP 123/78
[2021-06-29] MEDS: hydrOXYzine 50 MG TAB PO SCH ×3 (05:55→22:00)
[2021-06-29 06:40] VITALS: BP 118/60
[2021-06-29] MEDS: NICOTINE 14 MG/24 HR TRANSDERMAL TD SCH (09:00)
[2021-06-29] MEDS: OFLOXACIN 0.3 % (OCUFLOX) OPTH SOL 5ML OS SCH ×4 (09:00→21:00)
[2021-06-29] MEDS: buPROPion **XL** TABLET 150MG (WELLBUTRIN XL) PO SCH (09:00)
[2021-06-29 18:29] VITALS: BP 122/60
[2021-06-29] MEDS: PROPRANOLOL 10 MG TAB PO SCH (21:00)
[2021-06-30] MEDS: hydrOXYzine 50 MG TAB PO SCH ×3 (05:33→22:00)
[2021-06-30 06:36] VITALS: BP 119/61
[2021-06-30] MEDS: NICOTINE 14 MG/24 HR TRANSDERMAL TD SCH (09:00)
[2021-06-30] MEDS: OFLOXACIN 0.3 % (OCUFLOX) OPTH SOL 5ML OS SCH ×4 (09:00→21:00)
[2021-06-30] MEDS: PROPRANOLOL 10 MG TAB PO SCH ×2 (09:00→21:00)
[2021-06-30] MEDS: buPROPion **XL** TABLET 150MG (WELLBUTRIN XL) PO SCH (09:00)
[2021-06-30] MEDS: DIVALPROEX 250MG *ER* TAB PO SCH (21:00)
[2021-06-30] MEDS: ERYTHROMYCIN OPHTH OINT OS SCH (21:00)
[2021-06-30] MEDS: DIVALPROEX 500MG *ER* TAB PO SCH (21:00)
[2021-06-30] MEDS: LURASIDONE HCL 40 MG TAB (LATUDA) PO SCH (21:00)
[2021-06-30] MEDS: RAMELTEON 8 MG TAB (ROZEREM) PO SCH (21:00)
[2021-07-01] MEDS: hydrOXYzine 50 MG TAB PO SCH ×3 (05:36→21:14)
[2021-07-01 06:39] VITALS: BP 128/69
[2021-07-01] MEDS: buPROPion **XL** TABLET 150MG (WELLBUTRIN XL) PO SCH (08:37)
[2021-07-01] MEDS: NICOTINE 14 MG/24 HR TRANSDERMAL TD SCH (08:41)
[2021-07-01] MEDS: PROPRANOLOL 10 MG TAB PO SCH ×2 (08:41→21:00)
[2021-07-01] MEDS: OFLOXACIN 0.3 % (OCUFLOX) OPTH SOL 5ML OS SCH ×4 (08:41→21:00)
[2021-07-01 16:13] VITALS: BP 133/94
[2021-07-01] MEDS: DIVALPROEX 250MG *ER* TAB PO SCH (21:00)
[2021-07-01] MEDS: LURASIDONE HCL 40 MG TAB (LATUDA) PO SCH (21:00)
[2021-07-01] MEDS: DIVALPROEX 500MG *ER* TAB PO SCH (21:00)
[2021-07-01] MEDS: RAMELTEON 8 MG TAB (ROZEREM) PO SCH (21:00)
[2021-07-01] MEDS: ERYTHROMYCIN OPHTH OINT OS SCH (21:00)
[2021-07-02] MEDS: hydrOXYzine 50 MG TAB PO SCH (05:22)
[2021-07-02 06:28] VITALS: BP 135/75
[2021-07-02] MEDS: buPROPion **XL** TABLET 150MG (WELLBUTRIN XL) PO SCH (09:00)
[2021-07-02] MEDS: NICOTINE 14 MG/24 HR TRANSDERMAL TD SCH (09:00)
[2021-07-02] MEDS: PROPRANOLOL 10 MG TAB PO SCH (09:00)
[2021-07-02] MEDS: OFLOXACIN 0.3 % (OCUFLOX) OPTH SOL 5ML OS SCH ×2 (09:00→13:00)
[2021-07-02] MEDS ORDERED: hydrOXYzine 50 MG TAB PO PRN (14:05)
[2021-07-02] MEDS ORDERED: RAMELTEON 8 MG TAB (ROZEREM) PO PRN (21:00)
[2021-07-02] MEDS: LURASIDONE HCL 40 MG TAB (LATUDA) PO SCH (21:20)
[2021-07-02] MEDS: DIVALPROEX 500MG *ER* TAB PO SCH (21:21)
[2021-07-02] MEDS: DIVALPROEX 250MG *ER* TAB PO SCH (21:22)
[2021-07-03 06:40] VITALS: BP 124/65
--- NOTE | 2021-07-03 09:17 | MHIPNPDOC ---
[facility] Progress Note Progress Note DATE OF SERVICE: 07/03/21 HISTORY: Patient is a 30 -year-old , male, who came in with mother due to racing thoughts, reports suicidal thoughts, with plan to get some vodka and Vicodin and cut femoral artery, has been reporting psychosis since May, previously had been reporting depression. Reports being unable to sleep, and that this may be contributing to AH. Reports 1 SA in 2013, in context of breaking up with a partner. States was hearing voices to hurt his mother, reports 1 voice, unrecognizable. Patient returned to the hospital and was prev iously sent home due to racing thoughts in context of not taking his medications, and planning to see therapist Liban Raymundo 06/13, Dr Galloway at [facility] 06/15. Despite this plan reports worsening SI and so came in to the ED. Per PSA report: "Pt states that he has command AH that tell him to kill his mother. Pt denies HI & states he does not want to act on the command AH. Pt also reports SI with a plan to OD on Vicodin & Vodka & then cut his femoral artery. He has a hx of one suicide attempt in 2013 via OD. Pt denies any hx of self-harm. Pt c/o depressed mood, anxiety, poor concentration, decreased energy levels, & poor sleep. Pt states that he has only been sleeping 2-4 hours per night for the past three weeks. Initially pt was unable to identify any stressors, but later stated that he is having financial px's because he is not working & cannot pay his student loans. Pt has a hx of Bipolar D/O with three admissions. He has OP tx at [facility]. He states he had an intake after his last DC & he is supposed to have an appointment with Liban for therapy & with Dr. Galloway for meds later this week. Pt states he has used alcohol in the past but states he has not used in a year. Pt reports occasional MJ use & his tox screen was positive for cannabis. Pt states he has also used cocaine in the past. Interval: States he doesn't know why was in court, then goes on to state he it was for retention. Took latuda and depakote yesterday. Patient is a/ox4, becomes confused when trying to spell world backwards. Reports some anxiety. Denies racing thoughts, SI, reports some anxiety, reports 4-5 hrs of sleep last night. Denies AVH, paranoia. Says everyone on seems kind of nervous. VITAL SIGNS: See below. NEW TEST RESULTS: see below CURRENT MEDICATIONS: See below. MENTAL STATUS EXAMINATION: Patient is a 30-year old male, who appears stated age, avoidant eye contact, thought blocking, short buzz cut hair, good hygiene, in hospital clothes Speech: Is not spontaneous, decreased amount, slowed Language skills are intact. Thought processes including: Circumstantial, thought blocking, disorganized. Thought content: Continues to deny suicidal ideations, intent or plan. Also denies homicidal ideation intent or plan. Abstract reasoning, and computation: Fair description of associations: concrete Description of abnormal or psychotic thoughts: Denies, not observed. Judgment: poor, improving Insight: poor,improving Orientation: X4 Recent and remote memory: Fair. Attention span and concentration: both decreased Language: Cook Islander. Fund of knowledge: Average based on interview. Mood: "goran nervous" affect: mildly disorganized, withdrawn, mood congruent DIAGNOSES: Bipolar disorder, mixed episode, with psychotic features R/o primary psychotic disorder Cannabis use disorder Tobacco use disorder Rule out borderline personality disorder Conjunctivitis ASSESSMENT: Agrees to medications changes, has restarted latuda and depakote, agrees to switch risperdal for latuda as continues to be disorganized. Has limited response to latuda. Sleep continues to be poor. MANAGEMENT PLAN: d/c latuda, start risperdal 1 mg qhs (will titrate up as needed), patient on 2 PC status, encouraged to attend groups, court granted retention 06/28 CT head from 06/14 negative TIME SPENT: 30 minutes. Vital Signs Vital Signs Date Time Temp Pulse Resp B/P (MAP) Pulse Ox O2 Delivery O2 Flow Rate FiO2 07/03/21 06:40 99.2 95 16 124/65 (84) 98 Room Air Current Medications Current Medications Medications (Trade) Dose Ordered Sig/Davida Route PRN Reason Start Time Stop Time Status Last Admin Dose Admin Acetaminophen (Tylenol Tab) 650 mg Q6HP PRN PO HEADACHE or MILD DISCOMFORT 06/11/21 23:05 Al Hydrox/Mg Hydrox/Simethicone (Mylanta) 30 ml Q4HP PRN PO HEARTBURN/INDIGESTION 06/11/21 23:05 Benztropine Mesylate (Cogentin) 1 mg BIDP PO 06/23/21 08:45 06/23/21 09:00 DC Benztropine Mesylate (Cogentin) 1 mg BIDP PRN PO SPASMS 06/23/21 09:00 Bupropion HCl (Wellbutrin Xl) 150 mg QAM PO 06/20/21 09:00 07/01/21 08:37 Divalproex Sodium (Depakote Er) 250 mg QHS PO 06/23/21 21:00 07/02/21 21:22 Divalproex Sodium (Depakote Er) 750 mg DAILY PO 06/12/21 09:00 06/15/21 11:55 DC 06/15/21 09:10 Divalproex Sodium (Depakote Er) 1,000 mg DAILY PO 06/16/21 09:00 06/23/21 08:47 DC 06/22/21 09:12 Divalproex Sodium (Depakote Er) 1,000 mg QHS PO 06/23/21 21:00 07/02/21 21:21 Divalproex Sodium (Depakote Er) 1,500 mg DAILY PO 06/23/21 09:00 06/23/21 08:56 DC Erythromycin (Ilotycin) 1 CM RIBBON QHS OS 06/20/21 21:00 07/02/21 14:06 DC 06/28/21 22:08 Home Med (Home Med List Complete!) ASDIRECTED XX 06/11/21 05:45 06/11/21 05:46 DC Hydroxyzine HCl (Atarax) 50 mg Q4HP PRN PO ANXIETY/AGITATION 06/12/21 08:00 06/14/21 12:14 DC 06/14/21 12:05 Hydroxyzine HCl (Atarax) 50 mg Q8H PO 06/14/21 22:00 07/02/21 14:06 DC 06/29/21 05:55 Hydroxyzine HCl (Atarax) 50 mg Q8H PRN PO Anxiety 07/02/21 14:05 Lurasidone HCl (Latuda) 20 mg DAILY@08 PO 06/12/21 08:00 06/14/21 08:59 DC 06/14/21 07:52 Lurasidone HCl (Latuda) 40 mg QHS PO 06/14/21 21:00 06/14/21 09:50 DC Lurasidone HCl (Latuda) 40 mg QHS PO 06/15/21 21:00 06/15/21 11:55 DC Lurasidone HCl (Latuda) 60 mg QHS PO 06/15/21 21:00 07/02/21 21:20 Magnesium Hydroxide (Milk Of Magnesia) 30 ml DAILYPRN PRN PO CONSTIPATION 06/11/21 23:05 Nicotine (Nicoderm Cq 14mg) 1 patch DAILY TD 06/12/21 09:00 07/02/21 14:06 DC 06/20/21 09:36 Ofloxacin (Ocuflox 0.3% Ophth Buffy) 2 drop QID OS 06/20/21 17:00 07/02/21 14:06 DC 06/20/21 18:20 Olanzapine (ZyPREXA) 5 mg Q6HP PRN PO ANXIETY/AGITATION 06/12/21 08:00 Oxcarbazepine (Trileptal) 150 mg BID PO 06/11/21 09:00 06/12/21 01:50 DC 06/11/21 21:04 Oxcarbazepine (Trileptal) 150 mg BID PO 06/12/21 09:00 Cancel Oxcarbazepine (Trileptal) 300 mg BID PO 06/11/21 09:00 06/11/21 09:46 DC Oxcarbazepine (Trileptal) 300 mg BID PO 06/11/21 21:00 06/11/21 09:22 DC Propranolol HCl (Inderal) 10 mg BID PO 06/22/21 21:00 07/02/21 14:06 DC 06/28/21 22:07 Ramelteon (Rozerem) 8 mg QHS PO 06/15/21 21:00 07/02/21 14:06 DC 06/28/21 22:07 Ramelteon (Rozerem) 8 mg QHS PRN PO insomnia 07/02/21 21:00 Risperidone (RisperDAL) 3 mg BID PO 06/11/21 09:00 06/12/21 01:50 DC 06/11/21 21:04 Risperidone (RisperDAL) 3 mg BID PO 06/12/21 09:00 Cancel Trazodone HCl (Desyrel) 50 mg QHSP PRN PO INSOMNIA 06/16/21 10:05 07/02/21 14:06 DC 06/18/21 21:29 Zolpidem Tartrate (Ambien) 5 mg QHS PO 06/11/21 21:00 06/11/21 11:18 DC Zolpidem Tartrate (Ambien) 5 mg QHSP PRN PO SLEEP 06/11/21 21:00 06/11/21 23:20 DC 06/11/21 21:04 Zolpidem Tartrate (Ambien) 5 mg QHSP PRN PO INSOMNIA 06/11/21 23:05 06/11/21 23:21 DC Zolpidem Tartrate (Ambien) 5 mg QHSP PRN PO INSOMNIA 06/12/21 21:00 06/12/21 08:07 DC Allergies Coded Allergies: No Known Drug Allergies (Verified Allergy, Unknown, 05/11/21) JULISSA STUBBS MD Jul 03, 2021 09:17
[2021-07-03] MEDS: buPROPion **XL** TABLET 150MG (WELLBUTRIN XL) PO SCH (09:51)
--- NOTE | 2021-07-03 14:32 | MHIPNPDOC ---
[facility] Progress Note Progress Note DATE OF SERVICE: 07/03/21 Called patient's mother Elise Ponce, no response. Vital Signs Vital Signs Date Time Temp Pulse Resp B/P (MAP) Pulse Ox O2 Delivery O2 Flow Rate FiO2 07/03/21 06:40 99.2 95 16 124/65 (84) 98 Room Air Current Medications Current Medications Medications (Trade) Dose Ordered Sig/Davida Route PRN Reason Start Time Stop Time Status Last Admin Dose Admin Acetaminophen (Tylenol Tab) 650 mg Q6HP PRN PO HEADACHE or MILD DISCOMFORT 06/11/21 23:05 Al Hydrox/Mg Hydrox/Simethicone (Mylanta) 30 ml Q4HP PRN PO HEARTBURN/INDIGESTION 06/11/21 23:05 Benztropine Mesylate (Cogentin) 1 mg BIDP PO 06/23/21 08:45 06/23/21 09:00 DC Benztropine Mesylate (Cogentin) 1 mg BIDP PRN PO SPASMS 06/23/21 09:00 Bupropion HCl (Wellbutrin Xl) 150 mg QAM PO 06/20/21 09:00 07/03/21 09:51 Divalproex Sodium (Depakote Er) 250 mg QHS PO 06/23/21 21:00 07/02/21 21:22 Divalproex Sodium (Depakote Er) 750 mg DAILY PO 06/12/21 09:00 06/15/21 11:55 DC 06/15/21 09:10 Divalproex Sodium (Depakote Er) 1,000 mg DAILY PO 06/16/21 09:00 06/23/21 08:47 DC 06/22/21 09:12 Divalproex Sodium (Depakote Er) 1,000 mg QHS PO 06/23/21 21:00 07/02/21 21:21 Divalproex Sodium (Depakote Er) 1,500 mg DAILY PO 06/23/21 09:00 06/23/21 08:56 DC Erythromycin (Ilotycin) 1 CM RIBBON QHS OS 06/20/21 21:00 07/02/21 14:06 DC 06/28/21 22:08 Home Med (Home Med List Complete!) ASDIRECTED XX 06/11/21 05:45 06/11/21 05:46 DC Hydroxyzine HCl (Atarax) 50 mg Q4HP PRN PO ANXIETY/AGITATION 06/12/21 08:00 06/14/21 12:14 DC 06/14/21 12:05 Hydroxyzine HCl (Atarax) 50 mg Q8H PO 06/14/21 22:00 07/02/21 14:06 DC 06/29/21 05:55 Hydroxyzine HCl (Atarax) 50 mg Q8H PRN PO Anxiety 07/02/21 14:05 Lurasidone HCl (Latuda) 20 mg DAILY@08 PO 06/12/21 08:00 06/14/21 08:59 DC 06/14/21 07:52 Lurasidone HCl (Latuda) 40 mg QHS PO 06/14/21 21:00 06/14/21 09:50 DC Lurasidone HCl (Latuda) 40 mg QHS PO 06/15/21 21:00 06/15/21 11:55 DC Lurasidone HCl (Latuda) 60 mg QHS PO 06/15/21 21:00 07/03/21 09:14 DC 07/02/21 21:20 Magnesium Hydroxide (Milk Of Magnesia) 30 ml DAILYPRN PRN PO CONSTIPATION 06/11/21 23:05 Nicotine (Nicoderm Cq 14mg) 1 patch DAILY TD 06/12/21 09:00 07/02/21 14:06 DC 06/20/21 09:36 Ofloxacin (Ocuflox 0.3% Ophth Buffy) 2 drop QID OS 06/20/21 17:00 07/02/21 14:06 DC 06/20/21 18:20 Olanzapine (ZyPREXA) 5 mg Q6HP PRN PO ANXIETY/AGITATION 06/12/21 08:00 Oxcarbazepine (Trileptal) 150 mg BID PO 06/11/21 09:00 06/12/21 01:50 DC 06/11/21 21:04 Oxcarbazepine (Trileptal) 150 mg BID PO 06/12/21 09:00 Cancel Oxcarbazepine (Trileptal) 300 mg BID PO 06/11/21 09:00 06/11/21 09:46 DC Oxcarbazepine (Trileptal) 300 mg BID PO 06/11/21 21:00 06/11/21 09:22 DC Propranolol HCl (Inderal) 10 mg BID PO 06/22/21 21:00 07/02/21 14:06 DC 06/28/21 22:07 Ramelteon (Rozerem) 8 mg QHS PO 06/15/21 21:00 07/02/21 14:06 DC 06/28/21 22:07 Ramelteon (Rozerem) 8 mg QHS PRN PO insomnia 07/02/21 21:00 Risperidone (RisperDAL) 1 mg QHS PO 07/03/21 21:00 Risperidone (RisperDAL) 3 mg BID PO 06/11/21 09:00 06/12/21 01:50 DC 06/11/21 21:04 Risperidone (RisperDAL) 3 mg BID PO 06/12/21 09:00 Cancel Trazodone HCl (Desyrel) 50 mg QHSP PRN PO INSOMNIA 06/16/21 10:05 07/02/21 14:06 DC 06/18/21 21:29 Zolpidem Tartrate (Ambien) 5 mg QHS PO 06/11/21 21:00 06/11/21 11:18 DC Zolpidem Tartrate (Ambien) 5 mg QHSP PRN PO SLEEP 06/11/21 21:00 06/11/21 23:20 DC 06/11/21 21:04 Zolpidem Tartrate (Ambien) 5 mg QHSP PRN PO INSOMNIA 06/11/21 23:05 06/11/21 23:21 DC Zolpidem Tartrate (Ambien) 5 mg QHSP PRN PO INSOMNIA 06/12/21 21:00 06/12/21 08:07 DC Allergies Coded Allergies: No Known Drug Allergies (Verified Allergy, Unknown, 05/11/21) JULISSA STUBBS MD Jul 03, 2021 14:32
[2021-07-03 17:46] VITALS: BP 141/65
[2021-07-03] MEDS ORDERED: risperiDONE 1 MG TAB PO SCH (21:00)
[2021-07-03] MEDS: DIVALPROEX 500MG *ER* TAB PO SCH (21:41)
[2021-07-03] MEDS: DIVALPROEX 250MG *ER* TAB PO SCH (21:42)
[2021-07-04 07:01] VITALS: BP 119/68
[2021-07-04] MEDS: buPROPion **XL** TABLET 150MG (WELLBUTRIN XL) PO SCH (08:41)
--- NOTE | 2021-07-04 10:50 | MHIPNPDOC ---
[facility] Progress Note Progress Note DATE OF SERVICE: 07/04/21 HISTORY: Patient is a 30 -year-old , male, who came in with mother due to racing thoughts, reports suicidal thoughts, with plan to get some vodka and Vicodin and cut femoral artery, has been reporting psychosis since May, previously had been reporting depression. Reports being unable to sleep, and that this may be contributing to AH. Reports 1 SA in 2013, in context of breaking up with a partner. States was hearing voices to hurt his mother, reports 1 voice, unrecognizable. Patient returned to the hospital and was prev iously sent home due to racing thoughts in context of not taking his medications, and planning to see therapist Liban Raymundo 06/13, Dr Galloway at [facility] 06/15. Despite this plan reports worsening SI and so came in to the ED. Per PSA report: "Pt states that he has command AH that tell him to kill his mother. Pt denies HI & states he does not want to act on the command AH. Pt also reports SI with a plan to OD on Vicodin & Vodka & then cut his femoral artery. He has a hx of one suicide attempt in 2013 via OD. Pt denies any hx of self-harm. Pt c/o depressed mood, anxiety, poor concentration, decreased energy levels, & poor sleep. Pt states that he has only been sleeping 2-4 hours per night for the past three weeks. Initially pt was unable to identify any stressors, but later stated that he is having financial px's because he is not working & cannot pay his student loans. Pt has a hx of Bipolar D/O with three admissions. He has OP tx at [facility]. He states he had an intake after his last DC & he is supposed to have an appointment with Liban for therapy & with Dr. Galloway for meds later this week. Pt states he has used alcohol in the past but states he has not used in a year. Pt reports occasional MJ use & his tox screen was positive for cannabis. Pt states he has also used cocaine in the past. Interval: Patient continues to perseverate on wanting discharge, was explained to patient he is having continued stay for stabilization and that he had not been compliant with medications and previous days with increased disorganization, was educated about the need for medications and how they benefit his condition, denies acute physical complaints, agrees to attend groups, has not attended groups since 06/30. Attempted to contact mother Elise Ponce yesterday, she did not answer the phone, per collateral from call today from Elise Ponce: "He still has that nervousness, he thinks it will be the last time we get to talk. He's saying he's going to be arrested, thinks he did something wrong". Asks for a weighted blanket. "He has not said anything that was suicidal or homicidal, just thinks he broke the law and thinks he is not coming home, what if we only see eachother in heaven. He hasn't been brushing teeth or showering". Mother found bag of adderall, in a his belongings at home. Had nurses evaluate teeth. VITAL SIGNS: See below. NEW TEST RESULTS: see below CURRENT MEDICATIONS: See below. MENTAL STATUS EXAMINATION: Patient is a 30-year old male, who appears stated age, avoidant eye contact, t hought blocking, short buzz cut hair, good hygiene, in hospital clothes Speech: Is not spontaneous, decreased amount, slowed Language skills are intact. Thought processes including: Circumstantial, thought blocking, disorganized. Thought content: Continues to deny suicidal ideations, intent or plan. Also denies homicidal ideation intent or plan. Abstract reasoning, and computation: Fair description of associations: concrete Description of abnormal or psychotic thoughts: Denies, not observed. Judgment: poor, improving Insight: poor,improving Orientation: X4 Recent and remote memory: Fair. Attention span and concentration: both decreased Language: Maltese. Fund of knowledge: Average based on interview. Mood: "okay" affect: continues top be disorganized, internally preoccupied, DIAGNOSES: Schizoaffective disorder, bipolar type Cannabis use disorder Tobacco use disorder Rule out borderline personality disorder Conjunctivitis ASSESSMENT: Patient has been compliant with medications, continues to appear disorganized, internally preoccupied, minimizing symptoms, but is more conversational, sleep is continued to be improved on medications getting 5 to 6 hours per night. Depakote level repeat within normal limits. MANAGEMENT PLAN: d/c latuda, increase risperdal from 1 mg-2 mg qhs (will titrate up as needed), patient on 2 PC status, encouraged to attend groups, court granted retention 06/28 CT head from 06/14 negative TIME SPENT: 30 minutes. Vital Signs Vital Signs Date Time Temp Pulse Resp B/P (MAP) Pulse Ox O2 Delivery O2 Flow Rate FiO2 07/04/21 07:01 98.5 82 16 119/68 (85) 98 Room Air Laboratory Data 24H Labs Laboratory Tests 2 07/03/21 16:15: Coronavirus (COVID-19)(PCR) NEGATIVE 07/04/21 08:31: Valproic Acid (Depakene) Level 62.3 Current Medications Current Medications Medications (Trade) Dose Ordered Sig/Davida Route PRN Reason Start Time Stop Time Status Last Admin Dose Admin Acetaminophen (Tylenol Tab) 650 mg Q6HP PRN PO HEADACHE or MILD DISCOMFORT 06/11/21 23:05 Al Hydrox/Mg Hydrox/Simethicone (Mylanta) 30 ml Q4HP PRN PO HEARTBURN/INDIGESTION 06/11/21 23:05 Benztropine Mesylate (Cogentin) 1 mg BIDP PO 06/23/21 08:45 06/23/21 09:00 DC Benztropine Mesylate (Cogentin) 1 mg BIDP PRN PO SPASMS 06/23/21 09:00 Bupropion HCl (Wellbutrin Xl) 150 mg QAM PO 06/20/21 09:00 07/04/21 08:41 Divalproex Sodium (Depakote Er) 250 mg QHS PO 06/23/21 21:00 07/03/21 21:42 Divalproex Sodium (Depakote Er) 750 mg DAILY PO 06/12/21 09:00 06/15/21 11:55 DC 06/15/21 09:10 Divalproex Sodium (Depakote Er) 1,000 mg DAILY PO 06/16/21 09:00 06/23/21 08:47 DC 06/22/21 09:12 Divalproex Sodium (Depakote Er) 1,000 mg QHS PO 06/23/21 21:00 07/03/21 21:41 Divalproex Sodium (Depakote Er) 1,500 mg DAILY PO 06/23/21 09:00 06/23/21 08:56 DC Erythromycin (Ilotycin) 1 CM RIBBON QHS OS 06/20/21 21:00 07/02/21 14:06 DC 06/28/21 22:08 Home Med (Home Med List Complete!) ASDIRECTED XX 06/11/21 05:45 06/11/21 05:46 DC Hydroxyzine HCl (Atarax) 50 mg Q4HP PRN PO ANXIETY/AGITATION 06/12/21 08:00 06/14/21 12:14 DC 06/14/21 12:05 Hydroxyzine HCl (Atarax) 50 mg Q8H PO 06/14/21 22:00 07/02/21 14:06 DC 06/29/21 05:55 Hydroxyzine HCl (Atarax) 50 mg Q8H PRN PO Anxiety 07/02/21 14:05 Lurasidone HCl (Latuda) 20 mg DAILY@08 PO 06/12/21 08:00 06/14/21 08:59 DC 06/14/21 07:52 Lurasidone HCl (Latuda) 40 mg QHS PO 06/14/21 21:00 06/14/21 09:50 DC Lurasidone HCl (Latuda) 40 mg QHS PO 06/15/21 21:00 06/15/21 11:55 DC Lurasidone HCl (Latuda) 60 mg QHS PO 06/15/21 21:00 07/03/21 09:14 DC 07/02/21 21:20 Magnesium Hydroxide (Milk Of Magnesia) 30 ml DAILYPRN PRN PO CONSTIPATION 06/11/21 23:05 Nicotine (Nicoderm Cq 14mg) 1 patch DAILY TD 06/12/21 09:00 07/02/21 14:06 DC 06/20/21 09:36 Ofloxacin (Ocuflox 0.3% Ophth Buffy) 2 drop QID OS 06/20/21 17:00 07/02/21 14:06 DC 06/20/21 18:20 Olanzapine (ZyPREXA) 5 mg Q6HP PRN PO ANXIETY/AGITATION 06/12/21 08:00 Oxcarbazepine (Trileptal) 150 mg BID PO 06/11/21 09:00 06/12/21 01:50 DC 06/11/21 21:04 Oxcarbazepine (Trileptal) 150 mg BID PO 06/12/21 09:00 Cancel Oxcarbazepine (Trileptal) 300 mg BID PO 06/11/21 09:00 06/11/21 09:46 DC Oxcarbazepine (Trileptal) 300 mg BID PO 06/11/21 21:00 06/11/21 09:22 DC Propranolol HCl (Inderal) 10 mg BID PO 06/22/21 21:00 07/02/21 14:06 DC 06/28/21 22:07 Ramelteon (Rozerem) 8 mg QHS PO 06/15/21 21:00 07/02/21 14:06 DC 06/28/21 22:07 Ramelteon (Rozerem) 8 mg QHS PRN PO insomnia 07/02/21 21:00 Risperidone (RisperDAL) 1 mg QHS PO 07/03/21 21:00 07/04/21 08:19 DC 07/03/21 21:42 Risperidone (RisperDAL) 2 mg QHS PO 07/04/21 21:00 Risperidone (RisperDAL) 3 mg BID PO 06/11/21 09:00 06/12/21 01:50 DC 06/11/21 21:04 Risperidone (RisperDAL) 3 mg BID PO 06/12/21 09:00 Cancel Trazodone HCl (Desyrel) 50 mg QHSP PRN PO INSOMNIA 06/16/21 10:05 07/02/21 14:06 DC 06/18/21 21:29 Zolpidem Tartrate (Ambien) 5 mg QHS PO 06/11/21 21:00 06/11/21 11:18 DC Zolpidem Tartrate (Ambien) 5 mg QHSP PRN PO SLEEP 06/11/21 21:00 06/11/21 23:20 DC 06/11/21 21:04 Zolpidem Tartrate (Ambien) 5 mg QHSP PRN PO INSOMNIA 06/11/21 23:05 06/11/21 23:21 DC Zolpidem Tartrate (Ambien) 5 mg QHSP PRN PO INSOMNIA 06/12/21 21:00 06/12/21 08:07 DC Allergies Coded Allergies: No Known Drug Allergies (Verified Allergy, Unknown, 05/11/21) JULISSA STUBBS MD Jul 04, 2021 10:50
[2021-07-04 18:39] VITALS: BP 114/72
[2021-07-04] MEDS: risperiDONE 1 MG TAB PO SCH ×2 (21:00→22:08)
[2021-07-04] MEDS: DIVALPROEX 250MG *ER* TAB PO SCH ×2 (22:05→22:14)
[2021-07-04] MEDS: DIVALPROEX 500MG *ER* TAB PO SCH ×2 (22:06→22:14)
[2021-07-05 06:00] VITALS: BP 114/61
[2021-07-05] MEDS: buPROPion **XL** TABLET 150MG (WELLBUTRIN XL) PO SCH (09:59)
--- NOTE | 2021-07-05 10:43 | MHIPNPDOC ---
[facility] Progress Note Progress Note DATE OF SERVICE: 07/05/21 HISTORY: Patient is a 30 -year-old , male, who came in with mother due to racing thoughts, reports suicidal thoughts, with plan to get some vodka and Vicodin and cut femoral artery, has been reporting psychosis since May, previously had been reporting depression. Reports being unable to sleep, and that this may be contributing to AH. Reports 1 SA in 2013, in context of breaking up with a partner. States was hearing voices to hurt his mother, reports 1 voice, unrecognizable. Patient returned to the hospital and was previ ously sent home due to racing thoughts in context of not taking his medications, and planning to see therapist Liban Raymundo 06/13, Dr Galloway at [facility] 06/15. Despite this plan reports worsening SI and so came in to the ED. Per PSA report: "Pt states that he has command AH that tell him to kill his mother. Pt denies HI & states he does not want to act on the command AH. Pt also reports SI with a plan to OD on Vicodin & Vodka & then cut his femoral artery. He has a hx of one suicide attempt in 2013 via OD. Pt denies any hx of self-harm. Pt c/o depressed mood, anxiety, poor concentration, decreased energy levels, & poor sleep. Pt states that he has only been sleeping 2-4 hours per night for the past three weeks. Initially pt was unable to identify any stressors, but later stated that he is having financial px's because he is not working & cannot pay his student loans. Pt has a hx of Bipolar D/O with three admissions. He has OP tx at [facility]. He states he had an intake after his last DC & he is supposed to have an appointment with Liban for therapy & with Dr. Galloway for meds later this week. Pt states he has used alcohol in the past but states he has not used in a year. Pt reports occasional MJ use & his tox screen was positive for cannabis. Pt states he has also used cocaine in the past. Interval: Patient has been refusing medications again after taking on the previous days, when asked why he stopped taking medications and refusing them states helping any of them, was made aware we will be pursuing treatment over objection. Explained that I talked with mother yesterday and had been reported to be paranoid, when asked about this states I think "I am in trouble with the law" because you won't let me go. Reports getting 4 to 5 hours sleep last night, appetite is here and there, reports he was "a little nervous". VITAL SIGNS: See below. NEW TEST RESULTS: see below CURRENT MEDICATIONS: See below. MENTAL STATUS EXAMINATION: Patient is a 30-year old male, who appears stated age, avoidant eye contact, thought blocking, short buzz cut hair, poor hygiene, delgado has grown, in hospital clothes Speech: Is not spontaneous, decreased amount, slowed Language skills are intact. Thought processes including: Circumstantial, thought blocking, disorganized. Thought content: Continues to deny suicidal ideations, intent or plan. Also denies homicidal ideation intent or plan. Abstract reasoning, and computation: Poor description of associations: concrete on testing Description of abnormal or psychotic thoughts: Denies, not observed. Judgment: poor Insight: poor Orientation: X4 Recent and remote memory: Fair. Attention span and concentration: both decreased Language: Indonesian. Fund of knowledge: Average based on interview. Mood: "a little anxious" affect: Continues to be concrete, disorganized DIAGNOSES: Schizoaffective disorder, bipolar type Cannabis use disorder Tobacco use disorder Rule out borderline personality disorder Conjunctivitis ASSESSMENT: Patient has again started to refuse medications will pursue TOO, sleep is broken and decreased, appetite is poor, mood is anxious, needs extended stay for acute stabilization, mother is concerned due to his paranoia per phone calls. MANAGEMENT PLAN: Continue to offer medications, ordered TOO, patient on 2 PC status, encouraged to attend groups, court granted retention 06/28 CT head from 06/14 negative TIME SPENT: 20 minutes. Vital Signs Vital Signs Date Time Temp Pulse Resp B/P (MAP) Pulse Ox O2 Delivery O2 Flow Rate FiO2 07/05/21 06:00 98.8 90 16 114/61 (78) 96 07/04/21 07:01 Room Air Current Medications Current Medications Medications (Trade) Dose Ordered Sig/Davida Route PRN Reason Start Time Stop Time Status Last Admin Dose Admin Acetaminophen (Tylenol Tab) 650 mg Q6HP PRN PO HEADACHE or MILD DISCOMFORT 06/11/21 23:05 Al Hydrox/Mg Hydrox/Simethicone (Mylanta) 30 ml Q4HP PRN PO HEARTBURN/INDIGESTION 06/11/21 23:05 Benztropine Mesylate (Cogentin) 1 mg BIDP PO 06/23/21 08:45 06/23/21 09:00 DC Benztropine Mesylate (Cogentin) 1 mg BIDP PRN PO SPASMS 06/23/21 09:00 Bupropion HCl (Wellbutrin Xl) 150 mg QAM PO 06/20/21 09:00 07/05/21 09:59 Divalproex Sodium (Depakote Er) 250 mg QHS PO 06/23/21 21:00 07/03/21 21:42 Divalproex Sodium (Depakote Er) 750 mg DAILY PO 06/12/21 09:00 06/15/21 11:55 DC 06/15/21 09:10 Divalproex Sodium (Depakote Er) 1,000 mg DAILY PO 06/16/21 09:00 06/23/21 08:47 DC 06/22/21 09:12 Divalproex Sodium (Depakote Er) 1,000 mg QHS PO 06/23/21 21:00 07/03/21 21:41 Divalproex Sodium (Depakote Er) 1,500 mg DAILY PO 06/23/21 09:00 06/23/21 08:56 DC Erythromycin (Ilotycin) 1 CM RIBBON QHS OS 06/20/21 21:00 07/02/21 14:06 DC 06/28/21 22:08 Home Med (Home Med List Complete!) ASDIRECTED XX 06/11/21 05:45 06/11/21 05:46 DC Hydroxyzine HCl (Atarax) 50 mg Q4HP PRN PO ANXIETY/AGITATION 06/12/21 08:00 06/14/21 12:14 DC 06/14/21 12:05 Hydroxyzine HCl (Atarax) 50 mg Q8H PO 06/14/21 22:00 07/02/21 14:06 DC 06/29/21 05:55 Hydroxyzine HCl (Atarax) 50 mg Q8H PRN PO Anxiety 07/02/21 14:05 Lurasidone HCl (Latuda) 20 mg DAILY@08 PO 06/12/21 08:00 06/14/21 08:59 DC 06/14/21 07:52 Lurasidone HCl (Latuda) 40 mg QHS PO 06/14/21 21:00 06/14/21 09:50 DC Lurasidone HCl (Latuda) 40 mg QHS PO 06/15/21 21:00 06/15/21 11:55 DC Lurasidone HCl (Latuda) 60 mg QHS PO 06/15/21 21:00 07/03/21 09:14 DC 07/02/21 21:20 Magnesium Hydroxide (Milk Of Magnesia) 30 ml DAILYPRN PRN PO CONSTIPATION 06/11/21 23:05 Nicotine (Nicoderm Cq 14mg) 1 patch DAILY TD 06/12/21 09:00 07/02/21 14:06 DC 06/20/21 09:36 Ofloxacin (Ocuflox 0.3% Ophth Buffy) 2 drop QID OS 06/20/21 17:00 07/02/21 14:06 DC 06/20/21 18:20 Olanzapine (ZyPREXA) 5 mg Q6HP PRN PO ANXIETY/AGITATION 06/12/21 08:00 Oxcarbazepine (Trileptal) 150 mg BID PO 06/11/21 09:00 06/12/21 01:50 DC 06/11/21 21:04 Oxcarbazepine (Trileptal) 150 mg BID PO 06/12/21 09:00 Cancel Oxcarbazepine (Trileptal) 300 mg BID PO 06/11/21 09:00 06/11/21 09:46 DC Oxcarbazepine (Trileptal) 300 mg BID PO 06/11/21 21:00 06/11/21 09:22 DC Propranolol HCl (Inderal) 10 mg BID PO 06/22/21 21:00 07/02/21 14:06 DC 06/28/21 22:07 Ramelteon (Rozerem) 8 mg QHS PO 06/15/21 21:00 07/02/21 14:06 DC 06/28/21 22:07 Ramelteon (Rozerem) 8 mg QHS PRN PO insomnia 07/02/21 21:00 Risperidone (RisperDAL) 1 mg QHS PO 07/03/21 21:00 07/04/21 08:19 DC 07/03/21 21:42 Risperidone (RisperDAL) 2 mg QHS PO 07/04/21 21:00 Risperidone (RisperDAL) 3 mg BID PO 06/11/21 09:00 06/12/21 01:50 DC 06/11/21 21:04 Risperidone (RisperDAL) 3 mg BID PO 06/12/21 09:00 Cancel Trazodone HCl (Desyrel) 50 mg QHSP PRN PO INSOMNIA 06/16/21 10:05 07/02/21 14:06 DC 06/18/21 21:29 Zolpidem Tartrate (Ambien) 5 mg QHS PO 06/11/21 21:00 06/11/21 11:18 DC Zolpidem Tartrate (Ambien) 5 mg QHSP PRN PO SLEEP 06/11/21 21:00 06/11/21 23:20 DC 06/11/21 21:04 Zolpidem Tartrate (Ambien) 5 mg QHSP PRN PO INSOMNIA 06/11/21 23:05 06/11/21 23:21 DC Zolpidem Tartrate (Ambien) 5 mg QHSP PRN PO INSOMNIA 06/12/21 21:00 06/12/21 08:07 DC Allergies Coded Allergies: No Known Drug Allergies (Verified Allergy, Unknown, 05/11/21) JULISSA STUBBS MD Jul 05, 2021 10:43
--- NOTE | 2021-07-05 10:45 | REM ---
Date: Jul 05, 2021 EVAL FOR TREAMENT OVER OBJ Evaluation for Treatment Over Objection 2020 Patient: Manuel Ponce MR# [id number] : 88 DOA: 06/11/2021 Legal Status: Involuntary - 2 Physician Consent Nearest Relative: Name: Relationship Address 1) Mother Elise Ponce Section I Clinical Assessment: Clinical Summary/ History of present illness: Patient is a -year 30 old female with a history of psychiatric hospitalizations to this facility and came in with mother due to racing thoughts, reports suicidal thoughts, with plan to get some vodka and Vicodin and cut femoral artery, has been reporting psychosis since May, previously had been reporting depression. Reports being unable to sleep, and that this may be contri buting to . Reports 1 SA in 2013, in context of breaking up with a partner. States was hearing voices to hurt his mother, reports 1 voice, unrecognizable. Patient returned to the hospital and was previously sent home due to racing thoughts in context of not taking his medications, and planning to see therapist Liban Raymundo 06/13, Dr Galloway at [facility] 06/15. Despite this plan reports worsening SI and so came in to the ED. Retention hearing was 06/28 and retention retention was granted by the [employer]. During course of stay has not been consistently compliant with medications, despite continued to be disorganized and concrete on interviews with poor insight into condition and need for treatment despite explaining condition and need for medications multiple times by both myself and multiple staff members, likely internally preoccupied and minimizing symptoms, endorsing paranoid thoughts to mother of feeling the police are after him and that he is being charged for something legally despite reassurance and that this is the reason for him being involuntarily admitted to the inpatient unit. Patient's mother Elise Ponce is concerned for his safety. Per this automobile service writer's collateral from Elise Ponce: "He still has that nervousness and paranoia, he thinks it will be the last time we get to talk. He's saying he's going to be arrested, thinks he did something wrong. He has not said anything that was suicidal or homicidal, just thinks he broke the law and thinks he is not coming home, stated what if we only see eachother in heaven. He hasn't been brushing teeth or showering". Has taken his Depakote 5 out of the last 10 days has not taken for several days in a row despite education, encouragement. Has refused Risperdal, despite encouragement and education. Patient's insight and judgment are poor and he has not been taking care of basic ADLs with worsening hygiene evidenced by disheveled state with unkempt delgado. His sleep remains fragmented, he remains paranoid, with disorganized thinking, and appears internally preoccupied. Diagnosis: Schizoaffective disorder, bipolar type Section II- Proposed Treatment: 1. Oral medications: Valproic acid 250- 2500 mg. daily, oxcarbazepine 300-1200 mg p.o. daily, risperidone 0.5 to 8 mg daily, paliperidone 3 to 12 mg, Latuda 2 to 160 mg daily, Seroquel 50 to 800 mg daily, Abilify 2 to 30 mg daily, lithium 300- 1800 mg daily, Haldol 5 to 20 mg daily 2. Treatment recommended by treating physician should the patient refuse oral medication regimen as ordered by physician: Begin with short acting intramuscular medications such as Haldol 5mg- 20mg daily, Prolixin 5mg-20mg daily, Zyprexa 5mg-30mg daily or Thorazine 5mg- 200mg daily Introduce long acting intramuscular medications such as Haldol d ecanoate 50mg-100mg every 2-4 weeks, Prolixin decanoate 25mg-100mg every 2-4 weeks, Risperdal Consta 25mg-50mg every 2 weeks or Sustenna 117mg-234mg every 1- 3 weeks once appropriate titration of short acting medication has been reached Patient may require a combination of both short and long acting medication during the titration period in order to control symptoms and d etermine most effective maintenance dosage for long acting medication 1. Reasonable alternative, if any are: None or list any not mentioned above 2. Has the patient been tried on proposed treatment? The patient is currently refusing any psychotropic medications, has been taking medications for a few days with mild symptomatic improvement including improved sleep, less disorganization on interview, now continues to refuse medications. 3. Has the patient been tried on other treatments? Patient was previously discharged with Risperdal and Trileptal with improvement in symptoms after stay May 11-2020 for bipolar disorder, patient then self discontinued medications and had worsening sleep, anxiety, mood, suicidal ideations and was readmitted. 5) Anticipated benefits for proposed treatment: Reduction of manic and psychotic symptoms, increased ability to organize his thoughts, improved ability to take care of himself, especially in regards to taking his medications. The benefits for the patient taking medications at this early stage will improve long term care social worker prognosis. It will improve his ability to communicate without manic thinking. The treatment teams hope is that patient will return to living in the community independently. 6) Reasonably foreseeable adverse effects are: Rarely Neuroleptic Malignant Syndrome, tardive Dyskinesia with long-term use, commonly metabolic side effects which can lead to diabetes or cardiovascular disease, orthostatic hypotension, gynecomastia, gastrointestinal disturbances, sexual dysfunction, extrapyramidal symptoms including but not limited to acute dystonia, akathisia, over-sedation, heart rhythm disturbances, allergy, and other minor effects. 7)Prognosis without treatment is: The patient will remain with current symptoms likely leading to continued exacerbation of illness. He will potentially require additional/continued hospitalization, and the propensity exists that it will be more difficult to bring the patient back to baseline behavior and functioning. Patient will remain at risk of danger to self or others. Section III- Patients capacity: 1) Explained to the patient: ___X___Yes No a)Condition ___X___Yes No b)Proposed treatment ___X____Yes No c)Anticipated benefits of treatment ___X___Yes No d)Risks of adverse effects of treatment ___X___Yes No e)Availability ( if any) of other treatments and comparison of benefits and risks with proposed treatment. ___X____Yes No f)Risk if no treatment ____X___Yes No I have attempted to explain the above principles to this patient on multiple occasions, however, due to the patients current presentation he is neither willing or able to understand the proposed treatment. 2: State the nature of the patients objections to proposed treatment: This patient does not believe he needs medication, and does not feel he is ill. When asked about reasons for not taking the medications and the risks involved, states "I don't know", continues to ask why he is admitted endorsing thoughts that he may be in legal troubles, when asked about why he has these thoughts states "I don't know". 3) Patients capacity to make decisions on their treatment. Patient denies that he is mentally ill and does not require medications. Section IV- Likelihood of Dangerous Behavior: 1. The patient is believed to be dangerous to others at the hospital unless treated. ___X___Yes No Patient will continue exhibit poor in 2. The patient is believed to likely be dangerous to self if not treated. ____X__Yes No Patient will continue to exhibit poor impulse control and provocative behavior leaving her susceptible to aggression by others. Section V: Any other information or comments: Diagnosis: Provisional diagnosis of schizoaffective disorder, bipolar type JULISSA STUBBS MD Jul 05, 2021 10:45
[2021-07-05 17:59] VITALS: BP 111/65
[2021-07-05] MEDS: DIVALPROEX 250MG *ER* TAB PO SCH (21:06)
[2021-07-05] MEDS: risperiDONE 1 MG TAB PO SCH (21:07)
[2021-07-05] MEDS: DIVALPROEX 500MG *ER* TAB PO SCH (21:07)
[2021-07-06 06:23] VITALS: BP 107/65
[2021-07-06] MEDS: buPROPion **XL** TABLET 150MG (WELLBUTRIN XL) PO SCH (08:38)
--- NOTE | 2021-07-06 11:02 | MHIPNPDOC ---
[facility] Progress Note Progress Note DATE OF SERVICE: 07/06/21 HISTORY: Patient is a 30 -year-old , male, who came in with mother due to racing thoughts, reports suicidal thoughts, with plan to get some vodka and Vicodin and cut femoral artery, has been reporting psychosis since May, previously had been reporting depression. Reports being unable to sleep, and that this may be contributing to AH. Reports 1 SA in 2013, in context of breaking up with a partner. States was hearing voices to hurt his mother, reports 1 voice, unrecognizable. Patient returned to the hospital and was previ ously sent home due to racing thoughts in context of not taking his medications, and planning to see therapist Liban Raymundo 06/13, Dr Galloway at [facility] 06/15. Despite this plan reports worsening SI and so came in to the ED. Per PSA report: "Pt states that he has command AH that tell him to kill his mother. Pt denies HI & states he does not want to act on the command AH. Pt also reports SI with a plan to OD on Vicodin & Vodka & then cut his femoral artery. He has a hx of one suicide attempt in 2013 via OD. Pt denies any hx of self-harm. Pt c/o depressed mood, anxiety, poor concentration, decreased energy levels, & poor sleep. Pt states that he has only been sleeping 2-4 hours per night for the past three weeks. Initially pt was unable to identify any stressors, but later stated that he is having financial px's because he is not working & cannot pay his student loans. Pt has a hx of Bipolar D/O with three admissions. He has OP tx at [facility]. He states he had an intake after his last DC & he is supposed to have an appointment with Liban for therapy & with Dr. Galloway for meds later this week. Pt states he has used alcohol in the past but states he has not used in a year. Pt reports occasional MJ use & his tox screen was positive for cannabis. Pt states he has also used cocaine in the past. Interval: Patient continues to report his mood is a little nervous, continues to wonder about why he is admitted despite explaining admission process a little more clearly and understanding why he attended court, has been taking medications again and states he does not realize why is not being discharged and was explained he needs consistent compliance and stabilization on medication to be safely discharged. Continues to be concrete on association questions and proverb interpretation, however he is more coherent in thought process and reports improved sleep, appetite is normal, hygiene appears somewhat improved, less disheveled. Has not been attending groups, was encouraged to attend groups. No acute physical complaints. Aims score equals 0. VITAL SIGNS: See below. NEW TEST RESULTS: see below CURRENT MEDICATIONS: See below. MENTAL STATUS EXAMINATION: Patient is a 30-year old male, who appears stated age, avoidant eye contact, thought blocking, short buzz cut hair, somewhat improved hygiene, still has better Rendon, in hospital clothes Speech: Is not spontaneous, decreased amount, slowed Language skills are intact. Thought processes including: Circumstantial, thought blocking, disorganized. Thought content: Continues to deny suicidal ideations, intent or plan. Also denies homicidal ideation intent or plan. Abstract reasoning, and computation: Poor description of associations: concrete on testing Description of abnormal or psychotic thoughts: Denies, not observed. Judgment: poor, improved from yesterday after taking medications Insight: poor Orientation: X4 Recent and remote memory: Fair. Attention span and concentration: both decreased Language: Armenian. Fund of knowledge: Average based on interview. Mood: "a little anxious" affect: Mildly decrease in disorganization, continues to be concrete, less paranoid DIAGNOSES: Schizoaffective disorder, bipolar type Cannabis use disorder Tobacco use disorder Rule out borderline personality disorder Conjunctivitis ASSESSMENT: Explained to patient in process for safely being discharged, educated on the need for him to be compliant with medications as has helped him with organizing his thoughts, reducing his paranoia, improving his sleep, despite this patient continues to be ambivalent about taking medications, discussed possibly starting a long-acting injectable of Risperdal patient will think about this option but is refusing it today. Explained that if he continues to refuse medications we will continue to pursue the TOO, explained the basic process and the reason for seeking this mental health hearing. MANAGEMENT PLAN: Continue to offer medications, ordered TOO pending further evaluation if noncompliant on medications as to start taking medications again, patient on 2 PC status, encouraged to attend groups, court granted retention 06/28 CT head from 06/14 negative TIME SPENT: 25 minutes Vital Signs Vital Signs Date Time Temp Pulse Resp B/P (MAP) Pulse Ox O2 Delivery O2 Flow Rate FiO2 07/06/21 06:23 98.3 66 18 107/65 (79) 100 07/04/21 07:01 Room Air Current Medications Current Medications Medications (Trade) Dose Ordered Sig/Davida Route PRN Reason Start Time Stop Time Status Last Admin Dose Admin Acetaminophen (Tylenol Tab) 650 mg Q6HP PRN PO HEADACHE or MILD DISCOMFORT 06/11/21 23:05 Al Hydrox/Mg Hydrox/Simethicone (Mylanta) 30 ml Q4HP PRN PO HEARTBURN/INDIGESTION 06/11/21 23:05 Benztropine Mesylate (Cogentin) 1 mg BIDP PO 06/23/21 08:45 06/23/21 09:00 DC Benztropine Mesylate (Cogentin) 1 mg BIDP PRN PO SPASMS 06/23/21 09:00 Bupropion HCl (Wellbutrin Xl) 150 mg QAM PO 06/20/21 09:00 07/06/21 08:38 Divalproex Sodium (Depakote Er) 250 mg QHS PO 06/23/21 21:00 07/05/21 21:06 Divalproex Sodium (Depakote Er) 750 mg DAILY PO 06/12/21 09:00 06/15/21 11:55 DC 06/15/21 09:10 Divalproex Sodium (Depakote Er) 1,000 mg DAILY PO 06/16/21 09:00 06/23/21 08:47 DC 06/22/21 09:12 Divalproex Sodium (Depakote Er) 1,000 mg QHS PO 06/23/21 21:00 07/05/21 21:07 Divalproex Sodium (Depakote Er) 1,500 mg DAILY PO 06/23/21 09:00 06/23/21 08:56 DC Erythromycin (Ilotycin) 1 CM RIBBON QHS OS 06/20/21 21:00 07/02/21 14:06 DC 06/28/21 22:08 Home Med (Home Med List Complete!) ASDIRECTED XX 06/11/21 05:45 06/11/21 05:46 DC Hydroxyzine HCl (Atarax) 50 mg Q4HP PRN PO ANXIETY/AGITATION 06/12/21 08:00 06/14/21 12:14 DC 06/14/21 12:05 Hydroxyzine HCl (Atarax) 50 mg Q8H PO 06/14/21 22:00 07/02/21 14:06 DC 06/29/21 05:55 Hydroxyzine HCl (Atarax) 50 mg Q8H PRN PO Anxiety 07/02/21 14:05 Lurasidone HCl (Latuda) 20 mg DAILY@08 PO 06/12/21 08:00 06/14/21 08:59 DC 06/14/21 07:52 Lurasidone HCl (Latuda) 40 mg QHS PO 06/14/21 21:00 06/14/21 09:50 DC Lurasidone HCl (Latuda) 40 mg QHS PO 06/15/21 21:00 06/15/21 11:55 DC Lurasidone HCl (Latuda) 60 mg QHS PO 06/15/21 21:00 07/03/21 09:14 DC 07/02/21 21:20 Magnesium Hydroxide (Milk Of Magnesia) 30 ml DAILYPRN PRN PO CONSTIPATION 06/11/21 23:05 Nicotine (Nicoderm Cq 14mg) 1 patch DAILY TD 06/12/21 09:00 07/02/21 14:06 DC 06/20/21 09:36 Ofloxacin (Ocuflox 0.3% Ophth Buffy) 2 drop QID OS 06/20/21 17:00 07/02/21 14:06 DC 06/20/21 18:20 Olanzapine (ZyPREXA) 5 mg Q6HP PRN PO ANXIETY/AGITATION 06/12/21 08:00 Oxcarbazepine (Trileptal) 150 mg BID PO 06/11/21 09:00 06/12/21 01:50 DC 06/11/21 21:04 Oxcarbazepine (Trileptal) 150 mg BID PO 06/12/21 09:00 Cancel Oxcarbazepine (Trileptal) 300 mg BID PO 06/11/21 09:00 06/11/21 09:46 DC Oxcarbazepine (Trileptal) 300 mg BID PO 06/11/21 21:00 06/11/21 09:22 DC Propranolol HCl (Inderal) 10 mg BID PO 06/22/21 21:00 07/02/21 14:06 DC 06/28/21 22:07 Ramelteon (Rozerem) 8 mg QHS PO 06/15/21 21:00 07/02/21 14:06 DC 06/28/21 22:07 Ramelteon (Rozerem) 8 mg QHS PRN PO insomnia 07/02/21 21:00 Risperidone (RisperDAL) 1 mg QHS PO 07/03/21 21:00 07/04/21 08:19 DC 07/03/21 21:42 Risperidone (RisperDAL) 2 mg QHS PO 07/04/21 21:00 07/05/21 21:07 Risperidone (RisperDAL) 3 mg BID PO 06/11/21 09:00 06/12/21 01:50 DC 06/11/21 21:04 Risperidone (RisperDAL) 3 mg BID PO 06/12/21 09:00 Cancel Trazodone HCl (Desyrel) 50 mg QHSP PRN PO INSOMNIA 06/16/21 10:05 07/02/21 14:06 DC 06/18/21 21:29 Zolpidem Tartrate (Ambien) 5 mg QHS PO 06/11/21 21:00 06/11/21 11:18 DC Zolpidem Tartrate (Ambien) 5 mg QHSP PRN PO SLEEP 06/11/21 21:00 06/11/21 23:20 DC 06/11/21 21:04 Zolpidem Tartrate (Ambien) 5 mg QHSP PRN PO INSOMNIA 06/11/21 23:05 06/11/21 23:21 DC Zolpidem Tartrate (Ambien) 5 mg QHSP PRN PO INSOMNIA 06/12/21 21:00 06/12/21 08:07 DC Allergies Coded Allergies: No Known Drug Allergies (Verified Allergy, Unknown, 05/11/21) JULISSA STUBBS MD Jul 06, 2021 11:02
[2021-07-06 18:26] VITALS: BP 118/69
[2021-07-06] MEDS: risperiDONE 1 MG TAB PO SCH (21:45)
[2021-07-06] MEDS: DIVALPROEX 250MG *ER* TAB PO SCH (21:45)
[2021-07-06] MEDS: DIVALPROEX 500MG *ER* TAB PO SCH (21:45)
[2021-07-07 07:29] VITALS: BP 122/61
[2021-07-07] MEDS: buPROPion **XL** TABLET 150MG (WELLBUTRIN XL) PO SCH (08:42)
--- NOTE | 2021-07-07 10:47 | MHIPNPDOC ---
[facility] Progress Note Progress Note DATE OF SERVICE: 07/07/21 HISTORY: Patient is a 30 -year-old , male, who came in with mother due to racing thoughts, reports suicidal thoughts, with plan to get some vodka and Vicodin and cut femoral artery, has been reporting psychosis since May, previously had been reporting depression. Reports being unable to sleep, and that this may be contributing to AH. Reports 1 SA in 2013, in context of breaking up with a partner. States was hearing voices to hurt his mother, reports 1 voice, unrecognizable. Patient returned to the hospital and was previ ously sent home due to racing thoughts in context of not taking his medications, and planning to see therapist Liban Raymundo 06/13, Dr Galloway at [facility] 06/15. Despite this plan reports worsening SI and so came in to the ED. Per PSA report: "Pt states that he has command AH that tell him to kill his mother. Pt denies HI & states he does not want to act on the command AH. Pt also reports SI with a plan to OD on Vicodin & Vodka & then cut his femoral artery. He has a hx of one suicide attempt in 2013 via OD. Pt denies any hx of self-harm. Pt c/o depressed mood, anxiety, poor concentration, decreased energy levels, & poor sleep. Pt states that he has only been sleeping 2-4 hours per night for the past three weeks. Initially pt was unable to identify any stressors, but later stated that he is having financial px's because he is not working & cannot pay his student loans. Pt has a hx of Bipolar D/O with three admissions. He has OP tx at [facility]. He states he had an intake after his last DC & he is supposed to have an appointment with Liban for therapy & with Dr. Galloway for meds later this week. Pt states he has used alcohol in the past but states he has not used in a year. Pt reports occasional MJ use & his tox screen was positive for cannabis. Pt states he has also used cocaine in the past. Interval: Patient was seen in private office on the unit, eye contact is improved, appears more calm on interview states mood is "even", continues to perseverate on reason for admission stating "what is going on", but denies that he thinks there is legal troubles for him further questioning, reports getting 5 to 6 hours of sleep nightly, denies medication side effects, on testing continues to be concrete with proverb interpretation and associations, denies suicidal ideation intent or plan. Did not take ramelteon for sleep was encouraged to take if sleep is poor, is now consistent with medications including Depakote and Risperdal for 2 days consecutively. Started attending groups again, went to group yesterday and was encouraged to continue going to groups. Appetite is reported to be normal, no acute physical complaints. Patie nt is no longer endorsing anxiety today. VITAL SIGNS: See below. NEW TEST RESULTS: see below CURRENT MEDICATIONS: See below. MENTAL STATUS EXAMINATION: Patient is a 30-year old male, who appears stated age, avoidant eye contact, thought blocking, short buzz cut hair, somewhat improved hygiene, still has better R[place], in hospital clothes Speech: Is now spontaneous, normal amount, mildly slowed Language skills are intact. Thought processes including: Circumstantial, decreased thought blocking, less disorganized. Thought content: Denies suicidal ideations, intent or plan. Also denies homicidal ideation intent or plan. Abstract reasoning, and computation: Poor description of associations: Continues to be concrete on testing Description of abnormal or psychotic thoughts: Denies, not observed. Judgment: Improving Insight: poor Orientation: X4 Recent and remote memory: Fair. Attention span and concentration: both decreased Language: Algerian. Fund of knowledge: Average based on interview. Mood: "Even" affect: Less disorganized, less paranoid, blunted, mood congruent, no longer anxious DIAGNOSES: Schizoaffective disorder, bipolar type Cannabis use disorder Tobacco use disorder Rule out borderline personality disorder Conjunctivitis ASSESSMENT: Patient continues to refuse IM LAMAS Risperdal Consta despite education and encouragement, stating he is afraid of needles, reports reduced anxiety and is now consistent with medications for 2 days consecutively with decreased disorganization, spontaneous speech, improved eye contact, sleep remains 5 to 6 hours, denies medication side effects or acute physical complaints. Continues to have poor insight into her admission process but appears less paranoid, continues to require stay for acute stabilization. MANAGEMENT PLAN: Increase Risperdal from 2 to 3 mg nightly. TOO is held currently as patient consistent with medications again, patient made aware if not consistent medications will pursue TOO, care coordinated with social work, patient on 2 PC status, encouraged to attend groups and has started attending groups, court granted retention 06/28. Depakote level 62.3 07/04, within normal range. CT head from 06/14 negative TIME SPENT: 20 minutes Vital Signs Vital Signs Date Time Temp Pulse Resp B/P (MAP) Pulse Ox O2 Delivery O2 Flow Rate FiO2 07/07/21 07:29 98.6 96 18 122/61 (81) 96 Room Air Current Medications Current Medications Medications (Trade) Dose Ordered Sig/Davida Route PRN Reason Start Time Stop Time Status Last Admin Dose Admin Acetaminophen (Tylenol Tab) 650 mg Q6HP PRN PO HEADACHE or MILD DISCOMFORT 06/11/21 23:05 Al Hydrox/Mg Hydrox/Simethicone (Mylanta) 30 ml Q4HP PRN PO HEARTBURN/INDIGESTION 06/11/21 23:05 Benztropine Mesylate (Cogentin) 1 mg BIDP PO 06/23/21 08:45 06/23/21 09:00 DC Benztropine Mesylate (Cogentin) 1 mg BIDP PRN PO SPASMS 06/23/21 09:00 Bupropion HCl (Wellbutrin Xl) 150 mg QAM PO 06/20/21 09:00 07/07/21 08:42 Divalproex Sodium (Depakote Er) 250 mg QHS PO 06/23/21 21:00 07/06/21 21:45 Divalproex Sodium (Depakote Er) 750 mg DAILY PO 06/12/21 09:00 06/15/21 11:55 DC 06/15/21 09:10 Divalproex Sodium (Depakote Er) 1,000 mg DAILY PO 06/16/21 09:00 06/23/21 08:47 DC 06/22/21 09:12 Divalproex Sodium (Depakote Er) 1,000 mg QHS PO 06/23/21 21:00 07/06/21 21:45 Divalproex Sodium (Depakote Er) 1,500 mg DAILY PO 06/23/21 09:00 06/23/21 08:56 DC Erythromycin (Ilotycin) 1 CM RIBBON QHS OS 06/20/21 21:00 07/02/21 14:06 DC 06/28/21 22:08 Home Med (Home Med List Complete!) ASDIRECTED XX 06/11/21 05:45 06/11/21 05:46 DC Hydroxyzine HCl (Atarax) 50 mg Q4HP PRN PO ANXIETY/AGITATION 06/12/21 08:00 06/14/21 12:14 DC 06/14/21 12:05 Hydroxyzine HCl (Atarax) 50 mg Q8H PO 06/14/21 22:00 07/02/21 14:06 DC 06/29/21 05:55 Hydroxyzine HCl (Atarax) 50 mg Q8H PRN PO Anxiety 07/02/21 14:05 Lurasidone HCl (Latuda) 20 mg DAILY@08 PO 06/12/21 08:00 06/14/21 08:59 DC 06/14/21 07:52 Lurasidone HCl (Latuda) 40 mg QHS PO 06/14/21 21:00 06/14/21 09:50 DC Lurasidone HCl (Latuda) 40 mg QHS PO 06/15/21 21:00 06/15/21 11:55 DC Lurasidone HCl (Latuda) 60 mg QHS PO 06/15/21 21:00 07/03/21 09:14 DC 07/02/21 21:20 Magnesium Hydroxide (Milk Of Magnesia) 30 ml DAILYPRN PRN PO CONSTIPATION 06/11/21 23:05 Nicotine (Nicoderm Cq 14mg) 1 patch DAILY TD 06/12/21 09:00 07/02/21 14:06 DC 06/20/21 09:36 Ofloxacin (Ocuflox 0.3% Ophth Buffy) 2 drop QID OS 06/20/21 17:00 07/02/21 14:06 DC 06/20/21 18:20 Olanzapine (ZyPREXA) 5 mg Q6HP PRN PO ANXIETY/AGITATION 06/12/21 08:00 Oxcarbazepine (Trileptal) 150 mg BID PO 06/11/21 09:00 06/12/21 01:50 DC 06/11/21 21:04 Oxcarbazepine (Trileptal) 150 mg BID PO 06/12/21 09:00 Cancel Oxcarbazepine (Trileptal) 300 mg BID PO 06/11/21 09:00 06/11/21 09:46 DC Oxcarbazepine (Trileptal) 300 mg BID PO 06/11/21 21:00 06/11/21 09:22 DC Propranolol HCl (Inderal) 10 mg BID PO 06/22/21 21:00 07/02/21 14:06 DC 06/28/21 22:07 Ramelteon (Rozerem) 8 mg QHS PO 06/15/21 21:00 07/02/21 14:06 DC 06/28/21 22:07 Ramelteon (Rozerem) 8 mg QHS PRN PO insomnia 07/02/21 21:00 Risperidone (RisperDAL) 1 mg QHS PO 07/03/21 21:00 07/04/21 08:19 DC 07/03/21 21:42 Risperidone (RisperDAL) 2 mg QHS PO 07/04/21 21:00 07/06/21 21:45 Risperidone (RisperDAL) 3 mg BID PO 06/11/21 09:00 06/12/21 01:50 DC 06/11/21 21:04 Risperidone (RisperDAL) 3 mg BID PO 06/12/21 09:00 Cancel Trazodone HCl (Desyrel) 50 mg QHSP PRN PO INSOMNIA 06/16/21 10:05 07/02/21 14:06 DC 06/18/21 21:29 Zolpidem Tartrate (Ambien) 5 mg QHS PO 06/11/21 21:00 06/11/21 11:18 DC Zolpidem Tartrate (Ambien) 5 mg QHSP PRN PO SLEEP 06/11/21 21:00 06/11/21 23:20 DC 06/11/21 21:04 Zolpidem Tartrate (Ambien) 5 mg QHSP PRN PO INSOMNIA 06/11/21 23:05 06/11/21 23:21 DC Zolpidem Tartrate (Ambien) 5 mg QHSP PRN PO INSOMNIA 06/12/21 21:00 06/12/21 08:07 DC Allergies Coded Allergies: No Known Drug Allergies (Verified Allergy, Unknown, 05/11/21) JULISSA STUBBS MD Jul 07, 2021 10:47
[2021-07-07 18:53] VITALS: BP 137/84
[2021-07-07] MEDS: risperiDONE 1 MG TAB PO SCH (21:04)
[2021-07-07] MEDS: DIVALPROEX 250MG *ER* TAB PO SCH (21:04)
[2021-07-07] MEDS: DIVALPROEX 500MG *ER* TAB PO SCH (21:04)
[2021-07-08 06:27] VITALS: BP 126/67
[2021-07-08] MEDS: buPROPion **XL** TABLET 150MG (WELLBUTRIN XL) PO SCH (08:13)
[2021-07-08 17:53] VITALS: BP 123/79
[2021-07-08] MEDS: DIVALPROEX 500MG *ER* TAB PO SCH (20:02)
[2021-07-08] MEDS: risperiDONE 1 MG TAB PO SCH (20:03)
[2021-07-08] MEDS: DIVALPROEX 250MG *ER* TAB PO SCH (20:03)
[2021-07-09 07:30] VITALS: BP 115/58
[2021-07-09] MEDS: buPROPion **XL** TABLET 150MG (WELLBUTRIN XL) PO SCH (08:39)
[2021-07-09 19:11] VITALS: BP 120/63
[2021-07-09] MEDS: DIVALPROEX 250MG *ER* TAB PO SCH (21:26)
[2021-07-09] MEDS: DIVALPROEX 500MG *ER* TAB PO SCH (21:26)
[2021-07-09] MEDS: risperiDONE 1 MG TAB PO SCH (21:27)
[2021-07-10 06:51] VITALS: BP 119/61
[2021-07-10] MEDS ORDERED: risperiDONE LONG-ACTING 37.5 MG/2 ML INJ (J2794 PER 0.5MG) IM SCH (09:00)
[2021-07-10] MEDS: buPROPion **XL** TABLET 150MG (WELLBUTRIN XL) PO SCH (09:11)
--- NOTE | 2021-07-10 09:18 | MHIPNPDOC ---
[facility] Progress Note Progress Note DATE OF SERVICE: 07/10/21 HISTORY: Patient is a 30 -year-old , male, who came in with mother due to racing thoughts, reports suicidal thoughts, with plan to get some vodka and Vicodin and cut femoral artery, has been reporting psychosis since May, previously had been reporting depression. Reports being unable to sleep, and that this may be contributing to AH. Reports 1 SA in 2013, in context of breaking up with a partner. States was hearing voices to hurt his mother, reports 1 voice, unrecognizable. Patient returned to the hospital and was previ ously sent home due to racing thoughts in context of not taking his medications, and planning to see therapist Liban Raymundo 06/13, Dr Galloway at [facility] 06/15. Despite this plan reports worsening SI and so came in to the ED. Per PSA report: "Pt states that he has command AH that tell him to kill his mother. Pt denies HI & states he does not want to act on the command AH. Pt also reports SI with a plan to OD on Vicodin & Vodka & then cut his femoral artery. He has a hx of one suicide attempt in 2013 via OD. Pt denies any hx of self-harm. Pt c/o depressed mood, anxiety, poor concentration, decreased energy levels, & poor sleep. Pt states that he has only been sleeping 2-4 hours per night for the past three weeks. Initially pt was unable to identify any stressors, but later stated that he is having financial px's because he is not working & cannot pay his student loans. Pt has a hx of Bipolar D/O with three admissions. He has OP tx at [facility]. He states he had an intake after his last DC & he is supposed to have an appointment with Liban for therapy & with Dr. Galloway for meds later this week. Pt states he has used alcohol in the past but states he has not used in a year. Pt reports occasional MJ use & his tox screen was positive for cannabis. Pt states he has also used cocaine in the past. Interval: Patient continues to report that he feels a little nervous, denies suicidal or homicidal ideations, states he is ready to go home and feels easily stuck here forever, " because of being kept here so long", denies that he feels he has done something illegal, rather just wants to return home to his mother. Has been going to some groups. Has been compliant with medications. VITAL SIGNS: See below. NEW TEST RESULTS: see below CURRENT MEDICATIONS: See below. MENTAL STATUS EXAMINATION: Patient is a 30-year old male, who appears stated age, improved eye contact, less thought blocking, short buzz cut hair, improved hygiene, no longer pacing as much from the hallways, seen in the common area and going to groups. Speech: Is now spontaneous, normal amount, less slowed Language skills are intact. Thought processes including: Circumstantial Thought content: Denies suicidal ideations, intent or plan. Also denies homicidal ideation intent or plan. Abstract reasoning, and computation: [place] description of associations: Continues to be concrete on testing Description of abnormal or psychotic thoughts: Denies, not observed. Judgment: Improving Insight: Improving slowly Orientation: X4 Recent and remote memory: Fair. Attention span and concentration: both decreased Language: Arabic. Fund of knowledge: Average based on interview. Mood: "A little anxious" affect: Continues to be concrete, no longer appears paranoid, mildly anxious, mood congruent DIAGNOSES: Schizoaffective disorder, bipolar type Cannabis use disorder Tobacco use disorder Rule out borderline personality disorder Conjunctivitis ASSESSMENT: Patient has been compliant with medications is unsure if he wants to take Risperdal IM LAMAS, order placed for tomorrow 37.5 mg patient decide if he wants to take, was educated on the fact that it helps with medication compliance and stabilization of symptoms and that previously he had poor compliance. Despite this has been compliant with oral medications, denies acute physical symptoms, aims score equals 0, has been showering take care of basic ADLs since compliant medication and is now attending some groups, likely discharge Saturday if continues to improve on the unit. Sleep has been approximately 6 hours without the use of sleep medications. MANAGEMENT PLAN: Increase Risperdal from 3 to 4 mg nightly. TOO is held currently as patient consistent with medications again, patient made aware if not consistent medications will pursue TOO, care coordinated with social work, patient on 2 PC status, encouraged to attend groups and has started attending groups. court granted retention 06/28. Depakote level 62.3 07/04, within normal range. CT head from 06/14 negative TIME SPENT: 20 minutes Vital Signs Vital Signs Date Time Temp Pulse Resp B/P (MAP) Pulse Ox O2 Delivery O2 Flow Rate FiO2 07/10/21 06:51 98.3 96 18 119/61 (80) 97 Room Air Current Medications Current Medications Medications (Trade) Dose Ordered Sig/Davida Route PRN Reason Start Time Stop Time Status Last Admin Dose Admin Acetaminophen (Tylenol Tab) 650 mg Q6HP PRN PO HEADACHE or MILD DISCOMFORT 06/11/21 23:05 Al Hydrox/Mg Hydrox/Simethicone (Mylanta) 30 ml Q4HP PRN PO HEARTBURN/INDIGESTION 06/11/21 23:05 Benztropine Mesylate (Cogentin) 1 mg BIDP PO 06/23/21 08:45 06/23/21 09:00 DC Benztropine Mesylate (Cogentin) 1 mg BIDP PRN PO SPASMS 06/23/21 09:00 Bupropion HCl (Wellbutrin Xl) 150 mg QAM PO 06/20/21 09:00 07/10/21 09:11 Divalproex Sodium (Depakote Er) 250 mg QHS PO 06/23/21 21:00 07/09/21 21:26 Divalproex Sodium (Depakote Er) 750 mg DAILY PO 06/12/21 09:00 06/15/21 11:55 DC 06/15/21 09:10 Divalproex Sodium (Depakote Er) 1,000 mg DAILY PO 06/16/21 09:00 06/23/21 08:47 DC 06/22/21 09:12 Divalproex Sodium (Depakote Er) 1,000 mg QHS PO 06/23/21 21:00 07/09/21 21:26 Divalproex Sodium (Depakote Er) 1,500 mg DAILY PO 06/23/21 09:00 06/23/21 08:56 DC Erythromycin (Ilotycin) 1 CM RIBBON QHS OS 06/20/21 21:00 07/02/21 14:06 DC 06/28/21 22:08 Home Med (Home Med List Complete!) ASDIRECTED XX 06/11/21 05:45 06/11/21 05:46 DC Hydroxyzine HCl (Atarax) 50 mg Q4HP PRN PO ANXIETY/AGITATION 06/12/21 08:00 06/14/21 12:14 DC 06/14/21 12:05 Hydroxyzine HCl (Atarax) 50 mg Q8H PO 06/14/21 22:00 07/02/21 14:06 DC 06/29/21 05:55 Hydroxyzine HCl (Atarax) 50 mg Q8H PRN PO Anxiety 07/02/21 14:05 Lurasidone HCl (Latuda) 20 mg DAILY@08 PO 06/12/21 08:00 06/14/21 08:59 DC 06/14/21 07:52 Lurasidone HCl (Latuda) 40 mg QHS PO 06/14/21 21:00 06/14/21 09:50 DC Lurasidone HCl (Latuda) 40 mg QHS PO 06/15/21 21:00 06/15/21 11:55 DC Lurasidone HCl (Latuda) 60 mg QHS PO 06/15/21 21:00 07/03/21 09:14 DC 07/02/21 21:20 Magnesium Hydroxide (Milk Of Magnesia) 30 ml DAILYPRN PRN PO CONSTIPATION 06/11/21 23:05 Nicotine (Nicoderm Cq 14mg) 1 patch DAILY TD 06/12/21 09:00 07/02/21 14:06 DC 06/20/21 09:36 Ofloxacin (Ocuflox 0.3% Ophth Buffy) 2 drop QID OS 06/20/21 17:00 07/02/21 14:06 DC 06/20/21 18:20 Olanzapine (ZyPREXA) 5 mg Q6HP PRN PO ANXIETY/AGITATION 06/12/21 08:00 Oxcarbazepine (Trileptal) 150 mg BID PO 06/11/21 09:00 06/12/21 01:50 DC 06/11/21 21:04 Oxcarbazepine (Trileptal) 150 mg BID PO 06/12/21 09:00 Cancel Oxcarbazepine (Trileptal) 300 mg BID PO 06/11/21 09:00 06/11/21 09:46 DC Oxcarbazepine (Trileptal) 300 mg BID PO 06/11/21 21:00 06/11/21 09:22 DC Propranolol HCl (Inderal) 10 mg BID PO 06/22/21 21:00 07/02/21 14:06 DC 06/28/21 22:07 Ramelteon (Rozerem) 8 mg QHS PO 06/15/21 21:00 07/02/21 14:06 DC 06/28/21 22:07 Ramelteon (Rozerem) 8 mg QHS PRN PO insomnia 07/02/21 21:00 Risperidone (RisperDAL Consta) 37.5 mg Q14D@09 IM 07/10/21 09:00 Risperidone (RisperDAL) 1 mg QHS PO 07/03/21 21:00 07/04/21 08:19 DC 07/03/21 21:42 Risperidone (RisperDAL) 2 mg QHS PO 07/04/21 21:00 07/07/21 10:46 DC 07/06/21 21:45 Risperidone (RisperDAL) 3 mg BID PO 06/11/21 09:00 06/12/21 01:50 DC 06/11/21 21:04 Risperidone (RisperDAL) 3 mg BID PO 06/12/21 09:00 Cancel Risperidone (RisperDAL) 3 mg QHS PO 07/07/21 21:00 07/10/21 08:21 DC 07/09/21 21:27 Risperidone (RisperDAL) 4 mg QHS PO 07/10/21 21:00 Trazodone HCl (Desyrel) 50 mg QHSP PRN PO INSOMNIA 06/16/21 10:05 07/02/21 14:06 DC 06/18/21 21:29 Zolpidem Tartrate (Ambien) 5 mg QHS PO 06/11/21 21:00 06/11/21 11:18 DC Zolpidem Tartrate (Ambien) 5 mg QHSP PRN PO SLEEP 06/11/21 21:00 06/11/21 23:20 DC 06/11/21 21:04 Zolpidem Tartrate (Ambien) 5 mg QHSP PRN PO INSOMNIA 06/11/21 23:05 06/11/21 23:21 DC Zolpidem Tartrate (Ambien) 5 mg QHSP PRN PO INSOMNIA 06/12/21 21:00 06/12/21 08:07 DC Allergies Coded Allergies: No Known Drug Allergies (Verified Allergy, Unknown, 05/11/21) JULISSA STUBBS MD Jul 10, 2021 09:18
[2021-07-10 16:16] VITALS: BP 117/64
[2021-07-10] MEDS ORDERED: risperiDONE 2 MG TAB PO SCH (21:00)
[2021-07-10] MEDS: DIVALPROEX 250MG *ER* TAB PO SCH (21:06)
[2021-07-10] MEDS: DIVALPROEX 500MG *ER* TAB PO SCH (21:06)
[2021-07-11 07:21] VITALS: BP 120/61
[2021-07-11] MEDS: buPROPion **XL** TABLET 150MG (WELLBUTRIN XL) PO SCH (09:21)
--- NOTE | 2021-07-11 12:14 | MHIPNPDOC ---
[facility] Progress Note Progress Note DATE OF SERVICE: 07/11/21 HISTORY: Patient is a 30 -year-old , male, who came in with mother due to racing thoughts, reports suicidal thoughts, with plan to get some vodka and Vicodin and cut femoral artery, has been reporting psychosis since May, previously had been reporting depression. Reports being unable to sleep, and that this may be contributing to AH. Reports 1 SA in 2013, in context of breaking up with a partner. States was hearing voices to hurt his mother, reports 1 voice, unrecognizable. Patient returned to the hospital and was previ ously sent home due to racing thoughts in context of not taking his medications, and planning to see therapist Liban Raymundo 06/13, Dr Galloway at [facility] 06/15. Despite this plan reports worsening SI and so came in to the ED. Per PSA report: "Pt states that he has command AH that tell him to kill his mother. Pt denies HI & states he does not want to act on the command AH. Pt also reports SI with a plan to OD on Vicodin & Vodka & then cut his femoral artery. He has a hx of one suicide attempt in 2013 via OD. Pt denies any hx of self-harm. Pt c/o depressed mood, anxiety, poor concentration, decreased energy levels, & poor sleep. Pt states that he has only been sleeping 2-4 hours per night for the past three weeks. Initially pt was unable to identify any stressors, but later stated that he is having financial px's because he is not working & cannot pay his student loans. Pt has a hx of Bipolar D/O with three admissions. He has OP tx at [facility]. He states he had an intake after his last DC & he is supposed to have an appointment with Liban for therapy & with Dr. Galloway for meds later this week. Pt states he has used alcohol in the past but states he has not used in a year. Pt reports occasional MJ use & his tox screen was positive for cannabis. Pt states he has also used cocaine in the past. Interval: Continues to deny suicidal ideations, homicidal ideations, continues to be somewhat concrete on proverb interpretation, understands why he was admitted, A/Ox4, speech is nonspontaneous, more engaged in conversation with appropriate eye contact, improved hygiene, taking medications, refused injection because he does not like needles but is agreeable to continue oral medications, has been attending some groups. Sleep continues to be within 5 to 6 hours without sleep medications. No acute physical complaints, states he wants to return home, today on questioning is more future oriented about his plan when he leaves and spontaneously talked about going to seek out his CPA, "get back on track so I can find a job", aware he will need to take medications in order to maintain stability and she was goals. Patient and mother Elise Ponce made aware of possible discharge tomorrow so that "social work can coordinate a safe discharge plan. 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 He was talking about using cannabis, thinks he can use it for stress in life. He thinks patients walking by making fun of him for his diagnosis and situation, talk about using different things like medications and drugs at times, he is also wondering about why they are doing construction on the unit." VITAL SIGNS: See below. NEW TEST RESULTS: see below CURRENT MEDICATIONS: See below. MENTAL STATUS EXAMINATION: Patient is a 30-year old male, who appears stated age, improved eye contact, less thought blocking, short buzz cut hair, improved hygiene, no longer pacing as much from the hallways, seen in the common area and going to groups. Speech: Is now spontaneous, normal amount, less slowed Language skills are intact. Thought processes including: Circumstantial Thought content: Denies suicidal ideations, intent or plan. Also denies homicidal ideation intent or plan. Abstract reasoning, and computation: [place] description of associations: Continues to be concrete on testing Description of abnormal or psychotic thoughts: Denies, not observed. Judgment: Improving Insight: Improving slowly Orientation: X4 Recent and remote memory: Fair. Attention span and concentration: both decreased Language: Paraguayan. Fund of knowledge: Average based on interview. Mood: "better doc, feel ready to go home" affect: Continues to be less concrete, euthymic, no longer paranoid DIAGNOSES: Schizoaffective disorder, bipolar type Cannabis use disorder Tobacco use disorder Rule out borderline personality disorder Conjunctivitis, improved ASSESSMENT: Patient appears more euthymic, spontaneous in conversation and more engaged, more future oriented talking about proceeding CPA, had reported thoughts of using cannabis to mother and was educated about substance use and risk for worsening condition. Patient's mother Elise and patient made aware plan, patient denies SI, intent or plan. Denies HI, intent or plan. MANAGEMENT PLAN: Increase Risperdal to 5 mg nightly. TOO is held currently as patient consistent with medications again, patient made aware if not consistent medications will pursue TOO, care coordinated with social work, patient on 2 PC status, encouraged to attend groups and has started attending some groups. court granted retention 06/28. Depakote level 62.3 07/04, within normal range. CT head from 06/14 negative TIME SPENT: 35 minutes Vital Signs Vital Signs Date Time Temp Pulse Resp B/P (MAP) Pulse Ox O2 Delivery O2 Flow Rate FiO2 07/11/21 07:21 98.9 99 18 120/61 (80) 97 Room Air Laboratory Data 24H Labs Laboratory Tests 2 07/10/21 17:00: Coronavirus (COVID-19)(PCR) NEGATIVE Current Medications Current Medications Medications (Trade) Dose Ordered Sig/Davida Route PRN Reason Start Time Stop Time Status Last Admin Dose Admin Acetaminophen (Tylenol Tab) 650 mg Q6HP PRN PO HEADACHE or MILD DISCOMFORT 06/11/21 23:05 Al Hydrox/Mg Hydrox/Simethicone (Mylanta) 30 ml Q4HP PRN PO HEARTBURN/INDIGESTION 06/11/21 23:05 Benztropine Mesylate (Cogentin) 1 mg BIDP PO 06/23/21 08:45 06/23/21 09:00 DC Benztropine Mesylate (Cogentin) 1 mg BIDP PRN PO SPASMS 06/23/21 09:00 Bupropion HCl (Wellbutrin Xl) 150 mg QAM PO 06/20/21 09:00 07/11/21 09:21 Divalproex Sodium (Depakote Er) 250 mg QHS PO 06/23/21 21:00 07/10/21 21:06 Divalproex Sodium (Depakote Er) 750 mg DAILY PO 06/12/21 09:00 06/15/21 11:55 DC 06/15/21 09:10 Divalproex Sodium (Depakote Er) 1,000 mg DAILY PO 06/16/21 09:00 06/23/21 08:47 DC 06/22/21 09:12 Divalproex Sodium (Depakote Er) 1,000 mg QHS PO 06/23/21 21:00 07/10/21 21:06 Divalproex Sodium (Depakote Er) 1,500 mg DAILY PO 06/23/21 09:00 06/23/21 08:56 DC Erythromycin (Ilotycin) 1 CM RIBBON QHS OS 06/20/21 21:00 07/02/21 14:06 DC 06/28/21 22:08 Home Med (Home Med List Complete!) ASDIRECTED XX 06/11/21 05:45 06/11/21 05:46 DC Hydroxyzine HCl (Atarax) 50 mg Q4HP PRN PO ANXIETY/AGITATION 06/12/21 08:00 06/14/21 12:14 DC 06/14/21 12:05 Hydroxyzine HCl (Atarax) 50 mg Q8H PO 06/14/21 22:00 07/02/21 14:06 DC 06/29/21 05:55 Hydroxyzine HCl (Atarax) 50 mg Q8H PRN PO Anxiety 07/02/21 14:05 Lurasidone HCl (Latuda) 20 mg DAILY@08 PO 06/12/21 08:00 06/14/21 08:59 DC 06/14/21 07:52 Lurasidone HCl (Latuda) 40 mg QHS PO 06/14/21 21:00 06/14/21 09:50 DC Lurasidone HCl (Latuda) 40 mg QHS PO 06/15/21 21:00 06/15/21 11:55 DC Lurasidone HCl (Latuda) 60 mg QHS PO 06/15/21 21:00 07/03/21 09:14 DC 07/02/21 21:20 Magnesium Hydroxide (Milk Of Magnesia) 30 ml DAILYPRN PRN PO CONSTIPATION 06/11/21 23:05 Nicotine (Nicoderm Cq 14mg) 1 patch DAILY TD 06/12/21 09:00 07/02/21 14:06 DC 06/20/21 09:36 Ofloxacin (Ocuflox 0.3% Ophth Buffy) 2 drop QID OS 06/20/21 17:00 07/02/21 14:06 DC 06/20/21 18:20 Olanzapine (ZyPREXA) 5 mg Q6HP PRN PO ANXIETY/AGITATION 06/12/21 08:00 Oxcarbazepine (Trileptal) 150 mg BID PO 06/11/21 09:00 06/12/21 01:50 DC 06/11/21 21:04 Oxcarbazepine (Trileptal) 150 mg BID PO 06/12/21 09:00 Cancel Oxcarbazepine (Trileptal) 300 mg BID PO 06/11/21 09:00 06/11/21 09:46 DC Oxcarbazepine (Trileptal) 300 mg BID PO 06/11/21 21:00 06/11/21 09:22 DC Propranolol HCl (Inderal) 10 mg BID PO 06/22/21 21:00 07/02/21 14:06 DC 06/28/21 22:07 Ramelteon (Rozerem) 8 mg QHS PO 06/15/21 21:00 07/02/21 14:06 DC 06/28/21 22:07 Ramelteon (Rozerem) 8 mg QHS PRN PO insomnia 07/02/21 21:00 Risperidone (RisperDAL Consta) 37.5 mg Q14D@09 IM 07/10/21 09:00 Risperidone (RisperDAL) 1 mg QHS PO 07/03/21 21:00 07/04/21 08:19 DC 07/03/21 21:42 Risperidone (RisperDAL) 2 mg QHS PO 07/04/21 21:00 07/07/21 10:46 DC 07/06/21 21:45 Risperidone (RisperDAL) 3 mg BID PO 06/11/21 09:00 06/12/21 01:50 DC 06/11/21 21:04 Risperidone (RisperDAL) 3 mg BID PO 06/12/21 09:00 Cancel Risperidone (RisperDAL) 3 mg QHS PO 07/07/21 21:00 07/10/21 08:21 DC 07/09/21 21:27 Risperidone (RisperDAL) 4 mg QHS PO 07/10/21 21:00 07/10/21 21:07 Trazodone HCl (Desyrel) 50 mg QHSP PRN PO INSOMNIA 06/16/21 10:05 07/02/21 14:06 DC 06/18/21 21:29 Zolpidem Tartrate (Ambien) 5 mg QHS PO 06/11/21 21:00 06/11/21 11:18 DC Zolpidem Tartrate (Ambien) 5 mg QHSP PRN PO SLEEP 06/11/21 21:00 06/11/21 23:20 DC 06/11/21 21:04 Zolpidem Tartrate (Ambien) 5 mg QHSP PRN PO INSOMNIA 06/11/21 23:05 06/11/21 23:21 DC Zolpidem Tartrate (Ambien) 5 mg QHSP PRN PO INSOMNIA 06/12/21 21:00 06/12/21 08:07 DC Allergies Coded Allergies: No Known Drug Allergies (Verified Allergy, Unknown, 05/11/21) JULISSA STUBBS MD Jul 11, 2021 12:14
[2021-07-11] MEDS ORDERED: PILL CUTTER 1 EACH XX PRN (12:45)
[2021-07-11 16:26] VITALS: BP 132/67
[2021-07-11] MEDS ORDERED: risperiDONE 2 MG TAB PO SCH (21:00)
[2021-07-11] MEDS: DIVALPROEX 500MG *ER* TAB PO SCH (21:20)
[2021-07-11] MEDS: DIVALPROEX 250MG *ER* TAB PO SCH (21:21)
[2021-07-12 06:49] VITALS: BP 126/72
[2021-07-12] MEDS ORDERED: RISP-9 PO (08:18)
[2021-07-12] MEDS ORDERED: DEPA500T2 PO (08:18)
[2021-07-12] MEDS ORDERED: DEPA250T2 PO (08:18)
[2021-07-12] MEDS ORDERED: BUPR150T12 PO (08:18)
[2021-07-12] MEDS: buPROPion **XL** TABLET 150MG (WELLBUTRIN XL) PO SCH (08:25)
[2021-07-12] MEDS ORDERED: RISP1TAB42 PO (10:04)
[2021-07-12] MEDS ORDERED: RISP4TAB33 PO (10:04)
--- NOTE | 2021-07-12 11:37 | MHDSPDOC ---
[facility] Discharge Summary Discharge Summary DATE OF ADMISSION: Jun 11, 2021 at 23:05 DATE OF DISCHARGE: July 12, 2021 Discharge diagnoses: Schizoaffective disorder, bipolar type Cannabis use disorder Tobacco use disorder Reason for admission: Patient is a 30 -year-old , male, who came in with mother due to racing thoughts, reports suicidal thoughts, with plan to get some vodka and Vicodin and cut femoral artery, has been reporting psychosis since May, previously had been reporting depression. Reports being unable to sleep, and that this may be contributing to AH. Reports 1 SA in 2013, in context of breaking up with a partner. States was hearing voices to hurt his mother, reports 1 voice, unrecognizable. Patient returned to the hospital and was previously sent home due to racing thoughts in context of not taking his medications, and planning to see therapist Liban Raymundo 06/13, Dr Galloway at [facility] 06/15. Despite this plan reports worsening SI and so came in to the ED. Per PSA report: "Pt states that he has command AH that tell him to kill his mother. Pt denies HI & states he does not want to act on the command AH. Pt also reports SI with a plan to OD on Vicodin & Vodka & then cut his femoral artery. He has a hx of one suicide attempt in 2013 via OD. Pt denies any hx of self-harm. Pt c/o depressed mood, anxiety, poor concentration, decreased energy levels, & poor sleep. Pt states that he has only been sleeping 2-4 hours per night for the past three weeks. Initially pt was unable to identify any stressors, but later stated that he is having financial px's because he is not working & cannot pay his student loans. Pt has a hx of Bipolar D/O with three admissions. He has OP tx at [facility]. He s tates he had an intake after his last DC & he is supposed to have an appointment with Liban for therapy & with Dr. Galloway for meds later this week. Pt states he has used alcohol in the past but states he has not used in a year. Pt reports occasional MJ use & his tox screen was positive for cannabis. Pt states he has also used cocaine in the past. Vital signs: See below Consultants involved: See medical H&P by hospitalist Treatment and progress on the unit: Patient was admitted to the [facility] on a 9.39 legal status and was afforded the following treatment modalities: 1. Individual therapy 2. Group therapy 3. Medication management 4. Milieu therapy 5. Safe environment Hospital course: Patient was admitted to the [facility] on a 9.39 legal status. Present to the ED after self discontinuing medications including carbamazepine and Risperdal, was reporting suicidal ideations and homicidal ideations towards mother. Toxicology screen is positive for cannabis. Was medically cleared prior to coming up to the [facility]. CT head was ordered and negative patient was started on Depakote which was titrated up to 1250 mg p.o. nightly, and Risperdal which was titrated up to 5 mg nightly. For the majority of stay patient had been noncompliant with medications initially stating that he did not want to take medications and also wanted discharge home, court retention hearing was held and granted June 28, 2021. Patient then started to be consistent with medications with redirection and encouragement from multiple staff. Per discharge been compliant with medications for 1 week consistently, 07/04 Depakote level was within normal limits and found to be 62.3 after being compliant with medications for several days. Patient denied any significant side effects from medications including oversedation, tight muscles, aims scoring was 0 during stay evaluation, no signs of tardive dyskinesia, sleep was initially poor upon admission with patient state he got less than 2 hours nightly, per collateral from mother Elise Ponce (whom was contacted multiple times during stay by myself and other staff to provide updates per request and for obtaining history from patient) states that he has had trouble sleeping since childhood and hand recently has had a change in mental status which concerned her, was acting bizarrely reportedly, reported that she also found stimulants and is even using cannabis, patient was educated about substance use and risk of worsening psychosis, jorge, risk for suicide and impulsive harm to self and others. When compliant with medication started attending some groups, and endorse that he wanted to attend more groups but that they had not been held frequently over the weekend due to limited staff which was confirmed. Sleep also improved and was 6 to 7 hours prior to discharge reportedly, had been 5 to 6 hours on previous days reportedly. Patient reports that mood is improved, no longer appears paranoid and states he feels ready to return home. During stay treatment over objection was initiated, but not carried out with a hearing as patient became compliant with medications prior to hearing. Patient was offered Risperdal Consta IM LAMAS 37.5 mg every 2 weeks and educated about the benefits, risks versus alternatives, due to his history of noncompliance, patient decided he wanted to stay on oral medication and refused injections due to fear of needles. Patient found medications beneficial and tolerated them well. Denies mood anxiety and intrusive thoughts which improved with treatment. Patient attended groups daily during stay. Patient symptoms improved with treatment. On day of discharge patient denied depression, anxiety, insomnia, suicidal or homicidal ideations intent or plan, hallucinations, delusions. Patient was discharged home with follow-up. Patient felt safe for discharge. Was offered continued stay on voluntary admission but refused. Mother Elise Ponce was made aware and involved in safety planning, including removing any drugs from home or pill collections or sharp objects that could be a safety risk for the patient. Discharge assessment: On today's interview patient is alert and oriented, dressed appropriately. Hygiene and grooming is well-kept. Patient has to have his personal close and is in scrubs. Smiles on approach and is pleasant and engaged on interview. Denies depression and anxiety. Denies suicidal homicidal ideation, intent or planning. Denies and is not observed with jorge or psychotic symptoms of delusions, hallucinations, bizarre thinking, obsessions, paranoia, ruminations, illogical thoughts, flight of ideas or having poor insight or judgment. Is somewhat concrete on testing of associations and proverb interpretation otherwise no signs of psychosis, or other deficit. Patient plans to take a shower and is able to take care of basic ADLs. Patient has normal mentation, declines further hospitalization of voluntary status and meets criteria for discharge today, patient encouraged to return the hospital if symptoms worsen or change and encouraged to call unit if they feel they need provider's questions to be answered or help with medications or care. Mental status: Patient is a 30-year old male, who appears stated age, improved eye contact, less thought blocking, short buzz cut hair, improved hygiene, no longer pacing as much from the hallways, seen in the common area and going to groups. Speech: Is now spontaneous, normal amount, less slowed Language skills are intact. Thought processes including: Circumstantial Thought content: Denies suicidal ideations, intent or plan. Also denies homicidal ideation intent or plan. Abstract reasoning, and computation: [place] description of associations: Continues to be somewhat concrete on testing, when asked about transportation states to "take people places" Description of abnormal or psychotic thoughts: Denies, not observed. Judgment: Improving Insight: Improving slowly Orientation: X4 Recent and remote memory: Fair. Attention span and concentration: both decreased Language: Australian. Fund of knowledge: Average based on interview. Mood: "Even" affect: Mildly concrete, euthymic, calm, mood congruent Medications on discharge: see medication reconciliation: CSSRS on discharge: Wish to be : No nonspecific active suicidal thoughts: No lifetime attempts: 0 interrupted attempts: 0 aborted attempts: 0 preparatory acts or behavior: None Taking into consideration safety state, status, safety plan, protective factors including strong support system from mother lEise Ponce, modifiable, non- modifiable risk factors patient is at low risk on discharge for suicide according to [place] suicide evaluation. PLAN/FOLLOWUP ARRANGEMENTS: Follow Up Care Education Label * Mental Health Appt 1 * Mental Health [facility] * Established With This Provider Yes * Therapist DIMA * Date Jul 19, 2021 * Time 09:00 * Address of Clinic or Practice [address] [place] [address] * Follow Up Care Education Label * Medical * Medical Follow Up [facility] * Established With This Provider No NEW PATIENT * Therapist DR. FRANCE * Date Aug 01, 2021 * Time 08:15 * Address of Clinic or Practice [address] [place] [address] * The amount of time spent in the coordination of care for this patient was approximately 35 minutes. ETOH/Disorder Med Rx ETOH/DRUG DISORDER RX: Offrd @ d/c & pt refused Vital Signs/I&Os Vital Signs Date Time Temp Pulse Resp B/P (MAP) Pulse Ox O2 Delivery O2 Flow Rate FiO2 07/12/21 06:49 98.9 96 18 126/72 (90) 97 Room Air Medications Scheduled Bupropion Hcl (Bupropion Xl) 150 Mg Tab.er.24h, 150 MG PO QAM for mood, #14 Divalproex Sodium (Depakote ER) 500 Mg Tab.er.24h, 1,000 MG PO QHS for mood, #28 Divalproex Sodium (Depakote ER) 250 Mg Tab.er.24h, 250 MG PO QHS for mood, #14 Risperidone (Risperdal) 1 Mg Tablet, 1 TAB PO QPM for psychosis for 14 Days, #14 Risperidone (Risperdal) 4 Mg Tablet, 1 TAB PO QPM for psychosis for 14 Days, #14 Allergies Coded Allergies: No Known Drug Allergies (Verified Allergy, Unknown, 05/11/21) JULISSA STUBBS MD Jul 12, 2021 11:37
== END 2021-07-12 12:55 | disposition home or self-care (01) | DRG 750 ==
LOC: M ED 02:59 → M ED INP 23:05 → M PSY 06-12 01:17
PROVIDERS: ADMIT Student in an Organized Health Care Education/Training Program; ATTEND Student in an Organized Health Care Education/Training Program
DX: F25.0 Schizoaffective disorder, bipolar type (principal); F12.10 Cannabis abuse, uncomplicated; F17.290 Nicotine dependence, other tobacco product, uncomplicated; R45.851 Suicidal ideations; Z63.5 Disruption of family by separation and divorce; Z20.822 Contact with and (suspected) exposure to COVID-19; Z79.899 Other long term (current) drug therapy; H10.32 Unspecified acute conjunctivitis, left eye; G47.00 Insomnia, unspecified

== ENCOUNTER → 2021-09-13 | Outpatient (CLI) | payer OTHER ==
[~2021-09-13] MED LIST changes: +BUPR150T12 PO; +DEPA250T2 PO; +DEPA500T2 PO; +OXCA150T21 PO; +RISP-9 PO; +RISP1TAB42 PO; +RISP3TAB20 PO; +RISP4TAB33 PO; +ZOLP5TAB PO
[2021-09-13 18:18] LABS: CHOLESTEROL RISK RATIO 3.047 (<5)
== END ==
LOC: M PLALAB 14:41
PROVIDERS: ATTEND Student in an Organized Health Care Education/Training Program
DX: F25.0 Schizoaffective disorder, bipolar type (principal)

== ENCOUNTER → 2021-09-13 | Outpatient (CLI) | payer OTHER ==
[2021-09-13 18:16] LABS: ALBUMIN 3.9 GM/DL (3.2-5.2); BILIRUBIN,DIRECT 0.1 MG/DL (0.0-0.2); BILIRUBIN,TOTAL 0.4 MG/DL (0.2-1.0); TOTAL PROTEIN 7.6 GM/DL (6.4-8.2); VALPROIC ACID (DEPAKOTE) 78.6 UG/ML (50.0-100.0)
== END ==
LOC: M PLALAB 14:39
PROVIDERS: ATTEND Psychiatry & Neurology Psychiatry
DX: Z51.81 Encounter for therapeutic drug level monitoring (principal)

== ENCOUNTER 2021-12-14 16:39 | Inpatient (IN) | payer OTHER ==
[~2021-12-14] VITALS: Ht 190.5 cm; Wt 115.1 kg
[2021-12-14] MEDS ORDERED: RISP-8 (16:53)
[2021-12-14] MEDS ORDERED: BUSP5TA (16:53)
[2021-12-14 19:04] LABS: VENOUS BASE EXCESS 1.2 (-2.0-2.0); VENOUS HCO3 26.3 MEQ/L (23.0-27.0); VENOUS O2 SATURATION 74.6 % (60.0-80.0); VENOUS PARTIAL PRESSURE CO2 43.5 mmHg (38.0-50.0); VENOUS PARTIAL PRESSURE O2 38.3 mmHg (30.0-50.0); VENOUS STANDARD HCO3 24.9 MEQ/L; VENOUS TOTAL CO2 27.7 MEQ/L (24.0-28.0)
[2021-12-14 19:11] LABS: BASO % 0.3 % (0.0-1.0); EOS % 0.1 % (0.0-3.0); HEMATOCRIT 43.3 % (42.0-52.0); HEMOGLOBIN 15.3 g/dl (13.5-17.5); LYMPH # 0.9 10^3/uL (1.5-5.0); LYMPH % 6.4 % (24.0-44.0); MEAN CORPUSCULAR HEMOGLOBIN 31.4 pg (27.0-33.0); MEAN CORPUSCULAR HGB CONC 35.3 g/dl (32.0-36.5); MEAN CORPUSCULAR VOLUME 88.9 fl (80.0-96.0); MONO % 14.9 % (2.0-8.0); NEUTROPHILS # 10.8 10^3/uL (1.5-8.5); NEUTROPHILS % 77.8 % (36.0-66.0); PLATELET COUNT, AUTOMATED 237 10^3/uL (150-450); RED BLOOD COUNT 4.87 10^6/uL (4.30-6.10); WHITE BLOOD COUNT 13.8 10^3/uL (4.0-10.0)
[2021-12-14 19:29] LABS: MONO # 2.1 10^3/uL (0.0-0.8)
[2021-12-14 19:36] LABS: BLOOD UREA NITROGEN 14 MG/DL (7-18); CALCIUM LEVEL 9.4 MG/DL (8.5-10.1); CARBON DIOXIDE LEVEL 27 MEQ/L (21-32); CHLORIDE LEVEL 101 MEQ/L (98-107); GLOMERULAR FILTRATION RATE > 60.0 (>60); GLUCOSE, FASTING 112 MG/DL (70-100); POTASSIUM SERUM 4.7 MEQ/L (3.5-5.1); SODIUM LEVEL 134 MEQ/L (136-145)
[2021-12-14 19:40] LABS: CK-MB VALUE MASS < 1.0 NG/ML (<3.6); CPK CREATINE PHOSPHOKINASE 37 U/L (39-308)
[2021-12-14] MEDS ORDERED: KETOROLAC 30 MG/ML 1ML VIAL IV ONE (19:50)
[2021-12-14 20:46] LABS: INR 1.09; PROTHROMBIN TIME 14.5 SECONDS (12.7-14.5)
[2021-12-14 20:47] LABS: PARTIAL THROMBOPLASTIN TIME 32.4 SECONDS (25.9-37.0)
[2021-12-14 21:07] LABS: D-DIMER QUANT > 4000 ng/ml (<500)
[2021-12-14 21:14] LABS: RSV AMPLIFICATION NEGATIVE (NEGATIVE)
[2021-12-14] MEDS ORDERED: ISOVUE-370 76% 100ML VIAL As Ordered ONE (21:29)
[2021-12-14] MEDS ORDERED: MORPHINE 4 MG/ML 1ML VIAL/SYRINGE IV ONE (23:05)
[2021-12-14] MEDS ORDERED: NS 1,000 ML IV ONE (23:10)
[2021-12-15] MEDS ORDERED: DIVA250T7 PO (01:03)
[2021-12-15] MEDS ORDERED: BUPR150T12 PO (01:03)
[2021-12-15] MEDS ORDERED: RISP-11 PO (01:03)
[2021-12-15] MEDS ORDERED: BUSP5TA PO (01:03)
[2021-12-15] MEDS ORDERED: DIVA500T9 PO (01:03)
[2021-12-15] MEDS ORDERED: RISP-8 PO (01:03)
[2021-12-15] MEDS ORDERED: UNIS50CA PO (01:03)
[2021-12-15] MEDS ORDERED: HOME MED LIST COMPLETE! XX SCH (01:05)
[2021-12-15] MEDS: DIVALPROEX 500MG *ER* TAB PO SCH ×2 (01:30→22:57)
[2021-12-15] MEDS: busPIRone 5 MG TAB PO SCH ×3 (01:30→22:59)
[2021-12-15] MEDS ORDERED: risperiDONE 1 MG TAB PO SCH (01:30)
[2021-12-15] MEDS: DIVALPROEX 250MG *ER* TAB PO SCH ×2 (01:30→22:58)
[2021-12-15] MEDS ORDERED: ENOXAPARIN 120MG/0.8ML SYRINGE (J1650 PER 10MG) SC ONE (02:00)
[2021-12-15] MEDS ORDERED: KETOROLAC 30 MG/ML 1ML VIAL IV PRN (02:20)
[2021-12-15] MEDS ORDERED: NORCO, ANEXSIA 5/325MG TABLET (HYDROcodone/ACETAMINOPHEN) PO PRN (02:20)
[2021-12-15] MEDS ORDERED: ONDANSETRON 4MG ORAL DISINTEGRATING TAB PO PRN (02:20)
[2021-12-15] MEDS ORDERED: ACETAMINOPHEN TAB 650MG DOSE (2X325MG) PO PRN (02:20)
[2021-12-15] MEDS: HYDROMORPHONE HCL 0.5 MG/ 0.5 ML SYRINGE (J1170 PER 1) IV PRN ×3 (04:03→12:04)
[2021-12-15] MEDS ORDERED: NS 1,000 ML IV SCH (04:50)
[2021-12-15] MEDS ORDERED: NS 500 ML IV ONE (04:50)
[2021-12-15] MEDS ORDERED: cefTRIAXone SOD 1GM VIAL (J0696 PER 250MG) IM SCH (04:50)
[2021-12-15] MEDS: cefTRIAXone SOD 1 GM in D5W MINI-BAG PLUS 50 ML IV SCH (06:07)
[2021-12-15 06:23] LABS: BLOOD UREA NITROGEN 14 MG/DL (7-18); CALCIUM LEVEL 8.8 MG/DL (8.5-10.1); CARBON DIOXIDE LEVEL 24 MEQ/L (21-32); CHLORIDE LEVEL 103 MEQ/L (98-107); CREATININE FOR GFR 0.74 MG/DL (0.70-1.30); GLOMERULAR FILTRATION RATE > 60.0 (>60); GLUCOSE, FASTING 136 MG/DL (70-100); NT-PRO BNP 150 PG/ML (<125); POTASSIUM SERUM 4.2 MEQ/L (3.5-5.1); SODIUM LEVEL 136 MEQ/L (136-145)
[2021-12-15] MEDS: DOXYCYCLINE HYCLATE 100 MG in D5W MINI-BAG PLUS 100 ML IV SCH ×2 (06:44→18:00)
[2021-12-15] MEDS: buPROPion **XL** TABLET 150MG (WELLBUTRIN XL) PO SCH (09:05)
[2021-12-15] MEDS: MORPHINE 4 MG/ML 1ML VIAL/SYRINGE IV PRN (21:03)
[2021-12-15 21:15] VITALS: BP 136/85
[2021-12-15] MEDS: APIXABAN 5 MG TAB (ELIQUIS) PO SCH (22:57)
[2021-12-15] MEDS: risperiDONE 2 MG TAB PO SCH (22:59)
[2021-12-15] MEDS: risperiDONE 3 MG TAB PO SCH (22:59)
[2021-12-15] MEDS: PERCOCET 5MG/325MG TAB PO PRN (23:04)
[2021-12-16] VITALS: BP 137/71
[2021-12-16] MEDS ORDERED: VANCOMYCIN HCL 1,000 MG, VIAL MATE ADAPTER 1 EACH in NS 250 ML IV ONE ×2 (01:00→02:00)
[2021-12-16] MEDS ORDERED: VANCOMYCIN HCL 1,000 MG in IV FLUID PLACE HOLDER 1 EA IV ONE (01:05)
[2021-12-16] MEDS: MORPHINE 4 MG/ML 1ML VIAL/SYRINGE IV PRN ×4 (03:57→22:08)
[2021-12-16 04:00] VITALS: BP 138/81
[2021-12-16] MEDS: cefTRIAXone SOD 1 GM in D5W MINI-BAG PLUS 50 ML IV SCH (05:17)
[2021-12-16 06:19] LABS: HEMATOCRIT 36.7 % (42.0-52.0); MEAN CORPUSCULAR HEMOGLOBIN 32.3 pg (27.0-33.0); MEAN CORPUSCULAR HGB CONC 35.1 g/dl (32.0-36.5); MEAN CORPUSCULAR VOLUME 91.8 fl (80.0-96.0); PLATELET COUNT, AUTOMATED 170 10^3/uL (150-450); WHITE BLOOD COUNT 12.7 10^3/uL (4.0-10.0)
[2021-12-16 06:22] LABS: HEMOGLOBIN 12.9 g/dl (13.5-17.5)
[2021-12-16] MEDS: DOXYCYCLINE HYCLATE 100 MG in D5W MINI-BAG PLUS 100 ML IV SCH (06:22)
[2021-12-16 06:43] LABS: BLOOD UREA NITROGEN 7 MG/DL (7-18); CALCIUM LEVEL 8.8 MG/DL (8.5-10.1); CARBON DIOXIDE LEVEL 25 MEQ/L (21-32); CHLORIDE LEVEL 101 MEQ/L (98-107); CREATININE FOR GFR 0.68 MG/DL (0.70-1.30); GLOMERULAR FILTRATION RATE > 60.0 (>60); GLUCOSE, FASTING 117 MG/DL (70-100); POTASSIUM SERUM 4.1 MEQ/L (3.5-5.1); SODIUM LEVEL 135 MEQ/L (136-145)
[2021-12-16] MEDS: PERCOCET 5MG/325MG TAB PO PRN (07:08)
[2021-12-16 08:00] VITALS: BP 130/71
[2021-12-16] MEDS: busPIRone 5 MG TAB PO SCH ×2 (08:34→21:31)
[2021-12-16] MEDS: APIXABAN 5 MG TAB (ELIQUIS) PO SCH ×2 (08:35→21:31)
[2021-12-16] MEDS: buPROPion **XL** TABLET 150MG (WELLBUTRIN XL) PO SCH (08:35)
[2021-12-16 12:00] VITALS: BP 135/80
[2021-12-16] MEDS ORDERED: VANCOMYCIN HCL 750 MG, VIAL MATE ADAPTER 1 EACH in NS 250 ML IV SCH ×2 (15:00→16:00)
[2021-12-16 16:00] VITALS: BP 140/82
[2021-12-16 20:00] VITALS: BP 172/98
[2021-12-16] MEDS: risperiDONE 3 MG TAB PO SCH (21:31)
[2021-12-16] MEDS: risperiDONE 2 MG TAB PO SCH (21:32)
[2021-12-16] MEDS: DIVALPROEX 250MG *ER* TAB PO SCH (21:32)
[2021-12-16] MEDS: DIVALPROEX 500MG *ER* TAB PO SCH (21:33)
[2021-12-16] MEDS: VANCOMYCIN HCL 1,000 MG, VIAL MATE ADAPTER 1 EACH in NS 250 ML IV SCH (22:07)
[2021-12-17] VITALS: BP 141/82
[2021-12-17] MEDS: PERCOCET 5MG/325MG TAB PO PRN ×4 (00:41→21:45)
[2021-12-17 04:00] VITALS: BP 137/75
[2021-12-17] MEDS: MORPHINE 4 MG/ML 1ML VIAL/SYRINGE IV PRN (05:01)
[2021-12-17] MEDS: VANCOMYCIN HCL 1,000 MG, VIAL MATE ADAPTER 1 EACH in NS 250 ML IV SCH (06:11)
[2021-12-17 06:46] LABS: HEMATOCRIT 35.7 % (42.0-52.0); HEMOGLOBIN 12.4 g/dl (13.5-17.5); MEAN CORPUSCULAR HGB CONC 34.7 g/dl (32.0-36.5); MEAN CORPUSCULAR VOLUME 89.3 fl (80.0-96.0); PLATELET COUNT, AUTOMATED 213 10^3/uL (150-450); WHITE BLOOD COUNT 10.6 10^3/uL (4.0-10.0)
[2021-12-17 07:05] LABS: BLOOD UREA NITROGEN 8 MG/DL (7-18); CALCIUM LEVEL 8.7 MG/DL (8.5-10.1); CARBON DIOXIDE LEVEL 29 MEQ/L (21-32); CHLORIDE LEVEL 100 MEQ/L (98-107); CREATININE FOR GFR 0.65 MG/DL (0.70-1.30); GLOMERULAR FILTRATION RATE > 60.0 (>60); GLUCOSE, FASTING 120 MG/DL (70-100); POTASSIUM SERUM 3.7 MEQ/L (3.5-5.1); SODIUM LEVEL 137 MEQ/L (136-145); VANCOMYCIN LEVEL TROUGH 9.2 UG/ML (10.0-20.0)
[2021-12-17 08:00] VITALS: BP 136/76
[2021-12-17] MEDS: busPIRone 5 MG TAB PO SCH ×2 (08:59→21:36)
[2021-12-17] MEDS: buPROPion **XL** TABLET 150MG (WELLBUTRIN XL) PO SCH (09:00)
[2021-12-17] MEDS: APIXABAN 5 MG TAB (ELIQUIS) PO SCH ×2 (09:00→21:36)
[2021-12-17] MEDS: NS 1,000 ML IV SCH ×2 (10:15→21:37)
[2021-12-17 12:02] VITALS: BP 133/71
[2021-12-17 16:00] VITALS: BP 145/90
[2021-12-17 20:00] VITALS: BP 138/86
[2021-12-17] MEDS: DIVALPROEX 500MG *ER* TAB PO SCH (21:35)
[2021-12-17] MEDS: risperiDONE 3 MG TAB PO SCH (21:35)
[2021-12-17] MEDS: DIVALPROEX 250MG *ER* TAB PO SCH (21:35)
[2021-12-17] MEDS: risperiDONE 2 MG TAB PO SCH (21:35)
[2021-12-18] VITALS (7 sets, daily range): BP systolic 125–151; BP diastolic 73–86
[2021-12-18] MEDS: PERCOCET 5MG/325MG TAB PO PRN ×4 (04:31→23:07)
[2021-12-18 06:24] LABS: HEMATOCRIT 33.6 % (42.0-52.0); HEMOGLOBIN 11.6 g/dl (13.5-17.5); MEAN CORPUSCULAR HEMOGLOBIN 31.9 pg (27.0-33.0); MEAN CORPUSCULAR HGB CONC 34.5 g/dl (32.0-36.5); MEAN CORPUSCULAR VOLUME 92.3 fl (80.0-96.0); PLATELET COUNT, AUTOMATED 232 10^3/uL (150-450); RED BLOOD COUNT 3.64 10^6/uL (4.30-6.10); WHITE BLOOD COUNT 8.4 10^3/uL (4.0-10.0)
[2021-12-18 06:42] LABS: BLOOD UREA NITROGEN 7 MG/DL (7-18); CALCIUM LEVEL 8.5 MG/DL (8.5-10.1); CARBON DIOXIDE LEVEL 29 MEQ/L (21-32); CHLORIDE LEVEL 104 MEQ/L (98-107); CREATININE FOR GFR 0.51 MG/DL (0.70-1.30); GLOMERULAR FILTRATION RATE > 60.0 (>60); GLUCOSE, FASTING 97 MG/DL (70-100); POTASSIUM SERUM 3.8 MEQ/L (3.5-5.1); SODIUM LEVEL 141 MEQ/L (136-145)
[2021-12-18] MEDS: NS 1,000 ML IV SCH (08:30)
[2021-12-18] MEDS: buPROPion **XL** TABLET 150MG (WELLBUTRIN XL) PO SCH (09:22)
[2021-12-18] MEDS: busPIRone 5 MG TAB PO SCH ×2 (09:22→20:06)
[2021-12-18] MEDS: APIXABAN 5 MG TAB (ELIQUIS) PO SCH ×2 (09:22→20:06)
[2021-12-18] MEDS: METOPROLOL TART 12.5 MG PER 1/2 TAB PO SCH ×3 (12:53→23:06)
[2021-12-18] MEDS ORDERED: ELIQ5TAB PO (13:20)
[2021-12-18] MEDS: risperiDONE 2 MG TAB PO SCH (20:05)
[2021-12-18] MEDS: risperiDONE 3 MG TAB PO SCH (20:05)
[2021-12-18] MEDS: DIVALPROEX 250MG *ER* TAB PO SCH (20:06)
[2021-12-18] MEDS: DIVALPROEX 500MG *ER* TAB PO SCH (21:49)
[2021-12-19 04:00] VITALS: BP 123/58
[2021-12-19] MEDS: METOPROLOL TART 12.5 MG PER 1/2 TAB PO SCH ×2 (05:00→12:00)
[2021-12-19 06:08] LABS: HEMATOCRIT 35.1 % (42.0-52.0); HEMOGLOBIN 12.2 g/dl (13.5-17.5); MEAN CORPUSCULAR HEMOGLOBIN 31.9 pg (27.0-33.0); MEAN CORPUSCULAR HGB CONC 34.8 g/dl (32.0-36.5); MEAN CORPUSCULAR VOLUME 91.9 fl (80.0-96.0); PLATELET COUNT, AUTOMATED 294 10^3/uL (150-450); RED BLOOD COUNT 3.82 10^6/uL (4.30-6.10); WHITE BLOOD COUNT 8.1 10^3/uL (4.0-10.0)
[2021-12-19 06:40] LABS: BLOOD UREA NITROGEN 9 MG/DL (7-18); CALCIUM LEVEL 8.9 MG/DL (8.5-10.1); CARBON DIOXIDE LEVEL 27 MEQ/L (21-32); CHLORIDE LEVEL 103 MEQ/L (98-107); CREATININE FOR GFR 0.58 MG/DL (0.70-1.30); GLOMERULAR FILTRATION RATE > 60.0 (>60); GLUCOSE, FASTING 103 MG/DL (70-100); POTASSIUM SERUM 4.1 MEQ/L (3.5-5.1); SODIUM LEVEL 138 MEQ/L (136-145)
[2021-12-19 08:02] VITALS: BP 123/91
[2021-12-19] MEDS: APIXABAN 5 MG TAB (ELIQUIS) PO SCH (08:12)
[2021-12-19] MEDS: buPROPion **XL** TABLET 150MG (WELLBUTRIN XL) PO SCH (08:12)
[2021-12-19] MEDS: busPIRone 5 MG TAB PO SCH (08:13)
[2021-12-19] MEDS: PERCOCET 5MG/325MG TAB PO PRN (08:13)
[2021-12-19] MEDS ORDERED: METO1TAB87 PO (11:47)
[2021-12-19 12:00] VITALS: BP 123/91
[2021-12-19 16:10] LABS: CARDIOLIPIN IGA ANTIBODY <9 APL U/mL (0-11); CARDIOLIPIN IGG ANTIBODY 11 GPL U/mL (0-14); CARDIOLIPIN IGM ANTIBODY 15 MPL U/mL (0-12)
[2021-12-21 10:49] LABS: PTT LUPUS TYPE ANTICOAG SCREEN 2.1 (0-1.2)
[2021-12-21 10:55] LABS: DRVV CONFIRM 64.2 SEC; LUPUS CONFIRM RATIO 1.8
[2021-12-21 11:19] LABS: NORMALIZED RATIO 1.17 (0.00-1.20)
[2021-12-22] MEDS ORDERED: APIXABAN 5 MG TAB (ELIQUIS) PO SCH (21:00)
== END 2021-12-19 14:18 | disposition home or self-care (01) | DRG 134 ==
LOC: M ED 16:39 → M ED INP 16:40 → ENRESERV 12-15 02:42 → M PCU 12-15 21:25 → OBSVTOIN 12-18 09:50
PROVIDERS: ADMIT Internal Medicine; ATTEND Internal Medicine
PROC: B246ZZZ Ultrasonography of Right and Left Heart (ICD-10-PCS; principal; 2021-12-15)
DX: I26.99 Other pulmonary embolism without acute cor pulmonale (principal); F25.0 Schizoaffective disorder, bipolar type; Z90.5 Acquired absence of kidney; Z79.899 Other long term (current) drug therapy; Z90.49 Acquired absence of other specified parts of digestive tract; F17.290 Nicotine dependence, other tobacco product, uncomplicated; Z20.822 Contact with and (suspected) exposure to COVID-19; R00.0 Tachycardia, unspecified

== ENCOUNTER → 2021-12-28 | Outpatient (REF) | payer OTHER ==
[~2021-12-28] MED LIST changes: +BUSP5TA; +BUSP5TA PO; +DIVA250T7 PO; +DIVA500T9 PO; +ELIQ5TAB PO; +METO1TAB87 PO; +RISP-11 PO; +RISP-8; +RISP-8 PO
== END ==
LOC: M SFHCPLAZ 15:27
PROVIDERS: ATTEND Family Medicine
DX: Z53.9 Procedure and treatment not carried out, unspecified reason (principal)

== ENCOUNTER → 2022-06-12 | Outpatient (REF) | payer OTHER ==
[2022-06-12 17:51] LABS: BASO # 0.1 10^3/uL (0.0-0.2); BASO % 0.9 % (0.0-1.0); EOS # 0.1 10^3/uL (0.0-0.5); EOS % 2.1 % (0.0-3.0); HEMATOCRIT 46.7 % (42.0-52.0); HEMOGLOBIN 15.7 g/dl (13.5-17.5); LYMPH # 1.9 10^3/uL (1.5-5.0); LYMPH % 28.4 % (24.0-44.0); MEAN CORPUSCULAR HEMOGLOBIN 30.4 pg (27.0-33.0); MEAN CORPUSCULAR HGB CONC 33.6 g/dl (32.0-36.5); MEAN CORPUSCULAR VOLUME 90.5 fl (80.0-96.0); MONO # 1.1 10^3/uL (0.0-0.8); MONO % 16.8 % (2.0-8.0); NEUTROPHILS # 3.4 10^3/uL (1.5-8.5); NEUTROPHILS % 51.2 % (36.0-66.0); PLATELET COUNT, AUTOMATED 273 10^3/uL (150-450); RED BLOOD COUNT 5.16 10^6/uL (4.30-6.10); WHITE BLOOD COUNT 6.6 10^3/uL (4.0-10.0)
[2022-06-12 18:08] LABS: TOTAL PROTEIN,RANDOM URINE 18.8 MG/DL (0.0-12.0)
[2022-06-12 18:11] LABS: C REACTIVE PROTEIN QUANTITATIV 0.77 MG/DL (0.00-0.30)
[2022-06-12 18:41] LABS: APPEARANCE, URINE MANUAL CLEAR (CLEAR); COLOR, URINE MANUAL YELLOW (YELLOW)
[2022-06-12 18:42] LABS: BILIRUBIN, URINE MANUAL NEGATIVE (NEGATIVE); BLOOD URINE MANUAL NEGATIVE (NEGATIVE); GLUCOSE, URINE (UA) MANUAL NEGATIVE (NEGATIVE); KETONE, URINE MANUAL NEGATIVE (NEGATIVE); LEUKOCYTE ESTERASE, URINE MAN NEGATIVE (NEGATIVE); NITRITE, URINE MANUAL NEGATIVE (NEGATIVE); PROTEIN, URINE MANUAL NEGATIVE (NEGATIVE); UROBILINOGEN, URINE MANUAL NORMAL (NORMAL)
[2022-06-12 18:57] LABS: ERYTHROCYTE SEDIMENTATION RATE 9 mm/hr (0-15)
[2022-06-13 10:25] LABS: DRVV SCREEN 50.1 SEC
[2022-06-13 10:30] LABS: PTT LUPUS TYPE ANTICOAG SCREEN 1.3 (0-1.2)
[2022-06-13 10:37] LABS: DRVV CONFIRM 47.5 SEC; LUPUS CONFIRM RATIO 1.3
== END ==
LOC: M SFHCRHEU 12:04
PROVIDERS: ATTEND Internal Medicine
DX: R76.8 Other specified abnormal immunological findings in serum (principal); M25.40 Effusion, unspecified joint

== ENCOUNTER → 2022-06-26 | Outpatient (CLI) | payer OTHER | LOC: M CARPUL 14:01 | PROVIDERS: ATTEND Internal Medicine Pulmonary Disease | DX: R06.00 Dyspnea, unspecified (principal); I26.99 Other pulmonary embolism without acute cor pulmonale; R91.8 Other nonspecific abnormal finding of lung field ==

== ENCOUNTER → 2022-09-13 | Outpatient (CLI) | payer OTHER ==
[2022-09-13 17:38] LABS: HEMATOCRIT 44.6 % (42.0-52.0); HEMOGLOBIN 15.1 g/dl (13.5-17.5); MEAN CORPUSCULAR HEMOGLOBIN 30.1 pg (27.0-33.0); MEAN CORPUSCULAR HGB CONC 33.9 g/dl (32.0-36.5); PLATELET COUNT, AUTOMATED 273 10^3/uL (150-450); RED BLOOD COUNT 5.01 10^6/uL (4.30-6.10); WHITE BLOOD COUNT 6.6 10^3/uL (4.0-10.0)
[2022-09-13 18:44] LABS: HIV 1&2 SCREEN CENTAUR NEGATIVE (NEGATIVE)
[2022-09-13 18:52] LABS: HEPATITIS C VIRUS ABY INDEX 0.1 INDEX (<0.8)
[2022-09-14 13:44] LABS: JAK2 MUTATIONS FOR PATH SENDOU See Pathology Report
== END ==
LOC: M PLALAB 14:46
PROVIDERS: ATTEND Student in an Organized Health Care Education/Training Program
DX: I26.94 Multiple subsegmental thrombotic pulmonary emboli without acute cor pulmonale (principal); Z11.4 Encounter for screening for human immunodeficiency virus [HIV]; Z11.59 Encounter for screening for other viral diseases

== ENCOUNTER → 2022-12-17 | Outpatient (CLI) | payer OTHER ==
[2022-12-17 15:52] LABS: BASO # 0.1 10^3/uL (0.0-0.2); BASO % 0.7 % (0.0-1.0); EOS # 0.2 10^3/uL (0.0-0.5); EOS % 2.2 % (0.0-3.0); HEMATOCRIT 43.1 % (42.0-52.0); HEMOGLOBIN 14.4 g/dl (13.5-17.5); LYMPH # 1.7 10^3/uL (1.5-5.0); LYMPH % 24.4 % (24.0-44.0); MEAN CORPUSCULAR HEMOGLOBIN 29.8 pg (27.0-33.0); MEAN CORPUSCULAR HGB CONC 33.4 g/dl (32.0-36.5); MEAN CORPUSCULAR VOLUME 89.2 fl (80.0-96.0); MONO % 14.4 % (2.0-8.0); NEUTROPHILS # 4.1 10^3/uL (1.5-8.5); NEUTROPHILS % 57.9 % (36.0-66.0); PLATELET COUNT, AUTOMATED 246 10^3/uL (150-450); RED BLOOD COUNT 4.83 10^6/uL (4.30-6.10); WHITE BLOOD COUNT 7.1 10^3/uL (4.0-10.0)
[2022-12-17 16:07] LABS: HEMOGLOBIN A1c 5.6 % (4.0-6.0)
[2022-12-17 16:21] LABS: ALBUMIN 3.7 G/DL (3.2-5.2); ALKALINE PHOSPHATASE 97 U/L (46-116); ALT/SGPT 54 U/L (7.0-40); AST/SGOT 36 U/L (<34); BILIRUBIN,TOTAL 0.3 MG/DL (0.3-1.2); BLOOD UREA NITROGEN 14 MG/DL (9-23); CALCIUM LEVEL 8.8 MG/DL (8.5-10.1); CARBON DIOXIDE LEVEL 28 MMOL/L (20-31); CHLORIDE LEVEL 102 MMOL/L (98-107); CHOLESTEROL LEVEL 113 MG/DL (<200); CHOLESTEROL RISK RATIO 3.69 (<5); CREATININE FOR GFR 0.79 MG/DL (0.70-1.30); GLOMERULAR FILTRATION RATE > 60.0 (>60); GLUCOSE, FASTING 100 MG/DL (60-100); HDL CHOLESTEROL 30.6 MG/DL (>40); LDL CHOLESTEROL 54.6 MG/DL (<100); NON-HDL-C 82.4 MG/DL; POTASSIUM SERUM 4.7 MMOL/L (3.5-5.1); SODIUM LEVEL 138 MMOL/L (136-145); TOTAL PROTEIN 7.2 G/DL (5.7-8.2); TRIGLYCERIDES LEVEL 139 MG/DL (<150)
[2022-12-17 16:22] LABS: FREE T4 1.05 NG/DL (0.89-1.76)
== END ==
LOC: M PLALAB 12:48
PROVIDERS: ATTEND Student in an Organized Health Care Education/Training Program
DX: F25.0 Schizoaffective disorder, bipolar type (principal)

== ENCOUNTER → 2023-04-04 | Outpatient (REF) | payer OTHER ==
[2023-04-04 16:42] LABS: BASO # 0.1 10^3/uL (0.0-0.2); BASO % 0.8 % (0.0-1.0); EOS # 0.1 10^3/uL (0.0-0.5); HEMATOCRIT 45.9 % (42.0-52.0); HEMOGLOBIN 15.3 g/dl (13.5-17.5); LYMPH # 1.8 10^3/uL (1.5-5.0); LYMPH % 23.5 % (24.0-44.0); MEAN CORPUSCULAR HEMOGLOBIN 29.2 pg (27.0-33.0); MEAN CORPUSCULAR HGB CONC 33.3 g/dl (32.0-36.5); MEAN CORPUSCULAR VOLUME 87.6 fl (80.0-96.0); MONO # 0.8 10^3/uL (0.0-0.8); MONO % 9.9 % (2.0-8.0); NEUTROPHILS % 64.4 % (36.0-66.0); PLATELET COUNT, AUTOMATED 308 10^3/uL (150-450); RED BLOOD COUNT 5.24 10^6/uL (4.30-6.10); WHITE BLOOD COUNT 7.8 10^3/uL (4.0-10.0)
[2023-04-04 16:43] LABS: APPEARANCE, URINE CLEAR (CLEAR); BACTERIA, URINE AUTO NEGATIVE (NEGATIVE); BILIRUBIN, URINE AUTO NEGATIVE (NEGATIVE); BLOOD, URINE BLOOD NEGATIVE (NEGATIVE); COLOR, URINE YELLOW (YELLOW); GLUCOSE, URINE (UA) AUTO NEGATIVE (NEGATIVE); KETONE, URINE AUTO NEGATIVE (NEGATIVE); LEUKOCYTE ESTERASE, URINE AUTO NEGATIVE (NEGATIVE); MUCUS, URINE SMALL (NEGATIVE); NITRITE, URINE AUTO NEGATIVE (NEGATIVE); PROTEIN, URINE AUTO NEGATIVE (NEGATIVE); RBC, URINE AUTO 0 /HPF (0-3); SPECIFIC GRAVITY URINE AUTO 1.016 (1.002-1.035); SQUAMOUS EPITHELIAL CELL UR AU 0 /HPF (0-6); UROBILINOGEN, URINE AUTO 0.2 mg/dL (0.0-2.0); WBC, URINE AUTO 1 /HPF (0-3)
[2023-04-04 17:03] LABS: TOTAL PROTEIN,RANDOM URINE 11.2 MG/DL (0.0-14.0)
[2023-04-04 17:08] LABS: CREATININE,RANDOM URINE 123.6 MG/DL
[2023-04-04 17:10] LABS: C REACTIVE PROTEIN QUANTITATIV 2.1 MG/DL (<1.0)
[2023-04-04 17:11] LABS: COMPLEMENT C3 202.5 MG/DL (84.0-160.0); COMPLEMENT C4 26.1 MG/DL (12-36)
[2023-04-04 19:17] LABS: ERYTHROCYTE SEDIMENTATION RATE 67 mm/hr (0-15)
[2023-04-12 09:34] LABS: DRVV SCREEN 69.9 SECONDS; PTT LUPUS TYPE ANTICOAG SCREEN 1.72 (0-1.20)
[2023-04-12 09:35] LABS: DRVV CONFIRM 48.5 SECONDS; LUPUS CONFIRM RATIO 1.25; NORMALIZED RATIO 1.37 (0.00-1.20)
[2023-04-14 15:08] LABS: HEXAGONAL PHASE PHOSPHOLIPID 6 sec (0-11)
== END ==
LOC: M SFHCRHEU 13:16
PROVIDERS: ATTEND Internal Medicine
DX: R76.8 Other specified abnormal immunological findings in serum (principal); M25.40 Effusion, unspecified joint

== ENCOUNTER → 2023-05-22 | Outpatient (CLI) | payer OTHER ==
[2023-05-22 18:46] LABS: BASO # 0.1 10^3/uL (0.0-0.2); BASO % 0.7 % (0.0-1.0); EOS # 0.2 10^3/uL (0.0-0.5); EOS % 1.7 % (0.0-3.0); HEMOGLOBIN 15.6 g/dl (13.5-17.5); LYMPH # 1.9 10^3/uL (1.5-5.0); LYMPH % 20.1 % (24.0-44.0); MEAN CORPUSCULAR HEMOGLOBIN 29.3 pg (27.0-33.0); MEAN CORPUSCULAR HGB CONC 33.9 g/dl (32.0-36.5); MEAN CORPUSCULAR VOLUME 86.3 fl (80.0-96.0); MONO % 10.3 % (2.0-8.0); NEUTROPHILS # 6.3 10^3/uL (1.5-8.5); NEUTROPHILS % 66.6 % (36.0-66.0); PLATELET COUNT, AUTOMATED 335 10^3/uL (150-450); RED BLOOD COUNT 5.33 10^6/uL (4.30-6.10); WHITE BLOOD COUNT 9.5 10^3/uL (4.0-10.0)
[2023-05-22 19:10] LABS: ALBUMIN 3.9 G/DL (3.2-5.2); ALKALINE PHOSPHATASE 96 U/L (46-116); ALT/SGPT 61 U/L (7.0-40); AST/SGOT 45 U/L (<34); BILIRUBIN,DIRECT 0.2 MG/DL (<0.4); BILIRUBIN,TOTAL 0.4 MG/DL (0.3-1.2); BLOOD UREA NITROGEN 17 MG/DL (9-23); CALCIUM LEVEL 9.3 MG/DL (8.5-10.1); CARBON DIOXIDE LEVEL 24 MMOL/L (20-31); CHLORIDE LEVEL 100 MMOL/L (98-107); CHOLESTEROL LEVEL 114 MG/DL (<200); CHOLESTEROL RISK RATIO 3.59 (<5); CREATININE FOR GFR 0.63 MG/DL (0.70-1.30); GLOMERULAR FILTRATION RATE > 60.0 (>60); GLUCOSE, FASTING 117 MG/DL (60-100); HDL CHOLESTEROL 31.7 MG/DL (>40); LDL CHOLESTEROL 46.3 MG/DL (<100); NON-HDL-C 82.3 MG/DL; POTASSIUM SERUM 4.1 MMOL/L (3.5-5.1); SODIUM LEVEL 135 MMOL/L (136-145); TOTAL PROTEIN 8.1 G/DL (5.7-8.2); TRIGLYCERIDES LEVEL 180 MG/DL (<150)
[2023-05-22 19:12] LABS: HEPATITIS B SURFACE ANTIBODY POSITIVE (POSITIVE)
[2023-05-22 19:46] LABS: HEPATITIS C VIRUS ABY INDEX 0.06 INDEX (<0.8)
== END ==
LOC: M PLAIMG 16:18
PROVIDERS: ATTEND Physician Assistant
DX: Z79.899 Other long term (current) drug therapy (principal)

== ENCOUNTER → 2023-07-15 | Outpatient (CLI) | payer OTHER ==
[2023-07-15 16:13] LABS: VALPROIC ACID (DEPAKOTE) 26.8 UG/ML (50.0-100.0)
[2023-07-15 16:15] LABS: BILIRUBIN,DIRECT 0.2 MG/DL (<0.4); BILIRUBIN,TOTAL 0.6 MG/DL (0.3-1.2); TOTAL PROTEIN 8.3 G/DL (5.7-8.2)
== END ==
LOC: M PLALAB 14:29
PROVIDERS: ATTEND Psychiatry & Neurology Psychiatry
DX: Z51.81 Encounter for therapeutic drug level monitoring (principal); Z79.899 Other long term (current) drug therapy

== ENCOUNTER → 2023-09-12 | Outpatient (CLI) | payer OTHER ==
[~2023-09-12] MED LIST changes: +RISP-105; +RISP-105 PO; -RISP-8; -RISP-8 PO
== END ==
LOC: M WHC 07:04
PROVIDERS: ATTEND Student in an Organized Health Care Education/Training Program
DX: R74.8 Abnormal levels of other serum enzymes (principal); K76.0 Fatty (change of) liver, not elsewhere classified; R16.0 Hepatomegaly, not elsewhere classified

== ENCOUNTER → 2023-09-23 | Outpatient (CLI) | payer OTHER | LOC: M PLALAB 10:41 | PROVIDERS: ATTEND Student in an Organized Health Care Education/Training Program | DX: R68.82 Decreased libido (principal) ==

== ENCOUNTER → 2023-09-23 | Outpatient (CLI) | payer OTHER ==
[2023-09-23 14:43] LABS: ALBUMIN 3.9 G/DL (3.2-5.2); BILIRUBIN,DIRECT 0.3 MG/DL (<0.4); BILIRUBIN,TOTAL 0.6 MG/DL (0.3-1.2); TOTAL PROTEIN 7.7 G/DL (5.7-8.2)
== END ==
LOC: M PLALAB 10:39
PROVIDERS: ATTEND Psychiatry & Neurology Psychiatry
DX: Z79.899 Other long term (current) drug therapy (principal)

== ENCOUNTER → 2023-11-29 | Outpatient (CLI) | payer OTHER ==
[~2023-11-29] MED LIST changes: -RISP-10 PO; +RISP-106 PO; -RISP-11 PO; -RISP-9 PO; +RISP3TAB77 PO; +RISP4TAB95 PO
[2023-11-29 15:35] LABS: ALBUMIN 3.9 G/DL (3.2-5.2); BILIRUBIN,DIRECT 0.2 MG/DL (<0.4); BILIRUBIN,TOTAL 0.5 MG/DL (0.3-1.2); TOTAL PROTEIN 7.8 G/DL (5.7-8.2)
== END ==
LOC: M PLALAB 12:21
PROVIDERS: ATTEND Psychiatry & Neurology Psychiatry
DX: Z51.81 Encounter for therapeutic drug level monitoring (principal)

== ENCOUNTER → 2024-04-29 | Outpatient (CLI) | payer OTHER ==
[2024-04-29 19:29] LABS: HIV 1&2 SCREEN NEGATIVE (NEGATIVE)
[2024-04-29 20:08] LABS: GC DNA AMPLIFICATION NEGATIVE (NEGATIVE)
== END ==
LOC: M PLALAB 14:45
PROVIDERS: ATTEND Student in an Organized Health Care Education/Training Program
DX: Z11.3 Encounter for screening for infections with a predominantly sexual mode of transmission (principal)

== ENCOUNTER → 2024-08-17 | Outpatient (CLI) | payer OTHER ==
[2024-08-17 18:23] LABS: VALPROIC ACID (DEPAKOTE) 20.1 UG/ML (50.0-100.0)
[2024-08-17 18:25] LABS: ALBUMIN 4.1 G/DL (3.2-5.2); BILIRUBIN,DIRECT 0.2 MG/DL (<0.4); BILIRUBIN,TOTAL 0.4 MG/DL (0.3-1.2)
== END ==
LOC: M PLALAB 14:57
PROVIDERS: ATTEND Psychiatry & Neurology Psychiatry
DX: Z79.899 Other long term (current) drug therapy (principal)

== ENCOUNTER → 2024-08-17 | Outpatient (CLI) | payer OTHER ==
[2024-08-17 18:24] LABS: BILIRUBIN,DIRECT 0.2 MG/DL (<0.4); BILIRUBIN,TOTAL 0.4 MG/DL (0.3-1.2); TOTAL PROTEIN 7.9 G/DL (5.7-8.2)
== END ==
LOC: M PLALAB 14:59
PROVIDERS: ATTEND Student in an Organized Health Care Education/Training Program
DX: R53.83 Other fatigue (principal)

== ENCOUNTER → 2024-12-17 | Outpatient (CLI) | payer OTHER ==
[~2024-12-17] MED LIST changes: -AMBI5TAB PO; +ZOLP-532 PO
[2024-12-17 14:04] LABS: BASO # 0.1 10^3/uL (0.0-0.2); BASO % 0.7 % (0.0-1.0); EOS # 0.1 10^3/uL (0.0-0.5); EOS % 1.1 % (0.0-3.0); HEMATOCRIT 47.2 % (42.0-52.0); HEMOGLOBIN 16.5 g/dl (13.5-17.5); LYMPH # 1.4 10^3/uL (1.5-5.0); LYMPH % 18.8 % (24.0-44.0); MEAN CORPUSCULAR HEMOGLOBIN 30.5 pg (27.0-33.0); MEAN CORPUSCULAR VOLUME 87.2 fl (80.0-96.0); MONO # 0.9 10^3/uL (0.0-0.8); MONO % 11.5 % (2.0-8.0); NEUTROPHILS # 5.1 10^3/uL (1.5-8.5); NEUTROPHILS % 67.5 % (36.0-66.0); PLATELET COUNT, AUTOMATED 298 10^3/uL (150-450); RED BLOOD COUNT 5.41 10^6/uL (4.30-6.10); WHITE BLOOD COUNT 7.6 10^3/uL (4.0-10.0)
[2024-12-17 14:05] LABS: ALKALINE PHOSPHATASE 111 U/L (40-129); ALT/SGPT 62 U/L (7.0-40); AST/SGOT 28 U/L (<34); BILIRUBIN,TOTAL 0.3 MG/DL (0.3-1.2); BLOOD UREA NITROGEN 10 MG/DL (9-23); CALCIUM LEVEL 9.4 MG/DL (8.5-10.1); CARBON DIOXIDE LEVEL 29 MMOL/L (20-31); CHLORIDE LEVEL 100 MMOL/L (98-107); CREATININE FOR GFR 0.73 MG/DL (0.70-1.30); GLOMERULAR FILTRATION RATE > 90.0 (>60); GLUCOSE, FASTING 84 MG/DL (60-100); POTASSIUM SERUM 4.7 MMOL/L (3.5-5.1); SODIUM LEVEL 136 MMOL/L (136-145); TOTAL PROTEIN 8.2 G/DL (5.7-8.2)
[2024-12-17 14:07] LABS: THYROID STIMULATING HORMONE 1.811 uIU/ML (0.55-4.78)
[2024-12-17 14:20] LABS: HEMOGLOBIN A1c 5.2 % (4.0-6.0)
== END ==
LOC: M PLALAB 10:14
PROVIDERS: ATTEND Student in an Organized Health Care Education/Training Program
DX: R53.83 Other fatigue (principal)

== ENCOUNTER → 2024-12-17 | Outpatient (CLI) | payer OTHER ==
[2024-12-17 14:03] LABS: BASO # 0.1 10^3/uL (0.0-0.2); BASO % 0.6 % (0.0-1.0); EOS # 0.1 10^3/uL (0.0-0.5); EOS % 1.3 % (0.0-3.0); HEMATOCRIT 47.2 % (42.0-52.0); HEMOGLOBIN 16.3 g/dl (13.5-17.5); LYMPH # 1.5 10^3/uL (1.5-5.0); LYMPH % 18.9 % (24.0-44.0); MEAN CORPUSCULAR HEMOGLOBIN 30.4 pg (27.0-33.0); MEAN CORPUSCULAR HGB CONC 34.5 g/dl (32.0-36.5); MEAN CORPUSCULAR VOLUME 87.9 fl (80.0-96.0); MONO # 0.9 10^3/uL (0.0-0.8); NEUTROPHILS # 5.3 10^3/uL (1.5-8.5); NEUTROPHILS % 67.9 % (36.0-66.0); PLATELET COUNT, AUTOMATED 285 10^3/uL (150-450); RED BLOOD COUNT 5.37 10^6/uL (4.30-6.10); WHITE BLOOD COUNT 7.8 10^3/uL (4.0-10.0)
[2024-12-17 14:04] LABS: ALKALINE PHOSPHATASE 112 U/L (40-129); ALT/SGPT 61 U/L (7.0-40); AST/SGOT 29 U/L (<34); BILIRUBIN,DIRECT 0.1 MG/DL (<0.4); BILIRUBIN,TOTAL 0.3 MG/DL (0.3-1.2); BLOOD UREA NITROGEN 10 MG/DL (9-23); CALCIUM LEVEL 9.3 MG/DL (8.5-10.1); CARBON DIOXIDE LEVEL 27 MMOL/L (20-31); CHLORIDE LEVEL 100 MMOL/L (98-107); CHOLESTEROL LEVEL 127 MG/DL (<200); CHOLESTEROL RISK RATIO 3.71 (<5); CREATININE FOR GFR 0.69 MG/DL (0.70-1.30); GLOMERULAR FILTRATION RATE > 90.0 (>60); GLUCOSE, FASTING 86 MG/DL (60-100); HDL CHOLESTEROL 34.2 MG/DL (>40); LDL CHOLESTEROL 59.8 MG/DL (<100); NON-HDL-C 92.8 MG/DL; POTASSIUM SERUM 4.6 MMOL/L (3.5-5.1); SODIUM LEVEL 137 MMOL/L (136-145); TOTAL PROTEIN 8.3 G/DL (5.7-8.2); TRIGLYCERIDES LEVEL 165 MG/DL (<150)
[2024-12-17 14:12] LABS: HEPATITIS B SURFACE ANTIBODY POSITIVE (POSITIVE)
[2024-12-17 14:24] LABS: HEPATITIS B SURFACE ANTIGEN NEGATIVE (NEGATIVE)
[2024-12-17 14:44] LABS: HEPATITIS B CORE ANTIBODY IGM NEGATIVE (NEGATIVE)
[2024-12-17 14:47] LABS: HEPATITIS C VIRUS ABY INDEX 0.07 INDEX (<0.8)
[2024-12-18 19:44] LABS: LDL DIRECT 84 mg/dL (<100)
[2024-12-19 10:51] LABS: HEPATITIS B CORE ANTIBODY IGG NON-REACTIVE (NON-REACTIVE)
[2024-12-21 14:31] LABS: QuantiFERON-TB Gold Plus NEGATIVE (NEGATIVE)
== END ==
LOC: M PLALAB 10:16
PROVIDERS: ATTEND Registered Nurse
DX: Z79.899 Other long term (current) drug therapy (principal)

== ENCOUNTER → 2025-04-09 | Outpatient (CLI) | payer OTHER ==
[~2025-04-09] MED LIST changes: +DEPA250T PO; -DEPA250T2 PO
[2025-04-09 17:14] LABS: HIV 1&2 SCREEN NEGATIVE (NEGATIVE)
[2025-04-09 17:58] LABS: GC DNA AMPLIFICATION NEGATIVE (NEGATIVE)
== END ==
LOC: M PLALAB 14:12
DX: Z11.3 Encounter for screening for infections with a predominantly sexual mode of transmission (principal)

== ENCOUNTER → 2025-06-04 | Outpatient (REF) | payer OTHER ==
[~2025-06-04] MED LIST changes: -ZOLP5TAB PO; +ZOLP5TAB9 PO
== END ==
LOC: M SFHCPLAZ 20:04
PROVIDERS: ATTEND Family Medicine
DX: Z20.2 Contact with and (suspected) exposure to infections with a predominantly sexual mode of transmission (principal)

== ENCOUNTER → 2025-06-07 | Outpatient (CLI) | payer OTHER ==
[2025-06-07 18:32] LABS: HIV 1&2 SCREEN NEGATIVE (NEGATIVE)
== END ==
LOC: M WUC 13:51
DX: Z20.2 Contact with and (suspected) exposure to infections with a predominantly sexual mode of transmission (principal)

== ENCOUNTER → 2025-07-05 | Outpatient (CLI) | payer OTHER ==
[2025-07-05 13:18] LABS: BASO # 0.1 10^3/uL (0.0-0.2); BASO % 0.7 % (0.0-1.0); EOS # 0.3 10^3/uL (0.0-0.5); EOS % 3.6 % (0.0-3.0); LYMPH # 1.7 10^3/uL (1.5-5.0); LYMPH % 24.1 % (24.0-44.0); MONO # 0.8 10^3/uL (0.0-0.8); MONO % 11.3 % (2.0-8.0); NEUTROPHILS # 4.2 10^3/uL (1.5-8.5); NEUTROPHILS % 60.0 % (36.0-66.0); PLATELET COUNT, AUTOMATED 283 10^3/uL (150-450)
[2025-07-05 13:38] LABS: ALT/SGPT 49 U/L (7.0-40); AST/SGOT 27 U/L (<34); CALCIUM LEVEL 9.3 MG/DL (8.5-10.1); CARBON DIOXIDE LEVEL 29 MMOL/L (20-31); CHLORIDE LEVEL 102 MMOL/L (98-107); CHOLESTEROL LEVEL 124 MG/DL (<200); CHOLESTEROL RISK RATIO 4.26 (<5); CREATININE FOR GFR 0.81 MG/DL (0.70-1.30); GLOMERULAR FILTRATION RATE > 90.0 (>60); LDL CHOLESTEROL 63.7 MG/DL (<100); NON-HDL-C 94.9 MG/DL; POTASSIUM SERUM 4.6 MMOL/L (3.5-5.1); SODIUM LEVEL 139 MMOL/L (136-145); TRIGLYCERIDES LEVEL 156 MG/DL (<150)
[2025-07-05 13:46] LABS: HEPATITIS B SURFACE ANTIBODY POSITIVE (POSITIVE)
[2025-07-05 14:19] LABS: HEPATITIS C VIRUS ABY INDEX < 0.02 INDEX (<0.8)
[2025-07-06 07:42] LABS: LDL DIRECT 88 mg/dL (<100)
[2025-07-06 13:27] LABS: HEPATITIS B CORE ANTIBODY IGG NON-REACTIVE (NON-REACTIVE)
== END ==
LOC: M PLALAB 11:53
PROVIDERS: ATTEND Registered Nurse
DX: Z79.899 Other long term (current) drug therapy (principal)